=== PATIENT | male | born 1965 | race Caucasian/White ===

== ENCOUNTER 2019-06-30 14:25 | Outpatient (CLI) | payer OTHER, SELFPAY ==
[2019-06-30 15:28] LABS: Hematocrit 44.8 % (42.0-52.0); Hemoglobin 14.8 g/dL (14.0-18.0); Mean Corpuscular Hemoglobin 30.9 pg (26-34); Mean Corpuscular Volume 93.5 fl (80-100); Mean Platelet Volume 8.7 fl (7.4-10.4); Platelet Count Result 234 k/mm3 (150-375); Red Blood Count 4.79 M/mm3 (4.6-6.20); Red Cell Distribution Width 12.2 % (11.5-14.5); White Blood Count 6.4 K/mm3 (4.5-10.0)
[2019-06-30 15:40] LABS: Alanine Aminotransferase 21 U/L (4-50); Albumin Level 4.3 g/dL (3.5-5.1); Alkaline Phosphatase 58 U/L (38-126); Aspartate Amino Transferase 27 U/L (17-59); Bilirubin,Total 0.4 mg/dL (0.2-1.3); Blood Urea Nitrogen 20 mg/dL (9-20); Carbon Dioxide 30 mmol/L (22-30); Chloride 97 mmol/L (98-107); Estimated Glomerular Filt Rate 40; Glucose 77 mg/dL (75-110); Potassium 4.3 mmol/L (3.4-5.0); Sodium 140 mmol/L (137-145)
[2019-06-30 15:56] LABS: T4 Thyroxine 9.77 ug/dL (5.53-11.0)
[2019-06-30 16:09] LABS: Total Triiodothyronine (T3) 1.19 NG/ML (0.97-1.69)
[2019-06-30 16:10] LABS: Valproic Acid 46.5 ug/mL (50-120)
== END 2019-06-30 14:26 | disposition home or self-care (01) ==
PROVIDERS: PCP Internal Medicine
DX: Z79.899 Other long term (current) drug therapy (principal)
CPT/HCPCS: 36415; 80053; 80164; 84436; 84443; 84480; 85027

== ENCOUNTER 2019-07-28 08:56 | Outpatient (RCR) | payer OTHER, SELFPAY ==
--- NOTE | 2019-05-04 10:19 | PC.NURSE ---
PATIENT BROUGHT MEDICATION WITH HIM IN PHARMACY BOTTLE AND MARKED APPROPRIATELY.
== END 2019-07-29 23:59 | disposition home or self-care (01) ==
LOC: ANHLAB 08:56
PROVIDERS: PCP Internal Medicine
DX: F25.9 Schizoaffective disorder, unspecified (principal)
CPT/HCPCS: 96372

== ENCOUNTER 2019-10-13 12:56 | Outpatient (CLI) | payer OTHER, SELFPAY ==
[2019-10-13 13:43] LABS: Basophils Percent Auto 0.5 % (0.2-1.2); Eosinophils Absolute Auto 0.2 K/mm3 (0-0.3); Eosinophils Percent Auto 3.9 % (0-4.4); Hemoglobin 14.4 g/dL (14.0-18.0); Immature Granulocyte Absolute 0.03 K/mm3 (0.00-0.031); Immature Granulocyte Percent A 0.5 % (0-0.5); Lymphocytes Absolute Auto 1.83 K/mm3 (0.9-3.2); Lymphocytes Percent Auto 29.9 % (18.3-44.2); Mean Corpuscular HGB Conc 33.5 g/dl (32-36); Mean Corpuscular Volume 92.7 fl (80-100); Mean Platelet Volume 8.7 fl (7.4-10.4); Monocytes Absolute Auto 0.7 K/mm3 (0.1-0.6); Monocytes Percent Auto 10.8 % (2.6-8.5); Neutrophils Absolute Auto 3.3 K/mm3 (1.3-6.7); Neutrophils Percent Auto 54.4 % (45.5-73.1); Platelet Count Result 216 k/mm3 (150-375); Red Blood Count 4.64 M/mm3 (4.6-6.20); Red Cell Distribution Width 12.4 % (11.5-14.5); White Blood Count 6.1 K/mm3 (4.5-10.0)
[2019-10-13 13:44] LABS: Creatinine Urine 32.1 mg/dL; Total Protein Urine Random 12 mg/dL
[2019-10-13 13:47] LABS: Albumin Level 4.1 g/dL (3.5-5.1); Blood Urea Nitrogen 20 mg/dL (9-20); Calcium 9.6 mg/dL (8.4-10.2); Carbon Dioxide 31 mmol/L (22-30); Chloride 102 mmol/L (98-107); Estimated Glomerular Filt Rate 42; Glucose 84 mg/dL (75-110); Phosphorus 3.2 mg/dL (2.5-4.5); Potassium 4.7 mmol/L (3.4-5.0); Sodium 137 mmol/L (137-145)
[2019-10-13 13:53] LABS: Add Urine Microscopic? NO; Appearance Urine Clear (Clear); Bilirubin Urine Negative (Negative); Blood Urine Negative (Negative); Color Urine Straw (Yellow); Glucose Urine UA Negative (Negative); Ketones Urine Negative (Negative); Leukocyte Esterase Ur Negative LEU/UL (NEGATIVE); Nitrate Urine Negative (Negative); Protein Urine Negative (Negative); Specific Grav Ur 1.008 (1.001-1.035); Urobilinogen Urine Negative mg/dL (<2.0)
[2019-10-13 14:02] LABS: Parathyroid Intact 34.6 pg/mL (7.5-53.5)
== END 2019-10-13 12:57 | disposition home or self-care (01) ==
PROVIDERS: PCP Internal Medicine; Visit Provider Internal Medicine Nephrology
DX: N18.3 Chronic kidney disease, stage 3 (moderate) (principal)
CPT/HCPCS: 36415; 80069; 81003; 82570; 83970; 84156; 85025

== ENCOUNTER 2019-11-17 07:45 | Outpatient (RCR) | payer OTHER, SELFPAY | END 2019-11-23 23:59 | disposition home or self-care (01) | LOC: ANHLAB 07:45 | PROVIDERS: PCP Internal Medicine | DX: F25.9 Schizoaffective disorder, unspecified (principal) | CPT/HCPCS: 96372 ==

== ENCOUNTER 2020-02-15 12:13 | Outpatient (CLI) | payer OTHER, SELFPAY ==
[2020-02-15 13:54] LABS: Basophils Percent Auto 0.5 % (0.2-1.2); Eosinophils Absolute Auto 0.1 K/mm3 (0-0.3); Eosinophils Percent Auto 2.1 % (0-4.4); Hematocrit 44.6 % (42.0-52.0); Hemoglobin 15.1 g/dL (14.0-18.0); Immature Granulocyte Absolute 0.02 K/mm3 (0.00-0.031); Immature Granulocyte Percent A 0.3 % (0-0.5); Lymphocytes Absolute Auto 1.73 K/mm3 (0.9-3.2); Lymphocytes Percent Auto 26.5 % (18.3-44.2); Mean Corpuscular HGB Conc 33.9 g/dl (32-36); Mean Corpuscular Hemoglobin 30.6 pg (26-34); Mean Corpuscular Volume 90.5 fl (80-100); Mean Platelet Volume 8.6 fl (7.4-10.4); Monocytes Absolute Auto 0.7 K/mm3 (0.1-0.6); Monocytes Percent Auto 11.3 % (2.6-8.5); Neutrophils Absolute Auto 3.9 K/mm3 (1.3-6.7); Neutrophils Percent Auto 59.3 % (45.5-73.1); Platelet Count Result 209 k/mm3 (150-375); Red Blood Count 4.93 M/mm3 (4.6-6.20); Red Cell Distribution Width 12.3 % (11.5-14.5); White Blood Count 6.5 K/mm3 (4.5-10.0)
[2020-02-15 14:08] LABS: Alanine Aminotransferase 24 U/L (4-50); Albumin Level 4.3 g/dL (3.5-5.1); Alkaline Phosphatase 49 U/L (38-126); Anion Gap 8 mmol/L (8-16); Aspartate Amino Transferase 28 U/L (17-59); Bilirubin,Total 0.6 mg/dL (0.2-1.3); Blood Urea Nitrogen 17 mg/dL (9-20); Calcium 9.9 mg/dL (8.4-10.2); Carbon Dioxide 32 mmol/L (22-30); Chloride 101 mmol/L (98-107); Cholesterol 141 mg/dL (0-200); Estimated Glomerular Filt Rate 42; Glucose 83 mg/dL (75-110); HDL Direct 44 mg/dL; Potassium 4.7 mmol/L (3.4-5.0); Sodium 141 mmol/L (137-145); Triglycerides 113 mg/dL (<150)
[2020-02-15 14:19] LABS: LDL Cholesterol Direct 71 mg/dL
[2020-02-15 14:37] LABS: Prostate Specific Antigen 2.4 ng/mL (< OR = 4.0)
== END 2020-02-15 12:14 | disposition home or self-care (01) ==
LOC: ANHLAB 12:15
PROVIDERS: PCP Internal Medicine; Visit Provider Clinical Nurse Specialist
DX: Z13.228 Encounter for screening for other metabolic disorders (principal); Z13.220 Encounter for screening for lipoid disorders; Z12.5 Encounter for screening for malignant neoplasm of prostate; E03.9 Hypothyroidism, unspecified
CPT/HCPCS: 36415; 80053; 80061; 84153; 84443; 85025; G0103

== ENCOUNTER 2020-03-11 09:15 | Outpatient (RCR) | payer OTHER, SELFPAY | END 2020-03-14 23:59 | disposition home or self-care (01) | LOC: ANHLAB 09:15 | PROVIDERS: PCP Internal Medicine | DX: F25.9 Schizoaffective disorder, unspecified (principal) | CPT/HCPCS: 96372 ==

== ENCOUNTER 2020-04-11 11:26 | Outpatient (CLI) | payer OTHER, SELFPAY ==
[2020-04-11 12:15] LABS: Basophils Percent Auto 0.3 % (0.2-1.2); Eosinophils Absolute Auto 0.2 K/mm3 (0-0.3); Eosinophils Percent Auto 3.6 % (0-4.4); Hematocrit 42.1 % (42.0-52.0); Hemoglobin 14.4 g/dL (14.0-18.0); Immature Granulocyte Absolute 0.02 K/mm3 (0.00-0.031); Immature Granulocyte Percent A 0.3 % (0-0.5); Lymphocytes Absolute Auto 1.92 K/mm3 (0.9-3.2); Lymphocytes Percent Auto 29.2 % (18.3-44.2); Mean Corpuscular HGB Conc 34.2 g/dl (32-36); Mean Corpuscular Hemoglobin 31.4 pg (26-34); Mean Corpuscular Volume 91.7 fl (80-100); Mean Platelet Volume 8.5 fl (7.4-10.4); Monocytes Absolute Auto 0.7 K/mm3 (0.1-0.6); Monocytes Percent Auto 10.2 % (2.6-8.5); Neutrophils Absolute Auto 3.7 K/mm3 (1.3-6.7); Neutrophils Percent Auto 56.4 % (45.5-73.1); Platelet Count Result 209 k/mm3 (150-375); Red Blood Count 4.59 M/mm3 (4.6-6.20); Red Cell Distribution Width 12.4 % (11.5-14.5); White Blood Count 6.6 K/mm3 (4.5-10.0)
[2020-04-11 12:26] LABS: Anion Gap 5 mmol/L (8-16); Blood Urea Nitrogen 18 mg/dL (9-20); Calcium 9.4 mg/dL (8.4-10.2); Carbon Dioxide 34 mmol/L (22-30); Chloride 101 mmol/L (98-107); Estimated Glomerular Filt Rate 40; Glucose 89 mg/dL (75-110); Phosphorus 3.2 mg/dL (2.5-4.5); Potassium 5.2 mmol/L (3.4-5.0); Sodium 140 mmol/L (137-145)
[2020-04-11 12:35] LABS: Add Urine Microscopic? YES; Appearance Urine Clear (Clear); Bilirubin Urine Negative (Negative); Blood Urine Negative (Negative); Color Urine Yellow (Yellow); Glucose Urine UA Negative (Negative); Ketones Urine Negative (Negative); Leukocyte Esterase Ur Negative LEU/UL (NEGATIVE); Mucus Urine Rare /lpf; Nitrate Urine Negative (Negative); Protein Urine 1+ mg/dL (Negative); RBC Urine 0-2 /hpf (0-2); Specific Grav Ur 1.014 (1.001-1.035); Squamous Epithelial Cell Urine Rare /hpf (Few); Urobilinogen Urine Negative mg/dL (<2.0); WBC Urine 0-3 /hpf (0-3)
[2020-04-11 12:37] LABS: Parathyroid Intact 57.2 pg/mL (7.5-53.5)
[2020-04-11 12:58] LABS: Creatinine Urine 126.6 mg/dL
[2020-04-11 13:03] LABS: MALB Creatinine Ratio 14.2 mg/g (0-30)
== END 2020-04-11 11:27 | disposition home or self-care (01) ==
PROVIDERS: PCP Internal Medicine
DX: N18.30 Chronic kidney disease, stage 3 unspecified (principal)
CPT/HCPCS: 36415; 80069; 81001; 82043; 83970; 85025

== ENCOUNTER 2020-05-09 12:58 | Outpatient (CLI) | payer OTHER, SELFPAY ==
--- NOTE | 2020-05-13 11:47 | WPDHOLTEREM ---
Holter/Event Monitor Holter/Event Monitor Date of procedure: 05/09/20 Procedure Type: 48 hour holter monitor Indications: Palpitations Conclusion: 1. 48 hour holter monitor on 05/09/20. 2. Underlying rhythm is sinus rhythm. HR range 51-133 bpm; average HR 77 bpm. 3. There are 67 premature supraventricular complexes and 2 supraventricular couplets. No supraventricular tachycardia. 4. There is 1 premature ventricular complex. No ventricular tachycardia. 5. No sinoatrial or atrioventricular blocks. No significant pauses greater than 2 seconds. 6. No symptoms available for correlation.
== END 2020-05-09 12:59 | disposition home or self-care (01) ==
PROVIDERS: PCP Internal Medicine; Visit Provider Clinical Nurse Specialist
DX: R00.2 Palpitations (principal)
CPT/HCPCS: 93225; 93226; 96372

== ENCOUNTER 2020-08-01 08:25 | Outpatient (RCR) | payer OTHER, SELFPAY | END 2020-08-07 23:59 | disposition home or self-care (01) | LOC: ANHLAB 08:25 | PROVIDERS: PCP Internal Medicine | DX: F20.9 Schizophrenia, unspecified (principal) | CPT/HCPCS: 96372 ==

== ENCOUNTER 2020-08-25 14:01 | Outpatient (CLI) | payer OTHER, SELFPAY | END 2020-08-25 14:02 | disposition home or self-care (01) | LOC: ANHCOVIDVC 14:01 | PROVIDERS: PCP Internal Medicine | DX: Z23 Encounter for immunization (principal) | CPT/HCPCS: 0001A; 91300 ==

== ENCOUNTER 2020-09-15 13:58 | Outpatient (CLI) | payer OTHER, SELFPAY | END 2020-09-15 13:59 | disposition home or self-care (01) | LOC: ANHCOVIDVC 13:58 | PROVIDERS: PCP Internal Medicine | DX: Z23 Encounter for immunization (principal) | CPT/HCPCS: 0002A; 91300 ==

== ENCOUNTER 2020-10-11 08:51 | Outpatient (CLI) | payer OTHER, SELFPAY ==
[2020-10-11 09:11] LABS: Basophils Percent Auto 0.3 % (0.2-1.2); Eosinophils Absolute Auto 0.1 K/mm3 (0-0.3); Eosinophils Percent Auto 2.3 % (0-4.4); Hematocrit 42.6 % (42.0-52.0); Hemoglobin 14.2 g/dL (14.0-18.0); Immature Granulocyte Absolute 0.02 K/mm3 (0.00-0.031); Immature Granulocyte Percent A 0.3 % (0-0.5); Lymphocytes Absolute Auto 1.71 K/mm3 (0.9-3.2); Lymphocytes Percent Auto 28.3 % (18.3-44.2); Mean Corpuscular HGB Conc 33.3 g/dl (32-36); Mean Corpuscular Hemoglobin 31.3 pg (26-34); Mean Platelet Volume 8.3 fl (7.4-10.4); Monocytes Absolute Auto 0.9 K/mm3 (0.1-0.6); Monocytes Percent Auto 15.2 % (2.6-8.5); Neutrophils Absolute Auto 3.2 K/mm3 (1.3-6.7); Neutrophils Percent Auto 53.6 % (45.5-73.1); Platelet Count Result 187 k/mm3 (150-375); Red Blood Count 4.53 M/mm3 (4.6-6.20); Red Cell Distribution Width 12.5 % (11.5-14.5); White Blood Count 6.1 K/mm3 (4.5-10.0)
[2020-10-11 09:26] LABS: Albumin Level 4.1 g/dL (3.5-5.1); Anion Gap 7 mmol/L (8-16); Blood Urea Nitrogen 20 mg/dL (9-20); Calcium 9.5 mg/dL (8.4-10.2); Carbon Dioxide 29 mmol/L (22-30); Chloride 104 mmol/L (98-107); Estimated Glomerular Filt Rate 42; Glucose 87 mg/dL (75-110); Potassium 4.6 mmol/L (3.4-5.0); Sodium 140 mmol/L (137-145)
[2020-10-11 09:36] LABS: Parathyroid Intact 49.2 pg/mL (7.5-53.5)
== END 2020-10-11 08:52 | disposition home or self-care (01) ==
PROVIDERS: PCP Internal Medicine; Visit Provider Internal Medicine Nephrology
DX: N18.31 Chronic kidney disease, stage 3a (principal)
CPT/HCPCS: 36415; 80069; 83970; 85025

== ENCOUNTER 2020-10-19 07:04 | Outpatient (CLI) | payer OTHER, SELFPAY | END 2020-10-19 07:05 | disposition home or self-care (01) | PROVIDERS: PCP Internal Medicine; Visit Provider Internal Medicine | DX: I95.9 Hypotension, unspecified (principal) | CPT/HCPCS: 36415; 82533 ==

== ENCOUNTER 2020-11-10 12:05 | Outpatient (CLI) | payer OTHER, SELFPAY ==
[2020-11-10 12:40] LABS: Add Urine Microscopic? YES; Appearance Urine Clear (Clear); Bilirubin Urine Negative (Negative); Blood Urine Negative (Negative); Color Urine Straw (Yellow); Glucose Urine UA Negative (Negative); Ketones Urine Negative (Negative); Leukocyte Esterase Ur Trace LEU/UL (Negative); Nitrate Urine Negative (Negative); Protein Urine Negative (Negative); RBC Urine 0-2 /hpf (0-2); Specific Grav Ur 1.006 (1.001-1.035); Squamous Epithelial Cell Urine Rare /hpf (Few); Urobilinogen Urine Negative mg/dL (<2.0)
== END 2020-11-10 12:06 | disposition home or self-care (01) ==
LOC: ANHLAB 12:09
PROVIDERS: PCP Internal Medicine; Visit Provider Nurse Practitioner
DX: N39.0 Urinary tract infection, site not specified (principal)
CPT/HCPCS: 81001; 87086

== ENCOUNTER 2020-11-21 08:00 | Outpatient (RCR) | payer OTHER, SELFPAY | END 2020-11-27 23:59 | disposition home or self-care (01) | LOC: ANHLAB 08:00 | PROVIDERS: PCP Internal Medicine | DX: F25.9 Schizoaffective disorder, unspecified (principal) | CPT/HCPCS: 96372 ==

== ENCOUNTER 2021-01-01 12:24 | Outpatient (CLI) | payer OTHER, SELFPAY ==
--- NOTE | ~2021-01-01 | MR_ITS ---
EXAMINATION: MR brain/brain stem wo con DATE: 01/01/2021 13:47 INDICATION: Other amnesia. TECHNIQUE: Magnetic resonance imaging (MRI) of the brain and brainstem was performed without intraven ous contrast. Sequences included sagittal and axial T1-weighted FSE, axial diffusion-weighted FS EPI, axial T2*-weighted GRE, axial T2-weighted FLAIR Propeller, and axial T2-weighted Propeller. Apparent diffusion coefficient (ADC) maps were created. COMPARISON: Head CT 03/29/2014 FINDINGS: There is a small focus of chronic encephalomalacia with old blood products in the posterior right frontal lobe centrum semiovale. There are scattered areas of nonspecific increased T2-weighted signal intensity in the cerebral white matter, which is within normal limits for the patient's age. There is no acute ischemic infarct. The ventricles are normal in size. The orbits are normal. There i s mild mucosal thickening in the paranasal sinuses. The mastoid air cells are normal. IMPRESSION: 1. Small focus of chronic encephalomalacia with old blood products in the posterior right frontal lob e centrum semiovale. Reviewed, dictated and finalized at location A. IMPRESSION: 1. Small focus of chronic encephalomalacia with old blood products in the poste rior right frontal lobe centrum semiovale.
== END 2021-01-01 12:25 | disposition home or self-care (01) ==
PROVIDERS: PCP Internal Medicine; Visit Provider Clinical Nurse Specialist
DX: R41.3 Other amnesia (principal)
CPT/HCPCS: 70551

== ENCOUNTER 2021-01-15 18:01 | Emergency (ER) | payer OTHER, SELFPAY ==
[2021-01-15 18:04] VITALS: BP 147/96; PULSE 80; RESP 18; TEMP 36.9; O2SAT 99
--- NOTE | 2021-01-15 18:15 | PC.NURSE ---
tiffanie placed at pt bedside.
[2021-01-15 18:38] VITALS: BP 152/108; PULSE 88; RESP 16; O2SAT 100
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
[2021-01-15 18:57] LABS: Basophils Percent Auto 0.3 % (0.2-1.2); Eosinophils Absolute Auto 0.1 K/mm3 (0-0.3); Eosinophils Percent Auto 0.7 % (0-4.4); Hematocrit 46.4 % (42.0-52.0); Hemoglobin 15.5 g/dL (14.0-18.0); Immature Granulocyte Absolute 0.03 K/mm3 (0.00-0.031); Immature Granulocyte Percent A 0.3 % (0-0.5); Lymphocytes Absolute Auto 1.53 K/mm3 (0.9-3.2); Lymphocytes Percent Auto 15.5 % (18.3-44.2); Mean Corpuscular HGB Conc 33.4 g/dl (32-36); Mean Corpuscular Hemoglobin 31.7 pg (26-34); Mean Corpuscular Volume 94.9 fl (80-100); Mean Platelet Volume 8.3 fl (7.4-10.4); Monocytes Absolute Auto 0.9 K/mm3 (0.1-0.6); Monocytes Percent Auto 8.9 % (2.6-8.5); Neutrophils Absolute Auto 7.3 K/mm3 (1.3-6.7); Neutrophils Percent Auto 74.3 % (45.5-73.1); Platelet Count Result 232 k/mm3 (150-375); Red Blood Count 4.89 M/mm3 (4.6-6.20); Red Cell Distribution Width 12.3 % (11.5-14.5); White Blood Count 9.9 K/mm3 (4.5-10.0)
[2021-01-15 19:13] LABS: Alanine Aminotransferase 22 U/L (4-50); Albumin Level 4.6 g/dL (3.5-5.1); Alkaline Phosphatase 58 U/L (38-126); Anion Gap 11 mmol/L (8-16); Aspartate Amino Transferase 28 U/L (17-59); Bilirubin,Total 0.4 mg/dL (0.2-1.3); Blood Urea Nitrogen 26 mg/dL (9-20); Carbon Dioxide 28 mmol/L (22-30); Chloride 101 mmol/L (98-107); Estimated CRCL calculation 52 ml/min; Estimated Glomerular Filt Rate 40; Glucose 107 mg/dL (65-110); Potassium 4.5 mmol/L (3.4-5.0); Sodium 140 mmol/L (137-145)
[2021-01-15 19:21] LABS: Ethanol < 10 mg/dL (<10)
[2021-01-15 19:53] LABS: Add Urine Microscopic? YES; Appearance Urine Clear (Clear); Bacteria Urine Trace /hpf; Bilirubin Urine Negative (Negative); Blood Urine Negative (Negative); Color Urine Straw (Yellow); Glucose Urine UA Negative (Negative); Ketones Urine Negative (Negative); Leukocyte Esterase Ur Trace LEU/UL (Negative); Nitrate Urine Negative (Negative); Protein Urine Negative (Negative); RBC Urine 0-2 /hpf (0-2); Specific Grav Ur 1.006 (1.001-1.035); Urobilinogen Urine Negative mg/dL (<2.0); WBC Urine 0-3 /hpf
[2021-01-15 20:11] LABS: Amphetamine Screen Urine Negative (Negative); Barbiturate Screen Urine Negative (Negative); Benzodiazepines Screen Urine Negative (Negative); Cannabinoid Screen Urine Negative (Negative); Cocaine Screen Urine Negative (Negative); Methadone Screen Urine Negative (Negative); Opiate Screen Urine Negative (Negative); Phencyclidine Screen Urine Negative (Negative)
[2021-01-15 21:38] LABS: EDCOVIDSCREEN Negative (Negative)
--- NOTE | 2021-01-15 21:41 | PC.NURSE ---
crisis called @ 2099, crisis @ bedside @ 2129
[2021-01-15 22:58] VITALS: BP 133/87; PULSE 72; RESP 18; O2SAT 98
--- NOTE | 2021-01-16 03:08 | PC.NURSE ---
melly called ,pt is excepted for admitt via
[2021-01-16 03:20] VITALS: BP 126/92; PULSE 62; RESP 16; O2SAT 100
--- NOTE | 2021-01-16 05:10 | PC.NURSE ---
report to lawrence roman @ [facility]
--- NOTE | 2021-01-16 05:39 | PC.NURSE ---
Called [facility] to transport patient to [facility]. ETA [id number]
== END 2021-01-16 06:18 ==
PROVIDERS: Physician Assistant; Emergency Provider Emergency Medicine; PCP Internal Medicine
DX: F20.9 Schizophrenia, unspecified (principal); Z20.822 Contact with and (suspected) exposure to COVID-19; E03.9 Hypothyroidism, unspecified; K21.9 Gastro-esophageal reflux disease without esophagitis; N18.9 Chronic kidney disease, unspecified; K22.70 Barrett's esophagus without dysplasia; Z85.01 Personal history of malignant neoplasm of esophagus
CPT/HCPCS: 36415; 80053; 80307; 81001; 84443; 85025; 87426; 99285; C9803

== ENCOUNTER 2021-01-26 11:58 | Inpatient (IN) | payer OTHER, SELFPAY ==
--- NOTE | ~2021-01-26 | CT_ITS ---
EXAMINATION: CT brain wo con INDICATION: Weakness COMPARISON: 03/29/2014 TECHNIQUE: Standard unenhanced head CT. The dose-length product (DLP) was 681.00 mGy-cm. The mA was a djusted according to patient size. Iterative reconstruction technique was employed. FINDINGS: There is no intracranial hemorrhage, acute infarction, or abnormal mass lesion. The ventric les are normal. There is no abnormal mass effect or midline shift. The leija-white matter differentiat ion is normal. The basal cisterns are patent. The orbits are normal. There is mild mucosal thickening of the paranasal sinuses. IMPRESSION: 1. No acute intracranial abnormality. Reviewed, dictated and finalized at location A.
--- NOTE | ~2021-01-26 | XR_ITS ---
EXAMINATION: XR chest 1V portable DATE: 01/26/2021 12:26 INDICATION: Weakness TECHNIQUE: frontal view of the chest was obtained. COMPARISON: Chest radiograph dated 12/14/2016 FINDINGS: The lungs remain clear with no focal airspace opacities, pulmonary edema, pleural effusion or pneumot horax. The cardiomediastinal silhouette is normal. Visualized bones and soft tissues are unremarkable . IMPRESSION: 1. No acute cardiopulmonary disease. Reviewed, dictated and finalized at location A.
[2021-01-26 12:03] VITALS: BP 125/92; PULSE 105; RESP 20; TEMP 37.1; O2SAT 95
--- NOTE | 2021-01-26 12:16 | ECG_ITS ---
Measurements Intervals [place] Rate: 95 P: 87 NC: 149 QRS: 63 QRSD: 114 T: 41 QT: 351 QTc: 442 Interpretive Statements SINUS RHYTHM ST ELEVATION IN DIFFUSE LEADS- CONSIDER EARLY REPOLARIZATION ABNORMALITY OR PERICARDITIS BASELINE ARTIFACT- I, III, AVL, AVF, V2 ABNORMAL ECG Electronically Signed On 01-26-2021 13:46:43 CDT by Delio Persaud D.O.
[2021-01-26 13:10] LABS: Basophils Percent Auto 0.4 % (0.2-1.2); Eosinophils Absolute Auto 0.1 K/mm3 (0-0.3); Eosinophils Percent Auto 0.8 % (0-4.4); Hematocrit 47.2 % (42.0-52.0); Hemoglobin 15.5 g/dL (14.0-18.0); Immature Granulocyte Absolute 0.03 K/mm3 (0.00-0.031); Immature Granulocyte Percent A 0.4 % (0-0.5); Lymphocytes Absolute Auto 1.27 K/mm3 (0.9-3.2); Mean Corpuscular HGB Conc 32.8 g/dl (32-36); Mean Corpuscular Hemoglobin 32.2 pg (26-34); Mean Corpuscular Volume 97.9 fl (80-100); Mean Platelet Volume 8.6 fl (7.4-10.4); Monocytes Absolute Auto 0.8 K/mm3 (0.1-0.6); Monocytes Percent Auto 9.9 % (2.6-8.5); Neutrophils Absolute Auto 5.8 K/mm3 (1.3-6.7); Neutrophils Percent Auto 72.5 % (45.5-73.1); Platelet Count Result 231 k/mm3 (150-375); Red Blood Count 4.82 M/mm3 (4.6-6.20); Red Cell Distribution Width 12.3 % (11.5-14.5)
[2021-01-26] MEDS: SODIUM CHLORIDE 0.9% IV 1,000 ML 999 ML IV CONT ×2 (13:12→17:08)
[2021-01-26 13:16] LABS: Alanine Aminotransferase 19 U/L (4-50); Albumin Level 4.6 g/dL (3.5-5.1); Alkaline Phosphatase 55 U/L (38-126); Anion Gap 10 mmol/L (8-16); Aspartate Amino Transferase 23 U/L (17-59); Bilirubin,Total 0.9 mg/dL (0.2-1.3); Blood Urea Nitrogen 30 mg/dL (9-20); Calcium 10.3 mg/dL (8.4-10.2); Carbon Dioxide 26 mmol/L (22-30); Chloride 105 mmol/L (98-107); Creatine Kinase 168 U/L (55-170); Estimated CRCL calculation 38 ml/min; Estimated Glomerular Filt Rate 28; Glucose 112 mg/dL (65-110); Potassium 4.8 mmol/L (3.4-5.0); Sodium 141 mmol/L (137-145)
[2021-01-26 13:19] LABS: Acetaminophen < 10 ug/mL (10-30); Ethanol < 10 mg/dL (<10); Salicylate < 1.0 mg/dL (2-20)
--- NOTE | 2021-01-26 13:44 | ED.GENADULT ---
HPI - General Adult General Chief complaint: Weakness Stated complaint: WEAKNESS Source: patient and family Limitations: no limitations History of Present Illness HPI narrative: Patient presents with general weakness for unknown duration. Patient is telling me that he felt sometimes in the past and struck his head. Patient denies any fever, chills, nausea, vomiting, chest pain, shortness of breath, abdominal pain, headache. History of schizophrenia. Patient denies any pain at this time patient's mother at the bedside who does not know anything about the patient either. Related Data Home Medications Medication Instructions Recorded Confirmed clonazepam 01/26/21 divalproex PO 01/26/21 gabapentin 01/26/21 haloperidol decanoate mg IM 01/26/21 lamotrigine 01/26/21 levothyroxine 01/26/21 midodrine mg 01/26/21 omeprazole 01/26/21 trihexyphenidyl 01/26/21 Allergies Allergy/AdvReac Type Severity Reaction Status Date / Time No Known Allergies Allergy Verified 01/26/21 13:19 Review of Systems Review of Systems: CONSTITUTIONAL: Denies fever, chills, or sweats. EYES: Denies visual changes, redness, or discharge. ENT: Denies rhinorrhea, congestion, sore throat, or otalgia. CARDIOVASCULAR: Denies chest pain, palpitations, or edema. RESPIRATORY: Denies cough or dyspnea. GASTROINTESTINAL: Denies abdominal pain, nausea, vomiting, or diarrhea. GENITOURINARY: Denies dysuria or hematuria. SKIN: Denies rash or itching. MUSCULOSKELETAL: Denies back pain, joint pain, or myalgia. NEUROLOGIC: Denies headache, numbness, or weakness. PSYCHIATRIC: Denies anxiety or depression. [facility] Past Medical History Medical History Harris esophagus CKD (chronic kidney disease) Esophageal cancer GERD (gastroesophageal reflux disease) Hypothyroidism Occasional tremors Schizophrenia Surgical History Surgical History History of nephrectomy Family History Family History Mother Hypertension Father Family history of Alzheimer's disease Malignant neoplasm of prostate Social History Social History Smoking status: Never smoker Alcohol intake: never Substance use type: does not use Exam Narrative: General appearance: Well-developed, well-nourished Skin: Normal color Head: Normocephalic, nontraumatic Eyes: Clear conjunctiva ENT: Oropharynx normal, ears normal, nose normal Neck: Supple, nontender Chest and respiratory: Airway patent, no respiratory distress, no accessory muscle use Heart: Regular rate/rhythm Abdomen: Soft, nontender, no organomegaly, quiet bowel sounds Vascular: Normal peripheral pulses, normal capillary refill. Musculoskeletal: Normal range of motion, nontender back Neurologic: Alert and oriented ?3, [employer] is normal as tested, no gross motor deficit Course Vital Signs Vital signs: Vital Signs Temperature 37.1 C 01/26/21 12:03 Pulse Rate 105 H 01/26/21 12:03 Respiratory Rate 20 01/26/21 12:03 Blood Pressure 125/92 H 01/26/21 12:03 Pulse Oximetry 95 01/26/21 12:03 Temperature 37.1 C 01/26/21 12:03 Pulse Rate 89 01/26/21 15:28 Respiratory Rate 20 01/26/21 15:28 Blood Pressure 123/88 01/26/21 15:28 Pulse Oximetry 98 01/26/21 15:28 Medical Decision Making MDM Narrative Medical decision making narrative: Patient presents with weakness, poor historian, Differential diagnosis as below. Labs, chest x-ray, CT head, IV fluids, UA Differential Diagnosis Differential Diagnosis: Electr
[2021-01-26 14:26] LABS: Prothrombin Time 13.1 Seconds (11.1-14.7)
[2021-01-26 15:28] VITALS: BP 123/88; PULSE 89; RESP 20; O2SAT 98
[2021-01-26 15:38] LABS: Add Urine Microscopic? YES; Appearance Urine Clear (Clear); Bilirubin Urine Negative (Negative); Color Urine Yellow (Yellow); Glucose Urine UA Negative (Negative); Ketones Urine Negative (Negative); Leukocyte Esterase Ur 1+ LEU/UL (Negative); Nitrate Urine Negative (Negative); Protein Urine Negative (Negative); Specific Grav Ur 1.019 (1.001-1.035); WBC Urine 21-30 /hpf
[2021-01-26 15:40] LABS: Blood Urine Negative (Negative)
[2021-01-26 15:43] LABS: Amphetamine Screen Urine Negative (Negative); Barbiturate Screen Urine Negative (Negative); Benzodiazepines Screen Urine Negative (Negative); Cannabinoid Screen Urine Negative (Negative); Cocaine Screen Urine Negative (Negative); Methadone Screen Urine Negative (Negative); Opiate Screen Urine Negative (Negative); Phencyclidine Screen Urine Negative (Negative)
[2021-01-26 17:00] VITALS: BP 125/90; PULSE 80; RESP 20; O2SAT 100
[2021-01-26 20:13] VITALS: BP 142/94; PULSE 87; RESP 16; TEMP 37.2; O2SAT 99
[2021-01-26] MEDS: SODIUM CHLORIDE 0.9% IV 1,000 ML 200 ML IV CONT (21:12)
--- NOTE | 2021-01-26 21:16 | ADMGEN ---
This patient, Bebo Casey, was admitted to Medical Room 258-01. Patient/family oriented to hospital policies and general routines including ID bracelet, bed and alarms, visiting hours, pain management, procedures, bathroom and other care routines, personal items, smoking policy, room service/diet, and visiting hours. Information on how to activate the Rapid Response Team has been discussed. Patient/Family are encouraged to report perceived risks to care and to ask questions if they do not understand what they are told or what they should do.
[2021-01-26 21:18] VITALS: BP 131/85; PULSE 100; RESP 20; TEMP 36.9; O2SAT 98
--- NOTE | 2021-01-26 21:27 | PM.IMHP ---
H&P: HPI History of Present Illness Date/Time: 01/26/21 21:27 Chief Complaint: Weakness Narrative: This is a 55-year-old male with past medical history significant for GERD, Harris's esophagus, chronic kidney disease, sulfa year cancer, hypothyroidism, schizophrenia, occasional tremors. Patient presented today to the emergency room due to feeling very weak unable to get up from the sitting position and had an episode where he could not remember how to use his phone and was very scared about these he felt like he would be a stuck in his house he has had very poor appetite, but no nausea, no vomiting ,no diarrhea no abdominal pain, no fevers ,no rigors, no chills ,no shortness of breath, no cough, no sputum production, no syncope or near syncope no chest pain no PND no orthopnea no leg swelling. His mother came to check on him and called EMS. Preliminary workup was significant for chemistry panel with a creatinine of 2.4, urinalysis with numerous wbc's present, a chest x-ray was clear a CT of the head with no acute findings. Review of Systems Review of Systems: Patient had episode of confusion did not know how to dialed his phone and was very weak unable to get up on his own. Constitutional: Constitutional: Denies chills, Denies fatigue, Denies fever(s), Reports lethargy and Reports weakness Eyes: Eyes: Denies change in vision ENT: Denies dysphagia, Denies nasal congestion, Denies nasal discharge, Denies nasal obstruction and Denies odynophagia Cardiovascular: Cardiovascular: Denies chest pain at rest, Denies irregular heart rhythm, Denies claudication, Denies leg edema, Denies lightheadedness, Denies radiating jaw, neck or arm pain, Denies palpitations, Denies dyspnea, Denies dyspnea on exertion and Denies orthopnea Respiratory: Respiratory: Denies chest congestion, Denies cough, Denies excessive phlegm production, Denies dyspnea and Denies dyspnea on exertion Gastrointestinal: Gastrointestinal: Denies abdominal pain, Denies dyspepsia, Denies heartburn, Denies diarrhea, Denies nausea and Denies vomiting Genitourinary: Genitourinary: Denies urinary frequency, Denies urinary hesitancy, Denies urinary incontinence and Denies urinary urgency Musculoskeletal: Musculoskeletal: Reports muscle weakness Integumentary/Breasts: Skin/Breast: Reports system reviewed and no additional complaints, except as docu Neurologic: Reports system reviewed and no additional complaints, except as documented Psychiatric: Psychiatric: Reports no additional psychiatric complaints Endocrine: Endocrine: Reports no additional endocrine complaints Hematologic/Lymphatic: Hematologic/Lymphatic: Reports no additional hematologic/lymphatic complaints Allergic/Immunologic: Allergic/Immunologic: Reports no additional allergic/immunologic complaints PMFSH Past Medical History Medical History Harris esophagus CKD (chronic kidney disease) Esophageal cancer GERD (gastroesophageal reflux disease) Hypothyroidism Occasional tremors Schizophrenia Surgical History Surgical History History of nephrectomy Family History Family History Mother Hypertension Father Family history of Alzheimer's disease Malignant neoplasm of prostate Social History Social History Smoking status: Never smoker Alcohol intake: never Substance use: never Substance use type: does not use Spiritual care concerns: No Meds Home Medications and Allergies Home Medications Medication Instructions Recorded Confirmed Type clonazepam 0.5 mg PO BID 01/26/21 01/26/21 History divalproex 500 mg PO BID 01/26/21 01/26/21 History gabapentin 300 mg PO BID 01/26/21 01/26/21 History haloperidol decanoate 150 mg IM DIRECTED 01/26/21 01/26/21 History lamotrigine 100 mg PO DAILY
--- NOTE | 2021-01-26 22:00 | PC.NURSE ---
called [facility] on 01/26/21 at 2145 to verify pt medications.
[2021-01-26] MEDS: DIVALPROEX SODIUM DR 250 MG TABEC 500 MG PO (23:58)
[2021-01-26] MEDS: GABAPENTIN 300 MG CAPSULE PO (23:58)
[2021-01-27] VITALS (10 sets, daily range): BP systolic 123–145; BP diastolic 70–88; PULSE 70–98; RESP 16–20; TEMP 35.9–36.9; O2SAT 98–100
[2021-01-27] MEDS: SODIUM CHLORIDE 0.9% IV 1,000 ML 85 ML IV CONT ×2 (05:30→17:57)
[2021-01-27] MEDS: LEVOTHYROXINE SODIUM 100 MCG TABLET PO (05:31)
[2021-01-27 07:13] LABS: Anion Gap 8 mmol/L (8-16); Blood Urea Nitrogen 25 mg/dL (9-20); Calcium 9.2 mg/dL (8.4-10.2); Carbon Dioxide 24 mmol/L (22-30); Chloride 111 mmol/L (98-107); Estimated CRCL calculation 49 ml/min; Estimated Glomerular Filt Rate 40; Glucose 95 mg/dL (65-110); Potassium 4.5 mmol/L (3.4-5.0); Sodium 143 mmol/L (137-145)
[2021-01-27] MEDS: TRIHEXYPHENIDYL HCL 1 MG TABLET PO ×2 (08:52→16:35)
[2021-01-27] MEDS: lamoTRIgine 100 MG TABLET PO (08:53)
[2021-01-27] MEDS: MIDODRINE HCL 2.5 MG TABLET PO ×3 (08:53→15:57)
[2021-01-27] MEDS: GABAPENTIN 300 MG CAPSULE PO ×2 (08:53→20:33)
[2021-01-27] MEDS: DIVALPROEX SODIUM DR 250 MG TABEC 500 MG PO ×2 (08:53→16:36)
[2021-01-27] MEDS: PANTOPRAZOLE 40 MG TABLET PO ×2 (08:53→16:36)
[2021-01-27] MEDS: TRIHEXYPHENIDYL HCL 2 MG TABLET 4 MG PO ×2 (08:55→16:36)
[2021-01-27] MEDS: clonazePAM (*CRX) 0.5 MG TABLET PO ×2 (09:01→16:46)
--- NOTE | 2021-01-27 09:29 | PM.IMPN ---
Progress Note: A&P Assessment and Plan (1) Urinary tract infection: Qualifiers: Hematuria presence: without hematuria Urinary tract infection type: site unspecified Qualified Code(s): N39.0 - Urinary tract infection, site not specified Code(s): N39.0 - Urinary tract infection, site not specified Status: Acute Assessment and Plan: Slight confusion Rocephin started Urine culture pending Tailor antibiotics to culture (2) OBEY (acute kidney injury): Code(s): N17.9 - Acute kidney failure, unspecified Status: Acute Assessment and Plan: Creatinine today is 2.40 upon admission today 1.80 Baseline 1.7-1.9 Likely pre renal azotemia IV fluids 85 ml/hr (3) Weakness: Code(s): R53.1 - Weakness Status: Acute Assessment and Plan: PT OT Likely secondary to UTI Equal strength bilaterally (4) Arm and leg movements, uncontrollable: Code(s): R25.8 - Other abnormal involuntary movements Status: Acute Assessment and Plan: probably from home medications probably EPS Continue home meds Stable (5) GERD (gastroesophageal reflux disease): Code(s): K21.9 - Gastro-esophageal reflux disease without esophagitis Status: Acute Assessment and Plan: Continue PPI (6) Schizophrenia: Qualifiers: Schizophrenia type: unspecified Qualified Code(s): F20.9 - Schizophrenia, unspecified Code(s): F20.9 - Schizophrenia, unspecified Status: Acute Assessment and Plan: Continue home meds Trend symptoms Could be having some symptoms now with the interview Haldol is q4 weeks hold for now looks like last dose was 01/17/21 (7) Orthostatic hypotension: Code(s): I95.1 - Orthostatic hypotension Status: Acute Assessment and Plan: Reorder Receiving IV fluids Supportive care Time Spent With Patient Time with patient: 25 - 35 minutes Subjective Date/time seen: 01/27/21 07:50 Interval history: Patient is a 55 year old male that is here for weakness. Today patient stated that he is feeling fine, except he is unable to move his legs. He stated that this is the reason he was on the floor. He stated that he knew he should not of gotten up and kept telling himself not to get up, but they told him to do it anyway, which I think is voices in his head. He kept referring back to the same thing every time he would answer a question. He then went into a story about fruit flies and a wasp that he killed on the floor. He also brought up the time when his dad . He is alert and oriented x 3. He is disoriented to the situation as he kept telling me that he is here because he cannot move his legs. He denied chest pain, shortness of breath, nausea, vomiting, abdominal pain, fevers, sweats, or chills. He did admit to weakness and fatigue. If asked how long he was on the floor he tells me that it was all a blur. He did state that he would want PT/OT to come and evaluate him, and he would like to stand. Review of Systems Review of Systems: All systems reviewed & are unremarkable except as noted in HPI and below Exam Const: General: cooperative, comfortable, no acute distress, well developed, alert and awake Nutritional Appearance: average body habitus Orientation/consciousness: patient oriented x3 HENMT: Head: normal to inspection, normocephalic and atraumatic Ears: hearing grossly normal bilaterally General nose exam: Normal external nose present Face and sinus: normal facial exam Mouth: Yes Normal oral and palatal mucosa present Eyes: General: appearance normal, both eyes and all related structures Alignment and Position: alignment normal Sclera: sclerae normal Pupils: Equal, round and reactive pupils present EOM: EOMs intact bilaterally Neck: Neck: full ROM, no lymphadenopathy, supple and no JVD Thyroid: thyroid normal Lymphatic: no
[2021-01-27 09:55] LABS: Creatine Kinase 45 U/L (55-170)
[2021-01-28] MEDS: LEVOTHYROXINE SODIUM 100 MCG TABLET PO (05:36)
[2021-01-28] MEDS: SODIUM CHLORIDE 0.9% IV 1,000 ML 85 ML IV CONT ×2 (05:39→17:12)
[2021-01-28 05:49] VITALS: BP 128/86; PULSE 73; RESP 18; TEMP 36.6; O2SAT 99
[2021-01-28 06:17] LABS: Basophils Percent Auto 0.7 % (0.2-1.2); Eosinophils Absolute Auto 0.2 K/mm3 (0-0.3); Eosinophils Percent Auto 3.3 % (0-4.4); Hematocrit 41.7 % (42.0-52.0); Hemoglobin 13.6 g/dL (14.0-18.0); Immature Granulocyte Absolute 0.02 K/mm3 (0.00-0.031); Immature Granulocyte Percent A 0.3 % (0-0.5); Lymphocytes Absolute Auto 1.92 K/mm3 (0.9-3.2); Lymphocytes Percent Auto 31.4 % (18.3-44.2); Mean Corpuscular HGB Conc 32.6 g/dl (32-36); Mean Corpuscular Hemoglobin 31.9 pg (26-34); Mean Corpuscular Volume 97.9 fl (80-100); Mean Platelet Volume 8.7 fl (7.4-10.4); Monocytes Absolute Auto 0.7 K/mm3 (0.1-0.6); Monocytes Percent Auto 11.3 % (2.6-8.5); Neutrophils Absolute Auto 3.2 K/mm3 (1.3-6.7); Platelet Count Result 185 k/mm3 (150-375); Red Blood Count 4.26 M/mm3 (4.6-6.20); White Blood Count 6.1 K/mm3 (4.5-10.0)
[2021-01-28 06:30] LABS: Alanine Aminotransferase 17 U/L (4-50); Albumin Level 3.4 g/dL (3.5-5.1); Alkaline Phosphatase 45 U/L (38-126); Anion Gap 8 mmol/L (8-16); Aspartate Amino Transferase 21 U/L (17-59); Bilirubin,Total 0.5 mg/dL (0.2-1.3); Blood Urea Nitrogen 23 mg/dL (9-20); Calcium 8.8 mg/dL (8.4-10.2); Carbon Dioxide 26 mmol/L (22-30); Chloride 109 mmol/L (98-107); Estimated CRCL calculation 52 ml/min; Estimated Glomerular Filt Rate 42; Glucose 87 mg/dL (65-110); Magnesium 1.9 mg/dL (1.6-2.3); Potassium 5.1 mmol/L (3.4-5.0); Sodium 143 mmol/L (137-145)
[2021-01-28] MEDS: clonazePAM (*CRX) 0.5 MG TABLET PO ×2 (08:11→17:14)
[2021-01-28] MEDS: lamoTRIgine 100 MG TABLET PO (08:11)
[2021-01-28] MEDS: MIDODRINE HCL 2.5 MG TABLET PO ×3 (08:11→15:40)
[2021-01-28] MEDS: TRIHEXYPHENIDYL HCL 2 MG TABLET 4 MG PO ×2 (08:11→17:14)
[2021-01-28] MEDS: GABAPENTIN 300 MG CAPSULE PO ×2 (08:11→20:55)
[2021-01-28] MEDS: TRIHEXYPHENIDYL HCL 1 MG TABLET PO ×2 (08:11→17:14)
[2021-01-28] MEDS: DIVALPROEX SODIUM DR 250 MG TABEC 500 MG PO ×2 (08:11→17:15)
[2021-01-28] MEDS: PANTOPRAZOLE 40 MG TABLET PO ×2 (08:52→17:14)
[2021-01-28 14:15] VITALS: BP 136/84; PULSE 88; RESP 16; TEMP 36.3; O2SAT 100
--- NOTE | 2021-01-28 15:12 | PM.IMPN ---
Progress Note: A&P Assessment and Plan (1) Urinary tract infection: Qualifiers: Hematuria presence: without hematuria Urinary tract infection type: site unspecified Qualified Code(s): N39.0 - Urinary tract infection, site not specified Code(s): N39.0 - Urinary tract infection, site not specified Status: Acute Assessment and Plan: Slight confusion Rocephin started Urine culture pending Tailor antibiotics to culture (2) OBEY (acute kidney injury): Code(s): N17.9 - Acute kidney failure, unspecified Status: Acute Assessment and Plan: Creatinine today is 2.40 upon admission today 1.80 Baseline 1.7-1.9 Likely pre renal azotemia IV fluids 85 ml/hr (3) Weakness: Code(s): R53.1 - Weakness Status: Acute Assessment and Plan: PT OT Likely secondary to UTI Equal strength bilaterally (4) Arm and leg movements, uncontrollable: Code(s): R25.8 - Other abnormal involuntary movements Status: Acute Assessment and Plan: probably from home medications probably EPS Continue home meds Stable (5) GERD (gastroesophageal reflux disease): Code(s): K21.9 - Gastro-esophageal reflux disease without esophagitis Status: Acute Assessment and Plan: Continue PPI (6) Schizophrenia: Qualifiers: Schizophrenia type: unspecified Qualified Code(s): F20.9 - Schizophrenia, unspecified Code(s): F20.9 - Schizophrenia, unspecified Status: Acute Assessment and Plan: Continue home meds Trend symptoms Could be having some symptoms now with the interview Haldol is q4 weeks hold for now looks like last dose was 01/17/21 (7) Orthostatic hypotension: Code(s): I95.1 - Orthostatic hypotension Status: Acute Assessment and Plan: Reorder Receiving IV fluids Supportive care Subjective Date/time seen: 01/28/21 15:12 Interval history: Patient is a 55 year old male who is admitted for evaluation of weakness. He seem unable to move his legs. He would want PT/OT to come and evaluate him, and he would like to be able to stand. Review of Systems Review of Systems: All systems reviewed & are unremarkable except as noted in HPI and below Constitutional: Constitutional: Denies chills, Denies fatigue, Denies fever(s), Reports lethargy and Reports weakness Eyes: Eyes: Denies change in vision ENT: Denies dysphagia, Denies nasal congestion, Denies nasal discharge, Denies nasal obstruction and Denies odynophagia Cardiovascular: Cardiovascular: Denies chest pain at rest, Denies irregular heart rhythm, Denies claudication, Denies leg edema, Denies lightheadedness, Denies radiating jaw, neck or arm pain, Denies palpitations, Denies dyspnea, Denies dyspnea on exertion and Denies orthopnea Respiratory: Respiratory: Denies chest congestion, Denies cough, Denies excessive phlegm production, Denies dyspnea and Denies dyspnea on exertion Gastrointestinal: Gastrointestinal: Denies abdominal pain, Denies dysphagia, Denies dyspepsia, Denies heartburn, Denies diarrhea, Denies nausea, Denies odynophagia and Denies vomiting Genitourinary: Genitourinary: Denies urinary frequency, Denies urinary hesitancy, Denies urinary incontinence and Denies urinary urgency Musculoskeletal: Musculoskeletal: Reports muscle weakness Integumentary/Breasts: Skin/Breast: Reports system reviewed and no additional complaints, except as docu Neurologic: Reports system reviewed and no additional complaints, except as documented and Reports weakness Psychiatric: Psychiatric: Reports no additional psychiatric complaints Endocrine: Endocrine: Reports no additional endocrine complaints, Denies fatigue and Denies palpitations Hematologic/Lymphatic: Hematologic/Lymphatic: Reports no additional hematologic/lymphatic complaints Allergic/Immunologic: Allergic/Immunologic: Reports no
[2021-01-28 20:00] VITALS: O2SAT 100
[2021-01-28 22:03] VITALS: BP 166/62; PULSE 77; RESP 18; TEMP 36; O2SAT 100
[2021-01-29 05:59] VITALS: BP 119/58; PULSE 81; RESP 18; TEMP 36.4; O2SAT 99
[2021-01-29] MEDS: SODIUM CHLORIDE 0.9% IV 1,000 ML 85 ML IV CONT ×2 (06:03→17:12)
[2021-01-29] MEDS: LEVOTHYROXINE SODIUM 100 MCG TABLET PO (06:03)
[2021-01-29] MEDS: MIDODRINE HCL 2.5 MG TABLET PO ×3 (09:00→15:00)
[2021-01-29] MEDS: DIVALPROEX SODIUM DR 250 MG TABEC 500 MG PO ×2 (09:00→17:12)
[2021-01-29] MEDS: TRIHEXYPHENIDYL HCL 2 MG TABLET 4 MG PO ×2 (09:01→17:13)
[2021-01-29] MEDS: GABAPENTIN 300 MG CAPSULE PO ×2 (09:01→20:37)
[2021-01-29] MEDS: clonazePAM (*CRX) 0.5 MG TABLET PO ×2 (09:01→17:12)
[2021-01-29] MEDS: lamoTRIgine 100 MG TABLET PO (09:01)
[2021-01-29] MEDS: PANTOPRAZOLE 40 MG TABLET PO ×2 (09:01→17:13)
[2021-01-29] MEDS: TRIHEXYPHENIDYL HCL 1 MG TABLET PO ×2 (09:01→17:13)
--- NOTE | 2021-01-29 10:24 | PM.IMPN ---
Progress Note: A&P Assessment and Plan (1) Urinary tract infection: Qualifiers: Hematuria presence: without hematuria Urinary tract infection type: site unspecified Qualified Code(s): N39.0 - Urinary tract infection, site not specified Code(s): N39.0 - Urinary tract infection, site not specified Status: Acute Assessment and Plan: Slight confusion Rocephin started Urine culture negative. Continue rocephin to complete 5 days of antibiotics and discharge home. (2) OBEY (acute kidney injury): Code(s): N17.9 - Acute kidney failure, unspecified Status: Acute Assessment and Plan: Acute non oliguric kidney injury Creatinine today is 2.40 upon admission today 1.80 Baseline 1.7-1.9 Likely pre renal azotemia IV fluids 85 ml/hr (3) Weakness: Code(s): R53.1 - Weakness Status: Acute Assessment and Plan: PT OT Likely secondary to UTI Equal strength bilaterally no objective weakness on examination(psych to re-evaluate as an outpatient?) (4) Arm and leg movements, uncontrollable: Code(s): R25.8 - Other abnormal involuntary movements Status: Acute Assessment and Plan: probably from home medications probably EPS Continue home meds Stable (5) GERD (gastroesophageal reflux disease): Code(s): K21.9 - Gastro-esophageal reflux disease without esophagitis Status: Acute Assessment and Plan: Continue PPI (6) Schizophrenia: Qualifiers: Schizophrenia type: unspecified Qualified Code(s): F20.9 - Schizophrenia, unspecified Code(s): F20.9 - Schizophrenia, unspecified Status: Acute Assessment and Plan: Continue home meds Trend symptoms Could be having some symptoms now with the interview Haldol is q4 weeks hold for now looks like last dose was 01/17/21 (7) Orthostatic hypotension: Code(s): I95.1 - Orthostatic hypotension Status: Acute Assessment and Plan: Reorder Receiving IV fluids Supportive care Subjective Date/time seen: 01/29/21 10:24 Interval history: Patient is a 55 year old gentleman who is admitted for evaluation of weakness. He seems unable to move his legs, but on examination there is good muscle tone. His muscular strength is wnl by PT. Patient affirms he was unsteady on his feet. He is encouraged to continue working with PT in anticipation for discharge in AM. Review of Systems Review of Systems: All systems reviewed & are unremarkable except as noted in HPI and below Constitutional: Constitutional: Denies chills, Denies fatigue, Denies fever(s), Reports lethargy and Reports weakness Eyes: Eyes: Denies change in vision ENT: Denies dysphagia, Denies nasal congestion, Denies nasal discharge, Denies nasal obstruction and Denies odynophagia Cardiovascular: Cardiovascular: Denies chest pain at rest, Denies irregular heart rhythm, Denies claudication, Denies leg edema, Denies lightheadedness, Denies radiating jaw, neck or arm pain, Denies palpitations, Denies dyspnea, Denies dyspnea on exertion and Denies orthopnea Respiratory: Respiratory: Denies chest congestion, Denies cough, Denies excessive phlegm production, Denies dyspnea and Denies dyspnea on exertion Gastrointestinal: Gastrointestinal: Denies abdominal pain, Denies dysphagia, Denies dyspepsia, Denies heartburn, Denies diarrhea, Denies nausea, Denies odynophagia and Denies vomiting Genitourinary: Genitourinary: Denies urinary frequency, Denies urinary hesitancy, Denies urinary incontinence and Denies urinary urgency Musculoskeletal: Musculoskeletal: Reports muscle weakness Integumentary/Breasts: Skin/Breast: Reports system reviewed and no additional complaints, except as docu Neurologic: Reports system reviewed and no additional complaints, except as documented and Reports weakness Psychiatric: Psychiatric: Reports no additional ps
[2021-01-29 14:45] VITALS: BP 134/93; PULSE 78; RESP 18; TEMP 36.2; O2SAT 100
[2021-01-29 20:00] VITALS: PULSE 78; RESP 18; O2SAT 100
[2021-01-29 22:00] VITALS: BP 145/83; PULSE 77; RESP 18; TEMP 36.3; O2SAT 100
[2021-01-30] MEDS: SODIUM CHLORIDE 0.9% IV 1,000 ML 85 ML IV CONT ×2 (05:16→16:40)
[2021-01-30 06:00] VITALS: BP 139/83; PULSE 77; RESP 16; TEMP 36.3; O2SAT 100
[2021-01-30 06:02] LABS: Hematocrit 40.5 % (42.0-52.0); Hemoglobin 13.4 g/dL (14.0-18.0); Mean Corpuscular HGB Conc 33.1 g/dl (32-36); Mean Corpuscular Hemoglobin 31.4 pg (26-34); Mean Corpuscular Volume 94.8 fl (80-100); Mean Platelet Volume 8.7 fl (7.4-10.4); Platelet Count Result 190 k/mm3 (150-375); Red Blood Count 4.27 M/mm3 (4.6-6.20); Red Cell Distribution Width 11.9 % (11.5-14.5); White Blood Count 5.5 K/mm3 (4.5-10.0)
[2021-01-30 06:16] LABS: Anion Gap 5 mmol/L (8-16); Blood Urea Nitrogen 19 mg/dL (9-20); Carbon Dioxide 30 mmol/L (22-30); Chloride 107 mmol/L (98-107); Estimated CRCL calculation 59 ml/min; Estimated Glomerular Filt Rate 49; Glucose 89 mg/dL (65-110); Potassium 4.2 mmol/L (3.4-5.0); Sodium 142 mmol/L (137-145)
[2021-01-30] MEDS: LEVOTHYROXINE SODIUM 100 MCG TABLET PO (06:26)
[2021-01-30] MEDS: lamoTRIgine 100 MG TABLET PO (08:00)
[2021-01-30] MEDS: GABAPENTIN 300 MG CAPSULE PO ×2 (08:00→20:26)
[2021-01-30] MEDS: DIVALPROEX SODIUM DR 250 MG TABEC 500 MG PO ×2 (08:00→16:31)
[2021-01-30] MEDS: TRIHEXYPHENIDYL HCL 1 MG TABLET PO ×2 (08:01→16:32)
[2021-01-30] MEDS: MIDODRINE HCL 2.5 MG TABLET PO ×3 (08:01→16:00)
[2021-01-30] MEDS: PANTOPRAZOLE 40 MG TABLET PO ×2 (08:01→16:32)
[2021-01-30] MEDS: TRIHEXYPHENIDYL HCL 2 MG TABLET 4 MG PO ×2 (08:01→16:32)
[2021-01-30] MEDS: clonazePAM (*CRX) 0.5 MG TABLET PO ×2 (08:03→16:34)
[2021-01-30 14:43] VITALS: BP 122/75; PULSE 76; RESP 16; TEMP 36.5; O2SAT 100
--- NOTE | 2021-01-30 15:17 | P.PNIM_ITS ---
Progress Note: A&P Assessment and Plan (1) Urinary tract infection: Qualifiers: Hematuria presence: without hematuria Urinary tract infection type: site unspecified Qualified Code(s): N39.0 - Urinary tract infection, site not specified Code(s): N39.0 - Urinary tract infection, site not specified Status: Acute Assessment and Plan: * Patient is fully awake, alert and oriented. * Urine culture negative. Continue rocephin to complete 5 days of antibiotics and discharge home. (2) OBEY (acute kidney injury): Code(s): N17.9 - Acute kidney failure, unspecified Status: Acute Assessment and Plan: * Acute non oliguric kidney injury * Creatinine today is 2.40 upon admission; today it has improved to 1.5. * Baseline 1.7-1.9 * Likely pre renal azotemia * Continue IV fluids 85 ml/hr. Encourage oral fluid intake. (3) Weakness: Code(s): R53.1 - Weakness Status: Acute Assessment and Plan: * PT OT * Likely secondary to UTI * Equal strength bilaterally * no objective weakness on examination(psych to re-evaluate as an outpatient?) (4) Arm and leg movements, uncontrollable: Code(s): R25.8 - Other abnormal involuntary movements Status: Acute Assessment and Plan: * Resolved. * probably from home medications * probably EPS * Continue home meds * Stable (5) GERD (gastroesophageal reflux disease): Code(s): K21.9 - Gastro-esophageal reflux disease without esophagitis Status: Acute Assessment and Plan: * Continue PPI (6) Schizophrenia: Qualifiers: Schizophrenia type: unspecified Qualified Code(s): F20.9 - Schizophrenia, unspecified Code(s): F20.9 - Schizophrenia, unspecified Status: Acute Assessment and Plan: * Continue home meds * Trend symptoms * Affect is appropriate and mood is stable. * Haldol is q4 weeks hold for now looks like last dose was 01/17/21 (7) Orthostatic hypotension: Code(s): I95.1 - Orthostatic hypotension Status: Acute Assessment and Plan: * Encourage ambulation. * Receiving IV fluids * Supportive care Subjective Date/time seen: 01/30/21 15:17 Interval history: Patient is a 55 year old gentleman who is admitted for evaluation of weakness. He seems unable to move his legs, but on examination there is good muscle tone. His muscular strength is wnl by PT. Patient affirms he was unsteady on his feet. He is encouraged to continue working with PT in anticipation for discharge in AM. No complaints. Review of Systems Review of Systems: All systems reviewed & are unremarkable except as noted in HPI and below Constitutional: Constitutional: Denies chills, Denies fatigue, Denies fever (s), Reports lethargy and Reports weakness Eyes: Eyes: Denies change in vision ENT: Denies dysphagia, Denies nasal congestion, Denies nasal discharge, Denies nasal obstruction and Denies odynophagia Cardiovascular: Cardiovascular: Denies chest pain at rest, Denies irregular heart rhythm, Denies claudication, Denies leg edema, Denies lightheadedness, Denies radiating jaw, neck or arm pain, Denies palpitations, Denies dyspnea, Denies dyspnea on exertion and Denies orthopnea Respiratory: Respiratory: Denies chest congestion, Denies cough, Denies excessive phlegm production, Denies dyspnea and Denies dyspnea on exertion
--- NOTE | 2021-01-30 15:17 | PM.IMPN ---
Progress Note: A&P Assessment and Plan (1) Urinary tract infection: Qualifiers: Hematuria presence: without hematuria Urinary tract infection type: site unspecified Qualified Code(s): N39.0 - Urinary tract infection, site not specified Code(s): N39.0 - Urinary tract infection, site not specified Status: Acute Assessment and Plan: Patient is fully awake, alert and oriented. Urine culture negative. Continue rocephin to complete 5 days of antibiotics and discharge home. (2) OBEY (acute kidney injury): Code(s): N17.9 - Acute kidney failure, unspecified Status: Acute Assessment and Plan: Acute non oliguric kidney injury Creatinine today is 2.40 upon admission; today it has improved to 1.5. Baseline 1.7-1.9 Likely pre renal azotemia Continue IV fluids 85 ml/hr. Encourage oral fluid intake. (3) Weakness: Code(s): R53.1 - Weakness Status: Acute Assessment and Plan: PT OT Likely secondary to UTI Equal strength bilaterally no objective weakness on examination(psych to re-evaluate as an outpatient?) (4) Arm and leg movements, uncontrollable: Code(s): R25.8 - Other abnormal involuntary movements Status: Acute Assessment and Plan: Resolved. probably from home medications probably EPS Continue home meds Stable (5) GERD (gastroesophageal reflux disease): Code(s): K21.9 - Gastro-esophageal reflux disease without esophagitis Status: Acute Assessment and Plan: Continue PPI (6) Schizophrenia: Qualifiers: Schizophrenia type: unspecified Qualified Code(s): F20.9 - Schizophrenia, unspecified Code(s): F20.9 - Schizophrenia, unspecified Status: Acute Assessment and Plan: Continue home meds Trend symptoms Affect is appropriate and mood is stable. Haldol is q4 weeks hold for now looks like last dose was 01/17/21 (7) Orthostatic hypotension: Code(s): I95.1 - Orthostatic hypotension Status: Acute Assessment and Plan: Encourage ambulation. Receiving IV fluids Supportive care Subjective Date/time seen: 01/30/21 15:17 Interval history: Patient is a 55 year old gentleman who is admitted for evaluation of weakness. He seems unable to move his legs, but on examination there is good muscle tone. His muscular strength is wnl by PT. Patient affirms he was unsteady on his feet. He is encouraged to continue working with PT in anticipation for discharge in AM. No complaints. Review of Systems Review of Systems: All systems reviewed & are unremarkable except as noted in HPI and below Constitutional: Constitutional: Denies chills, Denies fatigue, Denies fever(s), Reports lethargy and Reports weakness Eyes: Eyes: Denies change in vision ENT: Denies dysphagia, Denies nasal congestion, Denies nasal discharge, Denies nasal obstruction and Denies odynophagia Cardiovascular: Cardiovascular: Denies chest pain at rest, Denies irregular heart rhythm, Denies claudication, Denies leg edema, Denies lightheadedness, Denies radiating jaw, neck or arm pain, Denies palpitations, Denies dyspnea, Denies dyspnea on exertion and Denies orthopnea Respiratory: Respiratory: Denies chest congestion, Denies cough, Denies excessive phlegm production, Denies dyspnea and Denies dyspnea on exertion Gastrointestinal: Gastrointestinal: Denies abdominal pain, Denies dysphagia, Denies dyspepsia, Denies heartburn, Denies diarrhea, Denies nausea, Denies odynophagia and Denies vomiting Genitourinary: Genitourinary: Denies urinary frequency, Denies urinary hesitancy, Denies urinary incontinence and Denies urinary urgency Musculoskeletal: Musculoskeletal: Reports muscle weakness Integumentary/Breasts: Skin/Breast: Reports system reviewed and no additional complaints, except as docu Neurologic: Reports system reviewed and no additional complaints,
[2021-01-30 20:00] VITALS: PULSE 76; RESP 16; O2SAT 100
[2021-01-30 21:53] VITALS: BP 136/78; PULSE 80; RESP 16; TEMP 36.2; O2SAT 100
[2021-01-31 05:14] VITALS: BP 130/82; PULSE 76; RESP 16; TEMP 36.1; O2SAT 100
[2021-01-31] MEDS: SODIUM CHLORIDE 0.9% IV 1,000 ML 85 ML IV CONT (05:30)
[2021-01-31] MEDS: LEVOTHYROXINE SODIUM 100 MCG TABLET PO (05:31)
[2021-01-31 05:44] LABS: Hematocrit 39.4 % (42.0-52.0); Hemoglobin 13.1 g/dL (14.0-18.0); Mean Corpuscular HGB Conc 33.2 g/dl (32-36); Mean Corpuscular Volume 96.3 fl (80-100); Mean Platelet Volume 8.8 fl (7.4-10.4); Platelet Count Result 168 k/mm3 (150-375); Red Blood Count 4.09 M/mm3 (4.6-6.20); Red Cell Distribution Width 11.9 % (11.5-14.5); White Blood Count 5.5 K/mm3 (4.5-10.0)
[2021-01-31 05:58] LABS: Anion Gap 5 mmol/L (8-16); Blood Urea Nitrogen 17 mg/dL (9-20); Calcium 8.9 mg/dL (8.4-10.2); Carbon Dioxide 30 mmol/L (22-30); Chloride 108 mmol/L (98-107); Estimated CRCL calculation 59 ml/min; Estimated Glomerular Filt Rate 49; Glucose 94 mg/dL (65-110); Potassium 4.2 mmol/L (3.4-5.0); Sodium 143 mmol/L (137-145)
[2021-01-31] MEDS: lamoTRIgine 100 MG TABLET PO (08:01)
[2021-01-31] MEDS: clonazePAM (*CRX) 0.5 MG TABLET PO ×2 (08:01→16:41)
[2021-01-31] MEDS: MIDODRINE HCL 2.5 MG TABLET PO ×3 (08:01→16:00)
[2021-01-31] MEDS: TRIHEXYPHENIDYL HCL 2 MG TABLET 4 MG PO ×2 (08:01→16:35)
[2021-01-31] MEDS: PANTOPRAZOLE 40 MG TABLET PO ×2 (08:01→16:36)
[2021-01-31] MEDS: DIVALPROEX SODIUM DR 250 MG TABEC 500 MG PO ×2 (08:01→16:36)
[2021-01-31] MEDS: GABAPENTIN 300 MG CAPSULE PO ×2 (08:01→21:15)
[2021-01-31] MEDS: TRIHEXYPHENIDYL HCL 1 MG TABLET PO ×2 (08:02→16:35)
[2021-01-31 13:56] VITALS: BP 106/72; PULSE 95; RESP 16; TEMP 36.5; O2SAT 99
--- NOTE | 2021-01-31 18:02 | P.PNIM_ITS ---
Progress Note: A&P Assessment and Plan (1) Urinary tract infection: Qualifiers: Hematuria presence: without hematuria Urinary tract infection type: site unspecified Qualified Code(s): N39.0 - Urinary tract infection, site not specified Code(s): N39.0 - Urinary tract infection, site not specified Status: Acute Assessment and Plan: * Patient is fully awake, alert and oriented. * Urine culture negative. Continue rocephin to complete 5 days of antibiotics and discharge home. (2) OBEY (acute kidney injury): Code(s): N17.9 - Acute kidney failure, unspecified Status: Acute Assessment and Plan: * Acute non oliguric kidney injury * Creatinine is 2.40 upon admission; today it has improved to 1.5 for 2 days in a row.. * Baseline 1.7-1.9 * Likely pre renal azotemia * Stop IV fluids. Encourage oral fluid intake. (3) Weakness: Code(s): R53.1 - Weakness Status: Acute Assessment and Plan: * PT OT * Likely secondary to UTI * Equal strength bilaterally * no objective weakness on examination(psych to re-evaluate as an outpatient?) (4) Arm and leg movements, uncontrollable: Code(s): R25.8 - Other abnormal involuntary movements Status: Acute Assessment and Plan: * Resolved. * probably from home medications * probably EPS * Continue home meds * Stable (5) GERD (gastroesophageal reflux disease): Code(s): K21.9 - Gastro-esophageal reflux disease without esophagitis Status: Acute Assessment and Plan: * Continue PPI (6) Schizophrenia: Qualifiers: Schizophrenia type: unspecified Qualified Code(s): F20.9 - Schizophrenia, unspecified Code(s): F20.9 - Schizophrenia, unspecified Status: Acute Assessment and Plan: * Continue home meds * Trend symptoms * Affect is appropriate and mood is stable. * Haldol is q4 weeks hold for now looks like last dose was 01/17/21 (7) Orthostatic hypotension: Code(s): I95.1 - Orthostatic hypotension Status: Acute Assessment and Plan: * Encourage ambulation. * NO longer requires IV fluids. * Supportive care Subjective Date/time seen: 01/31/21 18:02 Interval history: Patient is a 55 year old gentleman who is admitted for evaluation of weakness. Ambulation is improving with a walker. He is encouraged to continue working with PT in anticipation for discharge in AM. No complaints. Review of Systems Review of Systems: All systems reviewed & are unremarkable except as noted in HPI and below Constitutional: Constitutional: Denies chills, Denies fatigue, Denies fever(s), Reports lethargy and Reports weakness Eyes: Eyes: Denies change in vision ENT: Denies dysphagia, Denies nasal congestion, Denies nasal discharge, Denies nasal obstruction and Denies odynophagia Cardiovascular: Cardiovascular: Denies chest pain at rest, Denies irregular heart rhythm, Denies claudication, Denies leg edema, Denies lightheadedness, Denies radiating jaw, neck or arm pain, Denies palpitations, Denies dyspnea, Denies dyspnea on exertion and Denies orthopnea Respiratory: Respiratory: Denies chest congestion, Denies cough, Denies excessive phlegm production, Denies dyspnea and Denies dyspnea on exertion Gastrointestinal: Gastrointestinal: Denies abdominal pain, Denies dysphagia, Denies dyspepsia, Den
--- NOTE | 2021-01-31 18:02 | PM.IMPN ---
Progress Note: A&P Assessment and Plan (1) Urinary tract infection: Qualifiers: Hematuria presence: without hematuria Urinary tract infection type: site unspecified Qualified Code(s): N39.0 - Urinary tract infection, site not specified Code(s): N39.0 - Urinary tract infection, site not specified Status: Acute Assessment and Plan: Patient is fully awake, alert and oriented. Urine culture negative. Continue rocephin to complete 5 days of antibiotics and discharge home. (2) OBEY (acute kidney injury): Code(s): N17.9 - Acute kidney failure, unspecified Status: Acute Assessment and Plan: Acute non oliguric kidney injury Creatinine is 2.40 upon admission; today it has improved to 1.5 for 2 days in a row.. Baseline 1.7-1.9 Likely pre renal azotemia Stop IV fluids. Encourage oral fluid intake. (3) Weakness: Code(s): R53.1 - Weakness Status: Acute Assessment and Plan: PT OT Likely secondary to UTI Equal strength bilaterally no objective weakness on examination(psych to re-evaluate as an outpatient?) (4) Arm and leg movements, uncontrollable: Code(s): R25.8 - Other abnormal involuntary movements Status: Acute Assessment and Plan: Resolved. probably from home medications probably EPS Continue home meds Stable (5) GERD (gastroesophageal reflux disease): Code(s): K21.9 - Gastro-esophageal reflux disease without esophagitis Status: Acute Assessment and Plan: Continue PPI (6) Schizophrenia: Qualifiers: Schizophrenia type: unspecified Qualified Code(s): F20.9 - Schizophrenia, unspecified Code(s): F20.9 - Schizophrenia, unspecified Status: Acute Assessment and Plan: Continue home meds Trend symptoms Affect is appropriate and mood is stable. Haldol is q4 weeks hold for now looks like last dose was 01/17/21 (7) Orthostatic hypotension: Code(s): I95.1 - Orthostatic hypotension Status: Acute Assessment and Plan: Encourage ambulation. NO longer requires IV fluids. Supportive care Subjective Date/time seen: 01/31/21 18:02 Interval history: Patient is a 55 year old gentleman who is admitted for evaluation of weakness. Ambulation is improving with a walker. He is encouraged to continue working with PT in anticipation for discharge in AM. No complaints. Review of Systems Review of Systems: All systems reviewed & are unremarkable except as noted in HPI and below Constitutional: Constitutional: Denies chills, Denies fatigue, Denies fever(s), Reports lethargy and Reports weakness Eyes: Eyes: Denies change in vision ENT: Denies dysphagia, Denies nasal congestion, Denies nasal discharge, Denies nasal obstruction and Denies odynophagia Cardiovascular: Cardiovascular: Denies chest pain at rest, Denies irregular heart rhythm, Denies claudication, Denies leg edema, Denies lightheadedness, Denies radiating jaw, neck or arm pain, Denies palpitations, Denies dyspnea, Denies dyspnea on exertion and Denies orthopnea Respiratory: Respiratory: Denies chest congestion, Denies cough, Denies excessive phlegm production, Denies dyspnea and Denies dyspnea on exertion Gastrointestinal: Gastrointestinal: Denies abdominal pain, Denies dysphagia, Denies dyspepsia, Denies heartburn, Denies diarrhea, Denies nausea, Denies odynophagia and Denies vomiting Genitourinary: Genitourinary: Denies urinary frequency, Denies urinary hesitancy, Denies urinary incontinence and Denies urinary urgency Musculoskeletal: Musculoskeletal: Reports muscle weakness Integumentary/Breasts: Skin/Breast: Reports system reviewed and no additional complaints, except as docu Neurologic: Reports system reviewed and no additional complaints, except as documented and Reports weakness Psychiatric: Psychiatric: Reports no additional psychiatric compl
[2021-01-31 20:51] VITALS: BP 122/78; PULSE 74; RESP 20; TEMP 36.2; O2SAT 99
[2021-01-31 20:52] VITALS: BP 185/88; PULSE 82; RESP 18; TEMP 36.6; O2SAT 100
[2021-02-01 04:46] VITALS: BP 133/89; PULSE 75; RESP 20; TEMP 36; O2SAT 99
[2021-02-01 04:47] VITALS: BP 133/89; PULSE 75; RESP 20; TEMP 36; O2SAT 99
[2021-02-01 05:54] LABS: Hematocrit 39.8 % (42.0-52.0); Hemoglobin 13.4 g/dL (14.0-18.0); Mean Corpuscular HGB Conc 33.7 g/dl (32-36); Mean Corpuscular Hemoglobin 32.1 pg (26-34); Mean Corpuscular Volume 95.4 fl (80-100); Mean Platelet Volume 8.6 fl (7.4-10.4); Platelet Count Result 171 k/mm3 (150-375); Red Blood Count 4.17 M/mm3 (4.6-6.20); Red Cell Distribution Width 11.9 % (11.5-14.5); White Blood Count 5.9 K/mm3 (4.5-10.0)
[2021-02-01 06:11] LABS: Anion Gap 5 mmol/L (8-16); Blood Urea Nitrogen 19 mg/dL (9-20); Calcium 9.2 mg/dL (8.4-10.2); Carbon Dioxide 30 mmol/L (22-30); Chloride 106 mmol/L (98-107); Estimated CRCL calculation 59 ml/min; Estimated Glomerular Filt Rate 49; Glucose 95 mg/dL (65-110); Potassium 4.3 mmol/L (3.4-5.0); Sodium 141 mmol/L (137-145)
[2021-02-01] MEDS: LEVOTHYROXINE SODIUM 100 MCG TABLET PO (06:21)
[2021-02-01] MEDS: GABAPENTIN 300 MG CAPSULE PO ×2 (08:13→20:59)
[2021-02-01] MEDS: MIDODRINE HCL 2.5 MG TABLET PO ×2 (08:13→12:10)
[2021-02-01] MEDS: PANTOPRAZOLE 40 MG TABLET PO ×2 (08:13→17:20)
[2021-02-01] MEDS: lamoTRIgine 100 MG TABLET PO (08:13)
[2021-02-01] MEDS: clonazePAM (*CRX) 0.5 MG TABLET PO ×2 (08:14→17:20)
[2021-02-01] MEDS: TRIHEXYPHENIDYL HCL 1 MG TABLET PO ×2 (08:14→17:20)
[2021-02-01] MEDS: DIVALPROEX SODIUM DR 250 MG TABEC 500 MG PO ×2 (08:14→17:20)
[2021-02-01] MEDS: TRIHEXYPHENIDYL HCL 2 MG TABLET 4 MG PO ×2 (08:14→17:19)
[2021-02-01 14:00] VITALS: BP 128/72; PULSE 80; RESP 20; TEMP 36.7; O2SAT 98
--- NOTE | 2021-02-01 17:19 | P.PNIM_ITS ---
Progress Note: A&P Assessment and Plan (1) Urinary tract infection: Qualifiers: Hematuria presence: without hematuria Urinary tract infection type: site unspecified Qualified Code(s): N39.0 - Urinary tract infection, site not specified Code(s): N39.0 - Urinary tract infection, site not specified Status: Acute Assessment and Plan: * Patient is fully awake, alert and oriented. * hematuria has resolved. * Urine culture negative. Continue rocephin to complete 5 days of antibiotics. Stop rocephin and discharge home. (2) OBEY (acute kidney injury): Code(s): N17.9 - Acute kidney failure, unspecified Status: Acute Assessment and Plan: * Acute non oliguric kidney injury * Creatinine is 2.40 upon admission; today it has improved to 1.5 which likely represents his baseline. * Baseline 1.7-1.9 * Likely pre renal azotemia * Stop IV fluids. Encourage oral fluid intake. (3) Weakness: Code(s): R53.1 - Weakness Status: Acute Assessment and Plan: * PT OT * Likely secondary to deconditioning * Patient encouraged to work with PT and exercise daily once he is discharged home. * Equal strength bilaterally * no objective weakness on examination(psych to re-evaluate as an outpatient?) (4) Arm and leg movements, uncontrollable: Code(s): R25.8 - Other abnormal involuntary movements Status: Acute Assessment and Plan: * Resolved. * probably from home medications * probably EPS * Continue home meds * Stable (5) GERD (gastroesophageal reflux disease): Code(s): K21.9 - Gastro-esophageal reflux disease without esophagitis Status: Acute Assessment and Plan: * Continue PPI (6) Schizophrenia: Qualifiers: Schizophrenia type: unspecified Qualified Code(s): F20.9 - Schizophrenia, unspecified Code(s): F20.9 - Schizophrenia, unspecified Status: Acute Assessment and Plan: * Continue home meds * Trend symptoms * Affect is appropriate and mood is stable. * Haldol is q4 weeks hold for now looks like last dose was 01/17/21 (7) Orthostatic hypotension: Code(s): I95.1 - Orthostatic hypotension Status: Acute Assessment and Plan: * Encourage ambulation. * No longer requires IV fluids. * Supportive care Subjective Date/time seen: 02/01/21 17:19 Interval history: Patient is a 55 year old gentleman who is admitted for evaluation of weakness. Ambulation is improving with a walker. He is encouraged to continue working with PT in anticipation for discharge. No active complaints. Review of Systems Review of Systems: All systems reviewed & are unremarkable except as noted in HPI and below Constitutional: Constitutional: Denies chills, Denies fatigue, Denies fever(s), Reports lethargy and Reports weakness Eyes: Eyes: Denies change in vision ENT: Denies dysphagia, Denies nasal congestion, Denies nasal discharge, Denies nasal obstruction and Denies odynophagia Cardiovascular: Cardiovascular: Denies chest pain at rest, Denies irregular heart rhythm, Denies claudication, Denies leg edema, Denies lightheadedness, Denies radiating jaw, neck or arm pain, Denies palpitations, Denies dyspnea, Denies dyspnea on exertion and Denies orthopnea Respiratory: Respiratory: Denies chest congestion, Denies cough, Denies excessive phlegm product
--- NOTE | 2021-02-01 17:19 | PM.IMPN ---
Progress Note: A&P Assessment and Plan (1) Urinary tract infection: Qualifiers: Hematuria presence: without hematuria Urinary tract infection type: site unspecified Qualified Code(s): N39.0 - Urinary tract infection, site not specified Code(s): N39.0 - Urinary tract infection, site not specified Status: Acute Assessment and Plan: Patient is fully awake, alert and oriented. hematuria has resolved. Urine culture negative. Continue rocephin to complete 5 days of antibiotics. Stop rocephin and discharge home. (2) OBEY (acute kidney injury): Code(s): N17.9 - Acute kidney failure, unspecified Status: Acute Assessment and Plan: Acute non oliguric kidney injury Creatinine is 2.40 upon admission; today it has improved to 1.5 which likely represents his baseline. Baseline 1.7-1.9 Likely pre renal azotemia Stop IV fluids. Encourage oral fluid intake. (3) Weakness: Code(s): R53.1 - Weakness Status: Acute Assessment and Plan: PT OT Likely secondary to deconditioning Patient encouraged to work with PT and exercise daily once he is discharged home. Equal strength bilaterally no objective weakness on examination(psych to re-evaluate as an outpatient?) (4) Arm and leg movements, uncontrollable: Code(s): R25.8 - Other abnormal involuntary movements Status: Acute Assessment and Plan: Resolved. probably from home medications probably EPS Continue home meds Stable (5) GERD (gastroesophageal reflux disease): Code(s): K21.9 - Gastro-esophageal reflux disease without esophagitis Status: Acute Assessment and Plan: Continue PPI (6) Schizophrenia: Qualifiers: Schizophrenia type: unspecified Qualified Code(s): F20.9 - Schizophrenia, unspecified Code(s): F20.9 - Schizophrenia, unspecified Status: Acute Assessment and Plan: Continue home meds Trend symptoms Affect is appropriate and mood is stable. Haldol is q4 weeks hold for now looks like last dose was 01/17/21 (7) Orthostatic hypotension: Code(s): I95.1 - Orthostatic hypotension Status: Acute Assessment and Plan: Encourage ambulation. No longer requires IV fluids. Supportive care Subjective Date/time seen: 02/01/21 17:19 Interval history: Patient is a 55 year old gentleman who is admitted for evaluation of weakness. Ambulation is improving with a walker. He is encouraged to continue working with PT in anticipation for discharge. No active complaints. Review of Systems Review of Systems: All systems reviewed & are unremarkable except as noted in HPI and below Constitutional: Constitutional: Denies chills, Denies fatigue, Denies fever(s), Reports lethargy and Reports weakness Eyes: Eyes: Denies change in vision ENT: Denies dysphagia, Denies nasal congestion, Denies nasal discharge, Denies nasal obstruction and Denies odynophagia Cardiovascular: Cardiovascular: Denies chest pain at rest, Denies irregular heart rhythm, Denies claudication, Denies leg edema, Denies lightheadedness, Denies radiating jaw, neck or arm pain, Denies palpitations, Denies dyspnea, Denies dyspnea on exertion and Denies orthopnea Respiratory: Respiratory: Denies chest congestion, Denies cough, Denies excessive phlegm production, Denies dyspnea and Denies dyspnea on exertion Gastrointestinal: Gastrointestinal: Denies abdominal pain, Denies dysphagia, Denies dyspepsia, Denies heartburn, Denies diarrhea, Denies nausea, Denies odynophagia and Denies vomiting Genitourinary: Genitourinary: Denies urinary frequency, Denies urinary hesitancy, Denies urinary incontinence and Denies urinary urgency Musculoskeletal: Musculoskeletal: Reports muscle weakness Integumentary/Breasts: Skin/Breast: Reports system reviewed and no additional complaints, except as docu Neurologic: Reports syst
[2021-02-01 20:00] VITALS: PULSE 72; RESP 17; O2SAT 100
[2021-02-01 22:00] VITALS: BP 123/75; PULSE 72; RESP 17; TEMP 36.4; O2SAT 100
[2021-02-02 03:44] VITALS: BP 112/77; PULSE 74; RESP 17; TEMP 36.6; O2SAT 97
[2021-02-02 05:56] LABS: Hematocrit 39.3 % (42.0-52.0); Hemoglobin 13.3 g/dL (14.0-18.0); Mean Corpuscular HGB Conc 33.8 g/dl (32-36); Mean Corpuscular Hemoglobin 32.1 pg (26-34); Mean Corpuscular Volume 94.9 fl (80-100); Platelet Count Result 197 k/mm3 (150-375); Red Blood Count 4.14 M/mm3 (4.6-6.20); Red Cell Distribution Width 11.9 % (11.5-14.5); White Blood Count 6.2 K/mm3 (4.5-10.0)
[2021-02-02] MEDS: LEVOTHYROXINE SODIUM 100 MCG TABLET PO (06:04)
[2021-02-02 06:10] LABS: Anion Gap 4 mmol/L (8-16); Blood Urea Nitrogen 23 mg/dL (9-20); Calcium 9.2 mg/dL (8.4-10.2); Carbon Dioxide 30 mmol/L (22-30); Chloride 105 mmol/L (98-107); Estimated CRCL calculation 55 ml/min; Estimated Glomerular Filt Rate 45; Glucose 91 mg/dL (65-110); Potassium 4.2 mmol/L (3.4-5.0); Sodium 139 mmol/L (137-145)
[2021-02-02] MEDS: DIVALPROEX SODIUM DR 250 MG TABEC 500 MG PO ×2 (09:14→16:55)
[2021-02-02] MEDS: PANTOPRAZOLE 40 MG TABLET PO ×2 (09:15→16:55)
[2021-02-02] MEDS: GABAPENTIN 300 MG CAPSULE PO (09:15)
[2021-02-02] MEDS: lamoTRIgine 100 MG TABLET PO (09:15)
[2021-02-02] MEDS: MIDODRINE HCL 2.5 MG TABLET PO ×3 (09:15→16:55)
[2021-02-02] MEDS: clonazePAM (*CRX) 0.5 MG TABLET PO ×2 (09:15→16:55)
[2021-02-02] MEDS: TRIHEXYPHENIDYL HCL 2 MG TABLET 4 MG PO ×2 (09:16→16:55)
[2021-02-02] MEDS: TRIHEXYPHENIDYL HCL 1 MG TABLET PO ×2 (09:39→16:57)
[2021-02-02 14:00] VITALS: BP 117/69; PULSE 100; RESP 18; TEMP 36.5; O2SAT 100
--- NOTE | 2021-02-02 17:53 | P.DS_ITS ---
DS: Admitting Diagnosis Discharge Date 02/02/21 Admitting Diagnosis Generalized weakness and deconditioning OBEY UTI DS: Discharge Diagnosis Discharge Diagnosis (1) Weakness: Code(s): R53.1 - Weakness Status: Acute Assessment and Plan: * PT OT * Likely secondary to deconditioning * Patient encouraged to work with PT and exercise daily once he is discharged home. * Equal strength bilaterally * no objective weakness on examination(psych to re-evaluate as an outpatient?) (2) Arm and leg movements, uncontrollable: Code(s): R25.8 - Other abnormal involuntary movements Status: Acute Assessment and Plan: * Resolved. * probably from home medications * probably EPS * Continue home meds * Stable (3) Numbness and tingling of both legs: Code(s): R20.0 - Anesthesia of skin; R20.2 - Paresthesia of skin Status: Acute (4) GERD (gastroesophageal reflux disease): Code(s): K21.9 - Gastro-esophageal reflux disease without esophagitis Status: Acute Assessment and Plan: * Continue PPI (5) Schizophrenia: Qualifiers: Schizophrenia type: unspecified Qualified Code(s): F20.9 - Schizophrenia, unspecified Code(s): F20.9 - Schizophrenia, unspecified Status: Acute Assessment and Plan: * Continue home meds * Trend symptoms * Affect is appropriate and mood is stable. * Haldol is q4 weeks hold for now looks like last dose was 01/17/21 (6) CKD (chronic kidney disease): Qualifiers: Chronic kidney disease stage: stage 3 (moderate) Chronic kidney disease stage 3 subtype: stage 3b (GFR 30-44) Qualified Code(s): N18.32 - Chronic kidney disease, stage 3b Code(s): N18.9 - Chronic kidney disease, unspecified Status: Acute (7) Facial numbness: Code(s): R20.0 - Anesthesia of skin Status: Acute (8) Urinary tract infection: Qualifiers: Hematuria presence: without hematuria Urinary tract infection type: site unspecified Qualified Code(s): N39.0 - Urinary tract infection, site not specified Code(s): N39.0 - Urinary tract infection, site not specified Status: Acute Assessment and Plan: * Patient is fully awake, alert and oriented. * hematuria has resolved. * Urine culture negative. Continue rocephin to complete 5 days of antibiotics. Stop rocephin and discharge home. (9) OBEY (acute kidney injury): Code(s): N17.9 - Acute kidney failure, unspecified Status: Acute Assessment and Plan: * Acute non oliguric kidney injury * Creatinine is 2.40 upon admission; today it has improved to 1.5 which likely represents his baseline. * Baseline 1.7-1.9 * Likely pre renal azotemia * Stop IV fluids. Encourage oral fluid intake. (10) Orthostatic hypotension: Code(s): I95.1 - Orthostatic hypotension Status: Acute Assessment and Plan: * Encourage ambulation. * No longer requires IV fluids. * Supportive care DS: Summary Hospital Course Reason for hospitalization: Weakness and forgetfulness. Hospital Course: This is a 55-year-old gentleman with a past medical history including but not limited to GERD, Harris's esophagus, s/p nephrectomy, hypothyroidism, schizophrenia, occasional tremors. Patient presented to the emergency room on 01/26/2021 with complaints of weakness, as he was unable to get up f
--- NOTE | 2021-02-02 17:53 | PM.DS ---
DS: Admitting Diagnosis Discharge Date 02/02/21 Admitting Diagnosis Generalized weakness and deconditioning OBEY UTI DS: Discharge Diagnosis Discharge Diagnosis (1) Weakness: Code(s): R53.1 - Weakness Status: Acute Assessment and Plan: PT OT Likely secondary to deconditioning Patient encouraged to work with PT and exercise daily once he is discharged home. Equal strength bilaterally no objective weakness on examination(psych to re-evaluate as an outpatient?) (2) Arm and leg movements, uncontrollable: Code(s): R25.8 - Other abnormal involuntary movements Status: Acute Assessment and Plan: Resolved. probably from home medications probably EPS Continue home meds Stable (3) Numbness and tingling of both legs: Code(s): R20.0 - Anesthesia of skin; R20.2 - Paresthesia of skin Status: Acute (4) GERD (gastroesophageal reflux disease): Code(s): K21.9 - Gastro-esophageal reflux disease without esophagitis Status: Acute Assessment and Plan: Continue PPI (5) Schizophrenia: Qualifiers: Schizophrenia type: unspecified Qualified Code(s): F20.9 - Schizophrenia, unspecified Code(s): F20.9 - Schizophrenia, unspecified Status: Acute Assessment and Plan: Continue home meds Trend symptoms Affect is appropriate and mood is stable. Haldol is q4 weeks hold for now looks like last dose was 01/17/21 (6) CKD (chronic kidney disease): Qualifiers: Chronic kidney disease stage: stage 3 (moderate) Chronic kidney disease stage 3 subtype: stage 3b (GFR 30-44) Qualified Code(s): N18.32 - Chronic kidney disease, stage 3b Code(s): N18.9 - Chronic kidney disease, unspecified Status: Acute (7) Facial numbness: Code(s): R20.0 - Anesthesia of skin Status: Acute (8) Urinary tract infection: Qualifiers: Hematuria presence: without hematuria Urinary tract infection type: site unspecified Qualified Code(s): N39.0 - Urinary tract infection, site not specified Code(s): N39.0 - Urinary tract infection, site not specified Status: Acute Assessment and Plan: Patient is fully awake, alert and oriented. hematuria has resolved. Urine culture negative. Continue rocephin to complete 5 days of antibiotics. Stop rocephin and discharge home. (9) OBEY (acute kidney injury): Code(s): N17.9 - Acute kidney failure, unspecified Status: Acute Assessment and Plan: Acute non oliguric kidney injury Creatinine is 2.40 upon admission; today it has improved to 1.5 which likely represents his baseline. Baseline 1.7-1.9 Likely pre renal azotemia Stop IV fluids. Encourage oral fluid intake. (10) Orthostatic hypotension: Code(s): I95.1 - Orthostatic hypotension Status: Acute Assessment and Plan: Encourage ambulation. No longer requires IV fluids. Supportive care DS: Summary Hospital Course Reason for hospitalization: Weakness and forgetfulness. Hospital Course: This is a 55-year-old gentleman with a past medical history including but not limited to GERD, Harris's esophagus, s/p nephrectomy, hypothyroidism, schizophrenia, occasional tremors. Patient presented to the emergency room on 01/26/2021 with complaints of weakness, as he was unable to get up from the sitting position and had an episode where he could not remember how to use his phone and was very scared about these he felt like he would be a stuck in his house . He has had very poor appetite, but no nausea, no vomiting ,no diarrhea no abdominal pain, no fevers ,no rigors, no chills ,no shortness of breath, no cough, no sputum production, no syncope or near syncope no chest pain no PND no orthopnea no leg swelling. His mother came to check on him and called EMS. Preliminary workup was significant for chemistry panel with a creatinine o
== END 2021-02-02 17:15 | disposition home health service (06) | DRG 463 ==
LOC: ANHED 12:21 → ANH2MED 20:10
PROVIDERS: Nurse Practitioner; Admitting Provider Internal Medicine; Emergency Provider Emergency Medicine; PCP Internal Medicine; Visit Provider Internal Medicine
DX: N39.0 Urinary tract infection, site not specified (principal); R31.9 Hematuria, unspecified; N17.9 Acute kidney failure, unspecified; N18.32 Chronic kidney disease, stage 3b; I95.1 Orthostatic hypotension; F20.9 Schizophrenia, unspecified; R53.1 Weakness; R25.8 Other abnormal involuntary movements; K21.9 Gastro-esophageal reflux disease without esophagitis; K22.70 Barrett's esophagus without dysplasia; R20.0 Anesthesia of skin; R20.2 Paresthesia of skin; R25.1 Tremor, unspecified; E03.9 Hypothyroidism, unspecified; Z79.899 Other long term (current) drug therapy; Z90.5 Acquired absence of kidney; Z85.01 Personal history of malignant neoplasm of esophagus
CPT/HCPCS: 36415; 51701; 70450; 71045; 80048; 80053; 80307; 81001; 82550; 83735; 84443; 85025; 85027; 85610; 85730; 87086; 93005; 96360; 96361; 96365; 97110; 97116; 97162; 97165; 97530; 97535; 99285; A9270; G0378; G0379; J0696; J7030

== ENCOUNTER 2021-03-13 10:53 | Outpatient (RCR) | payer OTHER, SELFPAY ==
--- NOTE | 2021-02-14 13:48 | PC.NURSE ---
AMBULATORY TO OUTPATIENT DRAW STATION FOR MONTHLY HALDOL INJECTION. HAS BEEN HOSPITALIZED AND HAS MISSED DOSE FOR . PATIENT BROUGHT TODAY'S MEDICATION WITH HIM HE ALWAYS DOES. DOSE IS 100 MG[address] MR. CAZARES IS UNAWARE THAT DOSE HAS BEEN IN CREASED TO 150 MG MONTHLY. DOSE OF 100 MG GIVEN TODAY THIS HAS BEEN BROUGHT IN BY PATIENT PER PREVIOUS ORDER. PATIENT INSTRUCTED TO CALL HIS PHARMACY OR PHYSICIAN REGARDING INCREASED DOSE BEFORE NEXT APPOINTMENT IN 1 MONTH. VOICES UNDERSTANDING.
== END 2021-03-19 23:59 | disposition home or self-care (01) ==
LOC: ANHVASCINF 10:53
PROVIDERS: PCP Internal Medicine
DX: F25.9 Schizoaffective disorder, unspecified (principal)
CPT/HCPCS: 96372

== ENCOUNTER 2021-04-13 08:47 | Outpatient (CLI) | payer OTHER, SELFPAY ==
[2021-04-13 09:19] LABS: Basophils Percent Auto 0.4 % (0.2-1.2); Eosinophils Absolute Auto 0.2 K/mm3 (0-0.3); Eosinophils Percent Auto 2.6 % (0-4.4); Hematocrit 43.5 % (42.0-52.0); Hemoglobin 14.8 g/dL (14.0-18.0); Immature Granulocyte Absolute 0.03 K/mm3 (0.00-0.031); Immature Granulocyte Percent A 0.4 % (0-0.5); Lymphocytes Absolute Auto 2.17 K/mm3 (0.9-3.2); Lymphocytes Percent Auto 26.7 % (18.3-44.2); Mean Corpuscular Hemoglobin 32.3 pg (26-34); Mean Platelet Volume 8.4 fl (7.4-10.4); Monocytes Percent Auto 12.2 % (2.6-8.5); Neutrophils Absolute Auto 4.7 K/mm3 (1.3-6.7); Neutrophils Percent Auto 57.7 % (45.5-73.1); Platelet Count Result 199 k/mm3 (150-375); Red Blood Count 4.58 M/mm3 (4.6-6.20); Red Cell Distribution Width 12.4 % (11.5-14.5); White Blood Count 8.1 K/mm3 (4.5-10.0)
[2021-04-13 09:30] LABS: Albumin Level 4.4 g/dL (3.5-5.1); Anion Gap 11 mmol/L (8-16); Blood Urea Nitrogen 24 mg/dL (9-20); Calcium 9.9 mg/dL (8.4-10.2); Carbon Dioxide 28 mmol/L (22-30); Chloride 102 mmol/L (98-107); Estimated Glomerular Filt Rate 37; Glucose 85 mg/dL (65-110); Phosphorus 2.4 mg/dL (2.5-4.5); Potassium 4.2 mmol/L (3.4-5.0); Sodium 141 mmol/L (137-145); Uric Acid 6.7 mg/dL (3.5-8.5)
[2021-04-13 09:32] LABS: Creatinine Urine 142.8 mg/dL; Total Protein Urine Random 15 mg/dL; Ur Ttl Prot Creatinine Ratio 0.11 mg/mg (0-0.20)
[2021-04-13 09:38] LABS: Add Urine Microscopic? YES; Appearance Urine Clear (Clear); Bilirubin Urine Negative (Negative); Blood Urine 1+ (Negative); Color Urine Yellow (Yellow); Glucose Urine UA Negative (Negative); Ketones Urine Negative (Negative); Leukocyte Esterase Ur Negative LEU/UL (NEGATIVE); Mucus Urine Rare /lpf; Nitrate Urine Negative (Negative); Protein Urine Negative (Negative); RBC Urine 0-2 /hpf (0-2); Specific Grav Ur 1.011 (1.001-1.035); Squamous Epithelial Cell Urine Rare /hpf (Few); Urobilinogen Urine Negative mg/dL (<2.0); WBC Urine 0-3 /hpf (0-3)
[2021-04-13 09:42] LABS: Parathyroid Intact 34.5 pg/mL (7.5-53.5)
== END 2021-04-13 08:48 | disposition home or self-care (01) ==
LOC: ANHLAB 08:49
PROVIDERS: PCP Internal Medicine; Visit Provider Internal Medicine Nephrology
DX: N18.30 Chronic kidney disease, stage 3 unspecified (principal)
CPT/HCPCS: 36415; 80069; 81001; 82570; 83970; 84156; 84550; 85025

== ENCOUNTER 2021-05-16 09:08 | Outpatient (CLI) | payer OTHER, SELFPAY ==
[2021-05-16 11:31] LABS: Add Urine Microscopic? NO; Appearance Urine Clear (Clear); Bilirubin Urine Negative (Negative); Blood Urine Negative (Negative); Color Urine Straw (Yellow); Glucose Urine UA Negative (Negative); Ketones Urine Negative (Negative); Leukocyte Esterase Ur Negative LEU/UL (NEGATIVE); Nitrate Urine Negative (Negative); Protein Urine Negative (Negative); Specific Grav Ur 1.009 (1.001-1.035); Urobilinogen Urine Negative mg/dL (<2.0)
== END 2021-05-16 09:09 | disposition home or self-care (01) ==
PROVIDERS: PCP Internal Medicine; Visit Provider Internal Medicine Nephrology
DX: R31.9 Hematuria, unspecified (principal)
CPT/HCPCS: 81003

== ENCOUNTER 2021-06-07 14:00 | Outpatient (CLI) | payer OTHER, SELFPAY ==
--- NOTE | ~2021-06-07 | XR_ITS ---
XR foot RT standing 2V DATE: 06/07/2021 14:28 INDICATION: Pain in the right toes following injury months ago TECHNIQUE: AP and lateral weightbearing views of right foot COMPARISON: June 25, 2018 right foot FINDINGS: No fracture or dislocation, periosteal reaction or bone destruction. IMPRESSION: No significant abnormality Reviewed, dictated and finalized at location A. [facility] PL[facility]NER IMPRESSION: No significant abnormality
== END 2021-06-07 14:01 | disposition home or self-care (01) ==
LOC: ANHIMG 14:06
PROVIDERS: PCP Internal Medicine; Visit Provider Nurse Practitioner
DX: M79.674 Pain in right toe(s) (principal)
CPT/HCPCS: 73620

== ENCOUNTER 2021-07-05 08:36 | Outpatient (RCR) | payer OTHER, SELFPAY ==
--- NOTE | 2021-04-11 12:30 | PC.NURSE ---
PATIENT CALLED THE OFFICE EARLIER THIS MORNING. HE MISSED HIS APPOINTMENT YESTERDAY DUE TO ABDOMINAL PAIN AND DIARRHEA AND HAS BEEN UNABLE TO SLEEP. CALLED THIS OFFICE AFTER HOURS LAST EVENING TO SAY THAT HE STILL HAD NOT SLEPT AND PLEASE DO NOT CALL IN THE MORNING. HE STATES HE HAS TO KEEP TELLING HIMSELF TO BREATHE. HE THEN CALLED APPROXIMATELY [id number] THIS MORNING TO SAY THAT HE HAD SLEPT APPROXIMATELY 9 HOURS after 32 HOURS WITHOUT SLEEP AND FELT ABLE TO COME FOR INJECTION THIS MORNING. REITERATED THAT HE HAS TO STAY AWAKE TO KEEP TELLING HIMSELF TO BREATHE. SITTING WITH HEAD DOWN AND THEN WALKED WITH DETERMINED, FORCEFUL STEPS TO THE ROOM FOR INJECTION. TALKING LOUDLY. UPSET THAT NO ONE KNOWS THEIR JOB HERE . STATES HAD TO WAIT TO BE REGISTERED AND THE REGISTRAR DIDN'T KNOW WHAT SHE WAS DOING. STATED I'M NOT GOING TO GET MY SHOT. I'M JUST GOING TO LEAVE . ENCOURAGED TO STAY FOR INJECTION TO WHICH HE REPLIED JUST GIVE IT TO ME THROUGH MY PANTS. I'M NOT GOING TO TAKE MY PANTS DOWN. JUST GIVE IT TO ME THROUGH MY PANTS. I TOLD HIM I HAD NEVER SEEN HIM LIKE THIS IN THE MANY YEARS I HAVE GIVEN HIM HIS MONTHLY INJECTIONS AND THAT I AM CONCERNED. HE REPLIED, WHY ARE YOU CONCERNED? I'M NOT GOING TO KILL MYSELF OR WRECK THE CAR. I ENCOURAGED HIM TO CALL DR. MULLINS'S OFFICE TO TALK TO JOSE MARIA REGARDING INABILITY TO SLEEP HE HAS TO TELL HIMSELF TO BREATHE AND CHANGE IN HIS USUAL STATE OF MIND. HE THEN LET ME GIVE HIM HIS INJECTION. HE NORMALLY IS VERY CONSERVATIVE WHEN PREPARING FOR INJECTION IN THAT HE ONLY DISCLOSES PORTION OF GLUTEAL NECESSARY FOR INJECTION. TODAY HE LET HIS JEANS AND BRIEFS COMPLETELY FALL TO THE FLOOR, HARD ENOUGH FOR BELT BUCKLE TO HIT THE FLOOR WITH CONSIDERABLE FORCE. AFTER FURTHER CONVERSATION HE AGREED TO CALL THE OFFICE TO TALK TO [facility]. AFTER I WISHED HIM PABLO BULLOCK HE WISHED ME A VERY MERRY, PABLO BULLOCK IN RETURN. HE STEPS WERE SLOWER AND LESS FORCEFUL HE WAS LEAVING. THE PATIENT BROUGHT HIS OWN MEDICATION WHICH WAS 2 VIALS OF HALDOL D WITH 100 MG EACH PER ML. 1.5 ML OR 150 MG WAS ADMINISTERED.
--- NOTE | 2021-06-06 10:36 | PC.NURSE ---
Medication brought in with patient in pharmacy bottle and marked appropriately. 2 100 mg vials. Given 150 mg or 1.5 cc IM as documented. To return in 4 weeks. Has business card with return date and phone number.
--- NOTE | 2021-07-05 13:11 | PC.NURSE ---
Given Haldol D 150 mg as ordered. Medication brought in by patient in pharmacy bottle marked appropriately with 2 vials of Haldol D 100 mg each. Given 1.5 cc or 150 mg as ordered. Discharged ambulatory with steady gait. To return in 4 weeks. Given appointment card with date and phone number to call for next month. Voices understanding.
== END 2021-07-10 23:59 | disposition home or self-care (01) ==
LOC: ANHLAB 08:36
PROVIDERS: PCP Internal Medicine
DX: F25.9 Schizoaffective disorder, unspecified (principal)
CPT/HCPCS: 96372

== ENCOUNTER 2021-08-07 08:26 | Outpatient (CLI) | payer OTHER, SELFPAY ==
--- NOTE | ~2021-08-07 | US_ITS ---
EXAMINATION: US renal BI EXAM DATE: 08/07/2021 09:23 INDICATION: Multiple renal cysts., Abnormal prior ultrasound. TECHNIQUE: Multiple grayscale and Doppler images of the kidneys were obtained (by a technologist who performed the scan) and subsequently reviewed. Comparison is made to prior examination from 11/10/2013. FINDINGS: Right kidney: Has been surgically resected correlating with prior CT scan. The right renal fossa is u nremarkable. Left kidney: There is normal contour and echogenicity. It measures 9.3 x 5.1 x 5.3 centimeters. The re are no focal renal lesions identified. There is no hydronephrosis. Bladder unremarkable. IMPRESSION: 1. Unremarkable left kidney. Reviewed, dictated and finalized at location B.
== END 2021-08-07 08:27 | disposition home or self-care (01) ==
PROVIDERS: PCP Internal Medicine; Visit Provider Internal Medicine Nephrology
DX: N28.1 Cyst of kidney, acquired (principal)
CPT/HCPCS: 76775

== ENCOUNTER 2021-08-15 08:21 | Outpatient (CLI) | payer OTHER, SELFPAY ==
[2021-08-15 08:52] LABS: Basophils Percent Auto 0.5 % (0.2-1.2); Eosinophils Absolute Auto 0.3 K/mm3 (0-0.3); Eosinophils Percent Auto 3.3 % (0-4.4); Hematocrit 42.3 % (42.0-52.0); Hemoglobin 14.1 g/dL (14.0-18.0); Immature Granulocyte Absolute 0.05 K/mm3 (0.00-0.031); Immature Granulocyte Percent A 0.7 % (0-0.5); Lymphocytes Absolute Auto 2.61 K/mm3 (0.9-3.2); Lymphocytes Percent Auto 34.6 % (18.3-44.2); Mean Corpuscular HGB Conc 33.3 g/dl (32-36); Mean Corpuscular Hemoglobin 31.8 pg (26-34); Mean Corpuscular Volume 95.3 fl (80-100); Mean Platelet Volume 8.1 fl (7.4-10.4); Monocytes Percent Auto 13.8 % (2.6-8.5); Neutrophils Absolute Auto 3.6 K/mm3 (1.3-6.7); Neutrophils Percent Auto 47.1 % (45.5-73.1); Platelet Count Result 205 k/mm3 (150-375); Red Blood Count 4.44 M/mm3 (4.6-6.20); Red Cell Distribution Width 12.6 % (11.5-14.5); White Blood Count 7.6 K/mm3 (4.5-10.0)
[2021-08-15 08:55] LABS: Add Urine Microscopic? NO; Appearance Urine Clear (Clear); Bilirubin Urine Negative (Negative); Blood Urine Negative (Negative); Color Urine Yellow (Yellow); Glucose Urine UA Negative (Negative); Ketones Urine Negative (Negative); Leukocyte Esterase Ur Negative LEU/UL (NEGATIVE); Nitrate Urine Negative (Negative); Protein Urine Negative (Negative); Specific Grav Ur 1.014 (1.001-1.035); Urobilinogen Urine Negative mg/dL (<2.0)
[2021-08-15 09:03] LABS: Albumin Level 4.1 g/dL (3.5-5.1); Anion Gap 7 mmol/L (8-16); Blood Urea Nitrogen 26 mg/dL (9-20); Calcium 9.3 mg/dL (8.4-10.2); Carbon Dioxide 29 mmol/L (22-30); Chloride 105 mmol/L (98-107); Estimated Glomerular Filt Rate 39; Glucose 87 mg/dL (65-110); Phosphorus 3.1 mg/dL (2.5-4.5); Potassium 4.2 mmol/L (3.4-5.0); Sodium 141 mmol/L (137-145)
[2021-08-15 09:42] LABS: Parathyroid Intact 35.4 pg/mL (7.5-53.5)
[2021-08-15 10:24] LABS: Creatinine Urine 131.6 mg/dL
[2021-08-15 10:28] LABS: MALB Creatinine Ratio 19.5 mg/g (0-30); Microalbumin Urine Random 25.6 mg/L (0-16.7)
== END 2021-08-15 08:22 | disposition home or self-care (01) ==
LOC: ANHLAB 08:24
PROVIDERS: PCP Internal Medicine
DX: N18.32 Chronic kidney disease, stage 3b (principal)
CPT/HCPCS: 36415; 80069; 81003; 82043; 83970; 85025

== ENCOUNTER 2021-10-23 07:35 | Outpatient (RCR) | payer OTHER, SELFPAY ==
--- NOTE | 2021-07-31 12:13 | PC.NURSE ---
Ambulatory to lab draw room with steady gait for outpatient injection. Given Haloperidol Decanoate 150 mg or 1.5cc from 2 vials. Medication bottle marked appropriately brought in by patient. Appointment made for next injection 4 weeks from today. Voices understanding. Has business card with date and phone number to call for concerns. Discharged ambulatory with steady gait.
--- NOTE | 2021-08-28 08:46 | PC.NURSE ---
Given Haldol D 150 mg IM as ordered. Given 1.5 cc. Medication brought in with patient. Given business card with appointment for September 25, 2021. Voices understanding.
--- NOTE | 2021-10-23 13:34 | PC.NURSE ---
MEDICATION BROUGHT IN BY PATIENT IN APPROPRIATELY MARKED BOTTLE. GIVEN HALDOL D 150 MG (1.5 CC) ORDERED.
== END 2021-10-29 23:59 | disposition home or self-care (01) ==
LOC: ANHLAB 07:35
PROVIDERS: PCP Internal Medicine
DX: F25.9 Schizoaffective disorder, unspecified (principal)
CPT/HCPCS: 96372

== ENCOUNTER 2022-02-13 08:31 | Outpatient (CLI) | payer OTHER, SELFPAY ==
[2022-02-13 09:04] LABS: Basophils Percent Auto 0.5 % (0.2-1.2); Eosinophils Absolute Auto 0.2 K/mm3 (0-0.3); Eosinophils Percent Auto 2.3 % (0-4.4); Hematocrit 43.1 % (42.0-52.0); Hemoglobin 14.5 g/dL (14.0-18.0); Immature Granulocyte Absolute 0.04 K/mm3 (0.00-0.031); Immature Granulocyte Percent A 0.5 % (0-0.5); Lymphocytes Absolute Auto 2.33 K/mm3 (0.9-3.2); Lymphocytes Percent Auto 31.1 % (18.3-44.2); Mean Corpuscular HGB Conc 33.6 g/dl (32-36); Mean Corpuscular Hemoglobin 33.3 pg (26-34); Mean Corpuscular Volume 99.1 fl (80-100); Mean Platelet Volume 8.6 fl (7.4-10.4); Monocytes Percent Auto 12.8 % (2.6-8.5); Neutrophils Percent Auto 52.8 % (45.5-73.1); Platelet Count Result 208 k/mm3 (150-375); Red Blood Count 4.35 M/mm3 (4.6-6.20); Red Cell Distribution Width 13.1 % (11.5-14.5); White Blood Count 7.5 K/mm3 (4.5-10.0)
[2022-02-13 09:23] LABS: Albumin Level 4.1 g/dL (3.5-5.1); Anion Gap 12 mmol/L (8-16); Blood Urea Nitrogen 16 mg/dL (9-20); Calcium 9.2 mg/dL (8.4-10.2); Carbon Dioxide 27 mmol/L (22-30); Chloride 103 mmol/L (98-107); Estimated Glomerular Filt Rate 39; Glucose 102 mg/dL (65-110); Phosphorus 2.8 mg/dL (2.5-4.5); Potassium 4.4 mmol/L (3.4-5.0); Sodium 142 mmol/L (137-145)
[2022-02-13 09:27] LABS: Parathyroid Intact 56.6 pg/mL (7.5-53.5)
== END 2022-02-13 08:32 | disposition home or self-care (01) ==
LOC: ANHLAB 08:33
PROVIDERS: PCP Internal Medicine; Visit Provider Internal Medicine Nephrology
DX: N18.32 Chronic kidney disease, stage 3b (principal)
CPT/HCPCS: 36415; 80069; 83970; 85025

== ENCOUNTER 2022-02-14 09:25 | Outpatient (RCR) | payer OTHER, SELFPAY ==
--- NOTE | 2021-11-20 13:29 | PC.NURSE ---
MEDICATION BROUGHT IN BY PATIENT IN APPROPRIATELY MARKED BOTTLE. GIVEN HALOPERIDOL DECANOATE 150 MG OR 1.5 CC OF 2 ML (100 MG / ML) BROUGHT IN WITH PATIENT. DISCHARGED AMBULATORY WITH STEADY GAIT. HAS APPOINTMENT CARD WITH RETURN DATE AND CONTACT INFORMATION.
--- NOTE | 2022-01-16 12:27 | PC.NURSE ---
AMBULATORY TO DRAW STATION FOR OUTPATIENT HALDOL D INJECTION. MEDICATION BROUGHT WITH PATIENT TO VISIT IN PHARMACY BOTTLE MARKED WITH HIS NAME AND MEDICATION. GIVEN HALDOL D 150 MG. GIVEN 1.5 CC. EACH OF 2 VIALS 100 MG / ML.
--- NOTE | 2022-02-14 10:28 | PC.NURSE ---
Medication brought in by patient in pharmacy bottle with his information on bottle. Given Haloperidol Decanoate 150 mg (1.5cc) as directed. Given 1 cc of Lot # [id number] and 0.5 cc of Lot # [id number]. Discharged ambulatory with steady gait. To return 4 weeks from today. He has appointment card with phone number to call for next appointment.
== END 2022-02-18 23:59 | disposition home or self-care (01) ==
LOC: ANHLAB 09:25
PROVIDERS: PCP Internal Medicine
DX: F25.9 Schizoaffective disorder, unspecified (principal)
CPT/HCPCS: 96372

== ENCOUNTER 2022-02-19 11:19 | Emergency (ER) | payer OTHER, SELFPAY ==
[2022-02-19] VITALS (17 sets, daily range): BP systolic 123–152; BP diastolic 76–99; PULSE 67–110; RESP 10–26; TEMP 36.5; O2SAT 96–100
--- NOTE | 2022-02-19 12:02 | ED.GENADULT ---
HPI - General Adult General Chief complaint: Urogenital-Male Stated complaint: SPLINTER OF WOOD IN HIS PENIS Time Seen by Provider: 02/19/22 12:01 History of Present Illness HPI narrative: Patient is a 56-year-old male with a history of schizophrenia, hypothyroidism, CKD presenting with a splinter in his penis. Patient states that he was masturbating when he placed a narrow piece of wood into his urethra. He states this was done as an aphrodisiac . States that several years ago he inserted a male onto his penis and required a Zarate catheter for several weeks. Patient states that today after inserting the wood, he had an episode of forceful urination and believes that the splinter dislodged after this. States that he then had another episode of urination but was not as forceful. He states that he no longer feels as if there is a foreign object in his urethra. He denies any pain at this time. He denies any bleeding from his penis. Denies further complaints or concerns. Related Data Home Medications Medication Instructions Recorded Confirmed clonazepam 0.5 mg tablet 0.5 mg PO BID 01/26/21 01/05/22 divalproex 500 mg tablet,delayed 500 mg PO BID 01/26/21 01/05/22 release haloperidol decanoate 100 mg/mL 150 mg IM DIRECTED 01/26/21 01/05/22 intramuscular solution lamotrigine 100 mg tablet 100 mg PO DAILY 01/26/21 01/05/22 trihexyphenidyl 5 mg tablet 5 mg PO BID 01/26/21 01/05/22 pantoprazole 20 mg tablet,delayed 20 mg PO QAM 09/28/21 01/05/22 release Allergies Allergy/AdvReac Type Severity Reaction Status Date / Time milk Allergy Nausea Verified 02/19/22 12:12 soy AdvReac unknown Verified 02/19/22 12:12 eggs AdvReac Scarring Uncoded 01/05/22 08:21 of throat seafood AdvReac unknown Uncoded 01/05/22 08:21 Review of Systems Review of Systems: All systems reviewed & are unremarkable except as noted in HPI and below PMFSH Past Medical History Medical History Harris esophagus CKD (chronic kidney disease) Esophageal cancer GERD (gastroesophageal reflux disease) Hypothyroidism Occasional tremors Occasional tremors Other specified types of schizophrenia, unspecified condition Prostate cancer screening encounter, options and risks discussed Schizophrenia Swelling of right foot Surgical History Surgical History History of nephrectomy Family History Family History Mother Hypertension Father Family history of Alzheimer's disease Malignant neoplasm of prostate Sibling No problems noted. Social History Social History Smoking status: Never smoker Alcohol intake: never Substance use: never Substance use type: does not use Spiritual care concerns: No Exam Narrative: GENERAL: Well-appearing, well-nourished, and in no acute distress. HEAD: Normocephalic, atraumatic. EYES: PERRLA and EOMI. ENT: Nares clear, no rhinorrhea or epistaxis. Mucous membranes moist. NECK: Supple. CHEST: Clear to auscultation. No respiratory distress. HEART: Regular rate and rhythm. No murmur heard. Normal peripheral pulses. ABDOMEN: Soft, nontender, nondistended, normal active bowel sounds. : penis without evidence of trauma, no foreign objects at urethral opening, no bleeding or discharge noted; testicles without abnormalities EXTREMITIES: Normal range of motion. No edema. SKIN: Warm, dry, no rash. NEURO: No focal deficits. Alert and oriented x3. PSYCH: Normal mood and affect. Course Course Emergency Course: Patient is a 56-year-old male with history as above presenting with possible foreign object in his urethra. Patient is mildly tachycardic, otherwise vitals are within normal limits. Exam is unremarkable. There is no evidence of external penile trauma. There were no
[2022-02-19 14:17] LABS: Add Urine Microscopic? NO; Appearance Urine Clear (Clear); Bilirubin Urine Negative (Negative); Blood Urine Negative (Negative); Color Urine Yellow (Yellow); Glucose Urine UA Negative (Negative); Ketones Urine Negative (Negative); Leukocyte Esterase Ur Negative LEU/UL (Negative); Nitrate Urine Negative (Negative); Protein Urine Negative (Negative); Specific Grav Ur 1.012 (1.001-1.035); Urobilinogen Urine Negative mg/dL (<2.0)
== END 2022-02-19 14:47 | disposition home or self-care (01) ==
PROVIDERS: Emergency Provider Emergency Medicine; PCP Internal Medicine
DX: N48.89 Other specified disorders of penis (principal); K22.70 Barrett's esophagus without dysplasia; N18.9 Chronic kidney disease, unspecified; Z85.01 Personal history of malignant neoplasm of esophagus; K21.9 Gastro-esophageal reflux disease without esophagitis; E03.9 Hypothyroidism, unspecified; F20.9 Schizophrenia, unspecified
CPT/HCPCS: 81003; 99283

== ENCOUNTER 2022-02-28 14:22 | Outpatient (CLI) | payer OTHER, SELFPAY ==
[2022-02-28 16:28] LABS: Cholesterol 167 mg/dL (0-200); HDL Direct 51 mg/dL; Triglycerides 100 mg/dL (<150)
[2022-02-28 16:50] LABS: LDL Cholesterol Direct 81 mg/dL
[2022-02-28 17:07] LABS: Prostate Specific Antigen 4.1 ng/mL (< OR = 4.0)
== END 2022-02-28 14:23 | disposition home or self-care (01) ==
LOC: ANHLAB 14:26
PROVIDERS: PCP Internal Medicine; Visit Provider Nurse Practitioner
DX: E03.9 Hypothyroidism, unspecified (principal); Z12.5 Encounter for screening for malignant neoplasm of prostate
CPT/HCPCS: 36415; 80061; 84153; 84443; G0103

== ENCOUNTER 2022-03-26 16:55 | Outpatient (CLI) | payer OTHER, SELFPAY ==
[2022-03-26 17:17] LABS: Basophils Percent Auto 0.4 % (0.2-1.2); Eosinophils Absolute Auto 0.1 K/mm3 (0-0.3); Eosinophils Percent Auto 1.3 % (0-4.4); Hematocrit 40.6 % (42.0-52.0); Hemoglobin 13.9 g/dL (14.0-18.0); Immature Granulocyte Absolute 0.06 K/mm3 (0.00-0.031); Immature Granulocyte Percent A 0.6 % (0-0.5); Lymphocytes Absolute Auto 3.25 K/mm3 (0.9-3.2); Lymphocytes Percent Auto 31.2 % (18.3-44.2); Mean Corpuscular HGB Conc 34.2 g/dl (32-36); Mean Corpuscular Hemoglobin 32.9 pg (26-34); Mean Corpuscular Volume 96.2 fl (80-100); Mean Platelet Volume 8.1 fl (7.4-10.4); Monocytes Absolute Auto 1.2 K/mm3 (0.1-0.6); Monocytes Percent Auto 11.3 % (2.6-8.5); Neutrophils Absolute Auto 5.7 K/mm3 (1.3-6.7); Neutrophils Percent Auto 55.2 % (45.5-73.1); Platelet Count Result 230 k/mm3 (150-375); Red Blood Count 4.22 M/mm3 (4.6-6.20); Red Cell Distribution Width 12.3 % (11.5-14.5); White Blood Count 10.4 K/mm3 (4.5-10.0)
[2022-03-26 17:30] LABS: Alanine Aminotransferase 19 U/L (6-50); Albumin Level 4.4 g/dL (3.5-5.1); Alkaline Phosphatase 58 U/L (38-126); Anion Gap 10 mmol/L (8-16); Aspartate Amino Transferase 22 U/L (17-59); Bilirubin,Total 0.4 mg/dL (0.2-1.3); Blood Urea Nitrogen 23 mg/dL (9-20); Calcium 9.2 mg/dL (8.4-10.2); Carbon Dioxide 29 mmol/L (22-30); Chloride 101 mmol/L (98-107); Estimated Glomerular Filt Rate 39; Glucose 95 mg/dL (65-110); Potassium 4.5 mmol/L (3.4-5.0); Sodium 140 mmol/L (137-145)
[2022-03-26 17:59] LABS: Prostate Specific Antigen 3.7 ng/mL (< OR = 4.0)
== END 2022-03-26 16:56 | disposition home or self-care (01) ==
LOC: ANHLAB 16:56
PROVIDERS: PCP Internal Medicine; Visit Provider Internal Medicine
DX: R97.20 Elevated prostate specific antigen [PSA] (principal); N18.32 Chronic kidney disease, stage 3b; T39.1X1A Poisoning by 4-Aminophenol derivatives, accidental (unintentional), initial encounter
CPT/HCPCS: 36415; 80053; 84153; 85025

== ENCOUNTER 2022-04-20 06:34 | Outpatient (CLI) | payer OTHER, SELFPAY ==
--- NOTE | ~2022-04-20 | MR_ITS ---
EXAMINATION: MR brain/brain stem wo/w con DATE: 04/20/2022 08:09 INDICATION: Uncontrollable arm and leg movements. TECHNIQUE: Magnetic resonance imaging (MRI) of the brain and brainstem was performed without and with 19 mL MultiHance intravenous contrast. COMPARISON: Brain MRI 01/01/2021, head CT 01/26/2021, 03/29/14 FINDINGS: There is a small area of chronic encephalomalacia with old blood products in posterior righ t frontal lobe centrum semiovale. There are scattered areas of nonspecific increased T2-weighted sign al intensity in the cerebral white matter, which is within normal limits for the patient's age. There is no acute ischemic infarct. The ventricles are normal in size. There is mild mucosal thickening in the paranasal sinuses. The orbits are normal. The mastoid air cells are normal. IMPRESSION: 1. Small area of chronic encephalomalacia with old blood products in posterior right frontal lobe fly trum semiovale, stable from 01/01/21. Reviewed, dictated and finalized at location E. 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 Small area of chronic encephalomalacia with old blood products in posterior right frontal lobe centrum semiovale, stable from 01/01/21.
== END 2022-04-20 06:35 | disposition home or self-care (01) ==
PROVIDERS: PCP Internal Medicine; Visit Provider Clinical Nurse Specialist
DX: R25.8 Other abnormal involuntary movements (principal); R25.1 Tremor, unspecified
CPT/HCPCS: 70553; A9577

== ENCOUNTER 2022-05-27 11:18 | Emergency (ER) | payer OTHER, SELFPAY ==
--- NOTE | ~2022-05-27 | XR_ITS ---
XR chest 1V portable DATE: 05/27/2022 12:11 INDICATION: Shortness of breath, dyspnea for 2 days TECHNIQUE: Portable upright AP chest on 05/27/2022 and 1208 hours COMPARISON: 01/26/2021 portable AP chest FINDINGS: Normal heart size. No hilar or mediastinal enlargement. No pulmonary infiltrate or consolid ation, pleural effusion or pulmonary vascular congestion or pneumothorax is detected. IMPRESSION: No active cardiopulmonary disease Reviewed, dictated and finalized at location A. NETWORK IN[employer]
[2022-05-27 11:21] VITALS: BP 133/106; PULSE 88; RESP 20; O2SAT 100
--- NOTE | 2022-05-27 11:50 | ECG_ITS ---
Measurements Intervals [place] Rate: 84 P: 72 HI: 147 QRS: 58 QRSD: 111 T: 36 QT: 358 QTc: 426 Interpretive Statements SINUS RHYTHM INTRAVENTRICULAR CONDUCTION DELAY BASELINE ARTIFACT- AVF, V6 BORDERLINE ECG COMPARED TO ECG 01/26/2021 13:36:37 NO SIGNIFICANT CHANGES Electronically Signed On 05-27-2022 14:01:15 [employer]OP [employer]ER by Delio Persaud D.O.
[2022-05-27 12:01] LABS: Basophils Percent Auto 0.3 % (0.2-1.2); Eosinophils Absolute Auto 0.1 K/mm3 (0-0.3); Eosinophils Percent Auto 1.5 % (0-4.4); Hematocrit 48.1 % (42.0-52.0); Hemoglobin 15.9 g/dL (14.0-18.0); Immature Granulocyte Absolute 0.03 K/mm3 (0.00-0.031); Immature Granulocyte Percent A 0.3 % (0-0.5); Lymphocytes Absolute Auto 2.48 K/mm3 (0.9-3.2); Lymphocytes Percent Auto 28.2 % (18.3-44.2); Mean Corpuscular HGB Conc 33.1 g/dl (32-36); Mean Corpuscular Hemoglobin 31.9 pg (26-34); Mean Corpuscular Volume 96.6 fl (80-100); Mean Platelet Volume 8.3 fl (7.4-10.4); Monocytes Percent Auto 11.7 % (2.6-8.5); Neutrophils Absolute Auto 5.1 K/mm3 (1.3-6.7); Platelet Count Result 241 k/mm3 (150-375); Red Blood Count 4.98 M/mm3 (4.6-6.20); Red Cell Distribution Width 12.2 % (11.5-14.5); White Blood Count 8.8 K/mm3 (4.5-10.0)
[2022-05-27 12:11] LABS: Alanine Aminotransferase 20 U/L (6-50); Albumin Level 4.7 g/dL (3.5-5.1); Alkaline Phosphatase 59 U/L (38-126); Anion Gap 7 mmol/L (8-16); Aspartate Amino Transferase 25 U/L (17-59); Bilirubin,Total 0.7 mg/dL (0.2-1.3); Blood Urea Nitrogen 19 mg/dL (9-20); Calcium 9.8 mg/dL (8.4-10.2); Carbon Dioxide 29 mmol/L (22-30); Chloride 102 mmol/L (98-107); Estimated Glomerular Filt Rate 35; Glucose 91 mg/dL (65-110); Potassium 4.6 mmol/L (3.4-5.0); Sodium 138 mmol/L (137-145)
[2022-05-27 12:12] LABS: Prothrombin Time 12.9 Seconds (11.1-14.7)
--- NOTE | 2022-05-27 12:42 | ED.SOB ---
HPI - SOB/Dyspnea General Chief Complaint: Shortness of Breath/Dyspnea Stated Complaint: diff breathing Time Seen by Provider: 05/27/22 12:04 Source: patient, RN notes reviewed and old records reviewed Mode of arrival: ambulatory Limitations: no limitations History of Present Illness HPI Narrative: This is a 57 year old male with history of schizophrenia, tremors, chronic kidney disease who presents for evaluation of shortness of breath. He states that for the past 2 days he has episodes in which he is breathing shallow. He also states that he forgets to breath and he has to tell himself to breath. He states this does not happen all the time. He states that he is able to catch is breath but he was evaluated at an urgent care for shortness of breath today. He was also seen by his PCP on Saturday for same symptoms. He denies cough, chest pain, fever, nausea, vomiting or diarrhea. He denies leg swelling as well. He denies history of lung issues or PE. Related Data Home Medications Medication Instructions Recorded Confirmed clonazepam 0.5 mg tablet 0.5 mg PO BID 01/26/21 05/25/22 divalproex 500 mg tablet,delayed 500 mg PO BID 01/26/21 05/25/22 release haloperidol decanoate 100 mg/mL 150 mg IM DIRECTED 01/26/21 05/25/22 intramuscular solution lamotrigine 100 mg tablet 100 mg PO DAILY 01/26/21 05/25/22 trihexyphenidyl 5 mg tablet 5 mg PO BID 01/26/21 05/25/22 pantoprazole 20 mg tablet,delayed 20 mg PO QAM 09/28/21 05/25/22 release Allergies Allergy/AdvReac Type Severity Reaction Status Date / Time milk Allergy Nausea Verified 05/25/22 10:45 soy AdvReac unknown Verified 05/25/22 10:45 eggs AdvReac Scarring Uncoded 05/25/22 10:45 of throat seafood AdvReac unknown Uncoded 05/25/22 10:45 Review of Systems Constitutional: Constitutional: Denies weakness Cardiovascular: Cardiovascular: Denies syncope, Denies rapid heart rate, Denies irregular heart rhythm, Denies leg edema and Reports dyspnea Respiratory: Respiratory: Denies chest congestion, Denies hemoptysis, Denies excessive phlegm production and Denies dyspnea Gastrointestinal: Gastrointestinal: Denies abdominal pain, Denies hematochezia, Denies diarrhea and Denies vomiting Genitourinary: Genitourinary: Denies hematuria, Denies dysuria, Denies penile discharge and Denies testicular pain Musculoskeletal: Musculoskeletal: Denies joint swelling, Denies loss of height and Denies muscle weakness Neurologic: Denies syncope, Denies focal weakness and Denies weakness PMFSH Past Medical History Medical History OBEY (acute kidney injury) Arm and leg movements, uncontrollable Harris esophagus Burn Cerumen impaction CKD (chronic kidney disease) Dizziness Dysuria Elevated PSA Esophageal cancer Facial numbness GERD (gastroesophageal reflux disease) Hospital discharge follow-up Hypothyroidism Lower urinary tract symptoms (LUTS) Occasional tremors Occasional tremors Other specified types of schizophrenia, unspecified condition Otitis media Palpitations Prostate cancer screening encounter, options and risks discussed Schizophrenia Screening for lipid disorders Screening for prostate cancer Swelling of right foot Toe pain, right Tylenol overdose Weakness Wound of left leg Surgical History Surgical History History of nephrectomy Family History Family History Mother Hypertension Father Family history of Alzheimer's disease Malignant neoplasm of prostate Sibling No problems noted. Social History Social History Smoking status: Never smoker Alcohol intake: never Substance use: never Substance use type: does not use Lack of Food: Never True Current Housing: I Have Housing Concerned About Future Housing: No
[2022-05-27 13:18] LABS: NT Pro B Type Natriuretic Pept 109 pg/mL (19.9-100); Troponin I < 0.012 ng/mL (0.000-0.034)
[2022-05-27 13:20] LABS: Partial Thromboplastin Time 31.3 SECONDS (22.3-36.8)
[2022-05-27 13:26] LABS: D Dimer 0.34 ug/mL (<0.48)
[2022-05-27 13:38] LABS: SARS-CoV-2 RNA PCR Negative
--- NOTE | 2022-05-27 14:14 | PC.NURSE ---
performed walking pulse oximetry saturation at this time. Patient was on room air and walked around the nurses station approx 150 ft accompanied by this nurse. Patient's oxygen saturation stayed above 94% for the duration of test. Dr Gibbons notified at this time
== END 2022-05-27 14:56 | disposition home or self-care (01) ==
PROVIDERS: Emergency Medicine; Emergency Provider General Practice; PCP Internal Medicine
DX: R06.00 Dyspnea, unspecified (principal); Z20.822 Contact with and (suspected) exposure to COVID-19; N18.9 Chronic kidney disease, unspecified; K21.9 Gastro-esophageal reflux disease without esophagitis; E03.9 Hypothyroidism, unspecified; F20.9 Schizophrenia, unspecified; Z85.01 Personal history of malignant neoplasm of esophagus; Z90.5 Acquired absence of kidney
CPT/HCPCS: 36415; 71045; 80053; 83880; 84484; 85025; 85380; 85610; 85730; 93005; 99284; U0003; U0005

== ENCOUNTER 2022-06-07 07:33 | Outpatient (RCR) | payer OTHER, SELFPAY ==
--- NOTE | 2022-03-14 09:32 | PC.NURSE ---
AMBULATORY WITH STEADY GAIT. 2 VIALS OF HALDOL D IN PHARMACY BOTTLE MARKED APPROPRIATELY. GIVEN HALDOL D 150 MG ORDERED - 1.5 CC. HAS APPOINTMENT CARD FOR NEXT APPOINTMENT IN 4 WEEKS - APRIL 11, 2022 WITH NUMBER TO CALL FOR QUESTIONS OR CONCERNS.
--- NOTE | 2022-04-13 12:11 | PC.NURSE ---
Medication brought in by patient in pharmacy container appropriately marked. 2 vials of 100 mg each Haldol D. Given 1.5 cc or 150 mg
--- NOTE | 2022-05-10 08:58 | PC.NURSE ---
AMBULATORY TO LAB DRAW STATION FOR MONTHLY INJECTION. SEEMS DROWSY TODAY. INSISTS HE IS ABLE TO DRIVE. MEDICATION BROUGHT IN WITH PATIENT IN PHARMACY BOTTLES MARKED APPROPRIATELY. MEDICATION IN 2 1 CC VIALS WITH 100 MG EACH. GIVEN 1.5 CC DIRECTED. DISCHARGED AMBULATORY WITH STEADY GAIT. TO RETURN IN 4 WEEKS.
--- NOTE | 2022-06-07 11:21 | PC.NURSE ---
SLEEPY APPEARANCE. GAIT STEADY. NOTES TREMORS OF HANDS WHILE SITTING IN CHAIR WITH EYES CLOSED. STATES I WANT TO HAVE CHILDREN. I AM OF LEGAL AGE TO HAVE CHILDREN. WHEN ASKED IF HE REALIZED HE IS OVER 50 YEARS OLD HE STATED, NO I'M NOT. I'M OF LEGAL AGE. I'M OVER 18..... I WANT TO HAVE CHILDREN. FLAT AFFECT. MEDICATION BROUGHT IN BY PATIENT IN PHARMACY BOTTLE MARKED WITH HIS NAME AND MEDICATION. GIVEN 150 MG HALDOL DECANOATE FROM 2 SEPARATE BOTTLES. GIVEN 1.5 CC FOR TOTAL OF 150 MG.
== END 2022-06-12 23:59 | disposition home or self-care (01) ==
LOC: ANHLAB 07:33
PROVIDERS: PCP Internal Medicine
DX: F25.9 Schizoaffective disorder, unspecified (principal)
CPT/HCPCS: 96372

== ENCOUNTER 2022-06-15 12:49 | Outpatient (CLI) | payer OTHER, SELFPAY ==
[2022-06-15 13:58] LABS: Hematocrit 44.3 % (42.0-52.0); Hemoglobin 14.7 g/dL (14.0-18.0); Mean Corpuscular HGB Conc 33.2 g/dl (32-36); Mean Corpuscular Hemoglobin 31.5 pg (26-34); Mean Corpuscular Volume 95.1 fl (80-100); Mean Platelet Volume 8.3 fl (7.4-10.4); Platelet Count Result 219 k/mm3 (150-375); Red Blood Count 4.66 M/mm3 (4.6-6.20)
[2022-06-15 14:14] LABS: Albumin Level 4.4 g/dL (3.5-5.1); Anion Gap 4 mmol/L (8-16); Blood Urea Nitrogen 18 mg/dL (9-20); Calcium 9.7 mg/dL (8.4-10.2); Carbon Dioxide 33 mmol/L (22-30); Chloride 98 mmol/L (98-107); Estimated Glomerular Filt Rate 33; Glucose 95 mg/dL (65-110); Phosphorus 3.6 mg/dL (2.5-4.5); Potassium 5.2 mmol/L (3.4-5.0); Sodium 135 mmol/L (137-145); Uric Acid 7.2 mg/dL (3.5-8.5)
[2022-06-15 14:16] LABS: Total Protein Urine Random 8 mg/dL; Ur Ttl Prot Creatinine Ratio 0.07 mg/mg (0-0.20)
[2022-06-15 14:27] LABS: Parathyroid Intact 29.2 pg/mL (7.5-53.5)
[2022-06-15 14:31] LABS: Appearance Urine Clear (Clear); Bilirubin Urine Negative (Negative); Blood Urine Negative (Negative); Color Urine Yellow (Yellow); Glucose Urine UA Negative (Negative); Ketones Urine Negative (Negative); Leukocyte Esterase Ur Negative LEU/UL (NEGATIVE); Nitrate Urine Negative (Negative); Protein Urine Negative (Negative); Specific Grav Ur 1.015 (1.001-1.035); Urobilinogen Urine 0.2 mg/dL (<2.0)
[2022-06-15 14:32] LABS: Add Urine Microscopic? NO
== END 2022-06-15 12:50 | disposition home or self-care (01) ==
PROVIDERS: PCP Internal Medicine
DX: N18.32 Chronic kidney disease, stage 3b (principal)
CPT/HCPCS: 36415; 80069; 81003; 82570; 83970; 84156; 84550; 85027

== ENCOUNTER 2022-09-25 10:55 | Outpatient (RCR) | payer OTHER, SELFPAY ==
--- NOTE | 2022-07-05 10:26 | PC.NURSE ---
Medication brought in with patient from pharmacy bottle and marked appropriately. 2 vials of Haloperidol Decanoate 100 mg each vial. Given 1.5 cc or 150 mg Haloperidol IM.
--- NOTE | 2022-07-31 10:12 | PC.NURSE ---
MEDICATION BROUGHT IN WITH PATIENT IN PHARMACY BOTTLE APPROPRIATELY MARKED. GIVEN 1.5CC OR 150 MG (100 MG/ML).
--- NOTE | 2022-08-28 14:21 | PC.NURSE ---
MEDICATION BROUGHT IN BY PATIENT IN PHARMACY BOTTLES MARKED APPROPRIATELY. PATIENT BROUGHT IN 2 PHARMACY BOTTLES WITH 1 VIAL OF HALDOL D 100 MG IN EACH BOTTLE BY 2 DIFFERENT MANUFACTURERS. GIVEN TOTAL OF 150 MG OR 1.5 CC. PATIENT REQUESTED VIALS AND BOTTLES BE GIVEN BACK DUE TO DIFFERENCE IN REFILLS AVAILABLE ON THE BOTTLES.
--- NOTE | 2022-09-25 11:07 | PC.NURSE ---
AMBULATORY TO LAB DRAW STATION WITH STEADY GAIT FOR OUTPATIENT HALDOL D INJECTION. MEDICATION BROUGHT IN BY PATIENT. HALDOL D 100 MG EACH IN 2 VIALS. GIVEN 150 MG / 1.5 CC. GIVEN APPOINTMENT CARD FOR 4 WEEKS FROM TODAY WITH PHONE NUMBER TO CALL FOR TIME.
== END 2022-10-03 23:59 | disposition home or self-care (01) ==
LOC: ANHLAB 10:55
PROVIDERS: PCP Internal Medicine
DX: F25.9 Schizoaffective disorder, unspecified (principal)
CPT/HCPCS: 96372

== ENCOUNTER 2022-09-27 09:20 | Outpatient (CLI) | payer OTHER, SELFPAY ==
--- NOTE | 2022-09-27 11:00 | NEURO_ITS ---
Impression: # Complains of pain in bilateral upper extremities. # Normal nerve conduction study. # Needle/EMG exam not requested. # Clinical correlation recommended. Nerve Conduction Studies Anti Sensory Summary Table Stim Site NR Peak (ms) P-T Amp (?V) Site1 Site2 Delta-P (ms) Dist (cm) Deon (m/s) Left Median Anti Sensory (2-3nd Digit) Wrist 3.8 53.9 Wrist 2-3nd Digit 3.8 14.0 37 Wrist 3.8 34.6 Wrist 2-3nd Digit 3.8 14.0 37 Right Median Anti Sensory (2-3nd Digit) Wrist 3.6 42.4 Wrist 2-3nd Digit 3.6 14.0 39 Wrist 3.5 35.1 Wrist 2-3nd Digit 3.6 14.0 39 Left Radial Anti Sensory (Base 1st Digit) Wrist 2.8 17.0 Wrist Base 1st Digit 2.8 0.0 Right Radial Anti Sensory (Base 1st Digit) Wrist 2.9 14.1 Wrist Base 1st Digit 2.9 0.0 Left Ulnar Anti Sensory (5th Digit) Wrist 3.9 9.3 Wrist 5th Digit 3.9 14.0 36 Right Ulnar Anti Sensory (5th Digit) Wrist 3.4 47.7 Wrist 5th Digit 3.4 14.0 41 Motor Summary Table Stim Site NR Onset (ms) O-P Amp (mV) Site1 Site2 Delta-0 (ms) Dist (cm) Deon (m/s) Left Median Motor (Abd Poll Brev) Wrist 3.9 6.3 Elbow Wrist 7.5 35.0 47 Elbow 11.4 5.3 Right Median Motor (Abd Poll Brev) Wrist 3.3 5.8 Elbow Wrist 7.4 35.0 47 Elbow 10.7 6.8 Left Ulnar Motor (Abd Dig Minimi) Wrist 3.7 7.3 A Elbow Wrist 7.8 35.0 45 A Elbow 11.5 6.5 Right Ulnar Motor (Abd Dig Minimi) Wrist 3.1 8.6 A Elbow Wrist 7.7 35.0 45 A Elbow 10.8 6.8 B Elbow Wrist 5.9 27.0 46 B Elbow 9.0 7.4 F Wave Studies NR F-Lat (ms) L-R F-Lat (ms) Left Median (Mrkrs) (Abd Poll Brev) 34.91 0.99 Right Median (Mrkrs) (Abd Poll Brev) 35.91 0.99 Left Ulnar (Mrkrs) (Abd Dig Min) 35.73 0.41 Right Ulnar (Mrkrs) (Abd Dig Min) 35.32 0.41 MTDD
== END 2022-09-27 09:21 | disposition home or self-care (01) ==
LOC: ANHNEURO 09:20
PROVIDERS: PCP Internal Medicine; Visit Provider Plastic Surgery
DX: R20.2 Paresthesia of skin (principal)
CPT/HCPCS: 95911

== ENCOUNTER 2022-10-01 22:41 | Emergency (ER) | payer OTHER, SELFPAY ==
[2022-10-01 22:46] VITALS: BP 144/99; PULSE 88; RESP 18; TEMP 36.3; O2SAT 99
--- NOTE | 2022-10-02 00:20 | PC.NURSE ---
Called x1 with no answer
--- NOTE | 2022-10-02 00:35 | PC.NURSE ---
pt. called twice, no answer
== END 2022-10-02 00:20 | disposition left against medical advice (07) ==
PROVIDERS: PCP Internal Medicine
DX: R25.1 Tremor, unspecified (principal)
CPT/HCPCS: 99199

== ENCOUNTER 2022-10-02 18:43 | Emergency (ER) | payer OTHER, SELFPAY ==
--- NOTE | 2022-10-02 19:12 | ED.PSYCH ---
HPI - Psych General Chief Complaint: Psychiatric Symptoms Stated Complaint: SI Time Seen by Provider: 10/02/22 19:07 Source: patient Mode of arrival: EMS Limitations: no limitations History of Present Illness HPI Narrative: Patient is a 57-year-old male with a history of schizophrenia, hypothyroidism,CKD, presenting to the emergency department for evaluation of tremors. Patient reports longstanding history of bilateral upper and lower extremity tremors that he is unable to control at times. Patient was seen by his primary care provider yesterday however, had reassuring visit. Does have a referral into [facility] neurology, has not been contacted for follow-up yet. Patient denies any focal weakness or numbness. No headache, vision changes nausea or vomiting. Patient reportedly transported via EMS, was denying any homicidal or suicidal ideation, but then reported to triage nurse that he would plan to overdose on medication, when questioned for me, has no specific plan. Has no plan to overdose. Has no plan for suicide. He denies any headache, chest pain, abdominal pain. No nausea or vomiting Related Data Home Medications Medication Instructions Recorded Confirmed clonazepam 0.5 mg tablet 0.5 mg PO BID 01/26/21 10/01/22 divalproex 500 mg tablet,delayed 500 mg PO BID 01/26/21 10/01/22 release haloperidol decanoate 100 mg/mL 150 mg IM DIRECTED 01/26/21 10/01/22 intramuscular solution lamotrigine 100 mg tablet 100 mg PO DAILY 01/26/21 10/01/22 trihexyphenidyl 5 mg tablet 5 mg PO BID 01/26/21 10/01/22 pantoprazole 20 mg tablet,delayed 20 mg PO QAM 09/28/21 10/01/22 release trihexyphenidyl 2 mg tablet 1 mg PO BID 09/13/22 10/01/22 Allergies Allergy/AdvReac Type Severity Reaction Status Date / Time milk Allergy Nausea Verified 10/01/22 10:38 soy AdvReac unknown Verified 10/01/22 10:38 eggs AdvReac Scarring Uncoded 10/01/22 10:38 of throat seafood AdvReac unknown Uncoded 10/01/22 10:38 Review of Systems Review of Systems: CONSTITUTIONAL: Denies fever, chills, or sweats. EYES: Denies visual changes, redness, or discharge. ENT: Denies rhinorrhea, congestion, sore throat, or otalgia. CARDIOVASCULAR: Denies chest pain, palpitations, or edema. RESPIRATORY: Denies cough or dyspnea. GASTROINTESTINAL: Denies abdominal pain, nausea, vomiting, or diarrhea. GENITOURINARY: Denies dysuria or hematuria. SKIN: Denies rash or itching. MUSCULOSKELETAL: Denies back pain, joint pain, or myalgia. NEUROLOGIC: Denies headache, numbness, or weakness. Reports tremors to upper and lower extremities PSYCHIATRIC: Reports mild anxiety PMFSH Past Medical History Medical History OBEY (acute kidney injury) Arm and leg movements, uncontrollable Harris esophagus Burn Cerumen impaction CKD (chronic kidney disease) Dizziness Dysuria Elevated PSA Esophageal cancer Facial numbness GERD (gastroesophageal reflux disease) Hospital discharge follow-up Hypothyroidism Lower urinary tract symptoms (LUTS) Occasional tremors Occasional tremors Other specified types of schizophrenia, unspecified condition Otitis media Palpitations Prostate cancer screening encounter, options and risks discussed Schizophrenia Screening for lipid disorders Screening for prostate cancer Swelling of right foot Toe pain, right Tylenol overdose Weakness Wound of left leg Surgical History Surgical History History of nephrectomy Family History Family History Mother Hypertension Father Family history of Alzheimer's disease Malignant neoplasm of prostate Sibling No problems noted. Social History Social History Smoking status: Never smoker Alcohol intake: never Substance use: never Substance use type: does not
--- NOTE | 2022-10-02 19:14 | PC.NURSE ---
Pt was brought in by EMS but there has been no triage note entered by RN who received report from EMS.
[2022-10-02 19:15] VITALS: BP 145/99; PULSE 95; RESP 18; TEMP 36.4; O2SAT 96
[2022-10-02 19:19] LABS: Appearance Urine Clear (Clear); Bilirubin Urine Negative (Negative); Blood Urine Negative (Negative); Color Urine Yellow (Yellow); Glucose Urine UA Negative (Negative); Ketones Urine Negative (Negative); Leukocyte Esterase Ur Negative LEU/UL (Negative); Nitrate Urine Negative (Negative); Protein Urine Negative (Negative); Specific Grav Ur 1.007 (1.001-1.035); Urobilinogen Urine 0.2 mg/dL (<2.0)
[2022-10-02 19:21] LABS: Basophils Absolute Auto 0.1 K/mm3 (0.0-0.1); Basophils Percent Auto 0.6 % (0.2-1.2); Eosinophils Absolute Auto 0.2 K/mm3 (0-0.3); Eosinophils Percent Auto 2.4 % (0-4.4); Hematocrit 43.5 % (42.0-52.0); Hemoglobin 15.1 g/dL (14.0-18.0); Immature Granulocyte Absolute 0.04 K/mm3 (0.00-0.031); Immature Granulocyte Percent A 0.4 % (0-0.5); Immature Platelet Fraction Pct 1.2 % (0.9-11.2); Lymphocytes Absolute Auto 2.97 K/mm3 (0.9-3.2); Lymphocytes Percent Auto 33.1 % (18.3-44.2); Mean Corpuscular HGB Conc 34.7 g/dl (32-36); Mean Corpuscular Volume 92.2 fl (80-100); Mean Platelet Volume 8.4 fl (7.4-10.4); Monocytes Absolute Auto 0.9 K/mm3 (0.1-0.6); Monocytes Percent Auto 10.1 % (2.6-8.5); Neutrophils Absolute Auto 4.8 K/mm3 (1.3-6.7); Neutrophils Percent Auto 53.4 % (45.5-73.1); Platelet Count Result 281 k/mm3 (150-375); Red Blood Count 4.72 M/mm3 (4.6-6.20); Red Cell Distribution Width 12.4 % (11.5-14.5)
--- NOTE | 2022-10-02 19:21 | PC.NURSE ---
This RN did not receive EMS reports and it is unclear who checked pt into the ER. Pt denies current SI. When asked if he has had any suicidal thoughts in the past month pt states Yes, but it's not to threaten my mother. I just have outbursts. I don't want to . When asked pt if he had any intention of acting on these thoughts pt states I call [phone]. It's not really serious . Pt is calm and cooperative at this time. Pt's only complaint at this time is tremors caused by haldol injections. Pt states he has been taking Artane which was prescribed to help control the shaking but it hasn't helped. Pt denies HI.
[2022-10-02 19:33] LABS: Ethanol < 10 mg/dL (<10)
[2022-10-02 19:41] LABS: Add Urine Microscopic? NO
[2022-10-02 19:42] LABS: Amphetamine Screen Urine Negative (Negative); Barbiturate Screen Urine Negative (Negative); Benzodiazepines Screen Urine Negative (Negative); Cannabinoid Screen Urine Negative (Negative); Cocaine Screen Urine Negative (Negative); Methadone Screen Urine Negative (Negative); Opiate Screen Urine Negative (Negative); Phencyclidine Screen Urine Negative (Negative)
[2022-10-02 20:04] LABS: SARS-CoV-2 RNA PCR Negative (Negative)
[2022-10-02 20:14] LABS: Salicylate < 1.0 mg/dL (2-20)
[2022-10-02 20:16] LABS: Acetaminophen < 10 ug/mL (10-30)
--- NOTE | 2022-10-02 20:50 | PC.NURSE ---
crisis called to evaluate patient
[2022-10-02 20:57] LABS: Alanine Aminotransferase 16 U/L (6-50); Albumin Level 4.6 g/dL (3.5-5.1); Alkaline Phosphatase 57 U/L (38-126); Anion Gap 8 mmol/L (8-16); Aspartate Amino Transferase 22 U/L (17-59); Bilirubin,Total 0.5 mg/dL (0.2-1.3); Blood Urea Nitrogen 22 mg/dL (9-20); Calcium 9.9 mg/dL (8.4-10.2); Carbon Dioxide 32 mmol/L (22-30); Chloride 99 mmol/L (98-107); Estimated CRCL calculation 47 ml/min; Estimated Glomerular Filt Rate 37; Glucose 95 mg/dL (65-110); Sodium 139 mmol/L (137-145)
--- NOTE | 2022-10-02 22:15 | PC.NURSE ---
Patton at bedside
[2022-10-02 23:01] VITALS: BP 130/80; PULSE 77; RESP 18; O2SAT 99
--- NOTE | 2022-10-02 23:02 | PC.NURSE ---
Pt does not have a ride home since he came by EMS. Pt states his mother can't drive after dark. Called his brother Chip to see if he can picking supervisor pt. Left voicemail for brother to call back.
[2022-10-07 16:31] LABS: Lamotrigine Lamictal 7.7 mcg/mL (2.5-15.0)
== END 2022-10-02 23:21 | disposition home or self-care (01) ==
PROVIDERS: Emergency Medicine; Emergency Provider Emergency Medicine; PCP Internal Medicine
DX: R25.1 Tremor, unspecified (principal); F32.A Depression, unspecified; Z20.822 Contact with and (suspected) exposure to COVID-19; N18.9 Chronic kidney disease, unspecified; E03.9 Hypothyroidism, unspecified; K22.70 Barrett's esophagus without dysplasia; K21.9 Gastro-esophageal reflux disease without esophagitis; F20.9 Schizophrenia, unspecified; Z85.01 Personal history of malignant neoplasm of esophagus; Z90.5 Acquired absence of kidney
CPT/HCPCS: 36415; 80053; 80175; 80307; 81003; 84443; 85025; 85055; 87635; 99284; U0005

== ENCOUNTER 2022-11-30 11:15 | Outpatient (RCR) | payer OTHER, SELFPAY ==
--- NOTE | 2022-10-30 10:20 | OTOPEVAL1 ---
Assessment and note entered by Foster Johnson, CARMINE/Alfonzo, CHT Evaluation Information Assessment Status Evaluation Diagnosis Pain in right hand Subjective Information Patient reports no pain at rest. Reports burning pain on the palmar surface of the index finger with certain motions and certain ways he grabs objects. Points to the thenar eminence/CMC area of the thumb. He reports this has been going on for about 6 months. Reports no particular injury to the hand. EMG (-) for carpal tunnel syndrome. He has not had x-rays of the hand. He is right hand dominant. Reported Pain Level Pain Score 0: Self Report Additional Pain Score Comments No pain at rest. Patient reports 8/10 pain when using his right hand on the steering wheel. Assessment OT Clinical Summary Patient referred to outpatient hand therapy with right hand pain. Unable to recreate the burning symptoms in the right index finger, but he did report mild irritation with CMC grind test as well as CMC mobilizations while moving the wrist wrist RD/UD. We do not have x-rays to confirm this. Will trial 4 weeks of immobilization and continued therapy for pain relief. Plan to utilize a thumb spica orthotic for day time use and a compression glove for night time. Will utilize thermal modalities, manual therapy, therapeutic exercise, and HEP education in the clinic with the goal of reducing right hand pain and returning to normal functioning. Plan of Care Interventions Therapeutic Exercise,Manual Therapy,Therapeutic Activities,Hot Pack/Cold Pack,Check Out for Orthotic/Pr,Ultrasound,Visual/Perceptual Retrain OT Services Indicated Yes Treatment Frequency and 1x/week for 4 weeks Duration These treatments will address the objective and functional deficits as defined above. The patient will be advanced safely and appropriately in order for the patient to progress towards his/her prior level of function. Additional exercises will be introduced and as well as a comprehensive home exercise program upon discharge, if needed, ?to ensure carryover of functional gains achieved in the clinic. This treatment plan has been reviewed and agreement upon by the patient.
--- NOTE | 2022-10-30 10:20 | OPREHPOC ---
Outpatient Therapy Plan of Care This is a Multidisciplinary Plan of Care that may contain components documented by all disciplines (PT, OT, and ST.) OT Problem 1 OT Problem #1 Knowledge Deficit OT Goal 1 Goal 1. Patient to be independent with all materials. OT Goal 2 Goal 2. Patient to be compliant with immobilizing schedule. OT Problem 2 OT Problem #2 Pain OT Goal 1 Goal 1. Patient to report reduced right hand pain to 5/ 10 or less at worst . OT Problem 3 OT Problem #3 Impaired Strength OT Goal 1 Goal 1. 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
--- NOTE | 2022-11-30 11:46 | OTOPDC ---
Assessment and note entered by Foster Johnson, CARMINE/Alfonzo, CHT Evaluation Information Assessment Status Discharge Diagnosis Pain in right hand Subjective Information Patient reports he's made good progress with therapy and is no longer having pain. No longer experiencing burning pain on the palmar surface of the index finger. He has been wearing a compression glove and a thumb immobilizer x4 weeks. ROM and functional office services specialist/pinch strengths are WNL. Reported Pain Level Pain Score 0: Self Report Additional Pain Score Comments Reporting no instances of pain in the last week. Assessment OT Clinical Summary Patient referred to outpatient hand therapy with right hand pain. It was decided to have the patient wear a compression glove as well as a thumb spica orthotic x4 weeks. He presents today reporting that he no longer has pain with any ADLs that used to aggravate his hand. He is very pleased with his progress and reports being ready for discharge. Recommended that he continue to splint x2 weeks then provided written instructions on weaning out of the splint. No further skilled OT indicated at this time. Plan of Care OT Services Indicated No
== END 2022-12-03 09:33 | disposition home or self-care (01) ==
LOC: ANHOT 11:15
PROVIDERS: PCP Internal Medicine; Visit Provider Plastic Surgery
DX: M79.641 Pain in right hand (principal)
CPT/HCPCS: 97018; 97110; 97140; 97166

== ENCOUNTER 2023-01-17 08:10 | Outpatient (RCR) | payer OTHER, SELFPAY ==
--- NOTE | 2022-10-23 08:38 | PC.NURSE ---
MEDICATION BROUGHT IN BY PATIENT IN PHARMACY BOTTLE MARKED APPROPRIATELY. BOTTLE CONTAINED 2 1CC VIALS WITH 100 MG HALOPERIDOL EACH VIAL. GIVEN 150 MG OR 1.5 CC IM ORDERED. DISCHARGED AMBULATORY WITH STEADY GAIT. HAS APPOINTMENT CARD FOR NEXT APPOINTMENT IN 4 WEEKS WITH NUMBER TO CALL FOR QUESTIONS OR CONCERNS.
--- NOTE | 2022-11-22 13:17 | PC.NURSE ---
AMBULATORY TO LAB DRAW STATION FOR OUTPATIENT MONTHLY INJECTION. PATIENT BROUGHT MEDICATION WITH HIM IN PHARMACY PACKAGING APPROPRIATELY LABELED. PATIENT BROUGHT 2 VIALS - 1CC OR 100 MG EACH VIAL GIVEN 1.5 CC OR 150 MG OF HALDOL D IM ORDERED.
--- NOTE | 2022-12-20 09:07 | PC.NURSE ---
AMBULATORY TO DRAW STATION FOR OUTPATIENT HALDOL D INJECTION. NO COMPLAINTS VOICED. MEDICATION BROUGHT IN BY PATIENT IN PHARMACY BOTTLE MARKED APPROPRIATELY. THERE ARE 2 VIALS OF THE SAME LOT NUMBER AND EXPIRATION DATE. EACH WITH 100 MG IN 1 CC. GIVEN 1.5 CC OR 150 MG HALDOL D ORDERED. DISCHARGED AMBULATORY WITH STEADY GAIT TO RETURN IN 4 WEEKS. HAS APPOINTMENT CARD WITH DATE TO CALL FOR TIME.
--- NOTE | 2023-01-17 08:33 | PC.NURSE ---
AMBULATORY TO OUTPATIENT DRAW STATION FOR HALDOL D INJECTION. MEDICATION BROUGHT IN WITH PATIENT IN PHARMACY BOTTLES MARKED APPROPRIATELY. BOTH VIALS HAVE SAME LOT NUMBER AND EXPIRATION. EACH VIAL CONTAINING 100 MG. GIVEN 1.5 CC OR 150 MG HALDOL D ORDERED.
== END 2023-01-21 23:59 | disposition home or self-care (01) ==
LOC: ANHLAB 08:10
PROVIDERS: PCP Internal Medicine
DX: F25.9 Schizoaffective disorder, unspecified (principal)
CPT/HCPCS: 96372

== ENCOUNTER 2023-01-22 11:00 | Outpatient (RCR) | payer OTHER, SELFPAY ==
--- NOTE | 2023-01-08 13:14 | PTOPEVAL1 ---
Assessment and note entered by Tamara Santos, PT, DPT Evaluation Information Assessment Status Evaluation Diagnosis neck pain Subjective Information Pt states he has really rounded shoulder with some intermittent neck pain and would like to address this. He decides headaches and low back pain. He reports nothing makes his pain better, and sitting stooped over makes his pain worse. Pt does not work. Reported Pain Level Pain Score 0: Self Report Assessment PT Clinical Summary Bebo presents to therapy today for his initial evaluation with a diagnosis of neck and back pain. He demonstrates decreased cervical ROM in all directions that is limited by soft tissue length. He demonstrates significant rounded posture with a severe forward head. Skilled therapy services are indicated to improve ROM, improve postural strength and awareness, to limit functional deficts. Plan of Care Interventions Electrical Stimulation,Hot Pack/Cold Pack,Manual Therapy,Neuro Re-education,Therapeutic Exercise PT Services Indicated Yes Treatment Frequency and 1x/wk for 4 visits Duration These treatments will address the objective and functional deficits as defined above. The patient will be advanced safely and appropriately in order for the patient to progress towards his/her prior level of function. Additional exercises will be introduced and as well as a comprehensive home exercise program upon discharge, if needed, ?to ensure carryover of functional gains achieved in the clinic. This treatment plan has been reviewed and agreement upon by the patient.
--- NOTE | 2023-01-08 13:16 | OPREHPOC ---
Outpatient Therapy Plan of Care This is a Multidisciplinary Plan of Care that may contain components documented by all disciplines (PT, OT, and ST.) PT Problem 1 PT Problem #1 Knowledge Deficit PT Goal 1 Goal Pt to be IND with issued HEP Target Visit 4 PT Problem 2 PT Problem #2 Pain PT Goal 1 Goal Pt to report 50% improvement in overall symptoms Target Visit 4 PT Goal 2 Goal Pt to report being able to sit for 30 mins without an increase in pain Target Visit 4 PT Problem 3 PT Problem #3 Impaired Range of Motion PT Goal 1 Goal Pt to improve александр cervical rot ROM to 60 deg Target Visit 4 PT Goal 2 Goal Pt to improve cervical flexion and extension to 50 deg each Target Visit 8
--- NOTE | 2023-01-23 09:08 | PTOPDC ---
Assessment and note entered by Tamara Santos, PT, DPT Evaluation Information Assessment Status Discharge - Pt Not Present Diagnosis neck pain Subjective Information Pt called and cancelled all of his remaining appointments. He states he will be unexpectedly going to [place] for 3 months. Reported Pain Level Pain Score 0: Self Report Assessment PT Clinical Summary Bebo completed 3 visits of skilled therapy from 01/08/23 to 01/22/23. He will be discharged at this time.
== END 2023-01-23 10:59 | disposition home or self-care (01) ==
LOC: ANHGOSHPT 11:00
PROVIDERS: PCP Internal Medicine; Visit Provider Nurse Practitioner
DX: M54.2 Cervicalgia (principal); M54.9 Dorsalgia, unspecified
CPT/HCPCS: 97110; 97140; 97161; 97530

== ENCOUNTER 2023-03-14 11:15 | Outpatient (RCR) | payer OTHER, SELFPAY ==
--- NOTE | 2023-02-15 08:47 | PC.NURSE ---
02/14/2023 @1430: DUE TO INCOMPLETE REGISTRATION UNABLE TO DOCUMENT ACTUAL TIME OF 1430. AMBULATORY TO LAB DRAW STATION FOR OUTPATIENT HALDOL D INJECTION. MEDICATION BROUGHT IN BY PATIENT IN PHARMACY BOTTLE MARKED APPROPRIATELY WITH 2 VIALS OF HALDOL D, 100 MG EACH VIAL. GIVEN 1.5 CC OR 150 MG HALDOL D.
--- NOTE | 2023-03-14 12:16 | PC.NURSE ---
MEDICATION BROUGHT IN BY PATIENT IN APPROPRIATELY MARKED PHARMACY BOTTLES - 2 VIALS IN BOTTLE. EACH VIAL CONTAINS 100 MG / 1 CC. GIVEN 1.5 CC FOR 150 MG OF HALDOL D. DISCHARGED AMBULATORY WITH STEADY GAIT. TO RETURN IN 4 WEEKS. HAS BUSINESS CARD WITH RETURN DATE AND PHONE INFORMATION. VOICES UNDERSTANDING.
== END 2023-05-15 23:59 | disposition home or self-care (01) ==
LOC: ANHLAB 11:15
PROVIDERS: PCP Internal Medicine
DX: F20.9 Schizophrenia, unspecified (principal)
CPT/HCPCS: 96372

== ENCOUNTER 2023-03-27 13:50 | Outpatient (CLI) | payer OTHER, SELFPAY ==
[2023-03-27 15:09] LABS: Anion Gap 13 mmol/L (8-16); Blood Urea Nitrogen 20 mg/dL (9-20); Carbon Dioxide 27 mmol/L (22-30); Chloride 100 mmol/L (98-107); Estimated Glomerular Filt Rate 37; Glucose 91 mg/dL (65-110); Potassium 4.4 mmol/L (3.4-5.0); Sodium 140 mmol/L (137-145)
== END 2023-03-27 13:51 | disposition home or self-care (01) ==
LOC: ANHLAB 13:51
PROVIDERS: PCP Internal Medicine; Visit Provider Clinical Nurse Specialist
DX: N18.32 Chronic kidney disease, stage 3b (principal); Z12.5 Encounter for screening for malignant neoplasm of prostate; Z80.42 Family history of malignant neoplasm of prostate
CPT/HCPCS: 36415; 80048; 84153; G0103

== ENCOUNTER 2023-04-07 16:48 | Emergency (ER) | payer OTHER, SELFPAY ==
[2023-04-07 16:47] VITALS: BP 166/106; PULSE 99; RESP 18; O2SAT 98
--- NOTE | 2023-04-07 16:53 | ED.PSYCH ---
HPI - Psych General Chief Complaint: Psychiatric Symptoms <Terra Rubalcava MD - Last Filed: 04/08/23 22:45> Stated Complaint: psych <Terra Rubalcava MD - Last Filed: 04/08/23 22:45> Time Seen by Provider: 04/07/23 16:52 <Terra Rubalcava MD - Last Filed: 04/08/23 22:45> History of Present Illness HPI Narrative: Patient is a 58-year-old male with history of schizophrenia here with multiple complaints including hallucinations, suicide attempt, being overweight. He states that he has been having worsening auditory hallucinations for several weeks, notes that he hears tingles and songs as well as people talking to him. He did see his psychiatrist a couple of weeks ago and no medication changes were made at that time given these are chronic hallucinations. He notes that he has had occasional thoughts of driving his truck into a wall. He has not attempted this however approximately 4-5 days ago he took somewhere between 30 and 45 tablets of ?sleep 3 ? which is melatonin in attempt to kill himself. He denies currently being suicidal. No thoughts of harming others. He notes he is compliant with his medications. <Terra Rubalcava MD - Last Filed: 04/08/23 22:45> Related Data Home Medications: Home Medications Medication Instructions Recorded Confirmed clonazepam 0.5 mg tablet 0.5 mg PO BID 01/26/21 12/27/22 divalproex 500 mg tablet,delayed 500 mg PO BID 01/26/21 12/27/22 release haloperidol decanoate 100 mg/mL 150 mg IM DIRECTED 01/26/21 12/27/22 intramuscular solution lamotrigine 100 mg tablet 100 mg PO DAILY 01/26/21 12/27/22 trihexyphenidyl 2 mg tablet 2 mg PO BID 10/16/22 12/27/22 <Terra Rubalcava MD - Last Filed: 04/08/23 22:45> Allergies/Adverse Reactions: Allergies Allergy/AdvReac Type Severity Reaction Status Date / Time milk Allergy Nausea Verified 12/27/22 13:25 soy AdvReac unknown Verified 12/27/22 13:25 eggs AdvReac Scarring Uncoded 12/27/22 13:25 of throat seafood AdvReac unknown Uncoded 12/27/22 13:25 <Terra Rubalcava MD - Last Filed: 04/08/23 22:45> Review of Systems Review of Systems: All systems reviewed & are unremarkable except as noted in HPI and below <Terra Rubalcava MD - Last Filed: 04/08/23 22:45> PMFSH Past Medical History Medical History: Medical History (Updated 04/07/23 @ 23:01 by Terra Rubalcava MD) OBEY (acute kidney injury) Arm and leg movements, uncontrollable Harris esophagus Burn Cerumen impaction CKD (chronic kidney disease) Dizziness Dysuria Elevated PSA Facial numbness GERD (gastroesophageal reflux disease) Hospital discharge follow-up Hypothyroidism Lower urinary tract symptoms (LUTS) Occasional tremors Occasional tremors Other specified types of schizophrenia, unspecified condition Otitis media Palpitations Prostate cancer screening encounter, options and risks discussed Schizophrenia Screening for lipid disorders Screening for prostate cancer Swelling of right foot Toe pain, right Tylenol overdose Weakness Wound of left leg <Terra Rubalcava MD - Last Filed: 04/08/23 22:45> Surgical History Surgical History: Surgical History History of nephrectomy <Terra Rubalcava MD - Last Filed: 04/08/23 22:45> Family History Family History: Family History Mother Hypertension Father Family history of Alzheimer's disease Malignant neoplasm of prostate Sibling No problems noted. <Terra Rubalcava MD - Last Filed: 04/08/23 22:45> Social History Social History: Social History Smoking status: Never smoker Alcohol intake: never Substance use: never Substance use type: does not use Spiritual care concerns: No <Terra Rubalcava MD - Last Filed: 04/08/23 22:45> Exam Narrative: GENERAL: Well-appearing, well-nourished, and in no acute distress. HEAD: Normoc
[2023-04-07 17:08] LABS: Basophils Percent Auto 0.3 % (0.2-1.2); Eosinophils Absolute Auto 0.2 K/mm3 (0-0.3); Eosinophils Percent Auto 2.3 % (0-4.4); Hematocrit 40.6 % (42.0-52.0); Hemoglobin 13.9 g/dL (14.0-18.0); Immature Granulocyte Absolute 0.05 K/mm3 (0.00-0.031); Immature Granulocyte Percent A 0.5 % (0-0.5); Lymphocytes Absolute Auto 2.58 K/mm3 (0.9-3.2); Mean Corpuscular HGB Conc 34.2 g/dl (32-36); Mean Corpuscular Hemoglobin 32.1 pg (26-34); Mean Corpuscular Volume 93.8 fl (80-100); Mean Platelet Volume 8.3 fl (7.4-10.4); Monocytes Percent Auto 10.7 % (2.6-8.5); Neutrophils Absolute Auto 5.4 K/mm3 (1.3-6.7); Neutrophils Percent Auto 58.2 % (45.5-73.1); Platelet Count Result 212 k/mm3 (150-375); Red Blood Count 4.33 M/mm3 (4.6-6.20); White Blood Count 9.2 K/mm3 (4.5-10.0)
[2023-04-07 17:20] LABS: Ethanol < 10 mg/dL (<10)
[2023-04-07 17:30] LABS: Alanine Aminotransferase 15 U/L (6-50); Albumin Level 4.5 g/dL (3.5-5.1); Alkaline Phosphatase 54 U/L (38-126); Anion Gap 12 mmol/L (8-16); Aspartate Amino Transferase 22 U/L (17-59); Bilirubin,Total 0.5 mg/dL (0.2-1.3); Blood Urea Nitrogen 17 mg/dL (9-20); Carbon Dioxide 28 mmol/L (22-30); Chloride 92 mmol/L (98-107); Estimated CRCL calculation 52 ml/min; Estimated Glomerular Filt Rate 42; Glucose 107 mg/dL (65-110); Sodium 132 mmol/L (137-145)
[2023-04-07 18:10] LABS: Amphetamine Screen Urine Negative (Negative); Barbiturate Screen Urine Negative (Negative); Benzodiazepines Screen Urine Negative (Negative); Cannabinoid Screen Urine Negative (Negative); Cocaine Screen Urine Negative (Negative); Methadone Screen Urine Negative (Negative); Opiate Screen Urine Negative (Negative); Phencyclidine Screen Urine Negative (Negative)
[2023-04-07 18:12] LABS: Appearance Urine Clear (Clear); Bilirubin Urine Negative (Negative); Blood Urine Negative (Negative); Color Urine Yellow (Yellow); Glucose Urine UA Negative (Negative); Ketones Urine Negative (Negative); Leukocyte Esterase Ur Negative LEU/UL (Negative); Nitrate Urine Negative (Negative); Protein Urine Negative (Negative); Specific Grav Ur 1.005 (1.001-1.035); Urobilinogen Urine 0.2 mg/dL (<2.0); pH Urine 7.5 (5.0-9.0)
[2023-04-07 18:17] LABS: Add Urine Microscopic? NO
--- NOTE | 2023-04-07 18:35 | PC.NURSE ---
Kika from lab states they are re-running the COVID/flu swab
[2023-04-07 19:04] LABS: Influenza A QL RT-PCR Negative (Negative); Influenza B QL RT-PCR Negative (Negative); RSV RNA, RT-PCR Negative (Negative); SARS-CoV-2 RNA PCR Negative (Negative)
--- NOTE | 2023-04-07 19:22 | PC.NURSE ---
Report received from ASTISH Juan. Assumed care of patient at this time. Sitter remains at bedside.
--- NOTE | 2023-04-07 22:52 | PC.NURSE ---
Patient becoming agitated in room, speaking and interacting with his auditory hallucinations and getting verbally aggressive with sitter and staff. ERP notified.
--- NOTE | 2023-04-07 23:16 | PC.NURSE ---
[facility] does not have bed capacity for tonight. Will re-evaluate tomorrow after d/c.
[2023-04-07] MEDS: diphenhydrAMINE HCl INJ 50 MG/ML VIAL IM (23:20)
[2023-04-07] MEDS: HALOPERIDOL LACTATE 5 MG/ML VIAL IM (23:20)
[2023-04-07] MEDS: MIDAZOLAM HCL (*CRX) 2 MG/2 ML VIAL 5 MG IM (23:20)
--- NOTE | 2023-04-07 23:57 | PC.NURSE ---
Only 2 mg of versed was given. The other 4mg (2vials) were returned with a witness to the pyxis.
--- NOTE | 2023-04-08 00:40 | PC.NURSE ---
Patient uncooperative with repeat VS. Patient did ambulate to the bathroom with steady gait. Sitter remains at bedside.
--- NOTE | 2023-04-08 03:02 | PC.NURSE ---
amadou clark 2mg versed
[2023-04-08] MEDS: ACETAMINOPHEN 500 MG TABLET 1000 MG PO (03:20)
--- NOTE | 2023-04-08 03:30 | PC.NURSE ---
Patient uncooperative with repeat VS.
--- NOTE | 2023-04-08 03:42 | PC.NURSE ---
0039 Debby with [facility] intake calls to see if patient is still needing placement. This RN informed Debby that the patient is still awaiting placement at this time. Debby states she will work him up to see if we can take him.
--- NOTE | 2023-04-08 05:24 | PC.NURSE ---
Debby from [facility] calls to inform that the patient has been accepted by for Psychosis. Debby states the patient is accepted for admission but a bed will not be available until afternoon. Debby states they will call back with a bed number and phone number when one is available. ERP and Charge aware.
[2023-04-08 07:20] VITALS: BP 132/93; PULSE 92; RESP 16; O2SAT 98
[2023-04-08 09:37] VITALS: BP 155/105; PULSE 90; RESP 16; TEMP 36.8; O2SAT 96
== END 2023-04-08 10:10 ==
PROVIDERS: Emergency Provider Student in an Organized Health Care Education/Training Program; PCP Internal Medicine
DX: F20.9 Schizophrenia, unspecified (principal); R45.851 Suicidal ideations; Z11.52 Encounter for screening for COVID-19; N18.9 Chronic kidney disease, unspecified; E03.9 Hypothyroidism, unspecified; K22.70 Barrett's esophagus without dysplasia; K21.9 Gastro-esophageal reflux disease without esophagitis
CPT/HCPCS: 36415; 80053; 80307; 81003; 84443; 85025; 87637; 96372; 99285; A9270; J1200; J1630; J2250

== ENCOUNTER 2023-04-19 03:06 | Emergency (ER) | payer OTHER, SELFPAY ==
[2023-04-19 03:04] VITALS: BP 143/102; PULSE 98; RESP 18; TEMP 36.8; O2SAT 97
[2023-04-19 03:18] VITALS: BP 143/102; PULSE 97; RESP 17; TEMP 36.8; O2SAT 97
--- NOTE | 2023-04-19 03:28 | ECG_ITS ---
Measurements Intervals [place] Rate: 108 P: 46 [place]: 120 QRS: 13 QRSD: 119 T: 21 QT: 348 QTc: 467 Interpretive Statements SINUS TACHYCARDIA RV CONDUCTION ABNORMALITY BORDERLINE ECG COMPARED TO ECG 05/27/2022 11:23:50 NO SIGNIFICANT DIFFERENCE Electronically Signed On 04-19-2023 7:31:45 PHOTOGEOLOGIST by Minh Pack M.D.
[2023-04-19] MEDS: SODIUM CHLORIDE 0.9% IV 1,000 ML 999 ML IV CONT (03:50)
[2023-04-19 04:14] LABS: Basophils Percent Auto 0.3 % (0.2-1.2); Eosinophils Absolute Auto 0.2 K/mm3 (0-0.3); Eosinophils Percent Auto 1.7 % (0-4.4); Hematocrit 39.4 % (42.0-52.0); Hemoglobin 13.5 g/dL (14.0-18.0); Immature Granulocyte Absolute 0.08 K/mm3 (0.00-0.031); Immature Granulocyte Percent A 0.7 % (0-0.5); Lymphocytes Absolute Auto 2.93 K/mm3 (0.9-3.2); Lymphocytes Percent Auto 26.8 % (18.3-44.2); Mean Corpuscular HGB Conc 34.3 g/dl (32-36); Mean Corpuscular Hemoglobin 32.1 pg (26-34); Mean Corpuscular Volume 93.6 fl (80-100); Mean Platelet Volume 8.4 fl (7.4-10.4); Monocytes Absolute Auto 1.3 K/mm3 (0.1-0.6); Monocytes Percent Auto 11.7 % (2.6-8.5); Neutrophils Absolute Auto 6.4 K/mm3 (1.3-6.7); Neutrophils Percent Auto 58.8 % (45.5-73.1); Platelet Count Result 256 k/mm3 (150-375); Red Blood Count 4.21 M/mm3 (4.6-6.20); Red Cell Distribution Width 11.9 % (11.5-14.5)
--- NOTE | 2023-04-19 04:28 | ED.GENADULT ---
HPI - General Adult General Chief complaint: Anxiety Stated complaint: INSOMNIA, ANXIETY Time Seen by Provider: 04/19/23 03:18 History of Present Illness HPI narrative: Patient is a 58-year-old male who presents ER for further evaluation in regards to his mental health and recent medication changes. He was hospitalized due to schizophrenia and anxiousness recently. He had his Depakote level increased. He reports he occasionally feels like he is having trouble with his speech since this happened. Per EMS patient is speaking at his normal baseline. Patient also reports that he has had intermittent tremors over last year. Has no suicidal ideation or homicidal ideation. He denies any drug use. His no other complaints at this time. patient reports a has a chronic stutter does occasionally worsen due to the medication change. Related Data Home Medications Medication Instructions Recorded Confirmed clonazepam 0.5 mg tablet 0.5 mg PO BID 01/26/21 12/27/22 divalproex 500 mg tablet,delayed 500 mg PO BID 01/26/21 12/27/22 release haloperidol decanoate 100 mg/mL 150 mg IM DIRECTED 01/26/21 12/27/22 intramuscular solution lamotrigine 100 mg tablet 100 mg PO DAILY 01/26/21 12/27/22 trihexyphenidyl 2 mg tablet 2 mg PO BID 10/16/22 12/27/22 Allergies Allergy/AdvReac Type Severity Reaction Status Date / Time milk Allergy Nausea Verified 12/27/22 13:25 soy AdvReac unknown Verified 12/27/22 13:25 eggs AdvReac Scarring Uncoded 12/27/22 13:25 of throat seafood AdvReac unknown Uncoded 12/27/22 13:25 Review of Systems Review of Systems: All systems reviewed & are unremarkable except as noted in HPI and below Constitutional: Constitutional: Denies chills, Denies fatigue and Denies fever(s) Cardiovascular: Cardiovascular: Denies chest pain, Denies rapid heart rate and Denies radiating jaw, neck or arm pain Respiratory: Respiratory: Denies cough, Denies dyspnea and Denies wheezing Gastrointestinal: Gastrointestinal: Denies abdominal pain, Denies diarrhea, Denies nausea and Denies vomiting Neurologic: Denies focal weakness and Denies numbness Comments: slurring of speech and tremor PMFSH Past Medical History Medical History (Updated 04/19/23 @ 06:39 by Axel Barrett MD) OBEY (acute kidney injury) Arm and leg movements, uncontrollable Harris esophagus Burn Cerumen impaction CKD (chronic kidney disease) Dizziness Dysuria Elevated PSA Facial numbness GERD (gastroesophageal reflux disease) Hospital discharge follow-up Hypothyroidism Lower urinary tract symptoms (LUTS) Occasional tremors Occasional tremors Other specified types of schizophrenia, unspecified condition Otitis media Palpitations Prostate cancer screening encounter, options and risks discussed Schizophrenia Screening for lipid disorders Screening for prostate cancer Swelling of right foot Toe pain, right Tylenol overdose Weakness Wound of left leg Surgical History Surgical History History of nephrectomy Family History Family History Mother Hypertension Father Family history of Alzheimer's disease Malignant neoplasm of prostate Sibling No problems noted. Social History Social History Smoking status: Never smoker Alcohol intake: never Substance use: never Substance use type: does not use Spiritual care concerns: No Exam Narrative: GENERAL: Well-appearing, well-nourished, and in no acute distress. HEAD: Normocephalic, atraumatic. EYES: PERRL and EOMI. ENT: Mucous membranes moist. CHEST: Clear to auscultation. No respiratory distress. HEART: Regular rate and rhythm. Normal peripheral pulses. ABDOMEN: Soft, nontender, nondistended. EXTREMITIES: Normal range of motion. No edema. SKIN: Warm, dry, no rash. NEURO: Alert and oriented x3
[2023-04-19 04:35] LABS: Acetaminophen < 10 ug/mL (10-30); Alanine Aminotransferase 16 U/L (6-50); Albumin Level 4.3 g/dL (3.5-5.1); Alkaline Phosphatase 59 U/L (38-126); Anion Gap 9 mmol/L (8-16); Aspartate Amino Transferase 25 U/L (17-59); Bilirubin,Total 0.6 mg/dL (0.2-1.3); Blood Urea Nitrogen 18 mg/dL (9-20); Calcium 10.1 mg/dL (8.4-10.2); Carbon Dioxide 27 mmol/L (22-30); Chloride 97 mmol/L (98-107); Estimated CRCL calculation 49 ml/min; Estimated Glomerular Filt Rate 39; Ethanol < 10 mg/dL (<10); Glucose 124 mg/dL (65-110); Potassium 4.2 mmol/L (3.4-5.0); Sodium 133 mmol/L (137-145)
[2023-04-19 05:35] LABS: Appearance Urine Clear (Clear); Bacteria Urine None Seen /hpf; Bilirubin Urine Negative (Negative); Blood Urine Trace (Negative); Color Urine Yellow (Yellow); Glucose Urine UA Negative (Negative); Ketones Urine Negative (Negative); Leukocyte Esterase Ur Negative LEU/UL (Negative); Nitrate Urine Negative (Negative); Non Pathogenic Casts 0-2; Protein Urine Negative (Negative); RBC Urine 0-2 /hpf (0-2); Specific Grav Ur 1.005 (1.001-1.035); Squamous Epithelial Cell Urine None seen /hpf (Few); Urobilinogen Urine 0.2 mg/dL (<2.0); WBC Urine 0-5 /hpf; pH Urine 7.5 (5.0-9.0)
[2023-04-19 05:44] LABS: Add Urine Microscopic? YES
[2023-04-19 06:12] LABS: Amphetamine Screen Urine Negative (Negative); Barbiturate Screen Urine Negative (Negative); Benzodiazepines Screen Urine Negative (Negative); Cannabinoid Screen Urine Negative (Negative); Cocaine Screen Urine Negative (Negative); Methadone Screen Urine Negative (Negative); Opiate Screen Urine Negative (Negative); Phencyclidine Screen Urine Negative (Negative)
[2023-04-19 06:45] VITALS: BP 155/98
== END 2023-04-19 06:50 | disposition home or self-care (01) ==
PROVIDERS: Emergency Provider Emergency Medicine; PCP Internal Medicine
DX: R25.1 Tremor, unspecified (principal); F41.9 Anxiety disorder, unspecified; N18.9 Chronic kidney disease, unspecified; E03.9 Hypothyroidism, unspecified; K22.70 Barrett's esophagus without dysplasia; K21.9 Gastro-esophageal reflux disease without esophagitis; F20.9 Schizophrenia, unspecified; Z90.5 Acquired absence of kidney; R00.0 Tachycardia, unspecified; R94.31 Abnormal electrocardiogram [ECG] [EKG]
CPT/HCPCS: 36415; 80053; 80164; 80307; 81001; 84443; 85025; 93005; 96360; 99283; J7030

== ENCOUNTER 2023-05-02 22:20 | Emergency (ER) | payer OTHER, SELFPAY ==
[2023-05-02 22:28] VITALS: BP 149/105; PULSE 93; RESP 16; TEMP 36.1; O2SAT 96
== END 2023-05-02 23:42 | disposition left against medical advice (07) ==
LOC: ANHED 22:54
PROVIDERS: PCP Internal Medicine
DX: R05.9 Cough, unspecified (principal)
CPT/HCPCS: 99199

== ENCOUNTER 2023-05-03 02:09 | Emergency (ER) | payer OTHER, SELFPAY ==
[2023-05-03] VITALS (8 sets, daily range): BP systolic 130–149; BP diastolic 79–115; PULSE 86–97; RESP 22–28; TEMP 36.1–36.8; O2SAT 95–99
--- NOTE | ~2023-05-03 | XR_ITS ---
Portable chest x-ray Comparison: 05/27/2022 Clinical History: Cough Findings: Lungs are clear, without focal consolidation or pleural effusion. Cardiomediastinal silho uette is stable. Bones and soft tissues are unremarkable. Impression: Clear lungs. Reviewed, dictated and finalized at location . IC[employer] TRIALS ASSISTANT Impression: Clear lungs.
--- NOTE | 2023-05-03 02:25 | ED.ANXIETY ---
HPI - Anxiety General Chief Complaint: Anxiety Stated Complaint: panic attack Time Seen by Provider: 05/03/23 02:17 History of Present Illness HPI narrative: 58-year-old male with history of schizophrenia presented to the emergency department for evaluation for increased anxiety and cough. Patient states he has had increased anxiety over the last 2 days. Related Data Home Medications Medication Instructions Recorded Confirmed clonazepam 0.5 mg tablet 0.5 mg PO BID 01/26/21 12/27/22 divalproex 500 mg tablet,delayed 500 mg PO BID 01/26/21 12/27/22 release haloperidol decanoate 100 mg/mL 150 mg IM DIRECTED 01/26/21 12/27/22 intramuscular solution lamotrigine 100 mg tablet 100 mg PO DAILY 01/26/21 12/27/22 trihexyphenidyl 2 mg tablet 2 mg PO BID 10/16/22 12/27/22 Allergies Allergy/AdvReac Type Severity Reaction Status Date / Time milk Allergy Nausea Verified 12/27/22 13:25 soy AdvReac unknown Verified 12/27/22 13:25 eggs AdvReac Scarring Uncoded 12/27/22 13:25 of throat seafood AdvReac unknown Uncoded 12/27/22 13:25 Review of Systems Review of Systems: All systems reviewed & are unremarkable except as noted in HPI and below PMFSH Past Medical History Medical History (Updated 05/03/23 @ 04:04 by Rodolfo Barr MD) OBEY (acute kidney injury) Arm and leg movements, uncontrollable Harris esophagus Burn Cerumen impaction CKD (chronic kidney disease) Dizziness Dysuria Elevated PSA Facial numbness GERD (gastroesophageal reflux disease) Hospital discharge follow-up Hypothyroidism Lower urinary tract symptoms (LUTS) Occasional tremors Occasional tremors Other specified types of schizophrenia, unspecified condition Otitis media Palpitations Prostate cancer screening encounter, options and risks discussed Schizophrenia Screening for lipid disorders Screening for prostate cancer Swelling of right foot Toe pain, right Tylenol overdose Weakness Wound of left leg Surgical History Surgical History History of nephrectomy Family History Family History Mother Hypertension Father Family history of Alzheimer's disease Malignant neoplasm of prostate Sibling No problems noted. Social History Social History (Reviewed 12/27/22 @ 13:26 by [facility]quez [facility] Smoking status: Never smoker Alcohol intake: never Substance use: never Substance use type: does not use Spiritual care concerns: No Exam Narrative: APPEARANCE: Well appearing, no pain, no distress, well-nourished. HEAD: normocephalic, atraumatic. EYES: PERRLA/EOMI, conjunctivae clear. NOSE: Normal no drainage EARS:TMS clear with good light reflex. THROAT: Pharynx clear, no exudate. NECK: Supple. No adenopathy, no masses. RESPIRATORY: cough with clear lung sounds CARDIOVASCULAR: Regular rate and rhythm without murmurs rubs or gallops. ABDOMINAL: Soft, nontender, nondistended, normal bowel sounds MUSCULOSKELETAL: Moves all extremities. Strength/ROM intact, No edema, No calf tenderness. NEURO: Alert. Cranial nerves II through XII intact. grossly intact SKIN: Warm, dry. Normal Color PSYCHIATRIC: anxiety Course Course Emergency Course: 58-year-old male presenting to the ED for evaluation for anxiety and cough. Chest x-ray showed no acute cardiopulmonary abnormality. Patient's cough was improved with his. Patient felt improved and states he no longer has any anxiety. Patient was encouraged close follow-up with his psychiatrist and his primary care physician. All questions concerns were addressed patient was well-appearing at time of discharge. Vital Signs Vital signs: Vital Signs Temperature 98.2 F 05/03/23 02:14 Pulse Rate 86 05/03/23 02:14 Respiratory Rate 22 H 05/03/23 02:14 Blood Pressure 141/92 H 05/03/23 02:14 Pulse Oximetry 98 05/03/23 02:14 Oxygen Delivery Room Air 1
[2023-05-03] MEDS: LORazepam (*CRX) 1 MG TABLET PO (02:28)
[2023-05-03] MEDS: ALBUTEROL SULFATE NEB 2.5 MG/3 ML INH INHALATION (02:49)
--- NOTE | 2023-05-03 02:58 | PC.NURSE ---
Patient states that the Ativan and Albuterol did not help his symptoms.
[2023-05-03] MEDS: diphenhydrAMINE HCl INJ 50 MG/ML VIAL IV PUSH (03:16)
[2023-05-03] MEDS: LORazepam INJ (*CRX) 2 MG/ML VIAL 1 MG IV PUSH (03:23)
[2023-05-03] MEDS: METOCLOPRAMIDE HCL INJ 10 MG/2 ML VIAL IV PUSH (04:04)
== END 2023-05-03 04:19 | disposition home or self-care (01) ==
PROVIDERS: Emergency Provider Emergency Medicine; PCP Internal Medicine
DX: R05.9 Cough, unspecified (principal); F41.9 Anxiety disorder, unspecified; F20.9 Schizophrenia, unspecified; K22.70 Barrett's esophagus without dysplasia; N18.9 Chronic kidney disease, unspecified; K21.9 Gastro-esophageal reflux disease without esophagitis; E03.9 Hypothyroidism, unspecified; Z90.5 Acquired absence of kidney
CPT/HCPCS: 71045; 94640; 96374; 96375; 99284; A9270; J1200; J2060; J2765

== ENCOUNTER 2023-05-09 00:25 | Emergency (ER) | payer OTHER, SELFPAY ==
[2023-05-09 01:02] VITALS: BP 131/48; PULSE 74; RESP 16; TEMP 36.4; O2SAT 95
--- NOTE | 2023-05-09 04:22 | ED.GENADULT ---
HPI - General Adult General Chief complaint: Anxiety Stated complaint: ?SOB Time Seen by Provider: 05/09/23 03:55 History of Present Illness HPI narrative: patient 58-year-old gentleman who presents emerged from with chief complaint of panic attack. Patient has history of schizophrenia and also history of anxiety and comes emergency department after he reports he has had a panic attack ongoing for the last 5 hours the patient states that today he is not suicidal or homicidal the patient reports that the symptoms are usually improved with Ativan. Related Data Home Medications Medication Instructions Recorded Confirmed clonazepam 0.5 mg tablet 0.5 mg PO BID 01/26/21 12/27/22 divalproex 500 mg tablet,delayed 500 mg PO BID 01/26/21 12/27/22 release haloperidol decanoate 100 mg/mL 150 mg IM DIRECTED 01/26/21 12/27/22 intramuscular solution lamotrigine 100 mg tablet 100 mg PO DAILY 01/26/21 12/27/22 trihexyphenidyl 2 mg tablet 2 mg PO BID 10/16/22 12/27/22 Allergies Allergy/AdvReac Type Severity Reaction Status Date / Time milk Allergy Nausea Verified 12/27/22 13:25 soy AdvReac unknown Verified 12/27/22 13:25 eggs AdvReac Scarring Uncoded 12/27/22 13:25 of throat seafood AdvReac unknown Uncoded 12/27/22 13:25 Review of Systems Review of Systems: A 10 system review of systems was completed on the patient and is negative except for what is stated in the HPI. Nursing and ancillary documentation was reviewed. COUNTS INCLUDE 234 BEDS AT THE [facility] Past Medical History Medical History OBEY (acute kidney injury) Arm and leg movements, uncontrollable Harris esophagus Burn Cerumen impaction CKD (chronic kidney disease) Dizziness Dysuria Elevated PSA Facial numbness GERD (gastroesophageal reflux disease) Hospital discharge follow-up Hypothyroidism Lower urinary tract symptoms (LUTS) Occasional tremors Occasional tremors Other specified types of schizophrenia, unspecified condition Otitis media Palpitations Prostate cancer screening encounter, options and risks discussed Schizophrenia Screening for lipid disorders Screening for prostate cancer Swelling of right foot Toe pain, right Tylenol overdose Weakness Wound of left leg Surgical History Surgical History History of nephrectomy Family History Family History Mother Hypertension Father Family history of Alzheimer's disease Malignant neoplasm of prostate Sibling No problems noted. Social History Social History Smoking status: Never smoker Alcohol intake: never Substance use: never Substance use type: does not use Spiritual care concerns: No Exam Narrative: GENERAL: Well-appearing, well-nourished, and in no acute distress. HEAD: Normocephalic, atraumatic. EYES: PERRLA and EOMI. ENT: Nares clear, no rhinorrhea or epistaxis. Mucous membranes moist. NECK: Supple. CHEST: Clear to auscultation. No respiratory distress. HEART: Regular rate and rhythm. No murmur heard. Normal peripheral pulses. ABDOMEN: Soft, nontender, nondistended, normal active bowel sounds. EXTREMITIES: Normal range of motion. No edema. SKIN: Warm, dry, no rash. NEURO: No focal deficits. Alert and oriented x3. PSYCH: Normal mood and affect. Course Vital Signs Vital signs: Vital Signs Temperature 36.4 C L 05/09/23 01:02 Pulse Rate 74 05/09/23 01:02 Respiratory Rate 16 05/09/23 01:02 Blood Pressure 131/48 L 05/09/23 01:02 Pulse Oximetry 95 05/09/23 01:02 Oxygen Delivery Room Air 05/09/23 01:02 Temperature 36.4 C L 05/09/23 01:02 Pulse Rate 99 05/09/23 04:57 Respiratory Rate 16 05/09/23 04:57 Blood Pressure 126/109 H 05/09/23 04:57 Pulse Oximetry 97 05/09/23 04:57 Oxygen Delive
[2023-05-09] MEDS: LORazepam INJ (*CRX) 2 MG/ML VIAL 1 MG IV PUSH (04:48)
[2023-05-09] MEDS: diphenhydrAMINE HCl INJ 50 MG/ML VIAL 25 MG IV PUSH (04:49)
[2023-05-09 04:57] VITALS: BP 126/109; PULSE 99; RESP 16; O2SAT 97
== END 2023-05-09 05:25 | disposition home or self-care (01) ==
PROVIDERS: Emergency Provider Emergency Medicine; PCP Internal Medicine
DX: F41.0 Panic disorder [episodic paroxysmal anxiety] (principal); F20.9 Schizophrenia, unspecified; E03.9 Hypothyroidism, unspecified; N18.9 Chronic kidney disease, unspecified; K21.9 Gastro-esophageal reflux disease without esophagitis; Z90.5 Acquired absence of kidney
CPT/HCPCS: 96374; 96375; 99284; J1200; J2060

== ENCOUNTER 2023-06-16 09:42 | Emergency (ER) | payer OTHER, SELFPAY ==
[2023-06-16 09:56] VITALS: BP 145/112; PULSE 93; RESP 20; TEMP 36.4; O2SAT 96
--- NOTE | 2023-06-16 09:56 | ED.GENADULT ---
HPI - General Adult General Chief complaint: Unspecified <Kishore Knott APRN - Last Filed: 06/16/23 14:16> Stated complaint: tremors <Kishore Knott APRN - Last Filed: 06/16/23 14:16> Time Seen by Provider: 06/16/23 09:49 <Kishore Knott APRN - Last Filed: 06/16/23 14:16> Source: patient <Kishore Knott APRN - Last Filed: 06/16/23 14:16> Mode of arrival: ambulatory <Kishore Knott APRN - Last Filed: 06/16/23 14:16> Limitations: no limitations <Kishore Knott APRN - Last Filed: 06/16/23 14:16> History of Present Illness HPI narrative: Bebo is a 58-year-old male patient presenting to the ER today with complaints of tremors. He reports that if he concentrates he can control the tremors. He is having tremors to the upper body. He is reporting discomfort to the biceps and forearms due to these tremors. States that they been constantly going on for the past 3 days and is not normal for him to have constant tremors. He denies alcohol abuse- history of schizophrenia. <Kishore Knott APRN - Last Filed: 06/16/23 14:16> Related Data Home medications: Home Medications Medication Instructions Recorded Confirmed divalproex 500 mg tablet,delayed 500 mg PO BID 01/26/21 05/22/23 release haloperidol decanoate 100 mg/mL 150 mg IM DIRECTED 01/26/21 05/22/23 intramuscular solution buspirone 5 mg tablet 5 mg PO BID 05/22/23 05/22/23 sertraline 25 mg tablet (Zoloft) 25 mg PO DAILY 05/22/23 05/22/23 <Kishore Knott APRN - Last Filed: 06/16/23 14:16> Allergies/adverse reactions: Allergies Allergy/AdvReac Type Severity Reaction Status Date / Time No Known Allergies Allergy Verified 06/16/23 10:00 <Kishore Knott APRN - Last Filed: 06/16/23 14:16> Review of Systems Review of Systems: Pertinent positives per HPI. Patient denies any fever, chills, rash, headache, visual changes, dizziness, cough, runny nose, sore throat, shortness of breath, chest pain, palpitations, nausea, vomiting, diarrhea, constipation, abdominal pain, or any urinary issues. <Kishore Knott APRN - Last Filed: 06/16/23 14:16> [facility] Past Medical History Medical History: Medical History OBEY (acute kidney injury) Arm and leg movements, uncontrollable Harris esophagus Burn Cerumen impaction CKD (chronic kidney disease) Dizziness Dysuria Elevated PSA Facial numbness GERD (gastroesophageal reflux disease) Hospital discharge follow-up Hypothyroidism Lower urinary tract symptoms (LUTS) Occasional tremors Occasional tremors Other specified types of schizophrenia, unspecified condition Otitis media Palpitations Prostate cancer screening encounter, options and risks discussed Schizophrenia Screening for lipid disorders Screening for prostate cancer Swelling of right foot Toe pain, right Tylenol overdose Weakness Wound of left leg <Kishore Knott APRN - Last Filed: 06/16/23 14:16> Surgical History Surgical History: Surgical History History of nephrectomy <Kishore Knott APRN - Last Filed: 06/16/23 14:16> Family History Family History: Family History Mother Hypertension Father Family history of Alzheimer's disease Malignant neoplasm of prostate Sibling No problems noted. <Kishore Knott APRN - Last Filed: 06/16/23 14:16> Social History Social History: Social History Smoking status: Never smoker Alcohol intake: never Substance use: never Substance use type: does not use Spiritual care concerns: No <Kishore Knott APRN - Last Filed: 06/16/23 14:16> Comments At the time of my signature, I reviewed and agree with the nursing past medical, surgica
[2023-06-16 10:12] VITALS: PULSE 81
[2023-06-16] MEDS: LORazepam INJ (*CRX) 2 MG/ML VIAL 0.5 MG IV PUSH (10:18)
--- NOTE | 2023-06-16 10:20 | PC.NURSE ---
pt aware of need for ua specimen
[2023-06-16 10:22] LABS: Basophils Percent Auto 0.4 % (0.2-1.2); Eosinophils Absolute Auto 0.5 K/mm3 (0-0.3); Eosinophils Percent Auto 5.3 % (0-4.4); Hematocrit 43.3 % (42.0-52.0); Hemoglobin 14.5 g/dL (14.0-18.0); Immature Granulocyte Absolute 0.06 K/mm3 (0.00-0.031); Immature Granulocyte Percent A 0.6 % (0-0.5); Immature Platelet Fraction Pct 1.8 % (0.9-11.2); Lymphocytes Absolute Auto 2.97 K/mm3 (0.9-3.2); Lymphocytes Percent Auto 29.2 % (18.3-44.2); Mean Corpuscular HGB Conc 33.5 g/dl (32-36); Mean Corpuscular Hemoglobin 32.2 pg (26-34); Mean Corpuscular Volume 96.2 fl (80-100); Mean Platelet Volume 9.6 fl (7.4-10.4); Monocytes Absolute Auto 1.1 K/mm3 (0.1-0.6); Monocytes Percent Auto 10.4 % (2.6-8.5); Neutrophils Absolute Auto 5.5 K/mm3 (1.3-6.7); Neutrophils Percent Auto 54.1 % (45.5-73.1); Platelet Count Result 222 k/mm3 (150-375); Red Cell Distribution Width 12.7 % (11.5-14.5); White Blood Count 10.2 K/mm3 (4.5-10.0)
[2023-06-16 10:36] LABS: Alanine Aminotransferase 18 U/L (6-50); Albumin Level 4.3 g/dL (3.5-5.1); Alkaline Phosphatase 60 U/L (38-126); Anion Gap 9 mmol/L (8-16); Aspartate Amino Transferase 28 U/L (17-59); Bilirubin,Total 0.6 mg/dL (0.2-1.3); Blood Urea Nitrogen 24 mg/dL (9-20); Calcium 9.7 mg/dL (8.4-10.2); Carbon Dioxide 25 mmol/L (22-30); Chloride 104 mmol/L (98-107); Estimated CRCL calculation 67 ml/min; Estimated Glomerular Filt Rate 57; Glucose 103 mg/dL (65-110); Magnesium 1.8 mg/dL (1.6-2.3); Potassium 4.9 mmol/L (3.4-5.0); Sodium 138 mmol/L (137-145)
[2023-06-16 11:00] VITALS: BP 118/92; PULSE 89; RESP 14; O2SAT 97
[2023-06-16 11:10] LABS: Add Urine Microscopic? YES; Appearance Urine Cloudy (Clear); Bacteria Urine None Seen /hpf; Bilirubin Urine Negative (Negative); Blood Urine Negative (Negative); Color Urine Yellow (Yellow); Glucose Urine UA Negative (Negative); Ketones Urine Negative (Negative); Leukocyte Esterase Ur Negative LEU/UL (Negative); Nitrate Urine Negative (Negative); Non Pathogenic Casts 0-2; Protein Urine Negative (Negative); RBC Urine 0-2 /hpf (0-2); Specific Grav Ur 1.018 (1.001-1.035); Squamous Epithelial Cell Urine None seen /hpf (Few); Urobilinogen Urine 0.2 mg/dL (<2.0); WBC Urine 0-5 /hpf
[2023-06-16 11:10] LABS: Creatine Kinase 39 U/L (55-170)
[2023-06-16 11:23] LABS: Amphetamine Screen Urine Negative (Negative); Barbiturate Screen Urine Negative (Negative); Benzodiazepines Screen Urine Negative (Negative); Cannabinoid Screen Urine Negative (Negative); Cocaine Screen Urine Negative (Negative); Methadone Screen Urine Negative (Negative); Opiate Screen Urine Negative (Negative); Phencyclidine Screen Urine Negative (Negative)
[2023-06-16 12:22] VITALS: BP 122/76; PULSE 79; RESP 16; O2SAT 98
== END 2023-06-16 12:22 | disposition home or self-care (01) ==
PROVIDERS: Emergency Provider Nurse Practitioner Family; PCP Internal Medicine
DX: R25.1 Tremor, unspecified (principal); F41.9 Anxiety disorder, unspecified; N18.9 Chronic kidney disease, unspecified; K22.70 Barrett's esophagus without dysplasia; K21.9 Gastro-esophageal reflux disease without esophagitis; E03.9 Hypothyroidism, unspecified; F20.9 Schizophrenia, unspecified; Z90.5 Acquired absence of kidney
CPT/HCPCS: 36415; 80053; 80307; 81001; 82550; 83735; 85025; 85055; 96372; 96374; 99283; 99284; J2060

== ENCOUNTER 2023-06-16 19:58 | Emergency (ER) | payer OTHER, SELFPAY ==
[2023-06-16 19:59] VITALS: BP 155/88; PULSE 106; RESP 20; TEMP 36.4; O2SAT 98
--- NOTE | 2023-06-16 21:58 | ED.GENADULT ---
HPI - General Adult General Chief complaint: Unspecified Stated complaint: shakiness Time Seen by Provider: 06/16/23 22:02 History of Present Illness HPI narrative: Patient is a 58-year-old gentleman who presents emergency department with chief complaint of shakiness. Patient reports that he has had history of tremor reports he takes Ativan was seen in the emergency department earlier today had a metabolic workup and evaluation at that time given an additional dose of Ativan and reports that this evening he started getting shaky again the patient denies suicidal or homicidal ideation denies seizure-like activity patient reports that he plans on following up with his doctors in the next 24-48 hours Related Data Home Medications Medication Instructions Recorded Confirmed divalproex 500 mg tablet,delayed 500 mg PO BID 01/26/21 05/22/23 release haloperidol decanoate 100 mg/mL 150 mg IM DIRECTED 01/26/21 05/22/23 intramuscular solution buspirone 5 mg tablet 5 mg PO BID 05/22/23 05/22/23 sertraline 25 mg tablet (Zoloft) 25 mg PO DAILY 05/22/23 05/22/23 Allergies Allergy/AdvReac Type Severity Reaction Status Date / Time No Known Allergies Allergy Verified 06/16/23 10:00 Review of Systems Review of Systems: A 10 system review of systems was completed on the patient and is negative except for what is stated in the HPI. Nursing and ancillary documentation was reviewed. [facility] Past Medical History Medical History OBEY (acute kidney injury) Arm and leg movements, uncontrollable Harris esophagus Burn Cerumen impaction CKD (chronic kidney disease) Dizziness Dysuria Elevated PSA Facial numbness GERD (gastroesophageal reflux disease) Hospital discharge follow-up Hypothyroidism Lower urinary tract symptoms (LUTS) Occasional tremors Occasional tremors Other specified types of schizophrenia, unspecified condition Otitis media Palpitations Prostate cancer screening encounter, options and risks discussed Schizophrenia Screening for lipid disorders Screening for prostate cancer Swelling of right foot Toe pain, right Tylenol overdose Weakness Wound of left leg Surgical History Surgical History History of nephrectomy Family History Family History Mother Hypertension Father Family history of Alzheimer's disease Malignant neoplasm of prostate Sibling No problems noted. Social History Social History Smoking status: Never smoker Alcohol intake: never Substance use: never Substance use type: does not use Spiritual care concerns: No Exam Narrative: GENERAL: Well-appearing, well-nourished, and in no acute distress. HEAD: Normocephalic, atraumatic. EYES: PERRLA and EOMI. ENT: Nares clear, no rhinorrhea or epistaxis. Mucous membranes moist. NECK: Supple. CHEST: Clear to auscultation. No respiratory distress. HEART: Regular rate and rhythm. No murmur heard. Normal peripheral pulses. ABDOMEN: Soft, nontender, nondistended, normal active bowel sounds. EXTREMITIES: Normal range of motion. No edema. SKIN: Warm, dry, no rash. NEURO: No focal deficits. Alert and oriented x3. Patient has a resting tremor PSYCH: Normal mood and affect. Course Vital Signs Vital signs: Vital Signs Temperature 36.4 C 06/16/23 19:59 Pulse Rate 106 H 06/16/23 19:59 Respiratory Rate 20 06/16/23 19:59 Blood Pressure 155/88 H 06/16/23 19:59 Pulse Oximetry 98 06/16/23 19:59 Oxygen Delivery Room Air 06/16/23 19:59 Temperature 36.4 C 06/16/23 19:59 Pulse Rate 106 H 06/16/23 19:59 Respiratory Rate 20 06/16/23 19:59 Blood Pressure 155/88 H 06/16/23 19:59 Pulse Oximetry 98 06/16/23 19:59 Oxygen Delivery Room Air 06/16/23
[2023-06-16] MEDS: LORazepam INJ (*CRX) 2 MG/ML VIAL 1 MG IM (22:24)
[2023-06-16 22:48] VITALS: BP 120/72; PULSE 78; RESP 15; TEMP 36.7; O2SAT 100
== END 2023-06-16 22:49 | disposition home or self-care (01) ==
PROVIDERS: Emergency Provider Emergency Medicine; PCP Internal Medicine
DX: G25.2 Other specified forms of tremor (principal); F41.9 Anxiety disorder, unspecified; K22.70 Barrett's esophagus without dysplasia; N18.9 Chronic kidney disease, unspecified; K21.9 Gastro-esophageal reflux disease without esophagitis; E03.9 Hypothyroidism, unspecified; F20.9 Schizophrenia, unspecified; Z90.5 Acquired absence of kidney
CPT/HCPCS: 96372; 99283; J2060

== ENCOUNTER 2023-06-19 02:29 | Emergency (ER) | payer OTHER, SELFPAY ==
[2023-06-19 02:31] VITALS: BP 152/102; PULSE 72; RESP 19; TEMP 37.1; O2SAT 97
[2023-06-19 03:58] VITALS: BP 147/97; PULSE 77; RESP 19; O2SAT 97
[2023-06-19 06:30] VITALS: BP 156/91; PULSE 93; RESP 18; O2SAT 99
--- NOTE | 2023-06-19 06:31 | ED.GENADULT ---
HPI - General Adult General Chief complaint: Unspecified Stated complaint: shaking Time Seen by Provider: 06/19/23 06:18 History of Present Illness HPI narrative: Patient 58-year-old gentleman who presents emergency department with chief complaint of shakiness. Patient reports he has history of anxiety related tremors which he takes Ativan for. Patient has had previous workups denies suicidal homicidal ideation reports he is to see his psychiatrist in the next 24 hours Related Data Home Medications Medication Instructions Recorded Confirmed divalproex 500 mg tablet,delayed 500 mg PO BID 01/26/21 05/22/23 release haloperidol decanoate 100 mg/mL 150 mg IM DIRECTED 01/26/21 05/22/23 intramuscular solution buspirone 5 mg tablet 5 mg PO BID 05/22/23 05/22/23 sertraline 25 mg tablet (Zoloft) 25 mg PO DAILY 05/22/23 05/22/23 Allergies Allergy/AdvReac Type Severity Reaction Status Date / Time No Known Allergies Allergy Verified 06/16/23 10:00 Review of Systems Review of Systems: A 10 system review of systems was completed on the patient and is negative except for what is stated in the HPI. Nursing and ancillary documentation was reviewed. [facility] Past Medical History Medical History OBEY (acute kidney injury) Arm and leg movements, uncontrollable Harris esophagus Burn Cerumen impaction CKD (chronic kidney disease) Dizziness Dysuria Elevated PSA Facial numbness GERD (gastroesophageal reflux disease) Hospital discharge follow-up Hypothyroidism Lower urinary tract symptoms (LUTS) Occasional tremors Occasional tremors Other specified types of schizophrenia, unspecified condition Otitis media Palpitations Prostate cancer screening encounter, options and risks discussed Schizophrenia Screening for lipid disorders Screening for prostate cancer Swelling of right foot Toe pain, right Tylenol overdose Weakness Wound of left leg Surgical History Surgical History History of nephrectomy Family History Family History Mother Hypertension Father Family history of Alzheimer's disease Malignant neoplasm of prostate Sibling No problems noted. Social History Social History Smoking status: Never smoker Alcohol intake: never Substance use: never Substance use type: does not use Spiritual care concerns: No Exam Narrative: GENERAL: Well-appearing, well-nourished, and in no acute distress. HEAD: Normocephalic, atraumatic. EYES: PERRLA and EOMI. ENT: Nares clear, no rhinorrhea or epistaxis. Mucous membranes moist. NECK: Supple. CHEST: Clear to auscultation. No respiratory distress. HEART: Regular rate and rhythm. No murmur heard. Normal peripheral pulses. ABDOMEN: Soft, nontender, nondistended, normal active bowel sounds. EXTREMITIES: Normal range of motion. No edema. SKIN: Warm, dry, no rash. NEURO: No focal deficits. Alert and oriented x3. resting tremor present PSYCH: Normal mood and affect. Course Vital Signs Vital signs: Vital Signs Temperature 37.1 C 06/19/23 02:31 Pulse Rate 72 06/19/23 02:31 Respiratory Rate 19 06/19/23 02:31 Blood Pressure 152/102 H 06/19/23 02:31 Pulse Oximetry 97 06/19/23 02:31 Oxygen Delivery Room Air 06/19/23 02:31 Temperature 37.1 C 06/19/23 02:31 Pulse Rate 93 06/19/23 06:30 Respiratory Rate 18 06/19/23 06:30 Blood Pressure 156/91 H 06/19/23 06:30 Pulse Oximetry 99 06/19/23 06:30 Oxygen Delivery Room Air 06/19/23 03:58 Medical Decision Making [facility] Narrative Medical decision making narrative: differential diagnosis includes anxiety, tremor, essential tremor, patient is not suicidal or homicidal patient was given a dose of IM Ativ
[2023-06-19] MEDS: LORazepam INJ (*CRX) 2 MG/ML VIAL 1 MG IM (06:39)
== END 2023-06-19 06:43 | disposition home or self-care (01) ==
PROVIDERS: Emergency Provider Emergency Medicine; PCP Internal Medicine
DX: F41.9 Anxiety disorder, unspecified (principal); G25.2 Other specified forms of tremor; N18.9 Chronic kidney disease, unspecified; E03.9 Hypothyroidism, unspecified; Z79.899 Other long term (current) drug therapy
CPT/HCPCS: 96372; 99283; J2060

== ENCOUNTER 2023-07-11 15:00 | Outpatient (CLI) | payer OTHER, SELFPAY ==
[2023-07-11 16:06] LABS: Anion Gap 4 mmol/L (8-16); Blood Urea Nitrogen 24 mg/dL (9-20); Calcium 9.6 mg/dL (8.4-10.2); Carbon Dioxide 30 mmol/L (22-30); Chloride 104 mmol/L (98-107); Estimated Glomerular Filt Rate 39; Glucose 86 mg/dL (65-110); Magnesium 1.9 mg/dL (1.6-2.3); Potassium 4.5 mmol/L (3.4-5.0); Sodium 138 mmol/L (137-145)
== END 2023-07-11 15:01 | disposition home or self-care (01) ==
LOC: ANHGOSHLAB 15:02
PROVIDERS: PCP Internal Medicine; Visit Provider Clinical Nurse Specialist
DX: R25.2 Cramp and spasm (principal)
CPT/HCPCS: 36415; 80048; 82728; 83735

== ENCOUNTER 2023-08-07 13:15 | Outpatient (RCR) | payer OTHER, SELFPAY ==
--- NOTE | 2023-07-17 15:18 | OPREHPOC ---
Outpatient Therapy Plan of Care This is a Multidisciplinary Plan of Care that may contain components documented by all disciplines (PT, OT, and ST.) PT Problem 1 PT Problem #1 Knowledge Deficit PT Goal 1 Goal Pt to be IND with issued HEP Target Visit 6 PT Problem 2 PT Problem #2 Pain PT Goal 1 Goal Pt to report hip/thigh pain no greater than 3/10 in the last week. Target Visit 6 PT Goal 2 Goal Pt to report no pain while walking Target Visit 6 PT Problem 3 PT Problem #3 Impaired Range of Motion PT Goal 1 Goal Pt to improve prone knee flexion ROM to 120 deg александр Target Visit 6 PT Problem 4 PT Problem #4 Impaired Strength PT Goal 1 Goal Pt to improve R LE strength equal to LLE strength. Target Visit 6
--- NOTE | 2023-07-17 15:18 | PTOPEVAL1 ---
Assessment and note entered by Tamara Santos, PT, DPT Evaluation Information Assessment Status Evaluation Diagnosis R inner thigh pain Onset over 3 years Subjective Information Pt states he things he has a pulled muscle on the inside of his thigh, he states it has been going on for greater than 3 years. He states if he makes a sudden stop when he is walking he will feel a pain, he states moving from sit to stand and when walking it hurts about half the time. He declines any pain at rest. Reported Pain Level Pain Score 0: Self Report Assessment PT Clinical Summary Bebo presents to therapy today for his initial evaluation with a diagnosis of R thigh/leg pain. Today he demonstrates generalized weakness throughout his RLE when compared to his LLE. He demonstrates александр hip flexor tightness R>L. He ambulates with slight trunk flexion d/t hip extension tightness. Skilled therapy services are indicated to address the deficits noted above, to improve flexibility and strength, and to return to PLOF. Plan of Care Interventions Electrical Stimulation,Gait Training,Hot Pack/Cold Pack,Manual Therapy,Neuro Re-education,Patient/ Caregiver Educati,Therapeutic Activities, Therapeutic Exercise PT Services Indicated Yes Treatment Frequency and 1x/wk for 6 visits Duration These treatments will address the objective and functional deficits as defined above. The patient will be advanced safely and appropriately in order for the patient to progress towards his/her prior level of function. Additional exercises will be introduced and as well as a comprehensive home exercise program upon discharge, if needed, ?to ensure carryover of functional gains achieved in the clinic. This treatment plan has been reviewed and agreement upon by the patient.
--- NOTE | 2023-07-24 14:14 | PCPTNOTE ---
Patient no show for today's appointment.
--- NOTE | 2023-08-22 14:25 | PTOPDC ---
Assessment and note entered by Tamara Santos, PT, DPT Evaluation Information Assessment Status Discharge - Pt Not Present Diagnosis R inner thigh pain Onset over 3 years Subjective Information Pt called and cancelled his last appointment this date. He states he is not getting any better with therapy and does not wish to return. Assessment PT Clinical Summary Bebo completed 3 visits of skilled therapy and will be discharged at this time per his request.
== END 2023-08-22 14:59 | disposition home or self-care (01) ==
LOC: ANHGOSHPT 13:15
PROVIDERS: PCP Internal Medicine; Visit Provider Nurse Practitioner
DX: M79.651 Pain in right thigh (principal)
CPT/HCPCS: 97110; 97161; 97530; 99199

== ENCOUNTER 2023-08-22 08:24 | Outpatient (RCR) | payer OTHER, SELFPAY ==
--- NOTE | 2023-05-24 15:00 | PC.NURSE ---
AMBULATORY WITH STEADY GAIT TO DRAW STATION FOR OUTPATIENT HALDOL D INJECTION. SPEECH IS SLURRED IN COMPARISON TO PREVIOUS VISITS. NOTED WEAK COUGHING. STATES HAS BEEN IN THE HOSPITAL DUE TO PANIC ATTACKS. STATES HE WAS HOSPITALIZED FOR THIS HE WAS HAVING PANIC ATTACKS THAT LASTED MORE THAN 24 HOURS. STATES HE HAS BEEN STARTED ON NEW MEDICATION FOR THIS. TREMORS ARE WORSE THAN PREVIOUS 6-10 WEEKS. MEDICATION BROUGHT IN WITH PATIENT IN PHARMACY BOTTLE WITH HIS NAME CONTAINING 2 VIALS OF HALOPERIDOL DEC WITH 100 MG EACH VIAL. GIVEN 1.5 CC OR 150 MG HALDOL D ORDERED. DISCHARGED AMBULATORY WITH STEADY GAIT. TO RETURN IN 4 WEEKS.
--- NOTE | 2023-08-22 11:42 | PC.NURSE ---
AMBULATORY TO DRAW STATION FOR OUTPATIENT HALDOL D INJECTION HAVING CONFIRMED ORDER WITH THE OFFICE ON 08/21/2023. ORIENTED TO TIME AND PLACE. NOT ALERT. SLEEPY/GROGGY. SHORT ANSWERS TO ANY QUESTIONS. EYES CLOSED WHILE SITTING IN CHAIR. SPEECH QUIET AND MUMBLING AT TIMES WHEN ANSWERING QUESTIONS. DID NOT INITIATE ANY CONVERSATION. GIVEN HALDOL D BROUGHT IN WITH PATIENT IN 2 VIALS OF 100 MG EACH. GIVEN 150 MG DIRECTED - 1.5 CC. DISCHARGED WITH STEADY GAIT. LEFT AHEAD OF THIS NURSE - USUALLY WAITS TO BE ESCORTED OUT OF DEPARTMENT. NO TREMORS WERE NOTED AT ANY TIME. GIVEN BUSINESS CARD WITH DATE TO RETURN IN 4 WEEKS.
== END 2023-08-22 23:59 | disposition home or self-care (01) ==
LOC: ANHLAB 08:24
PROVIDERS: PCP Internal Medicine
DX: F25.9 Schizoaffective disorder, unspecified (principal)
CPT/HCPCS: 96372

== ENCOUNTER 2023-09-19 17:27 | Emergency (ER) | payer OTHER, SELFPAY ==
[2023-09-19 17:25] VITALS: BP 131/114; PULSE 121; RESP 20; TEMP 36.7; O2SAT 98
[2023-09-19 17:31] VITALS: O2SAT 98
--- NOTE | 2023-09-19 17:32 | ECG_ITS ---
SEE SCANNED COPY FOR CONFIRMED REPORT MTDD
[2023-09-19] MEDS: SODIUM CHLORIDE 0.9% IV 1,000 ML 999 ML IV CONT (19:27)
--- NOTE | 2023-09-19 19:39 | ECG_ITS ---
SEE SCANNED COPY FOR CONFIRMED REPORT MTDD
[2023-09-19 19:50] LABS: Basophils Percent Auto 0.4 % (0.2-1.2); Eosinophils Absolute Auto 0.3 K/mm3 (0-0.3); Hemoglobin 13.6 g/dL (14.0-18.0); Immature Granulocyte Absolute 0.05 K/mm3 (0.00-0.031); Immature Granulocyte Percent A 0.5 % (0-0.5); Lymphocytes Absolute Auto 3.27 K/mm3 (0.9-3.2); Lymphocytes Percent Auto 35.2 % (18.3-44.2); Mean Corpuscular Hemoglobin 32.3 pg (26-34); Mean Platelet Volume 8.2 fl (7.4-10.4); Monocytes Percent Auto 10.5 % (2.6-8.5); Neutrophils Absolute Auto 4.7 K/mm3 (1.3-6.7); Neutrophils Percent Auto 50.4 % (45.5-73.1); Platelet Count Result 197 k/mm3 (150-375); Red Blood Count 4.21 M/mm3 (4.6-6.20); Red Cell Distribution Width 12.2 % (11.5-14.5); White Blood Count 9.3 K/mm3 (4.5-10.0)
[2023-09-19 19:59] LABS: Alanine Aminotransferase 11 U/L (6-50); Albumin Level 4.3 g/dL (3.5-5.1); Alkaline Phosphatase 53 U/L (38-126); Anion Gap 6 mmol/L (4-12); Aspartate Amino Transferase 20 U/L (17-59); Bilirubin,Total 0.6 mg/dL (0.2-1.3); Blood Urea Nitrogen 28 mg/dL (9-20); Calcium 9.9 mg/dL (8.4-10.2); Carbon Dioxide 28 mmol/L (22-30); Chloride 104 mmol/L (98-107); Estimated CRCL calculation 39 ml/min; Estimated Glomerular Filt Rate 29; Glucose 95 mg/dL (65-110); Potassium 4.6 mmol/L (3.4-5.0); Sodium 138 mmol/L (137-145)
[2023-09-19 20:10] LABS: Troponin I < 0.012 ng/mL (0.000-0.034)
--- NOTE | 2023-09-19 20:10 | ED.ARRPALP ---
HPI - Arrhythmia/Palpitations General Chief Complaint: Arrhythmia/Palpitations Stated Complaint: ORTHOSTATIC TACYCARDIA Time Seen by Provider: 09/19/23 18:59 History of Present Illness HPI narrative: Pt presents with feeling of heart palpitations and feeling weak in legs like he might pass out. Pt denies actually losing consciousness or having CP or SOB with this. EMS states the patient HR increased when he sat up and decreased when he was supine. Related Data Home Medications Medication Instructions Recorded Confirmed divalproex 500 mg tablet,delayed 500 mg PO BID 01/26/21 09/10/23 release buspirone 5 mg tablet 5 mg PO TID 07/08/23 09/10/23 Allergies Allergy/AdvReac Type Severity Reaction Status Date / Time No Known Allergies Allergy Verified 09/10/23 14:19 Review of Systems Review of Systems: All systems reviewed & are unremarkable except as noted in HPI and below PMFSH Past Medical History Medical History OBEY (acute kidney injury) Arm and leg movements, uncontrollable Harris esophagus Burn Cerumen impaction CKD (chronic kidney disease) Dizziness Dysuria Elevated PSA Facial numbness GERD (gastroesophageal reflux disease) Hospital discharge follow-up Hypothyroidism Lower urinary tract symptoms (LUTS) Occasional tremors Occasional tremors Other specified types of schizophrenia, unspecified condition Otitis media Palpitations Prostate cancer screening encounter, options and risks discussed Schizophrenia Screening for lipid disorders Screening for prostate cancer Swelling of right foot Toe pain, right Tylenol overdose Weakness Wound of left leg Surgical History Surgical History History of nephrectomy Family History Family History Mother Hypertension Father Family history of Alzheimer's disease Malignant neoplasm of prostate Sibling No problems noted. Social History Social History Smoking status: Never smoker Alcohol intake: never Substance use: never Substance use type: does not use Spiritual care concerns: No Exam Const: General: healthy appearing Nutritional Appearance: well nourished Orientation/consciousness: patient oriented x3 Limitations: no limitations HENMT: Head: normal to inspection Mouth: Yes Normal oral and palatal mucosa present Chest: Chest palpation & inspection: normal inspection of the chest Resp: Effort & Inspection: normal respiratory effort Auscultation: clear to auscultation bilaterally Cardio: Rate: regular rate Rhythm: regular rhythm GI: GI Palp: Yes Soft to palpation and No Tenderness to palpation present (GI) Auscultation: normal bowel sounds Skin: General skin exam: normal color Rashes: no rashes Wounds: no wounds Neuro: General: patient oriented x3, moves all extremities and no focal motor deficits Speech: normal speech Extrem: General: normal to inspection and no clubbing, cyanosis or edema Psych: Mental Status: mental status grossly normal Affect: normal affect Attitude: cooperative Course Vital Signs Vital signs: Vital Signs Temperature 98.0 F 09/19/23 17:25 Pulse Rate 121 H 09/19/23 17:25 Respiratory Rate 20 09/19/23 17:25 Blood Pressure 131/114 H 09/19/23 17:25 Pulse Oximetry 98 09/19/23 17:25 Oxygen Delivery Room Air 09/19/23 17:25 Temperature 98.0 F 09/19/23 17:25 Pulse Rate 87 09/19/23 21:53 Respiratory Rate 20 09/19/23 21:53 Blood Pressure 131/80 09/19/23 21:53 Pulse Oximetry 98 09/19/23 21:53 Oxygen Delivery Room Air 09/19/23 17:31 MDM - Arrhythmia/Palpitations MDM Narrative Medical decision making narrative: Pt has numerous complaints with weakness in legs and feeling lightheaded and having near syncopal spells. EKG and labs unr
[2023-09-19 20:42] VITALS: BP 137/97; PULSE 85
[2023-09-19 20:43] VITALS: BP 139/105; PULSE 87
[2023-09-19 20:44] VITALS: BP 134/95; PULSE 105
[2023-09-19 21:53] VITALS: BP 131/80; PULSE 87; RESP 20; O2SAT 98
== END 2023-09-19 21:54 | disposition home or self-care (01) ==
PROVIDERS: Emergency Provider Emergency Medicine; PCP Internal Medicine
DX: R55 Syncope and collapse (principal); K22.70 Barrett's esophagus without dysplasia; N18.9 Chronic kidney disease, unspecified; E03.9 Hypothyroidism, unspecified; K21.9 Gastro-esophageal reflux disease without esophagitis; Z90.5 Acquired absence of kidney; F20.89 Other schizophrenia
CPT/HCPCS: 36415; 80053; 84484; 85025; 93005; 96360; 99284; J7030

== ENCOUNTER 2023-10-28 20:00 | Emergency (ER) | payer OTHER, SELFPAY ==
--- NOTE | ~2023-10-28 | XR_ITS ---
EXAMINATION: XR chest 2V Exam Date/Time: 10/28/2023 20:20 CDT HISTORY: weakness, sob Comparison: 05/03/2023. RESULT: Lines, tubes, and devices: None. Lungs and pleura: Clear. Cardiomediastinal silhouette: Stable. Other: No acute osseous or upper abdominal finding. IMPRESSION: No acute cardiopulmonary process. Reviewed, dictated and finalized at location K.
[2023-10-28 20:02] VITALS: BP 120/100; PULSE 121; RESP 16; TEMP 36.1; O2SAT 99
--- NOTE | 2023-10-28 20:06 | ECG_ITS ---
Test Date: 2023-10-28 20:10:08 Measurements Intervals [place] Rate: 109 P: 40 ID: 116 QRS: 35 QRSD: 108 T: -1 QT: 348 QTc: 470 Interpretive Statements SINUS TACHYCARDIA WITH SHORT ID INTERVAL No previous ECG available for comparison Electronically Signed On 10-29-2023 12:04:48 CDT by Donald Hopson M.D.
[2023-10-28 20:21] LABS: Basophils Percent Auto 0.4 % (0.2-1.2); Eosinophils Absolute Auto 0.4 K/mm3 (0-0.3); Eosinophils Percent Auto 3.6 % (0-4.4); Hemoglobin 14.4 g/dL (14.0-18.0); Immature Granulocyte Absolute 0.06 K/mm3 (0.00-0.031); Immature Granulocyte Percent A 0.6 % (0-0.5); Lymphocytes Absolute Auto 3.97 K/mm3 (0.9-3.2); Lymphocytes Percent Auto 36.8 % (18.3-44.2); Mean Corpuscular HGB Conc 35.1 g/dl (32-36); Mean Corpuscular Hemoglobin 32.1 pg (26-34); Mean Corpuscular Volume 91.5 fl (80-100); Mean Platelet Volume 8.2 fl (7.4-10.4); Monocytes Absolute Auto 1.1 K/mm3 (0.1-0.6); Monocytes Percent Auto 10.2 % (2.6-8.5); Neutrophils Absolute Auto 5.2 K/mm3 (1.3-6.7); Neutrophils Percent Auto 48.4 % (45.5-73.1); Platelet Count Result 205 k/mm3 (150-375); Red Blood Count 4.48 M/mm3 (4.6-6.20); Red Cell Distribution Width 12.5 % (11.5-14.5); White Blood Count 10.8 K/mm3 (4.5-10.0)
[2023-10-28 20:40] LABS: Alanine Aminotransferase 11 U/L (6-50); Albumin Level 4.6 g/dL (3.5-5.1); Alkaline Phosphatase 65 U/L (38-126); Anion Gap 10 mmol/L (4-12); Aspartate Amino Transferase 20 U/L (17-59); Bilirubin,Total 0.6 mg/dL (0.2-1.3); Blood Urea Nitrogen 27 mg/dL (9-20); Calcium 9.9 mg/dL (8.4-10.2); Carbon Dioxide 24 mmol/L (22-30); Chloride 106 mmol/L (98-107); Estimated CRCL calculation 40 ml/min; Estimated Glomerular Filt Rate 31; Glucose 101 mg/dL (65-110); Potassium 4.5 mmol/L (3.4-5.0); Sodium 140 mmol/L (137-145)
[2023-10-28 20:58] LABS: Add Urine Microscopic? NO; Appearance Urine Clear (Clear); Bilirubin Urine Negative (Negative); Blood Urine Negative (Negative); Color Urine Yellow (Yellow); Glucose Urine UA Negative (Negative); Ketones Urine Negative (Negative); Leukocyte Esterase Ur Negative LEU/UL (Negative); Nitrate Urine Negative (Negative); Protein Urine Negative (Negative); Specific Grav Ur 1.006 (1.001-1.035); Urobilinogen Urine 0.2 mg/dL (<2.0); pH Urine 6.5 (5.0-9.0)
[2023-10-28 21:02] VITALS: PULSE 86; O2SAT 97
[2023-10-28 21:04] VITALS: BP 137/97; PULSE 89; RESP 20; O2SAT 97
[2023-10-28 22:18] VITALS: BP 148/99; PULSE 92; RESP 19; O2SAT 96
[2023-10-28] MEDS: SODIUM CHLORIDE 0.9% IV 1,000 ML 999 ML IV CONT (23:03)
[2023-10-28 23:21] LABS: D Dimer 0.39 ug/mL (<0.48)
[2023-10-28 23:22] LABS: NT Pro B Type Natriuretic Pept 81 pg/mL (19.9-100); Troponin I < 0.012 ng/mL (0.000-0.034)
--- NOTE | 2023-10-28 23:38 | ED.WEAKNESS ---
HPI - Weakness General Chief complaint: Weakness Stated complaint: weakness Time Seen by Provider: 10/28/23 21:38 Source: patient Mode of arrival: ambulatory Limitations: no limitations History of Present Illness HPI Narrative: This is a 58 year old male that presents to the ER for symptoms ongoing over the last couple of days. Reports he has felt lightheaded and short of breath with exertion. Report long standing history of problems with this, but worsening over the last couple of days. Denies fever, cough, chest pain, or lower extremity edema. Related Data Home Medications Medication Instructions Recorded Confirmed divalproex 500 mg tablet,delayed 500 mg PO BID 01/26/21 09/10/23 release buspirone 5 mg tablet 5 mg PO TID 07/08/23 09/10/23 Allergies Allergy/AdvReac Type Severity Reaction Status Date / Time No Known Allergies Allergy Verified 10/28/23 20:01 Review of Systems Review of Systems: CONSTITUTIONAL: Denies fever CARDIOVASCULAR: Reports palpitations. Denies chest pain, or edema. RESPIRATORY: Reports dyspnea. Denies cough All systems reviewed & are unremarkable except as noted in HPI and below PMFSH Past Medical History Medical History OBEY (acute kidney injury) Arm and leg movements, uncontrollable Harris esophagus Burn Cerumen impaction CKD (chronic kidney disease) Dizziness Dysuria Elevated PSA Facial numbness GERD (gastroesophageal reflux disease) Hospital discharge follow-up Hypothyroidism Lower urinary tract symptoms (LUTS) Occasional tremors Occasional tremors Other specified types of schizophrenia, unspecified condition Otitis media Palpitations Prostate cancer screening encounter, options and risks discussed Schizophrenia Screening for lipid disorders Screening for prostate cancer Swelling of right foot Toe pain, right Tylenol overdose Weakness Wound of left leg Surgical History Surgical History History of nephrectomy Family History Family History Mother Hypertension Father Family history of Alzheimer's disease Malignant neoplasm of prostate Sibling No problems noted. Social History Social History Smoking status: Never smoker Alcohol intake: never Substance use: never Substance use type: does not use Spiritual care concerns: No Exam Narrative: GENERAL: Well-appearing, well-nourished, and in no acute distress. HEAD: Normocephalic, atraumatic. EYES: EOMI. ENT: Nares clear, no rhinorrhea or epistaxis. Mucous membranes moist. NECK: Supple. No adenopathy or masses. No JVD CHEST: Clear to auscultation. No respiratory distress. No wheezes rales or rhonchi HEART: Regular rate and rhythm. No murmur heard. Normal peripheral pulses. EXTREMITIES: Normal range of motion. No edema. SKIN: Warm, dry, no rash. NEURO: No focal deficits. Alert and oriented x3. PSYCH: Normal mood and affect Course Course Emergency Course: Patient updated on his workup and agrees with plan of care Vital Signs Vital signs: Vital Signs Temperature 97 F L 10/28/23 20:02 Pulse Rate 121 H 10/28/23 20:02 Respiratory Rate 16 10/28/23 20:02 Blood Pressure 120/100 H 10/28/23 20:02 Pulse Oximetry 99 10/28/23 20:02 Oxygen Delivery Room Air 10/28/23 20:02 Temperature 97 F L 10/28/23 20:02 Pulse Rate 89 10/29/23 00:47 Respiratory Rate 16 10/29/23 00:47 Blood Pressure 124/98 H 10/29/23 00:47 Pulse Oximetry 97 10/29/23 00:47 Oxygen Delivery Room Air 10/28/23 21:02 MDM - Weakness MDM Narrative Medical decision making narrative: Patient presents to the emergency department for lightheadedness and shortness of breath. Tachycardic upon arrival, this normalized with IV fluids. CBC with mild leukocytosis to 10.8. Hem
[2023-10-29 00:47] VITALS: BP 124/98; PULSE 89; RESP 16; O2SAT 97
== END 2023-10-29 01:45 | disposition home or self-care (01) ==
PROVIDERS: Emergency Medicine; Emergency Provider Physician Assistant; PCP Internal Medicine
DX: R42 Dizziness and giddiness (principal); N18.9 Chronic kidney disease, unspecified; K21.9 Gastro-esophageal reflux disease without esophagitis; E03.9 Hypothyroidism, unspecified
CPT/HCPCS: 36415; 71046; 80053; 81003; 83880; 84484; 85025; 85380; 93005; 96360; 99284; J7030

== ENCOUNTER 2023-11-08 11:41 | Outpatient (CLI) | payer OTHER, SELFPAY ==
[2023-11-08 12:27] LABS: Hematocrit 42.2 % (42.0-52.0); Hemoglobin 14.2 g/dL (14.0-18.0); Mean Corpuscular HGB Conc 33.6 g/dl (32-36); Mean Corpuscular Hemoglobin 31.5 pg (26-34); Mean Corpuscular Volume 93.6 fl (80-100); Mean Platelet Volume 8.5 fl (7.4-10.4); Platelet Count Result 186 k/mm3 (150-375); Red Blood Count 4.51 M/mm3 (4.6-6.20); Red Cell Distribution Width 12.8 % (11.5-14.5); White Blood Count 9.7 K/mm3 (4.5-10.0)
[2023-11-08 12:38] LABS: Albumin Level 4.6 g/dL (3.5-5.1); Anion Gap 10 mmol/L (4-12); Blood Urea Nitrogen 31 mg/dL (9-20); Calcium 9.8 mg/dL (8.4-10.2); Carbon Dioxide 26 mmol/L (22-30); Chloride 105 mmol/L (98-107); Estimated Glomerular Filt Rate 26; Glucose 100 mg/dL (65-110); Phosphorus 2.6 mg/dL (2.5-4.5); Potassium 4.4 mmol/L (3.4-5.0); Sodium 141 mmol/L (137-145)
[2023-11-08 12:49] LABS: Parathyroid Intact 24.4 pg/mL (7.5-53.5)
== END 2023-11-08 11:42 | disposition home or self-care (01) ==
LOC: ANHLAB 11:43
PROVIDERS: PCP Internal Medicine; Visit Provider Internal Medicine Nephrology
DX: N18.32 Chronic kidney disease, stage 3b (principal)
CPT/HCPCS: 36415; 80069; 83970; 85027

== ENCOUNTER 2023-11-08 12:07 | Emergency (ER) | payer OTHER, SELFPAY ==
[2023-11-08] VITALS (14 sets, daily range): BP systolic 86–135; BP diastolic 68–98; PULSE 90–115; RESP 16–24; O2SAT 91–99
--- NOTE | ~2023-11-08 | XR_ITS ---
EXAMINATION: XR chest 2V DATE: 11/08/2023 12:37 INDICATION: Shortness of breath. Dizziness. Syncope. TECHNIQUE: Frontal and lateral views of the chest were obtained. COMPARISON: Chest 2 views 10/28/2023 FINDINGS: There is no pneumonia, pleural effusion, or pneumothorax. The heart size is normal. There i s mild chronic anterior wedging of multiple vertebral bodies. IMPRESSION: 1. No acute cardiopulmonary disease. Reviewed, dictated and finalized at location A.
--- NOTE | 2023-11-08 12:15 | ECG_ITS ---
Test Date: 2023-11-08 12:28:07 Measurements Intervals [facility] Rate: 115 P: 64 MA: 137 QRS: 57 QRSD: 95 T: -2 QT: 316 QTc: 438 Interpretive Statements SINUS TACHYCARDIA ABNORMAL RHYTHM ECG Compared to ECG 10/28/2023 20:10:08 NO DIFFERENCE Electronically Signed On 11-08-2023 15:51:31 CDT by Minh Pack M.D.
[2023-11-08 12:41] LABS: Basophils Percent Auto 0.4 % (0.2-1.2); Eosinophils Absolute Auto 0.3 K/mm3 (0-0.3); Eosinophils Percent Auto 3.2 % (0-4.4); Hematocrit 42.2 % (42.0-52.0); Hemoglobin 14.4 g/dL (14.0-18.0); Lymphocytes Absolute Auto 2.67 K/mm3 (0.9-3.2); Lymphocytes Percent Auto 25.9 % (18.3-44.2); Mean Corpuscular HGB Conc 34.1 g/dl (32-36); Mean Corpuscular Hemoglobin 31.5 pg (26-34); Mean Corpuscular Volume 92.3 fl (80-100); Mean Platelet Volume 8.5 fl (7.4-10.4); Monocytes Absolute Auto 1.3 K/mm3 (0.1-0.6); Monocytes Percent Auto 12.9 % (2.6-8.5); Neutrophils Absolute Auto 5.9 K/mm3 (1.3-6.7); Neutrophils Percent Auto 56.6 % (45.5-73.1); Platelet Count Result 197 k/mm3 (150-375); Red Blood Count 4.57 M/mm3 (4.6-6.20); Red Cell Distribution Width 12.8 % (11.5-14.5); White Blood Count 10.3 K/mm3 (4.5-10.0)
[2023-11-08 12:56] LABS: Alanine Aminotransferase 12 U/L (6-50); Albumin Level 4.6 g/dL (3.5-5.1); Alkaline Phosphatase 56 U/L (38-126); Anion Gap 11 mmol/L (4-12); Aspartate Amino Transferase 22 U/L (17-59); Bilirubin,Total 0.6 mg/dL (0.2-1.3); Blood Urea Nitrogen 31 mg/dL (9-20); Calcium 9.9 mg/dL (8.4-10.2); Carbon Dioxide 22 mmol/L (22-30); Chloride 107 mmol/L (98-107); Estimated CRCL calculation 34 ml/min; Estimated Glomerular Filt Rate 26; Glucose 95 mg/dL (65-110); Potassium 4.7 mmol/L (3.4-5.0); Sodium 140 mmol/L (137-145)
[2023-11-08] MEDS: SODIUM CHLORIDE 0.9% IV 1,000 ML 999 ML IV CONT (13:31)
[2023-11-08 14:27] LABS: Magnesium 1.9 mg/dL (1.6-2.3)
[2023-11-08 14:39] LABS: Troponin I < 0.012 ng/mL (0.000-0.034)
--- NOTE | 2023-11-08 14:46 | ED.GENADULT ---
HPI - General Adult General Chief complaint: Shortness of Breath/Dyspnea Stated complaint: shortness of breath, weak, lightheaded Time Seen by Provider: 11/08/23 13:24 History of Present Illness HPI narrative: Patient is a 58-year-old male who presents to the emergency department this evening complaining of lightheadedness. Patient is also complaining of shortness of breath and generalized weakness. Patient states that he has been here several times for these complaints but was always told nothing is wrong with him. He has not followed up with his primary care physician's in its his last ER visit the. Patient is concerned that he has a heart attack although he did not have any chest pain upon our triage assessment. While evaluating the patient, he did complain of some chest tightness. He admits to history of anxiety and some panic attacks and describes and sense of uneasiness in his chest. Patient admits that he has been having these lightheadedness episodes for a while now and was supposed to follow-up with the cut off operator scorer, Dr. block for a Holter monitor but he chickened out. Related Data Home Medications Medication Instructions Recorded Confirmed divalproex 500 mg tablet,delayed 500 mg PO BID 01/26/21 09/10/23 release buspirone 5 mg tablet 5 mg PO TID 07/08/23 09/10/23 Allergies Allergy/AdvReac Type Severity Reaction Status Date / Time No Known Allergies Allergy Verified 11/08/23 12:14 Review of Systems Review of Systems: All systems are reviewed and are negative unless stated otherwise in the HPI. FORMERLY [facility], [facility] Past Medical History Medical History OBEY (acute kidney injury) Arm and leg movements, uncontrollable Harris esophagus Burn Cerumen impaction CKD (chronic kidney disease) Dizziness Dysuria Elevated PSA Facial numbness GERD (gastroesophageal reflux disease) Hospital discharge follow-up Hypothyroidism Lower urinary tract symptoms (LUTS) Occasional tremors Occasional tremors Other specified types of schizophrenia, unspecified condition Otitis media Palpitations Prostate cancer screening encounter, options and risks discussed Schizophrenia Screening for lipid disorders Screening for prostate cancer Swelling of right foot Toe pain, right Tylenol overdose Weakness Wound of left leg Surgical History Surgical History History of nephrectomy Family History Family History Mother Hypertension Father Family history of Alzheimer's disease Malignant neoplasm of prostate Sibling No problems noted. Social History Social History Smoking status: Never smoker Alcohol intake: never Substance use: never Substance use type: does not use Spiritual care concerns: No Exam Narrative: General: Alert, awake, afebrile, in no acute distress. HEENT: PERRL, no rhinorrhea, no post nasal drip, oropharynx clear. Cardiovascular: Regular rate and rhythm, no murmurs, rubs or gallops, no peripheral edema. Respiratory: Clear to auscultation bilaterally, no tachypnea, no wheezing, no rhonchi, no rubs, no respiratory distress. Abdomen: Soft, nontender, nondistended, no rebound, no guarding, no peritoneal signs. Musculoskeletal: No joint swelling or deformity, normal muscle tone. Skin: No rashes or petechia, no signs of infection. Psychiatric: Alert and oriented, normal behavior and judgment for situation. Neurological: Alert and oriented to person, place, and time. Follows all commands. No focal deficits, speech is clear and fluent. Course Vital Signs Vital signs: Vital Signs Pulse Rate 115 H 11/08/23 12:22 Respiratory Rate 20 11/08/23 12:22 Pulse Oximetry 97 11/08/23 12:22 Pulse Rate 102 H 11/08/23 14:01 Respiratory Rate 23 H 11/08/23 14:01 Blood Pre
== END 2023-11-08 15:05 | disposition home or self-care (01) ==
PROVIDERS: Emergency Medicine; Emergency Provider Emergency Medicine; PCP Internal Medicine
DX: R42 Dizziness and giddiness (principal); E86.0 Dehydration; N18.9 Chronic kidney disease, unspecified; E03.9 Hypothyroidism, unspecified
CPT/HCPCS: 36415; 71046; 80053; 80069; 83735; 83970; 84484; 85025; 85027; 93005; 96360; 99284; J7030

== ENCOUNTER 2023-11-25 15:36 | Emergency (ER) | payer OTHER, SELFPAY ==
--- NOTE | ~2023-11-25 | XR_ITS ---
XR chest 2V Ordering provider: Leigha Matthews PA-C History: 58 years Male with . SOB . Comparison: November 08, 2023 FINDINGS: MEDIASTINUM: The cardiac silhouette is not enlarged. LUNGS: No infiltrates, effusions or pneumothorax. OTHER: No free air under the diaphragm. Degenerative spine. IMPRESSION: No acute cardiopulmonary pathology. Reviewed, dictated and finalized at location A.
--- NOTE | 2023-11-25 15:58 | ECG_ITS ---
Test Date: 2023-11-25 16:50:30 Measurements Intervals [place] Rate: 99 P: 59 AL: 141 QRS: 45 QRSD: 106 T: 11 QT: 350 QTc: 450 Interpretive Statements SINUS RHYTHM BASELINE ARTIFACT- I, II, III, AVR, AVL NORMAL ECG Compared to ECG 11/08/2023 12:28:07 HEART RATE HAS DECREASED Electronically Signed On 11-25-2023 17:54:36 CDT by Delio Persaud D.O.
[2023-11-25 15:59] VITALS: BP 103/83; PULSE 103; RESP 22; TEMP 36.5; O2SAT 96
--- NOTE | 2023-11-25 15:59 | ED.SOB ---
HPI - SOB/Dyspnea General Chief Complaint: Shortness of Breath/Dyspnea <Leigha Matthews PA-C - Last Filed: 11/26/23 10:15> Stated Complaint: multiple complaints <Leigha Matthews PA-C - Last Filed: 11/26/23 10:15> Time Seen by Provider: 11/25/23 15:59 <Leigha Matthews PA-C - Last Filed: 11/26/23 10:15> Focused HPI: This is a 58 year old male that presents to the ER for shortness of breath. Ongoing over the last several hours. Reports associated chest heaviness. Reports lightheadedness. Reports this has been an ongoing issue for him and no one can seem to figure out what is going on. GENERAL: Well-appearing, well-nourished, and in no acute distress. HEAD: Normocephalic, atraumatic. CHEST: Clear to auscultation. ?No respiratory distress. HEART: Regular rate and rhythm.? NEURO: ?Alert and oriented x3. Patient screened in triage and initial orders placed.? ?Additional care and disposition to be based upon?diagnostic testing and treatment. <Leigha Matthews PA-C - Last Filed: 11/26/23 10:15> History of Present Illness HPI Narrative: Patient is a 58-year-old male with history of acid reflux here with chest pain and shortness of breath. He states that he has been struggling with similar symptoms almost daily for several years. He states that today he was up walking around the house and began experiencing some chest heaviness. He notes that throughout his entire chest, did not believe that it worsened with exertion, eating, deep breath. He states that it seems to get worse when he lays down instead of standing up. He notes that he has been referred to Cardiology by his primary care doctor, they have tried to do a Holter monitor, they mailed to him and he said that it was too confusing so he did not go through with doing his Holter monitor. He also states the director of first impressions wanted him to do a stress test however he got paperwork from his insurance thing that he should ?get a shirring machine operator because this is not covered by your insurance ?. This made him stop seeing his director of first impressions for further workup. He notes a chronic cough which is worse in the morning and clears throughout the day. He does have a history of acid reflux, states that the chest pain seemed to be worse in the mornings after he has tomato soup at night for dinner. He is on omeprazole which is not been working. <Terra Rubalcava MD - Last Filed: 11/25/23 20:57> Related Data Home Medications: Home Medications Medication Instructions Recorded Confirmed divalproex 500 mg tablet,delayed 500 mg PO BID 01/26/21 11/11/23 release buspirone 5 mg tablet 5 mg PO TID 07/08/23 11/11/23 <Leigha Matthews PA-C - Last Filed: 11/26/23 10:15> Allergies/Adverse Reactions: Allergies Allergy/AdvReac Type Severity Reaction Status Date / Time No Known Allergies Allergy Verified 11/25/23 15:58 <Leigha Matthews PA-C - Last Filed: 11/26/23 10:15> Review of Systems Review of Systems: All systems reviewed & are unremarkable except as noted in HPI and below <Terra Rubalcava MD - Last Filed: 11/25/23 20:57> [facility] Past Medical History Medical History: Medical History (Updated 11/26/23 @ 00:00 by Background Daemon) OBEY (acute kidney injury) Arm and leg movements, uncontrollable Harris esophagus Burn Cerumen impaction Chest pressure CKD (chronic kidney disease) Dizziness Dysuria Elevated PSA Facial numbness GERD (gastroesophageal reflux disease) Hospital discharge follow-up Hypothyroidism Lower urinary tract symptoms (LUTS) Occasional tremors Occasional tremors Other specified types of schizophrenia, unspecified condition Otitis media Palpitations Prostate cancer screening encounter, options and risks discussed Schizophrenia Screening for lipid disorders Screening for prostate cancer Swelling of right foot Toe pain, right Tylenol overdose Weakness Wound of left leg <Leigha Matthews PA-C - Last Filed: 11/26/23 10:15> Surgical History S
[2023-11-25 16:53] LABS: Basophils Absolute Auto 0.1 K/mm3 (0.0-0.1); Basophils Percent Auto 0.5 % (0.2-1.2); Eosinophils Absolute Auto 0.3 K/mm3 (0-0.3); Eosinophils Percent Auto 2.5 % (0-4.4); Hematocrit 41.6 % (42.0-52.0); Hemoglobin 14.4 g/dL (14.0-18.0); Immature Granulocyte Absolute 0.12 K/mm3 (0.00-0.031); Lymphocytes Absolute Auto 3.64 K/mm3 (0.9-3.2); Lymphocytes Percent Auto 30.9 % (18.3-44.2); Mean Corpuscular HGB Conc 34.6 g/dl (32-36); Mean Corpuscular Hemoglobin 31.9 pg (26-34); Mean Corpuscular Volume 92.2 fl (80-100); Mean Platelet Volume 8.5 fl (7.4-10.4); Monocytes Absolute Auto 1.4 K/mm3 (0.1-0.6); Monocytes Percent Auto 11.9 % (2.6-8.5); Neutrophils Absolute Auto 6.3 K/mm3 (1.3-6.7); Neutrophils Percent Auto 53.2 % (45.5-73.1); Platelet Count Result 182 k/mm3 (150-375); Red Blood Count 4.51 M/mm3 (4.6-6.20); Red Cell Distribution Width 12.9 % (11.5-14.5); White Blood Count 11.8 K/mm3 (4.5-10.0)
[2023-11-25 17:04] LABS: Partial Thromboplastin Time 29.2 Seconds (22.3-36.8); Prothrombin Time 13.7 Seconds (11.1-14.7)
[2023-11-25 17:05] LABS: Alanine Aminotransferase 14 U/L (6-50); Albumin Level 4.4 g/dL (3.5-5.1); Alkaline Phosphatase 55 U/L (38-126); Anion Gap 11 mmol/L (4-12); Aspartate Amino Transferase 24 U/L (17-59); Bilirubin,Total 0.8 mg/dL (0.2-1.3); Blood Urea Nitrogen 25 mg/dL (9-20); Calcium 9.7 mg/dL (8.4-10.2); Carbon Dioxide 25 mmol/L (22-30); Chloride 103 mmol/L (98-107); Estimated CRCL calculation 40 ml/min; Estimated Glomerular Filt Rate 31; Glucose 100 mg/dL (65-110); Potassium 4.7 mmol/L (3.4-5.0); Sodium 139 mmol/L (137-145)
[2023-11-25 17:16] VITALS: BP 123/96; PULSE 86; RESP 18; TEMP 36.9; O2SAT 97
[2023-11-25 17:17] LABS: Troponin I < 0.012 ng/mL (0.000-0.034)
[2023-11-25] MEDS: BELLADONNA ALK/PHENOB ELIX 10 ML, MAG HYDROX/ALUMINUM HYD/SIMETH 30 ML, LIDOCAINE HCL 2... PO (18:39)
[2023-11-25 19:49] LABS: Influenza A QL RT-PCR Negative (Negative); Influenza B QL RT-PCR Negative (Negative); RSV RNA, RT-PCR Negative (Negative); SARS-CoV-2 RNA PCR Negative (Negative)
--- NOTE | 2023-11-25 19:49 | ECG_ITS ---
Test Date: 2023-11-25 19:54:04 Measurements Intervals [place] Rate: 82 P: 51 MI: 143 QRS: -5 QRSD: 104 T: -7 QT: 374 QTc: 438 Interpretive Statements SINUS RHYTHM MINIMAL Q WAVES- HIGH LATERAL LEADS BORDERLINE ST-T WAVE ABNORMALITY- INFERIOR LEADS BORDERLINE ECG Compared to ECG 11/25/2023 16:50:30 No significant changes Electronically Signed On 11-26-2023 06:31:25 CDT by Delio Persaud D.O.
[2023-11-25 20:20] VITALS: BP 119/89; PULSE 73; RESP 14; TEMP 36.7; O2SAT 98
[2023-11-25 20:50] LABS: Troponin I < 0.012 ng/mL (0.000-0.034)
[2023-11-25 21:05] VITALS: BP 142/101; PULSE 79; RESP 18; TEMP 36.8; O2SAT 99
== END 2023-11-25 21:06 | disposition home or self-care (01) ==
PROVIDERS: Physician Assistant; Emergency Provider Student in an Organized Health Care Education/Training Program; PCP Internal Medicine
DX: R07.89 Other chest pain (principal); Z20.822 Contact with and (suspected) exposure to COVID-19; K22.70 Barrett's esophagus without dysplasia; N18.9 Chronic kidney disease, unspecified; E03.9 Hypothyroidism, unspecified; K21.9 Gastro-esophageal reflux disease without esophagitis; F20.9 Schizophrenia, unspecified; Z90.5 Acquired absence of kidney
CPT/HCPCS: 36415; 71046; 80053; 84484; 85025; 85610; 85730; 87637; 93005; 99284; A9270

== ENCOUNTER 2023-12-16 08:17 | Outpatient (RCR) | payer OTHER, SELFPAY ==
--- NOTE | 2023-09-23 12:39 | PC.NURSE ---
AMBULATORY TO LAB DRAW STATION WITH SLOW STEADY GAIT, HEAD DOWN. GIVEN INJECTION. DOCUMENTED. BROUGHT MEDICATION WITH HIM - 2 VIALS, EACH CONTAINING 1 CC / 100 MG. GIVEN 1.5CC OR 150 MG ORDERED. DOES NOT SEEM DROWSY LAST VISIT. ANSWERS QUESTIONS WITH SHORT, DIRECT ANSWERS ONLY - NO ADDITIONAL COMMENTS. SPEECH DIFFICULT TO UNDERSTAND AT TIMES. HAS APPOINTMENT FOR NEXT INJECTION ON BUSINESS CARD WITH PHONE NUMBER TO CALL. VOICES UNDERSTANDING. DISCHARGED AMBULATORY WITH STEADY GAIT.
--- NOTE | 2023-10-21 11:30 | PC.NURSE ---
AMBULATORY TO LAB DRAW STATION FOR OUTPATIENT INJECTION. GAIT STEADY. NO TREMORS NOTED. HALDOL D BROUGHT IN BY PATIENT IN PHARMACY BOTTLE MARKED APPROPRIATELY. 2 BOTTLES WITH 100 MG / 1 CC. GIVEN 1.5 CC OR 150 MG ORDERED. DISCHARGED AMBULATORY WITH STEADY GAIT. GIVEN APPOINTMENT DAY FOR 1 MONTH FROM TODAY. VOICES UNDERSTANDING.
--- NOTE | 2023-11-18 12:45 | PC.NURSE ---
AMBULATORY TO DRAW STATION FOR HALDOL D INJECTION SCHEDULED. QUIET SPOKEN. AFTER INJECTION WAS QUESTIONING THE PURPOSE / MEANING OF HIS LIFE. ATTEMPTED TO ENCOURAGE HIM BY TALKING ABOUT HIS . HE BECAME VERY ANGRY ABOUT HER AND SAID HE COULD NEVER HAVE CHILDREN NOW. LEFT ANGRY. LEFT HIS PRESCRIPTION BOTTLE IN THE ROOM. LEFT HIM A MESSAGE ABOUT HIS PRESCRIPTION BOTTLE. RETURNED MY CALL. DID NOT SOUND ANGRY. SAYS HE HAS HIS RECEIPT FOR THE MEDICATION AND THIS HAS THE NUMBER ON IT. ADVISED I WILL KEEP THE BOTTLE UNTIL HIS NEXT APPOINTMENT JUST IN CASE. THANKED ME FOR CALLING. HAS APPOINTMENT CARD FOR 4 WEEKS FROM TODAY.
--- NOTE | 2023-11-18 12:52 | PC.NURSE ---
GIVEN HALDOL D 150 MG DIRECTED. BROUGHT 2 VIALS OF HALDOL D - EACH CONTAINING 100 MG. BROUGTH MEDICATION IN A PHARMACY BOTTLE MARKED APPROPRIATELY. GIVEN 150 MG OR 1.5 CC DIRECTED.
--- NOTE | 2023-12-16 10:15 | PC.NURSE ---
AMBULATORY TO LAB DRAW STATION WITH STEADY GAIT. MEDICATION BROUGHT IN BY PATIENT IN PHARMACY BOTTLES MARKED APPROPRIATELY. 2 VIALS WITH 100 MG/1 ML HALDOL D IN EACH VIAL. GIVEN 1.5 CC OR 150 MG HALDOL D DIRECTED. DISCHARGED AMBULATORY WITH STEADY GAIT.
== END 2023-12-22 23:59 | disposition home or self-care (01) ==
LOC: ANHLAB 08:17
PROVIDERS: PCP Internal Medicine
DX: F25.9 Schizoaffective disorder, unspecified (principal)
CPT/HCPCS: 96372

== ENCOUNTER 2024-01-08 10:19 | Outpatient (CLI) | payer OTHER, SELFPAY ==
[2024-01-08 10:38] LABS: Hematocrit 40.4 % (42.0-52.0); Hemoglobin 13.9 g/dL (14.0-18.0); Mean Corpuscular HGB Conc 34.4 g/dl (32-36); Mean Corpuscular Hemoglobin 32.1 pg (26-34); Mean Corpuscular Volume 93.3 fl (80-100); Mean Platelet Volume 8.2 fl (7.4-10.4); Platelet Count Result 207 k/mm3 (150-375); Red Blood Count 4.33 M/mm3 (4.6-6.20); Red Cell Distribution Width 12.6 % (11.5-14.5); White Blood Count 11.7 K/mm3 (4.5-10.0)
[2024-01-08 10:51] LABS: Alanine Aminotransferase 13 U/L (6-50); Albumin Level 4.4 g/dL (3.5-5.1); Alkaline Phosphatase 58 U/L (38-126); Anion Gap 13 mmol/L (4-12); Aspartate Amino Transferase 23 U/L (17-59); Bilirubin,Total 0.5 mg/dL (0.2-1.3); Blood Urea Nitrogen 26 mg/dL (9-20); Calcium 9.4 mg/dL (8.4-10.2); Carbon Dioxide 23 mmol/L (22-30); Chloride 101 mmol/L (98-107); Estimated Glomerular Filt Rate 27; Glucose 114 mg/dL (65-110); Potassium 4.4 mmol/L (3.4-5.0); Sodium 137 mmol/L (137-145)
[2024-01-08 11:02] LABS: Valproic Acid < 10.0 ug/mL (50-120)
== END 2024-01-08 10:20 | disposition home or self-care (01) ==
PROVIDERS: PCP Internal Medicine
DX: Z51.81 Encounter for therapeutic drug level monitoring (principal); Z79.899 Other long term (current) drug therapy; Z01.89 Encounter for other specified special examinations
CPT/HCPCS: 36415; 80053; 80164; 85027

== ENCOUNTER 2024-01-16 16:10 | Outpatient (CLI) | payer OTHER, SELFPAY ==
[2024-01-16 16:30] LABS: Add Urine Microscopic? YES; Appearance Urine Clear (Clear); Bacteria Urine None Seen /hpf; Bilirubin Urine Negative (Negative); Blood Urine Negative (Negative); Color Urine Yellow (Yellow); Glucose Urine UA Negative (Negative); Ketones Urine Negative (Negative); Leukocyte Esterase Ur Negative LEU/UL (Negative); Nitrate Urine Negative (Negative); Protein Urine Trace mg/dL (Negative); RBC Urine 0-2 /hpf (0-2); Specific Grav Ur 1.012 (1.001-1.035); Squamous Epithelial Cell Urine None Seen /hpf (Few); Urobilinogen Urine 0.2 mg/dL (<2.0); WBC Urine 0-5 /hpf (0-3); pH Urine 7.5 (5.0-9.0)
[2024-01-16 18:15] LABS: Microalbumin Urine Random 82.3 mg/L (0-16.7)
[2024-01-16 18:24] LABS: Creatinine Urine 115.3 mg/dL; MALB Creatinine Ratio 71.4 mg/g (0-30)
== END 2024-01-16 16:11 | disposition home or self-care (01) ==
PROVIDERS: PCP Internal Medicine; Visit Provider Internal Medicine Nephrology
DX: N18.31 Chronic kidney disease, stage 3a (principal); N17.9 Acute kidney failure, unspecified
CPT/HCPCS: 81001; 82043

== ENCOUNTER 2024-03-21 09:46 | Outpatient (CLI) | payer OTHER, SELFPAY ==
[2024-03-21 10:25] LABS: Add Urine Microscopic? NO; Appearance Urine Clear (Clear); Bilirubin Urine Negative (Negative); Blood Urine Negative (Negative); Color Urine Yellow (Yellow); Glucose Urine UA Negative (Negative); Ketones Urine Negative (Negative); Leukocyte Esterase Ur Negative LEU/UL (Negative); Nitrate Urine Negative (Negative); Protein Urine Negative (Negative); Specific Grav Ur 1.007 (1.001-1.035); Urobilinogen Urine 0.2 mg/dL (<2.0); pH Urine 7.5 (5.0-9.0)
[2024-03-21 10:33] LABS: Albumin Level 4.4 g/dL (3.5-5.1); Anion Gap 7 mmol/L (4-12); Blood Urea Nitrogen 23 mg/dL (9-20); Calcium 9.6 mg/dL (8.4-10.2); Carbon Dioxide 28 mmol/L (22-30); Chloride 98 mmol/L (98-107); Estimated Glomerular Filt Rate 31; Glucose 95 mg/dL (65-110); Phosphorus 3.1 mg/dL (2.5-4.5); Potassium 4.6 mmol/L (3.4-5.0); Sodium 133 mmol/L (137-145)
[2024-03-21 11:10] LABS: Creatinine Urine 68.2 mg/dL
[2024-03-21 11:19] LABS: MALB Creatinine Ratio < 8.8 mg/g (0-30); Microalbumin Urine Random < 6.0 mg/L (0-16.7)
== END 2024-03-21 09:47 | disposition home or self-care (01) ==
LOC: ANHLAB 09:47
PROVIDERS: PCP Internal Medicine; Visit Provider Internal Medicine Nephrology
DX: N17.9 Acute kidney failure, unspecified (principal)
CPT/HCPCS: 36415; 80069; 81003; 82043

== ENCOUNTER 2024-04-07 11:32 | Outpatient (RCR) | payer OTHER, SELFPAY ==
--- NOTE | 2024-01-14 14:59 | PC.NURSE ---
AMBULATORY TO LAB DRAW STATION FOR OUTPATIENT INJECTION. GAIT STEADY. VOICE IS CLEARER AND LOUDER AND TALKING EASIER TODAY THAT THE PAST COUPLE OF VISITS. MEDICATION BROUGHT IN BY PATIENT IN PHARMACY BOTTLES MARKED APPROPRIATELY. 2 VIALS OF HALDOL D WITH 100 MG PER VIAL. ADMINISTERED 150 MG OR 1.5 CC DIRECTED. DISCHARGED AMBULATORY WITH STEADY GAIT. \ HAS APPOINTMENT CARD FOR FEBRUARY 11, 2024 WITH NUMBER TO CALL TO SCHEDULE.
--- NOTE | 2024-02-11 10:29 | PC.NURSE ---
AMBULATORY TO LAB DRAW STATION FOR OUTPATIENT HALDOL D INJECTION. MEDICATION BROUGHT IN BY PATIENT IN PHARMACY BOTTLES MARKED APPROPRIATELY. 2 VIALS OF HALDOLD D, EACH WITH 100 MG / CC. GIVEN 150 MG OR 1.5 CC OF HALDOL D
--- NOTE | 2024-03-09 13:07 | PC.NURSE ---
AMBULATORY TO LAB DRAW STATION FOR OUTPATIENT HALDOL INJECTION WITH STEADY GAIT. FLAT AFFECT TODAY. MEDICATION BROUGHT IN BY PATIENT IN PHARMACY BOTTLE MARKED APPROPRIATELY. BOTTLE CONTAINS 2 VIALS HALDOL DECANOATE 100 MG EACH VIAL. ADMINISTERED 1.5 CC OR 150 MG HALDOL D INSTRUCTED. HAS APPOINTMENT FOR 4 WEEKS FROM TODAY WRITTEN ON CARD WITH PHONE NUMBER TO CALL FOR TIME - VOICES UNDERSTANDING. DISCHARGED AMBULATORY WITH STEADY GAIT.
--- NOTE | 2024-04-07 13:11 | PC.NURSE ---
AMBULATORY TO DRAW STATION FOR OUTPATIENT MONTHLY INJECTION HALOPERIDOL DECANOATE. FACIAL EXPRESSIONS SOMEWHAT FLAT TODAY. PATIENT BROUGHT 2 VIALS OF HALOPERIDOL, 100 MG / 1 CC EACH VIAL IN PHARMACY BOTTLE MARKED APPROPRIATELY. GIVEN 150 MG ORDERED OR 1.5 CC. SCHEDULED APPOINTMENT FOR 05/04/2024 FOR NEXT INJECTION - VOICES UNDERSTANDING. DISCHARGED AMBULATORY WITH STEADY GAIT.
== END 2024-04-13 23:59 | disposition home or self-care (01) ==
LOC: ANHLAB 11:32
PROVIDERS: PCP Internal Medicine
DX: F25.9 Schizoaffective disorder, unspecified (principal)
CPT/HCPCS: 96372

== ENCOUNTER 2024-07-23 08:55 | Outpatient (CLI) | payer OTHER, SELFPAY ==
[2024-07-23 09:31] LABS: Hematocrit 40.7 % (42.0-52.0); Hemoglobin 13.8 g/dL (14.0-18.0); Mean Corpuscular HGB Conc 33.9 g/dl (32-36); Mean Corpuscular Hemoglobin 31.9 pg (26-34); Mean Platelet Volume 8.3 fl (7.4-10.4); Platelet Count Result 201 k/mm3 (150-375); Red Blood Count 4.33 M/mm3 (4.6-6.20); Red Cell Distribution Width 12.9 % (11.5-14.5); White Blood Count 9.8 K/mm3 (4.5-10.0)
--- OUTSIDE RECORDS SUMMARY | 2024-07-23 09:47 | XMS_ITS | Clinical Summary ---
Author Organization [facility] 2 Address [address] [facility] [place] [address] Care Team Providers Care Medical Massage Therapist Name Role Phone Chip Lizarraga DO Primary Care Provider [phone] Allergies Active Allergy Reactions Criticality Noted Date Comments Egg White Rash Medium 04/08/2023 Milk Containing Products (Dairy) Rash Medium Shellfish Containing Products Rash Medium 2022 Soy Rash Medium 04/08/[address] (DEPAKOTE) 500 mg EC tablet Take by mouth 6 Active haloperidol decanoate (HALDOL DECANOATE) 100 mg/mL injection Inject into the muscle as instructed 6 Active levothyroxine (SYNTHROID) 100 mcg tablet TK 1 T PO QD 6 Active gabapentin (NEURONTIN) 300 mg capsule Take 1 capsule (300 mg total) by mouth 2 (two) times a day 6 Active PreviDent 5000 Enamel Protect 1.1-5 % paste 2 Active busPIRone (BUSPAR) 10 mg tablet Take 1 tablet (10 mg total) by mouth 3 (three) times a day Will eventually be taking 15mg TID 4 Active QUEtiapine (SEROquel) 100 mg tablet Take 1 tablet (100 mg total) by mouth nightly at bedtime. 4 Active sildenafiL (VIAGRA) 50 mg tablet Take 1 tablet (50 mg total) by mouth as needed for erectile dysfunction [address] (PROTONIX) 40 mg EC tabletIndicatio ns:Eosinophilic esophagitis,Bar rett's esophagus with high grade dysplasia Take 1 tablet (40 mg total) by mouth 2 (two) times a day 180 tablet 3 4 08/19/19 25 Active midodrine (PROAMATINE) 2.5 mg tablet TAKE 1 TABLET BY MOUTH THREE TIMES DAILY. DO NOT GIVE LAST DOSE AFTER 4 PM 4 Active benztropine (COGENTIN) 1 mg tablet Take 1 tablet (1 mg total) by mouth 2 (two) times a day 4 Active famotidine (PEPCID) 20 mg tablet TAKE 1 TABLET BY MOUTH EVERY 6 HOURS FOR 5 DAYS 4 Active busPIRone (BUSPAR) 15 mg tablet Take 1 tablet (15 mg total) by mouth 3 (three) times a day 4 Active QUEtiapine (SEROquel) 200 mg tablet Take 1 tablet (200 mg total) by mouth nightly at bedtime. 4 Active tamsulosin (FLOMAX) 0.4 mg extended release capsuleIndicati ons:Lower urinary tract symptoms (LUTS),Dysuria TAKE 1 CAPSULE BY MOUTH DAILY 90 capsule 3 5 Active Active Problems Problem Noted Date Diagnosed Date Gastroesophageal reflux disease with esophagitis 08/20/2023 Eosinophilic esophagitis 12/14/2021 Malignant neoplasm of right kidney 12/20/2020 Lower urinary tract symptoms (LUTS) 12/20/2020 Hypotension 10/12/2020 History of Harris's esophagus 07/14/2020 Overview (07/14/2020): Added automatically from request for surgery [id number] Harris's esophagus with high grade dysplasia Resolved Problems Problem Noted Date Diagnosed Date Resolved Date Esophagitis 10/20/2020 12/14/2021 Overview (10/20/2020): Added automatically from request for surgery [id number] Harris's esophagus with dysplasia 04/13/2020 12/14/2021 Overview (04/13/2020): Added automatically from request for surgery [id number] Encounters Date Type Department Care Team Description 06/26/2024 Telephone [facility] Gastroenterology [facility] Medical Office Building [address], [address] [place] [phone] Yolande Norwood LPN Follow-up 06/08/2024 Orders Only [facility] Surgery [address] [place] [address] Saji Riley NP 05/22/2024 Telephone [facility] Gastroenterology [address] [place] [address] [place] [address] [place] [phone] Yolande Norwood LPN Test Results 05/19/2024 10:07 AM PAYROLL BOOKKEEPER Anesthesia Event [facility]oscopy [address] [address] Ross Larkin MD 05/19/2024 9:51 AM PAYROLL BOOKKEEPER - 05/19/2024 10:21 AM PAYROLL BOOKKEEPER Surgery [facility] [address] [place] [address] Rhett Beltran MD ESOPHAGOGASTRODUODENOSCOPY BIOPSY 05/19/2024 9:25 AM PAYROLL BOOKKEEPER - 05/19/2024 3:30 PM PAYROLL BOOKKEEPER Hospital Encounter [facility] [address] [address] Rhett Beltran MD Harris's esophagus with high grade dysplasia; Eosinophilic esophagitis Discharge Disposition: Discharge to home or self care 04/30/2024 Telephone [facility] Gastroenterology [address] [place] [address] [place] [address] [place] [phone] Yolande Norwood LPN Follow-up 04/27/2024 Telephone [facility] Gastroenterology [address] [place] [address] [place] [address] [place] [phone] Yolande Norwood LPN Follow-up; GI-procedure scheduling from Last 3 Months Surgical History Surgery Date Site/Laterality Comments NEPHRECTOMY 05/13/2013 - 05/12/2014 Right cancer RADIOFREQUENCY ABLATION esophagus ESOPHAGUS SURGERY EMR Medical History Medical History Date Comments GERD (gastroesophageal reflux disease) Harris's esophagus with high grade dysplasia Schizoaffective disorder (HCC) Asthma Anxiety and depression Hypothyroidism Neuropathy feet Syncope Arthritis Anemia Heart palpitations Cancer of kidney (HCC) 2013 PONV (postoperative nausea and vomiting) Family History Medical History Relation Name Comments No Known Problems Brother 1 No Known Problems Brother 2 No Known Problems Brother 3 Alzheimer's disease Father Prostate cancer Father COPD Mother Hypertension Mother Esophageal cancer Paternal Grandmother Celiac disease Neg Hx Colon cancer Neg Hx Stomach cancer Neg Hx Relation Name Status Comments Brother 1 Alive Brother 2 Alive Brother 3 Alive Father Mother Alive Paternal Grandmother Social History Tobacco Use Types Packs/Day Years Used Date Smoking Tobacco: Never Smokeless Tobacco: Never Tobacco Cessation:Counseling Given: Not Answered Alcohol Use Standard Drinks/Week Comments Never 0 (1 standard drink = 0.6 oz pur e alcohol) AUDIT-C Answer Date Recorded Q1: How often do you have a drink containing alcohol? Never 05/19/2024 Q2: How many drinks containi ng alcohol do you have on a typical day when you are drinking? Patient does not drink Frequency of Binge Drinking Not on file 11/2024 Personal Safety Answer Date Recorded Have you ever been in or are you currently in a harmful physical or emotional relationship or is someone making you feel afraid or unsafe? Denies 05/19/2024 Sex and Gender Information Value Date Recorded Sex Assigned at Not on file Legal Sex Male 9:55 AM PAYROLL BOOKKEEPER Gender Identity Not on file Sexual Orientation Straight 03/24/2021 11 :04 AM PAYROLL BOOKKEEPER Obstetrics History Last Filed Vital Signs Vital Sign Reading Time Taken Comments Blood Pressure 127/95 05/19/2024 10:50 AM PAYROLL BOOKKEEPER Pulse 92 05/19/2024 10:55 AM PAYROLL BOOKKEEPER Temperature 36.2 C (97.2 F) 05/19/2024 10:22 AM PAYROLL BOOKKEEPER Respiratory Rate 22 05/19/2024 10:55 AM PAYROLL BOOKKEEPER Oxygen Saturation 97% 05/19/2024 10:55 AM PAYROLL BOOKKEEPER Inhaled Oxygen Concentration - - Weight 106.6 kg (235 lb) 05/19/2024 9:30 AM PAYROLL BOOKKEEPER Height 190.5 cm (6' 3 ) 05/19/2024 9:30 AM PAYROLL BOOKKEEPER Body Mass Index 29.37 05/19/2024 9:30 AM PAYROLL BOOKKEEPER Plan of Treatment Health Maintenance Due Date Last Done Comments Colon Cancer Screening-Colonoscopy 1965 Depression Screening 1965 Hepatitis C Screening 1965 DTaP/Tdap/Td Vaccine (1 - Tdap) 1977 Hepatitis B Screening 02/22/1984 Regular Well Visit/Exam 18-64 02/22/1984 Zoster Vaccine (1 of 2) 02/22/2016 Influenza Vaccine (#1) 2024 9, 01/21/2018, 02/25/2017, Additional history exists Prostate Cancer Screening-PSA 08/13/2025 08/14/2023 Pneumococcal vaccine <65 Aged Out No longer eligible based on patient's age to complete this topic Procedures Procedure Name Priority Date/Time Associated Diagnosis Comments SURGICAL PATHOLOGY Routine 05/19/2024 10:16 AM PAYROLL BOOKKEEPER Harris's esophagus with high grade dysplasia Eosinophilic esophagitis EGD 05/19/2024 10:11 AM PAYROLL BOOKKEEPER ESOPHAGOGASTRODUODENOSCOPY BIOPSY 05/19/2024 10:06 AM PAYROLL BOOKKEEPER Harris's esophagus with high grade dysplasia Eosinophilic esophagitis PSA SCREEN Routine 08/14/2023 2:44 PM CDT Lower urinary tract symptoms (LUTS) from Last 3 Months or Most Recently Relevant to Health Maintenance Results * Surgical pathology (05/19/2024 10:16 AM PAYROLL BOOKKEEPER) Tissue (Esophageal biopsy) 05/19/2024 10:16 AM PAYROLL BOOKKEEPER Narrative PATHOLOGY [facility] - 05/20/2024 11:40 AM PAYROLL BOOKKEEPER EPIC results best viewed via link to PDF [facility] Surgical [facility]ology [facility] [place] [address] Note to Patients: This report may contain a detailed description of human tissue sent by a health care provider to the laboratory for pathologic evaluation. The content of this report is essential for diagnosis and may provide important critical findings. This information may be unfamiliar to patients to review without a medical professional present. It is advised that the patient review this report in the presence of a health care provider who can answer questions and explain the details. SURGICAL PATHOLOGY REPORT FINAL Patient Name: ELLI CASEY Gender: Abhinav : 1965 (Age: 59) Address: [address] [place], [place] [address] Hospital #: [id number] Taken:05/19/2024 Received:05/19/2024 Reported: 05/20/2024 Patient Type: [facility] EP SAME Client [facility] Service: Gastro Location: Physician(s): Jason Dawkins DO Diagnosis: Esophagus, distal, biopsy - Esophageal squamous mucosa with marked esophageal eosinophilia (up to 75 eosinophils per HPF) with spongiosis and basal cell hyperplasia - No soft tissue available for evaluation - No acute inflammation - No viral cytopathic changes or infectious microorganisms identified (H&E) sjb/05/20/2024 11:40 By this signature, I attest that the above diagnosis is based upon my personal examination of the slides(and/or other material indicated in the diagnosis). Missael Strong M.D. Report Electronically Reviewed and Signed Out By Missael Strong M.D. 05/20/2024 11:40:48 Diagnosis Comment These histologic findings are compatible with eosinophilic esophagitis in the appropriate clinical and endoscopic context. History: The patient is a 59-year-old man with Harris's esophagus with high-grade dysplasia and eosinophilic esophagitis. Operative procedure: EGD. Specimen(s) Received: A: Distal Esophagus biopsy Gross Description: Received in formalin, labeled with the patient s identifiers and distal esophagus biopsy are multiple irregular tissue fragment(s) (measuring 1.2 x 0.3 x 0.1 cm in aggregate. Stained with eosin). Labeled A1. Jar 0. cnewho/05/19/2024 11:48 PA(s): GERALDO Morfin By this signature, I attest that the above diagnosis is based upon my personal examination of the slides(and/or other material). Addenda/Procedures Microscopic slide review and interpretation for this case was performed at [facility], Department of Surgical Pathology, [address] [facility] [place] [id number], [place] [address] [facility] # [id number] The performance characteristics of some immunohistochemical stains, fluorescence in-situ hybridization tests and immunophenotyping by flow cytometry cited in this report (if any) were determined by the Surgical Pathology and Flow Cytometry Departments at [facility] as part of an ongoing quality assurance supervisor final program and in compliance with federally mandated regulations drawn from the Clinical Laboratory Improvement Act of 1988 (CLIA '88). Some of these tests rely on the use of analyte specific reagents and are subject to specific labeling requirements by the US Food and Drug Administration. Such diagnostic tests may only be performed in a facility that is certified by the Department of Health and Human Services as a high complexity laboratory under CLIA '88. The FDA has determined that such clearance or approval is not necessary. This test is used for clinical purposes. It should not be regarded as investigational or for research. Nevertheless, federal rules concerning the medical use of analyte specific reagents require that the following disclaimer be attached to the report: This test was developed and its performance characteristics determined by the Surgical Pathology and Flow Cytometry Departments of [facility]. It has not been cleared or approved by the U. S. Food and Drug Administration. IMAGES AND SCANNED DOCUMENTS, IF INCLUDED, ONLY VIEWABLE IN PDF VERSION OF REPORT Rhett Beltran MD LAB PATHOLOGY ORDERABLES Final Result PATHOLOGY [facility] [phone] * EGD (05/19/2024 10:11 AM PAYROLL BOOKKEEPER) Anatomical Region Laterality Modality Other Narrative Procedure Note Rhett Beltran MD - 05/19/2024 10:11 AM CST ENDOSCOPY LAB Patient Name: Elli Casey Procedure Date: 05/19/2024 10:11 AM Date of : 1965 Admit Type: Outpatient Age: 59 Gender: Male Attending MD: Rhett Beltran M.D. Room: [facility] ENDOSCOPY ROOM 01 Note Status: Finalized Procedure: Upper GI endoscopy Indications: Follow-up of Harris's esophagus, Follow-up of eosinophilic esophagitis, Unexplained chest pain Providers: Rhett Beltran M.D. Referring MD: Chip Lizarraga D.O. Medicines: Monitored Anesthesia Care Complications: No immediate complications. Estimated Blood Loss: Estimated blood loss was minimal. Procedure: Pre-Anesthesia Assessment: - Prior to the procedure, a History and Physicalwas performed, and patient medications, allergies and sensitivities were reviewed. The patient'stolerance of previous anesthesia was reviewed. - Immediately prior to administration ofmedications, the patient was re-assessed for adequacy to receive sedatives. After obtaining informed consent, the endoscope was passed under direct vision. Throughout theprocedure, the patient's blood pressure, pulse, and oxygen saturations were monitored continuously. The [id number] was introduced through the mouth, and advanced to the second part of duodenum. Theupper GI endoscopy was accomplished without difficulty. Findings: Mucosal changes were found in the entire esophagus. Esophagealfindings were graded using the Eosinophilic Esophagitis Endoscopic Reference Score (EoE-EREFS) as: Edema Grade 0 Normal (distinct vascularmarkings), Rings Grade 2 Moderate (distinct rings that do not occlude passage of diagnostic 8-10 mm endoscope), Exudates Grade 0 None (no whitelesions seen), Furrows Grade 0 None (no vertical lines seen) and Stricturenone (no stricture found). The distal esophagus was normal. Biopsies were taken with a coldforceps for histology. The entire examined stomach was normal. The examined duodenum was normal. Impression: - Esophageal mucosal changes secondary toeosinophilic esophagitis. - Normal distal esophagus. Biopsied. - Normal stomach. - Normal examined duodenum. Recommendation: - Await pathology results. - - Electronically signed by Rhett Beltran MD Rhett Beltran M.D. 05/19/2024 10:20:45 AM Number of Addenda: 0 Note Initiated On: 05/19/2024 10:11 AM Rhett Beltran MD ENDOSCOPY PROCEDURES Final Resu lt * PSA screen (08/14/2023 2:44 PM CDT) PSA 2.96 < OR = 4.00 ng/mL [facility] georgeexa Comment: The total PSA value from this assay system is standardized against the WHO standard. The test result will be approximately 20% lower when compared to the equimolar-standardized total PSA (George Kourtney). Comparison of serial PSA results should be interpreted with this fact in mind. This test was performed using the Siemens chemiluminescent method. Values obtained from different assay methods cannot be used interchangeably. PSA levels, regardless of value, should not be interpreted as absolute evidence of the presence or absence of disease. Blood 08/14/2023 2:44 PM CDT 08/14/2023 2:44 PM CDT Narrative [facility] - 08/15/2023 6:18 AM CDT FASTING:NO FASTING: NO Saji Riley NP LAB BLOOD ORDERABLES F inal Result [facility] [id number] [place] [phone] from Last 3 Months or Most Recently Relevant to Health Maintenance Insurance Advance Directives For more information, please contact: [phone] * Full Code (Latest Code Status on File) Date Activated Date Inactivated Comments 05/19/2024 9:34 AM 05/19/2024 7:30 PM * Full Code Date Activated Date Inactivated Comments 09/03/2023 10:58 AM 09/03/2023 7:12 PM * Full Code Date Activated Date Inactivated Comments 03/13/2022 9:56 AM 03/13/2022 4:18 PM * Full Code Date Activated Date Inactivated Comments 08/10/2021 11:30 AM 08/10/2021 5:29 PM * Full Code Date Activated Date Inactivated Comments 11/29/2020 9:22 AM 11/29/2020 3:47 PM Care Teams Medical Massage Therapist Relationship Specialty Start Date End Date Chip Lizarraga DO PCP - General Internal Medicine 06/22/19
--- OUTSIDE RECORDS SUMMARY | 2024-07-23 09:47 | XMS_ITS | Clinical Summary ---
Author Organization [facility] Address [address] [place] [address] Phone Care Team Providers Care Engine Installer Name Role Phone Provider, None Primary Care Provider Unavailabl e Allergies No known active allergies Medications levothyroxine (SYNTHROID) 100 MCG Tablet Take 100 mcg by mouth daily. Active pantoprazole (Protonix) 40 MG Tablet Delayed Response Take 40 mg by mouth 2 times daily. Active midodrine (PROAMATINE) 2.5 MG Tablet Take 2.5 mg by mouth 3 times daily. Active tamsulosin (FLOMAX) 0.4 MG Capsule Take 0.4 mg by mouth daily. Active divalproex (DEPAKOTE) 500 MG Tablet Delayed Response Take 500 mg by mouth 2 times daily. Active clonazePAM (KlonoPIN) 0.5 MG Tablet TK 1 T PO BID 01/24/2016 Active divalproex (DEPAKOTE ER) 500 MG TABLET SR 24 HR Take 1,000 mg by mouth. 04/15/2023 Active divalproex (DEPAKOTE ER) 500 MG TABLET SR 24 HR Take 500 mg by mouth. 04/16/2023 Active gabapentin (NEURONTIN) 300 MG Capsule 04/17/2023 Active pantoprazole (PROTONIX) 20 MG Tablet Delayed Response Take 20 mg by mouth every morning. 01/11/2023 Active Ingrezza 40 MG Capsule Take 1 Capsule by mouth daily. 03/27/2023 Active midodrine (PROAMATINE) 10 MG Tablet Take 2.5 mg by mouth. Active Social History Tobacco Use Types Packs/Day Years Used Date Smoking Tobacco: Never Smokeless Tobacco: Never Tobacco Cessation:Counseling Given: Not Answered Alcohol Use Standard Drinks/Week Comments Not Currently 0 (1 standard drink = 0.6 oz pur e alcohol) Sex and Gender Information Value Date Recorded Sex Assigned at Not on file Legal Sex Male 10:[address] Gender Identity Not on file Sexual Orientation Not on file Last Filed Vital Signs Vital Sign Reading Time Taken Comments Blood Pressure 133/78 04/20/2023 12:[address]PAIRER Pulse 84 04/20/2023 12:[address]PA[address]ER Temperature 36.4 C (97.6 F) 04/20/2023 8:[address]PA[address] Respiratory Rate 18 04/20/2023 12:[address]PAIRER Oxygen Saturation 99% 04/20/2023 12:[address]PA[address]ER Inhaled Oxygen Concentration - - Weight 105.7 kg (233 lb) 04/19/2023 7:[address]PAIR[address] Height 190.5 cm (6' 3 ) 04/19/2023 7:[address]PAIRER Body Mass Index 29.12 04/19/2023 7:[address]PA[address]ER Plan of Treatment Not on file Insurance MEDICAID [employer] Care Teams Engine Installer Relationship Specialty Start Date End Date Provider, None [place] PCP - General 04/19/23
--- OUTSIDE RECORDS SUMMARY | 2024-07-23 09:47 | XMS_ITS ---
Author Organization [facility] Address [address] [place] [address] Care Team Providers Care Sporting Goods Sales Manager Name Role Phone Jamaica Rosas Primary Care Provider REASON FOR VISIT lab reminders Encounters Encounter Location Date Provider Diagnosis [facility] [address] [place] [address] 04/15/2023 Jamaica Rosas Plan Of Treatment No Information Progress Notes * Bebo CASEYDOB: 6 (58 yo M)Acc No.[id number]:04/15/2023 Patient: Leonid Bebo SALMERON :1965 A ge:58 Y S ex:Male Address:[address] [place] [address] * true * Date: Generated for Printi ng/Faxing/eTransmitting on: 0 07/23/2024 09:47 AM CDT
--- OUTSIDE RECORDS SUMMARY | 2024-07-23 09:47 | XMS_ITS | Referral Summary ---
Author Organization [facility] Address [address] [facility] [place]YN Hernandez [address] Care Team Providers Care Reed Worker Name Role Phone Chip Lizarraga DO Primary Care Provider [phone] Encounters Date Type Department Care Team Description 06/26/2024 Telephone [facility] Gastroenterology [facility] Medical Office Building 4, [address] [place] [id number] Yolande Norwood LPN Follow-up 06/08/2024 Orders Only [facility] Surgery [address] [place] [address] Saji Riley NP 05/22/2024 Telephone [facility] Gastroenterology [address] [facility] Advanced Medicine 12th [place] [address] [place] [phone] Yolande Norwood LPN Test Results 05/19/2024 10:07 AM ANALYTICS ARCHITECT Anesthesia Event [facility] Endoscopy [address] CAROLYN Tinajero [address] Ross Larkin MD 05/19/2024 9:51 AM ANALYTICS ARCHITECT - 05/19/2024 10:21 AM ANALYTICS ARCHITECT Surgery [facility] Endoscopy [address] [place] Tinajero [address] Rhett Beltran MD ESOPHAGOGASTRODUODENOSCOPY BIOPSY 05/19/2024 9:25 AM ANALYTICS ARCHITECT - 05/19/2024 3:30 PM ANALYTICS ARCHITECT Hospital Encounter [facility] Endoscopy [address] CAR[place]YN Tinajero [address] Rhett Beltran MD Harris's esophagus with high grade dysplasia; Eosinophilic esophagitis Discharge Disposition: Discharge to home or self care 04/30/2024 Telephone [facility] Gastroenterology [address] [facility] 12th [place] [address] [place] [address] Yolande Norwood LPN Follow-up 04/27/2024 Telephone [facility] Gastroenterology [address] [facility] 12th [place] [address] [place] [address] Yolande Norwood LPN Follow-up; GI-procedure scheduling from Last 3 Months Allergies Active Allergy Reactions Criticality Noted Date [...] (07/14/2020): Added automatically from request for surgery [id number] Harris's esophagus with high grade dysplasia Resolved Problems Problem Noted Date Diagnosed Date Resolved Date Esophagitis 10/20/2020 12/14/2021 Overview (10/20/2020): Added automatically from request for surgery [id number] Harris's esophagus with dysplasia 04/13/2020 12/14/2021 Overview (04/13/2020): Added automatically from request for surgery [id number] Social History Tobacco Use Types Packs/Day Years [...] on file Legal Sex Male 9:55 AM ANALYTICS ARCHITECT Gender Identity Not on file Sexual Orientation Straight 03/24/2021 11 :04 AM ANALYTICS ARCHITECT Last Filed Vital Signs Vital Sign Reading Time Taken Comments Blood Pressure 127/95 05/19/2024 10:50 AM ANALYTICS ARCHITECT Pulse 92 05/19/2024 10:55 AM ANALYTICS ARCHITECT Temperature 36.2 C (97.2 F) 05/19/2024 10:22 AM ANALYTICS ARCHITECT Respiratory Rate 22 05/19/2024 10:55 AM ANALYTICS ARCHITECT Oxygen Saturation 97% 05/19/2024 10:55 AM ANALYTICS ARCHITECT Inhaled Oxygen Concentration - - Weight 106.6 kg (235 lb) 05/19/2024 9:30 AM ANALYTICS ARCHITECT Height 190.5 cm (6' 3 ) 05/19/2024 9:30 AM ANALYTICS ARCHITECT Body Mass Index 29.37 05/19/2024 9:30 AM ANALYTICS ARCHITECT Plan of Treatment Not on file Procedures Procedure Name Priority Date/Time Associated Diagnosis Comments SURGICAL PATHOLOGY Routine 05/19/2024 10:16 AM ANALYTICS ARCHITECT Harris's esophagus with high grade dysplasia Eosinophilic esophagitis EGD 05/19/2024 10:11 AM ANALYTICS ARCHITECT ESOPHAGOGASTRODUODENOSCOPY BIOPSY 05/19/2024 10:06 AM ANALYTICS ARCHITECT Harris's esophagus with high grade dysplasia Eosinophilic esophagitis PSA SCREEN Routine 08/14/2023 2:44 PM CDT Lower urinary tract symptoms (LUTS) from Last 3 Months or Most Recently Relevant to Health Maintenance Results * Surgical pathology (05/19/2024 10:16 AM ANALYTICS ARCHITECT) Tissue (Esophageal biopsy) 05/19/2024 10:16 AM ANALYTICS ARCHITECT Narrative PATHOLOGY [facility] - 05/20/2024 11:40 AM ANALYTICS ARCHITECT EPIC results best viewed via link to PDF [facility] [place] [address] Note to Patients: This report may contain [...] Abhinav : 1965 (Age: 59) Address: [address] [place], [place] [address] Hospital #: [id number] Taken:05/19/2024 Received:05/19/2024 Reported: 05/20/2024 Patient Type: [facility] EP [facility] Location: Physician(s): Jason Dawkins DO Diagnosis: Esophagus, distal, biopsy - Esophageal squamous mucosa with marked esophageal eosinophilia (up to 75 eosinophils per HPF) with spongiosis and basal cell hyperplasia - No soft tissue available for evaluation - No acute inflammation - No viral cytopathic changes or infectious microorganisms identified (H&E) [facility]/05/20/2024 11:40 By this signature, I attest that [...] interpretation for this case was performed at [facility], Department of Surgical Pathology, [address] [facility] [place], [place] [id number], [place] [address] CLIA # [id number] The performance characteristics of some immunohistochemical stains, fluorescence in-situ hybridization tests and immunophenotyping by flow cytometry cited in this report (if any) were determined by the Surgical Pathology and Flow Cytometry Departments at [facility] as part of an ongoing quality analyst program and in compliance with federally mandated [...] Surgical Pathology and Flow Cytometry Departments of [facility]. It has not been cleared or approved by the U. S. Food and Drug Administration. IMAGES AND SCANNED DOCUMENTS, IF INCLUDED, ONLY VIEWABLE IN PDF VERSION OF REPORT us Rhett Beltran MD LAB PATHOLOGY ORDERABLES Final Result PATHOLOGY [facility] [phone] * EGD (05/19/2024 10:11 AM ANALYTICS ARCHITECT) Anatomical Region Laterality Modality Other Narrative Procedure Note Rhett Beltran MD - 05/19/2024 10:11 AM CST ENDOSCOPY LAB Patient Name: Elli Casey Procedure Date: 05/19/2024 10:11 AM Date of : 1965 Admit Type: Outpatient Age: 59 Gender: Male Attending MD: Rhett Beltran M.D. Room: [facility] ENDOSCOPY ROOM 01 Note Status: Finalized Procedure: [...] and oxygen saturations were monitored continuously. The [id number] was introduced through the mouth, and advanced [...] PSA 2.96 < OR = 4.00 ng/mL [facility] Comment: The total PSA value from this assay system is standardized against the WHO standard. The test result will be approximately 20% lower when compared to the equimolar-standardized total PSA (George [place]). Comparison of serial PSA results should be [...] AM CDT FASTING:NO FASTING: NO Saji Riley SECURITY RISK ANALYST LAB BLOOD ORDERABLES F inal Result [facility] [address] [place] [address] from Last 3 Months or Most Recently Relevant to Health Maintenance Insurance [facility] [id number] [facility] Advance Directives For more information, please contact: [phone] * Full Code (Latest Code Status on [...] 9:22 AM 11/29/2020 3:47 PM Care Teams Reed Worker Relationship Specialty Start Date End Date Chip Lizarraga DO PCP - General Internal Medicine 06/22/19
--- OUTSIDE RECORDS SUMMARY | 2024-07-23 09:47 | XMS_ITS | Clinical Summary ---
Author Organization [facility] Address [address] [place] [address] Phone Care Team Providers Care Ssn/Ssbn Weapons Equipment Operator Name Role Phone Chip Lizarraga DO Primary Care Provider [phone] Allergies No known active allergies Medications Medication Sig Dispensed Refills Start Date End Date Status lamoTRIgine (LAMICTAL) 100 MG tablet 1 PO at bedtime 0 01/24/2016 Active Multiple Vitamin (MULTIVITAMIN) capsule 1 PO daily 0 01/24/2016 Ac tive levothyroxine (SYNTHROID, LEVOTHROID) 100 MCG tablet 1 PO at bedtime 0 01/24/2016 Active divalproex (DEPAKOTE) 500 MG EC tablet 1 in am 1 at bedtime 0 01/24/2016 Active haloperidol decanoate (HALDOL DECANOATE) 100 MG/ML injection 1monthly 0 01/24/2016 Active midodrine (PROAMATINE) 10 MG tablet Take 2.5 mg by mouth 3 (three) times a day Active PANTOPRAZOLE SODIUM PO Take by mouth Active Active Problems Problem Noted Date Diagnosed Date Acute nontraumatic kidney injury 03/23/2024 Orthostatic hypotension 10/12/2020 History of nephrectomy 03/13/2018 Glomerulosclerosis 03/13/2018 Stage 3b chronic kidney disease 01/24/2016 Resolved Problems Problem Noted Date Diagnosed Date Resolved Date Multiple renal cysts 05/24/2021 022 Hematuria 05/24/2021 03/29/2022 Abnormal weight loss 03/13/2018 019 Immunizations Name Administration Dates Next Due Influenza TIV (IM) 02/16/2016 Family History Medical History Relation Comments Cancer Father Malignant neoplastic disease Father Asthma Mother Kidney disease Neg Hx Relation Status Comments Father Mother Social History Tobacco Use Types Packs/Day Years Used Date Smoking Tobacco: Never Smokeless Tobacco: Never Tobacco Cessation:Counseling Given: Not Answered Alcohol Use Standard Drinks/Week Comments No 0 (1 standard drink = 0.6 oz pur e alcohol) AUDIT-C Answer Date Recorded Frequency of Alcohol Consumption Never 09/17/2018 Average Number of Drinks Not on file 019 Frequency of Binge Drinking Not on file 12/2018 Sex and Gender Information Value Date Recorded Sex Assigned at Not on file Gender Identity Not on file Sexual Orientation Not on file Last Filed Vital Signs Vital Sign Reading Time Taken Comments Blood Pressure 123/100 03/24/2024 1:03 PM MANUFACTURING APPLICATIONS ENGINEER Pulse 107 03/24/2024 1:03 PM MANUFACTURING APPLICATIONS ENGINEER Temperature 36.6 C (97.9 F) 04/25/2021 11:28 AM MANUFACTURING APPLICATIONS ENGINEER Respiratory Rate - - Oxygen Saturation - - Inhaled Oxygen Concentration - - Weight 106 kg (233 lb) 03/24/2024 1:03 PM MANUFACTURING APPLICATIONS ENGINEER Height 190.5 cm (6' 3 ) 03/24/2024 1:03 PM MANUFACTURING APPLICATIONS ENGINEER Body Mass Index 29.12 03/24/2024 1:03 PM MANUFACTURING APPLICATIONS ENGINEER Plan of Treatment Upcoming Encounters Date Type Department Care Team (Late st Contact Info) Description 09/22/2024 12:20 PM CDT Office Visit [facility] [address] [facility], [address] [place] [address] Rell Duenas MD [address] [address] Health Maintenance Due Date Last Done Comments Pneumococcal PPSV23 Highest Risk Adult (1 of 3 - PCV13) 1985 Influenza Vaccine (#1) 2024 02/16/2016 Care Teams Ssn/Ssbn Weapons Equipment Operator Relationship Specialty Start Date End Date Chip Lizarraga DO [address] [place] [address] [facility] - General 09/23/18
--- OUTSIDE RECORDS SUMMARY | 2024-07-23 09:47 | XMS_ITS ---
Author Organization [facility] Address [address] [place] [address] Care Team Providers Care Historical Manuscripts Curator Name Role Phone Jamaica Rosas Primary Care Provider REASON FOR VISIT Request to speak to Dr. White. Encounters Encounter Location Date Provider Diagnosis [facility] [address] [address] 11/11/2023 Jamaica Rosas Plan Of Treatment No Information Progress Notes * Bebo CASEYDOB: 6 (58 yo M)Acc No.[id number]:11/11/2023 Patient: Leonid KARBebo RAHMAN :1965 A ge:58 Y S ex:Male Address:[address] [place] [address] [place] [address] * true * Date: Generated for Printi ng/Faxing/eTransmitting on: 0 07/23/2024 09:46 AM CDT
--- OUTSIDE RECORDS SUMMARY | 2024-07-23 09:47 | XMS_ITS | Clinical Summary ---
Author Organization [facility] Address [facility] [place] [address] Care Team Providers Care Fern Cutter Name Role Phone FredisChip catherine DO Primary Care Provider [phone] Allergies No known active allergies Medications divalproex ER 500 MG 24 hr tablet Take 500 mg by mouth 2 (two) times daily. 2 09/05/2018 Active trihexyphenidyl 5 MG Tab tablet Take 5 mg by mouth 2 (two) times daily. 1 09/07/2018 Active lamotrigine 100 MG tablet Take 100 mg by mouth every morning. 2 09/15/2018 Active gabapentin 300 MG capsule Take 300 mg by mouth 2 (two) times daily. 2 09/30/2018 Active clonazePAM 0.5 MG tablet Take 0.5 mg by mouth 2 (two) times daily. 2 09/18/2018 Active levothyroxine 100 MCG tablet Take 100 mcg by mouth daily. 0 09/15/2018 Active loratadine 10 MG tablet TK 1 T PO Q DAY 0 07/01/2018 Active Active Problems No known active problems Social History Tobacco Use Types Packs/Day Years Used Date Smoking Tobacco: Never Smokeless Tobacco: Never Alcohol Use Standard Drinks/Week Comments No 0 (1 standard drink = 0.6 oz pur e alcohol) AUDIT-C Answer Date Recorded Frequency of Alcohol Consumption Never 10/09/2018 Average Number of Drinks Not on file 019 Frequency of Binge Drinking Not on file 09/12 Sex and Gender Information Value Date Recorded Sex Assigned at Not on file Legal Sex Male 7:53 PM CDT Gender Identity Not on file Sexual Orientation Not on file Last Filed Vital Signs Vital Sign Reading Time Taken Comments Blood Pressure 133/93 10/15/2018 11:53 AM CDT Pulse 68 10/15/2018 11:53 AM CDT Temperature 36.1 C (97 F) 10/15/2018 11:44 AM CDT Respiratory Rate 23 10/15/2018 11:53 AM CDT Oxygen Saturation 94% 10/15/2018 11:53 AM CDT Inhaled Oxygen Concentration - - Weight 97.5 kg (215 lb) 10/09/2018 2:16 PM CDT Height 190.5 cm (6' 3 ) 10/09/2018 2:16 PM CDT Body Mass Index 26.87 10/09/2018 2:16 PM CDT Plan of Treatment Health Maintenance Due Date Last Done Comments Colorectal Cancer Screening Colonoscopy (10 Years) 1965 Annual Physical 1969 Hepatitis C 02/22/1984 DTaP, Tdap and Td Vaccines ( 1 - Tdap) 1985 Hepatitis B Vaccines (1 of 3 - 19+ 3-dose series) 1985 Zoster Vaccines (1 of 2) 02/22/2016 COVID-19 Vaccine (1 - 2023-2 5 season) 2024 Influenza Adult (#1) 2024 02/16/2016 EGD-Harris's Surveillance Discontinued 10/15/2018 Meningococcal B Vaccine Aged Out No l onger eligible based on patient's age to complete this topic Meningococcal Vaccine Aged Out No irma mahogany eligible based on patient's age to complete this topic Pneumococcal Vaccine: Pediat rics (0 to 5 Years) and At-Risk Patients (6 to 64 Years) Aged Out No longer eligi ble based on patient's age to complete this topic RSV Immunizations Under 20 Months Aged Out No longer eligible based on patient's age to complete this topic Procedures Procedure Name Priority Date/Time Associated Diagnosis Comments EGD Routine 10/15/2018 8:50 AM CDT from Last 3 Months or Most Recently Relevant to Health Maintenance Insurance [address] [address] Care Teams Fern Cutter Relationship Specialty Start Date End Date Chip Lizarraga DO [address] [facility] [address] [place] [address] PCP - General INTERNAL MEDICINE 10/14/18
--- OUTSIDE RECORDS SUMMARY | 2024-07-23 09:47 | XMS_ITS | Patient Health Record ---
Author Organization [facility] Address [address] [place] [address] Care Team Providers Care Timber Repairer Name Role Phone Jamaica Rosas Primary Care Provider [phone] Allergies Allergen (clinical drug ingredient) Drug/Non Drug Allergy documented on EMR Reaction Allergy Type Onset Date Status lactose Lactose (Intolerance) Unknown Drug Allergy Active Reason For Referral No Information Medications Medication SIG (Take, Route, Frequency, Duration) Notes Start Date End Date Status Trihexyphenidyl HCl 2 MG 1 tablet Orally Twice a day Active lamoTRIgine 150 MG 1 tablet Orally Once a day for 30 days 02/13/2023 Active LaMICtal 100 MG 1 tablet Orally Once a day Active Depakote 500 MG 1 tablet Orally twic e a day Active Ingrezza 40 MG 1 capsule Orally Onc e a day Active KlonoPIN 0.5 MG 0.5 tablet Orally tw ice a day PRN Active Haldol Decanoate 100 MG/ML 1 mL Intramus cular Monthly Active Social History Tobacco Use: Social History Observation Description Date Details (start date - stop date) Never Smoker NA - NA Dont use, Tobacco Use/Smoking Question Answer Notes Are you a nonsmoker Problems Problem Type SNOMED Code ICD Code Onset Dates Problem Status W/U Status Risk Notes Problem Schizoaffective disorder, bipolar type (79926524) Schizoaffective disorder, bipolar type (F25.0) 02/14/20 Active confirmed Problem Tardive dyskinesia (393953600) Tardive dyskinesia (G24.01) 02/14/20 Active confirmed Encounters Encounter Location Date Provider Diagnosis [facility] [address] [place] [address] 11/11/2023 Jamaica Rosas Plan Of Treatment No Information Insurance Providers Payer Name Payer Address Payer Phone Subscriber Number Group Number Insured Name Patient Relationship to Insured Coverage Start Date Coverage End Date [facility] Attn Claims Department [address] [place] [address] [id number] Bebo Casey Self - patient is the insured 3 Medical (General) History Surgical History Surgery Date(Month/Year) Rt kidney removed-cancer 2013 Hospitalization History Reason Date(Month/Year) Dehydration Psychiatric inpatient stay 1988 Psychiatric inpatient stay 2009 Psychiatric inpatient stay 2021
--- OUTSIDE RECORDS SUMMARY | 2024-07-23 09:47 | XMS_ITS | Encounter Summary ---
Author Organization [facility] Address [facility] [place] [address] Care Team Providers Care Ribbon Cutter Name Role Phone Chip Lizarraga DO Primary Care Provider [phone] Encounter Details Date Type Department Care Team (Late st Contact Info) Description 07/27/2017 Abstract [facility] CONVERSION [address] [place] [address] , Generic Conversion, Social History Tobacco Use Types Packs/Day Years Used Date Smoking Tobacco: Never Assessed Sex and Gender Information Value Date Recorded Sex Assigned at Not on file Legal Sex Male 7:53 PM CDT Gender Identity Not on file Sexual Orientation Not on file documented as of this encounter Plan of Treatment Not on file documented as of this encounter Visit Diagnoses Not on filedocumented in this encounter Care Teams Ribbon Cutter Relationship Specialty Start Date End Date Chip Lizarraga DO [address] [place] [address] PCP - General INTERNAL MEDICINE 10/14/18 documented as of this encounter
[2024-07-23 09:48] LABS: Alanine Aminotransferase 13 U/L (6-50); Albumin Level 4.5 g/dL (3.5-5.1); Alkaline Phosphatase 70 U/L (38-126); Anion Gap 11 mmol/L (4-12); Aspartate Amino Transferase 20 U/L (17-59); Bilirubin,Total 0.6 mg/dL (0.2-1.3); Blood Urea Nitrogen 27 mg/dL (9-20); Calcium 9.7 mg/dL (8.4-10.2); Carbon Dioxide 26 mmol/L (22-30); Chloride 101 mmol/L (98-107); Estimated Glomerular Filt Rate 33; Glucose 98 mg/dL (65-110); Potassium 4.6 mmol/L (3.4-5.0); Sodium 138 mmol/L (137-145)
--- OUTSIDE RECORDS SUMMARY | 2024-07-23 09:48 | XMS_ITS | Clinical Summary ---
Author Organization [facility] [employer] Address [address] [place] [address] Care Team Providers Care Grey Goods Marker Name Role Phone RosemiryamChip catherine DO Primary Care Provider Source Comments [facility] Aff[facility]ates and Associated Physician Practices is amultiple site organization consisting of ambulatory clinics and hospital sitesin [place], [place], [place] and [place]. This disclosure is being madepursuant to the Care Everywhere program and may not contain all information available regarding this patient. Last updated 18.[facility] [employer] Allergies Active Allergy Reactions Criticality Noted Date Comments Albumin Rash Medium 04/08/2023 Milk-Related Compounds Rash Medium 04/08/2023 Shellfish Allergy Rash Medium 04/08/2023 Soy Allergy Rash Medium 04/08/2023 Medications * Be aware that medications may not be up to date on this document. Alwaysverify current medications with the patient. Medication Sig Dispensed Refills Start Date End Date Status multivitamins (ONE A DAY) capsuleIndications:N utritional Support 01/24/2016 Active gabapentin (NEURONTIN) 300 MG capsuleIndications:G eneralized Anxiety Disorder Take 1 (one) capsule by mouth 2 times daily 01/24/2016 Active clonazePAM (KLONOPIN) 0.5 MG tabletIndications:An xiety TK 1 T PO BID 2 12/15/2018 Active levothyroxine (SYNTHROID) 100 MCG tabletIndications:Hy pothyroidism TK 1 T PO QD 1 12/14/2018 Active trihexyphenidyl (ARTANE) 5 MG tabletIndications:Dr ug-Induced Extrapyramidal Reaction Take 1 (one) tablet by mouth 2 times daily after meals 01/24/2016 Active omeprazole (PRILOSEC) 40 MG capsuleIndications:G astroesophageal Reflux Disease Take 1 capsule by mouth 2 times daily,before breakfast and supper 60 capsule 3 07/17/2019 Active divalproex ER 24hr (Depakote ER) 500 MG tabletIndications:Mi xed Bipolar Affective Disorder,Mood Stabilzation Take 2 (two) tablets by mouth at bedtime Reasons: MIXED BIPOLAR AFFECTIVE DISORDER, Mood Stabilzation 60 tablet 1 04/15/2023 Active divalproex ER 24hr (Depakote ER) 500 MG tabletIndications:Mo od Stabilization Take 1 (one) tablet by mouth once daily Reasons: Mood Stabilization 30 tablet 1 04/16/2023 Active haloperidol decanoate (Haldol Decanoate) 100 MG/ML injectionIndications :Schizophrenia Inject 1 mL into muscle every 28 days DO NOT administer intravenously; Should be administered by deep IM injection using a 21 gauge needle; MAX volume per injection site should not exceed 3 mL His last Haldol Decanoate 100 mg IM injection was given on 04/10/2023. 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 04/09/2023 Dysuria 06/21/2014 Personal history of other malignant neoplasm of kidney 06/21/2014 Harris's esophageal ulceration Resolved Problems Problem Noted Date Diagnosed Date Resolved Date Psychosis, unspecified psychosis type 04/08/2023 04/09/2023 Schizophrenia 04/08/2023 04/09/2023 Depressive disorder 04/08/2023 04/09/20 23 Social History Tobacco Use Types Packs/Day Years Used Date Smoking Tobacco: Never Smokeless Tobacco: Never Alcohol Use Standard Drinks/Week Comments No 0 (1 standard drink = 0.6 oz pur e alcohol) AUDIT-C Answer Date Recorded Q1: How often do you have a drink containing alc ohol? Patient declined 04/08/2023 Q2: How many drinks containi ng alcohol do you have on a typical day when you are drinking? Patient declined 04/08/2023 Q3: How often do you have si x or more drinks on one occasion? Patient declined 04/08/2023 Overall Financial Resource Strain (CARDIA) Answe r Date Recorded How hard is it for you to pa y for the very basics like food, housing, medical care, and heating? Patient declined 04/08/2023 [facility] - Occupational Stress Questionnaire Answer Date Recorded Do you feel stress - tense, restless, nervous, or anxious, or unable to sleep at night because your mind is troubled all the time - these days? Patient declined 04/08/2023 Hunger Vital Sign Answer Date Recorded Within the past 12 months, y ou worried that your food would run out before you got the money to buy more. Patient declined Within the past 12 months, t he food you bought just didn't last and you didn't have money to get more. Patient declined PRAPARE - Transportation Answer Date Re corded In the past 12 months, has l ack of transportation kept you from medical appointments or from getting medications? Patient declined 04/08/2023 In the past 12 months, has l ack of transportation kept you from meetings, work, or from getting things needed for daily living? Patient declined 04/08/2023 Housing Stability Vital Sign Answer Candido e Recorded In the last 12 months, was t here a time when you were not able to pay the mortgage or rent on time? Patient refused 04/08/20 23 In the last 12 months, how many places have you lived? 0 04/08/2023 In the last 12 months, was t here a time when you did not have a steady place to sleep or slept in a fpc (including now)? Patient refused 04/08/2023 Sex and Gender Information Value Date Recorded Sex Assigned at Not on file Gender Identity Not on file Sexual Orientation Not on file Last Filed Vital Signs Vital Sign Reading Time Taken Comments Blood Pressure 113/77 04/15/2023 7:09 AM NUT SORTER OPERATOR Pulse 82 04/15/2023 7:09 AM NUT SORTER OPERATOR Temperature 36.6 C (97.8 F) 04/15/2023 7:09 AM NUT SORTER OPERATOR Respiratory Rate 16 04/15/2023 7:09 AM NUT SORTER OPERATOR Oxygen Saturation 97% 04/15/2023 7:09 AM NUT SORTER OPERATOR Inhaled Oxygen Concentration - - Weight 102 kg (224 lb 13.9 oz) 04/08/2023 11:53 AM NUT SORTER OPERATOR Height 190.5 cm (6' 3 ) 04/08/2023 11:53 AM NUT SORTER OPERATOR Body Mass Index 28.11 04/08/2023 11:53 AM NUT SORTER OPERATOR Plan of Treatment Health Maintenance Due Date Last Done Comments COLOGUARD (AGES 45-75) - COL ON CA SCREENING 1966 COLON MONITORING 1966 COLONOSCOPY - COLON CA SCREENING 1966 CT COLONOGRAPHY - COLON CA SCREENING 1966 Colorectal Cancer Screening 1966 FIT - COLON CA SCREENING 1966 FLEX SIG - COLON CA SCREENING 1966 HIV SCREENING 1981 HEPATITIS C SCREENING 02/17/1984 DTAP/TDAP/TD VACCINES (1 - Tdap) 1985 HEPATITIS B VACCINE (1 of 3 - 19+ 3-dose series) 1985 PNEUMOCOCCAL VACCINE 50+ (1 of 1 - PCV) 02/22/2016 ZOSTER VACCINE (1 of 2) 02/22/2016 COVID-19 VACCINE ( - 2023-2 5 season) 2024 INFLUENZA VACCINE (#1) 2024 02/16/2016 SCREENING FOR DIABETES 04/13/2026 , 04/09/2023, 04/09/2023 LIPID TESTING 04/09/2028 04/09/2023 HIB VACCINE Aged Out No longer eligi ble based on patient's age to complete this topic HPV VACCINE Aged Out No longer eligi ble based on patient's age to complete this topic MENINGOCOCCAL (Group B) VACCINE SHARED DECISION-MAKING Aged Out No longer eligible based on patient's age to complete this topic MENINGOCOCCAL GROUPS A/C/Y/W VACCINE Aged Out No longer eligible b ased on patient's age to complete this topic PNEUMOCOCCAL VACCINE Aged Out No long er eligible based on patient's age to complete this topic Procedures Procedure Name Priority Date/Time Associated Diagnosis Comments BASIC METABOLIC PANEL (CALCIUM TOTAL) AM Draw 04/13/2023 6:23 AM NUT SORTER OPERATOR LIPID PROFILE Routine 04/09/2023 6:12 AM NUT SORTER OPERATOR from Last 3 Months or Most Recently Relevant to Health Maintenance Results * (ABNORMAL) BASIC METABOLIC PANEL (CALCIUM TOTAL) (04/13/2023 6:23 AM NUT SORTER OPERATOR) [facility] Glucose 91 70 - 125 mg/dL 04/13/2023 7:[address] [facility] Sodium 142 136 - 145 mmol/L 04/13/2023 7:[address] [facility] Potassium 5.0 3.4 - 5.1 mmol/L 04/13/2023 7:[address] [facility] Chloride 108(H) 98 - 107 mmol/L 04/13/2023 7:[address] [facility] CO2 26 22 - 29 mmol/L 04/13/2023 7:[address] [facility] Calcium 9.17 8.4 - 10.2 mg/dL 04/13/2023 7:[address] [facility] Anion Gap 13 6 - 16 mmol/L 04/13/2023 7:[address] [facility] BUN 33.8(H) 8.4 - 25.7 mg/dL 04/13/2023 7:[address] [facility] Creatinine 2.21(H) 0.72 - 1.25 mg/dL 04/13/2023 7:[address] [facility] eGFR 34(L) >90 mL/min/1.7 3m2 04/13/2023 7:[address] [facility] Comment:The GFR result was c alculated using the updated CKD-EPI Creatinine Equation (2020). Blood BLOOD SPECIMEN / Unknown Lab Venipuncture / Unknown 04/13/2023 6:23 AM NUT SORTER OPERATOR 04/13/2023 6:55 AM [facility] Ge L Renick ACID CONDITIONER-AUTOMOBILE MECHANIC HELPER LAB - CHEMISTRY ORDERABLES Performing Organization Address City/State/[facility] Co de Phone Number [facility] [address] * LIPID PROFILE (04/09/2023 6:12 AM [facility]) Cholesterol 137 <200 mg/dL 04/09/2023 6:[address] [facility] Triglycerides 104 <150 mg/dL 04/09/2023 6:[address] [facility] HDL Cholesterol 43 >40 mg/dL 3 6:[address] [facility] Chol HDL Ratio 3.2 1.0 - 6.0 04/09/2023 6:[address] [facility] LDL Calculated 73 65 - 130 mg/dL 04/09/2023 6:[address] [facility] VLDL Calculated 21 <=30 mg/dL 3 6:[address] [facility] Blood BLOOD SPECIMEN / Unknown Lab Venipuncture / Unknown 04/09/2023 6:12 AM NUT SORTER OPERATOR 04/09/2023 6:22 AM [facility] Narrative [facility] - 04/09/2023 6:42 AM [facility] Lipid Profile Comment: CHOLESTEROL LEVEL..................CLINICAL INTERPRETATION LESS THAN 200 MG/DL..............................DESIRABLE 200-239 MG/DL..............................BORDERLINE HIGH GREATER THAN 240 MG/DL................................HIGH LDL-CHOLESTEROL LEVEL..............CLINICAL INTERPRETATION LESS THAN 100 MG/DL................................OPTIMAL 100-129 MG/DL.................................NEAR OPTIMAL GREATER THAN 160 MG/DL...........................HIGH RISK HDL RISK LEVEL GREATER THEN 60 MG/DL............................DECREASED 40-60 MG/DL........................................AVERAGE LESS THAN 40 MG/DL...............................INCREASED TRIGLYCERIDE LEVEL..................CLINICAL INTERPRETATION LESS THAN 150 MG/DL...............................DESIRABLE 150-199 MG/DL...............................BORDERLINE HIGH 200-499 MG/DL..........................................HIGH GREATER THAN 500..................................VERY HIGH THE NATIONAL CHOLESTEROL EDUCATION PROGRAM HAS SET THE ABOVE GUIDELINES (REFERANCE VALUES) FOR CHOLESTEROL AND HDL. RISK ASSOCIATED WITH CHOLESTEROL/HDL RATIOS RISK....................MALE RATIO.............FEMALE RATIO 1/2 AVERAGE.................<3.4.......................<3.3 LOW RISK.................... 4.0 ...................... 3.8 AVERAGE..................... 5.0 ...................... 4.5 2X AVERAGE.................. 9.5 ...................... 7.0 3X AVERAGE...................>23........................>11 Dolores Mandujano ACID CONDITIONER-AUTOMOBILE MECHANIC HELPER LAB - CHEMISTRY ORDERABLES [facility] [address] [place] [address], [facility] from Last 3 Months or Most Recently Relevant to Health Maintenance Advance Directives * Full Code (Latest Code Status on File) Date Activated Date Inactivated Comments 04/08/2023 12:25 PM 04/15/2023 12:48 PM Care Teams Grey Goods Marker Relationship Specialty Start Date End Date Chip Lizarraga DO PCP - General Internal Medicine 01/16/19
--- OUTSIDE RECORDS SUMMARY | 2024-07-23 09:48 | XMS_ITS | Referral Summary ---
Author Organization [facility] [employer] Address [address] [place] [address] Care Team Providers Care Rn Renal Name Role Phone RosemiryamChip catherine Tray DO Primary Care Provider Source Comments [facility],non-[facility] Affiliates and Associated Physician Practices is amultiple site organization consisting of ambulatory clinics and hospital sitesin [place], [place], [place] and [place]. This disclosure is being madepursuant to the Care Everywhere program and may not contain all information available regarding this patient. Last updated 18.[facility] [employer] Allergies Active Allergy Reactions Criticality Noted Date [...] (04/09/2023): Added automatically from request for surgery [id number] Harris's esophagus with high grade dysplasia 04/09/2023 [...] medical care, and heating? Patient declined 04/08/2023 [facility] Health - Occupational Stress [...] place to sleep or slept in a prison (including now)? Patient refused 04/08/2023 Sex and Gender Information Value Date Recorded Sex Assigned at Not on file Gender Identity Not on file Sexual Orientation Not on file Last Filed Vital Signs Vital Sign Reading Time Taken Comments Blood Pressure 113/77 04/15/2023 7:09 AM LAUNDRY MACHINE MECHANIC Pulse 82 04/15/2023 7:09 AM LAUNDRY MACHINE MECHANIC Temperature 36.6 C (97.8 F) 04/15/2023 7:09 AM LAUNDRY MACHINE MECHANIC Respiratory Rate 16 04/15/2023 7:09 AM LAUNDRY MACHINE MECHANIC Oxygen Saturation 97% 04/15/2023 7:09 AM LAUNDRY MACHINE MECHANIC Inhaled Oxygen Concentration - - Weight 102 kg (224 lb 13.9 oz) 04/08/2023 11:53 AM LAUNDRY MACHINE MECHANIC Height 190.5 cm (6' 3 ) 04/08/2023 11:53 AM LAUNDRY MACHINE MECHANIC Body Mass Index 28.11 04/08/2023 11:53 AM LAUNDRY MACHINE MECHANIC Functional Status Functional Status Response Date of Assess ment Is person deaf or have serious hearing difficult y? No 04/08/2023 Is person blind or have serious difficulty seein g? No 04/08/2023 Does person have serious dif ficulty walking/climbing stairs? No 04/08/2023 Does person have difficulty dressing/bathing? No 04/08/2023 Does person have difficulty doing errands alone? Yes 04/08/2023 Cognitive Status Response Date of Assessm ent Does person have difficulty concentrating/remembering/making decisions? Yes 04/08/2023 Plan of Treatment Not on file Procedures Procedure Name Priority Date/Time Associated Diagnosis Comments BASIC METABOLIC PANEL (CALCIUM TOTAL) AM Draw 04/13/2023 6:23 AM LAUNDRY MACHINE MECHANIC LIPID PROFILE Routine 04/09/2023 6:12 AM LAUNDRY MACHINE MECHANIC from Last 3 Months or Most Recently Relevant to Health Maintenance Results * (ABNORMAL) BASIC METABOLIC PANEL (CALCIUM TOTAL) (04/13/2023 6:23 AM LAUNDRY MACHINE MECHANIC) [facility] Glucose 91 70 - 125 mg/dL 04/13/2023 7:15 AM [facility] Sodium 142 136 - 145 mmol/L 04/13/2023 7:15 AM [facility] Potassium 5.0 3.4 - 5.1 mmol/L 04/13/2023 7:15 AM [facility] Chloride 108(H) 98 - 107 mmol/L 04/13/2023 7:15 AM [facility] CO2 26 22 - 29 mmol/L 04/13/2023 7:15 AM [facility] Calcium 9.17 8.4 - 10.2 mg/dL 04/13/2023 7:15 AM [facility] Anion Gap 13 6 - 16 mmol/L 04/13/2023 7:15 AM [facility] BUN 33.8(H) 8.4 - 25.7 mg/dL 04/13/2023 7:15 AM [facility] Creatinine 2.21(H) 0.72 - 1.25 mg/dL 04/13/2023 7:15 AM [facility] eGFR 34(L) >90 mL/min/1.7 3m2 04/13/2023 7:15 AM [facility] Comment:The GFR result was c alculated using the updated CKD-EPI Creatinine Equation (2020). Blood BLOOD SPECIMEN / Unknown Lab Venipuncture / Unknown 04/13/2023 6:23 AM LAUNDRY MACHINE MECHANIC 04/13/2023 6:55 AM [facility] Ge Summers TUNE UP MECHANIC-WIRE ROPE SALES REPRESENTATIVE LAB - CHEMISTRY ORDERABLES Performing Organization Address City/State/[facility] Co de Phone Number [facility] [address] * LIPID PROFILE (04/09/2023 6:12 AM [facility]) Cholesterol 137 <200 mg/dL 04/09/2023 6:42 AM [facility] Triglycerides 104 <150 mg/dL 04/09/2023 6:42 AM [facility] HDL Cholesterol 43 >40 mg/dL 3 6:42 AM [facility] Chol HDL Ratio 3.2 1.0 - 6.0 04/09/2023 6:42 AM [facility] LDL Calculated 73 65 - 130 mg/dL 04/09/2023 6:42 AM [facility] VLDL Calculated 21 <=30 mg/dL 3 6:42 AM [facility] Blood BLOOD SPECIMEN / Unknown Lab Venipuncture / Unknown 04/09/2023 6:12 AM LAUNDRY MACHINE MECHANIC 04/09/2023 6:22 AM LAUNDRY MACHINE MECHANIC Narrative [facility] - 04/09/2023 6:42 AM [facility] Lipid Profile Comment: CHOLESTEROL LEVEL..................CLINICAL INTERPRETATION [...] 9.5 ...................... 7.0 3X AVERAGE...................>23........................>11 Dolores Mandujano TUNE UP MECHANIC-WIRE ROPE SALES REPRESENTATIVE LAB - CHEMISTRY ORDERABLES [facility] [address] [place] [address], [facility] from Last 3 Months or Most Recently Relevant to Health Maintenance Advance Directives * Full Code (Latest Code Status on File) Date Activated Date Inactivated Comments 04/08/2023 12:25 PM 04/15/2023 12:48 PM Care Teams Rn Renal Relationship Specialty Start Date End Date Chip Lizarraga DO PCP - General Internal Medicine 01/16/19
--- OUTSIDE RECORDS SUMMARY | 2024-07-23 09:48 | XMS_ITS ---
Author Organization [facility] Address [address] [place] [address] Care Team Providers Care Director [facility] Name Role Phone Jamaica Rosas Primary Care Provider Allergies Allergen (clinical drug ingredient) Drug/Non Drug Allergy documented on EMR Reaction Allergy Type Onset Date Status lactose Lactose (Intolerance) Unknown Drug Allergy Active Reason For Referral Reason Group therapy Diagnosis 1 Schizoaffective diso rder, bipolar type (F25.0) Referral Organization [facility] Referring Provider First Name Jamaica Referring Provider Last Name Alison Referring Provider Speciality Psychiatry Referred Provider Specialty Behavioral [facility] General Notes Melody Zapien 02/25/2023 10:12:05 AM > unable to reach consumer, called and left voicemailRupali Katelyn B 03/05/2023 01:02:11 PM > unable to reach consumer, called and left voicemailRupali Katelyn B 03/07/2023 09:54:58 AM > reached consumer, they said they are not interested in working with [facility] anymore. He said he wants to discontinue services here and go back to [facility]. Referral Priority Routine REASON FOR VISIT NEW EVAL-phone Medications Medication SIG (Take, Route, Frequency, Duration) Notes Start Date End Date Status Trihexyphenidyl HCl 2 MG 1 tablet Orally Twice a day Active LaMICtal 100 MG 1 tablet Orally Once a day Active Depakote 500 MG 1 tablet Orally twic e a day Active KlonoPIN 0.5 MG 0.5 tablet Orally tw ice a day PRN Active Haldol Decanoate 100 MG/ML 1 mL Intramus cular Monthly Active lamoTRIgine 150 MG 1 tablet Orally Once a day for 30 days 02/13/2023 Active Ingrezza 40 MG 1 capsule Orally Onc e a day Active Social History Tobacco Use: Social History Observation Description Date Details (start date - stop date) Never Smoker NA - NA Dont use, Tobacco Use/Smoking Question Answer Notes Are you a nonsmoker Problems Problem Type SNOMED Code ICD Code Onset Dates Problem Status W/U Status Risk Notes Problem Schizoaffective disorder, bipolar type (82483004) Schizoaffective disorder, bipolar type (F25.0) 02/14/20 Active confirmed Problem Tardive dyskinesia (065442440) Tardive dyskinesia (G24.01) 02/14/20 Active confirmed Encounters Encounter Location Date Provider Diagnosis [address], [place] [address] 02/13/2023 Jamaica Richmondanan Schizoaffective disorder, bipolar type F25.0 and Tardive dyskinesia G24.01 Assessments Encounter Date Diagnosis (ICD Code) Assessment Notes Treatment Notes Treatment Clinical Notes Section Notes 02/13/2023 Schizoaffective disorder, bipolar type (ICD-10 - F25.0) 02/13/2023 Tardive dyskinesia (ICD-10 - G24.01) 02/13/2023 Other Patient today reports hx bipolar disorder with clear manic episodes since 1988. Reports paranoia hx as well, to include some delusional thinking when he was started on Haldol Decanoate in 1988. He reports this past year he was diagnosed with Tardive Dyskinesia and started on Ingrezza with so far not much improvement (hand writhing with pain in one hand, difficulty completing tasks, tested negative for parkinsons). He does not want to come off the Haldol D but would benefit from additional education on this topic and possible encouragement to switch to an SGA. He reports currently on Depakote and Lamictal for mood stabilization, and Klonopin for panic attacks. He is currently having increased suicidal thoughts with a plan but no intent, he has a hx of SA by OD last year. He's talkative during converstaion but redirectable. He would benefit from being on the crisis team, referral sent for daily check ins and patient is aware. Discussed increasing Lamictal to 150 mg to help combat depressive sx and he is agreeable. It is unclear if patient has any kidney disease based on his reported history, when attempting to confirm he said he does not but follows a black top paver operator yearly. Will order labs for [place] location. Patient states he is unwilling to drive to the [facility] but that he is willing to drive to [place] for his CHAVIS and lab draws. Last Decanoate injection 01/17/23 - has an appt coming up at [facility] for next injection. He would also benefit from an in person appointment so an AIMS could be conducted for his reported TD and medication management. Further, referring him to group therapy appts as he reports he had benefit on his emotional well being having more social interactions.He may benefit from being transferred to a [place] provider to limit barriers to his care. Denies needing refills on any other medications at this time. May self-administer medications or be administered own oral medications per [facility] protocols. Provided informed consent with understanding of side effects, adverse effects, risks and benefits as well as alternative treatments as previously discussed and with the above recommended medications & other aspects of the treatment program. Agrees to return sooner if symptoms worsen or suicidal or homicidal ideations occur. Plan Of Treatment Medication Medication Name Sig Start Date Stop Date Notes lamoTRIgine 150 MG 1 tablet Orally Once a day for 30 days 02/13/2023 Treatment Notes Assessment Notes Other Patient today reports hx bipolar disorder with clear manic episodes since 1988. Reports paranoia hx as well, to include some delusional thinking when he was started on Haldol Decanoate in 1988. He reports this past year he was diagnosed with Tardive Dyskinesia and started on Ingrezza with so far not much improvement (hand writhing with pain in one hand, difficulty completing tasks, tested negative for parkinsons). He does not want to come off the Haldol D but would benefit from additional education on this topic and possible encouragement to switch to an SGA. He reports currently on Depakote and Lamictal for mood stabilization, and Klonopin for panic attacks. He is currently having increased suicidal thoughts with a plan but no intent, he has a hx of SA by OD last year. He's talkative during converstaion but redirectable. He would benefit from being on the crisis team, referral sent for daily check ins and patient is aware. Discussed increasing Lamictal to 150 mg to help combat depressive sx and he is agreeable. It is unclear if patient has any kidney disease based on his reported history, when attempting to confirm he said he does not but follows a black top paver operator yearly. Will order labs for [place] location. Patient states he is unwilling to drive to the [facility] but that he is willing to drive to [place] for his CHAVIS and lab draws. Last Decanoate injection 01/17/23 - has an appt coming up at [facility] for next injection. He would also benefit from an in person appointment so an AIMS could be conducted for his reported TD and medication management. Further, referring him to group therapy appts as he reports he had benefit on his emotional well being having more social interactions.He may benefit from being transferred to a [place] provider to limit barriers to his care. Denies needing refills on any other medications at this time. May self-administer medications or be administered own oral medications per [facility] protocols. Provided informed consent with understanding of side effects, adverse effects, risks and benefits as well as alternative treatments as previously discussed and with the above recommended medications & other aspects of the treatment program. Agrees to return sooner if symptoms worsen or suicidal or homicidal ideations occur. Referrals Referral Date Details 02/13/2023 02/13/2023, Group th erapy Next Appt Details Follow Up: 10 days, Reason: Medication f/u - [place] location Progress Notes * Bebo CASEYDOB: 6 (57 yo M)Acc No.[id number]:02/13/2023 Patient: Leonid sorenBebo Provider: MARIAM Quiroz :1965 A ge:57 Y S ex:Male Date:02/13/2023 Address:[address] [place] [address] [id number] Subjective: * Chief Complaints: * N EW EVAL-phone * HPI: N ew Psych Assessment, DIRECTOR HEDIS: Symptoms present: P atient reports, I'm calling for the evaluation, that depression has been a major thing. I can't get away from it. Suicide is constantly on my mind Reports one prior SA, but it was over something else Call [phone] over past month. States he helpful to talk him down. States I shake, I take Ingrezza , went to the hospital October of 2022 but was not admitted. Medical conditions worsened. Hx of overdosing of Tylenol a nd drinking 6 pack of beer. Since October making statements of suicide, admitting that I wanted to do it , states one of his plans, I have kidney disease due to lithium back in the 80s . States he is at risk for kidney failure and dialysis, my plan would be to get on the interstate and drive until I , by drinking no water until I of kidney failure . S tates he doesn't have support otherwise. States he doesn't have Parkinsons disease, with psychiatrist and primary decided it was tardive dyskinesia. Will shake whenever he's trying to complete activities around the house. Right hand will shake violently and then goes away every couple days, and we don't know what causes it. Right FA will hurt d/t shaking. States he's currenlty on an CHAVIS of haloperidol, hx of paranoia. States on Ingrezza for 40 mg, States he doesn't want to be with his current psychiatrist. Is currently taking Haldol Decanoate - doesn't want to come off of this medication. 100 mg. Date of last shot was Jan, Will see nurse at [facility] this month. Has been taking since 1988. States he has a long history of paranoia and it helps to take it away, denies hx of AVH. History of psychiatric inpatient stays, three times hospitalized. Last time, Jan of last year, because I drove through front of mother's house . States he had a urinary tranct infection that made him go into a trance I would never do this intentionally . Was put in Prison for this, mother never pressed charges. 2nd inpatient stay was [facility] 2010 was admitted for giving a threat to a brother before my father saying I was going to kill my father . Depression symptoms started I had delusion of my next door neighbor, I thought she loved me as much as I loved her. I may have got depressed then for the first time , this is when I was diagnosed bipolar, I was getting depressed and manic - started in 1988. States the depression slaps me in the gut once every week . Last time feeling manic was, my mother claimed the past week . Says the only person who sees him often is his mother, she can observe indirectly . States his mother is also bipolar, states he doesn't know what medication she takes. Mental illness on both sides of family.? . Sleep: E stimates 6-16 hours. 16 hours on a rare occassion. When manic disrupted sleep. Appetite pretty good trying to lose weight last month, gained a lot of weight . Doesn't have a good diet, chicken/amrita, ravioloi and cereal. Joints hurt, don't know how to get out of it. Anger/Irritability rating (10 = worst) . Risk-taking behaviors: A dmits risk-taking behaviors (specify): making threats, driving into mom's home. Grandiosity: D enkylee. Activity level: I ncreased. Talkativeness: H ypertalkative. Impulsivity: H istory of. Suicidal ideation: D enies hx of self harm, states once or twice in front of mother hit self in the head. Hallucinations: D enies hallucinations or hx of. Paranoia: H x of paranoid thoughts, denies currently. Delusions: D enies. Primary Care Provider: Iveth ni. Medical Concerns: K idney disease, chronic pain. History of head injury/LOC?: A dmits prior head injury or loss of consciousness.. Therapist?: W as in therapy and sees counselor on a regular basis. P ast Psychiatric History: Past medications (efficacy, adherence, and side effects): H aldol decanoate since 1988 I ngrezza 40 mg - for past 3 weeks or month D epakote DR 500 mg - BID. y ears to decades L amictal - 100 mg 1x a day K lonopin 0.25 QAM and QHS A rtane 2 mg BID . Abuse/Trauma history?: D enies. P ast Social History: Current home: [place] self, 5 minutes from mom. Occupation: U nemployed. Hobbies/Interests: N o pets or animals. Spiritual affiliation: R elidavid, doesn't go to caodaism haven't gone in months . hx D enies. Not currently in a relationship, doesn't have a friend. Last g/f was in 2011. States he's been in bipolar groups before, was in connections. Wants to DBSA but it broke up W hat makes him stay on earth: afraid of , I don't want to hurt my family by dying . D epression Screening: PHQ-9 L ittle interest or pleasure in doing things?Nearly every day F eeling down, depressed, or hopeless N early every day T rouble falling or staying asleep, or sleeping too much S everal days F eeling tired or having little energy N early every day P oor appetite or overeating S everal days F eeling bad about yourself or that you are a failure, or have let yourself or your family down N early every day T rouble concentrating on things, such as reading the newspaper or watching television N early every day M oving or speaking so slowly that other people could have noticed; or the opposite, being so fidgety or restless that you have been moving around a lot more than usual M ore than half the days T houghts that you would be better off or of hurting yourself in some way N early every day (Consider Suicide Assessment Risk) T otal Score 2 2 I nterpretation S evere Depression Intervention D epression Screening Findings P ositive . F ollow-Up for Depression R eferred to Behavioral Health, Prescribed psychotropic medications . S uicide Risk Assessment Performed 1 . A dditional Evaluation for Depression I nitial psychiatric evaluation, undefined . S creening: [place] Suicide Severity Rating Scale (LF) D o you want to initiate with S creener form 6 . Suicide Behaviour: Have you ever done anything,started to do anything, or prepared to end your life? Y es W ere any of these in the past 3 months? Y es 2 . Suicidal Thoughts: Have you actually had any thoughts of killing yourself? Y es 5 . Suicide Intent with Specific Plan: Have you started to work out or worked out the details of how to kill yourself? Do you intend to carry out this plan? Y es has worked out details but does not intend to carry it out 4 . Suicidal Intent (without Specific Plan): Have you had these thoughts and had some intention of acting on them? Y es 3 . Suicidal Thoughts with Method (without Specific Plan or Intent to Act): Have you been thinking about how you might do this? Y es 1 . Wish to be : Have you wished you were or wished you could go to sleep and not wake up? Y es G AD-7 Screenin. Feeling nervous, anxious, or on edge : , Nearly every day-3. 2. Not being able to stop or control worrying : , Nearly every day-3. 3. Worrying too much about different things : , Nearly every day-3. 4. Trouble sleeping/relaxing : , More than half the days-2. 5. Being so restless that it is hard to sit still : , More than half the days-2. 6. Becoming easily annoyed or irritable : , Nearly every day-3. 7. Feeling afraid, as if something awful might happen : , Nearly every day-3. VENTURA-7 Score T otal score 1 9 : M ood Disorder Questionnaire 11-01-21: Please answer each question to the best of your ability. Questions P lease answer each question to the best of your ability. H as there ever been a time period when you were not your usual self and... Y ou felt so good or hyper that other people thought you were not your normal self or you were so hyper that you got into trouble? Y es . Y ou were so irritable that you shouted at people or started fights or arguments? Y es . Y ou got much less sleep than usual and found that you didn't really miss it? N o . Y ou felt much more self-confident than usual??No . Y ou were more talkative or spoke much faster than usual? N o . T houghts raced through your head or you couldn't slow your mind down? N o . Y ou were so easily distracted by things around you that you had trouble concentrating or staying on track? N o . Y ou had more energy than usual? N o . Y ou were more active or did many more things than usual? N o . Y ou were more social or outgoing than usual, for example, you telephoned friends in the middle of the night? N o . Y ou were more interested in sex than usual??Yes . Y ou did things that were usual for you or that other people might have thought were excessive, foolish, or risky? Y es . S pending money got you or your family in trouble? N o . I f you checked YES to more than one of the above, have several of these ever happened during the same period of time? Y es . H ow much of a problem did any of these cause you - like being unable to work; having family, money or legal troubles; getting into arguments or fights? M oderate problem . C SSRS Interpretation and Follow Up Plan: CSSRS Interpretation and Follow Up Plan. CSSRS Interpretation and Follow Up Plan M oderate or High risk requires selection of a follow up plan C SSRS No/Low: intervention not needed at this time * ROS: P sych ROS: Constitutional A ll systems negative unless indicated otherwise. E yes D enies. E ars/Nose/Mouth/Throat D enies. R espiratory D enies problems, Denies asthma or COPD. A llergic/Immunologic D enies. C ardiovascular D enies problems, Denies blood relative experiencing sudden at young age. G I D enies problems, Denies liver problems. G U R eports kidney complications, missing kidney d/t cancer. M usculoskeletal S haking d/t possible tardive dyskinesia. N eurological D enies history of seizures, Denies concern. I ntegumentary D enies rashes or pruritis. E ndocrine D enies concern, Denies DM or thyroid dysfunction. H ematological/Lymphatic D enies bleeding or bruising, Denies problems. * Medical History: * Surgical History: R t kidney removed-cancer 2013 * Hospitalization/Major Diagno stic Procedure: P sychiatric inpatient stay sychiatric inpatient stay 2010Psychiatric inpatient stay 1988Dehydration * Family History: F ather: . M other: alive, diagnosed with Bipolar disorder, unspecified. 3 brother(s) - healthy. . father had Alzheimer's mom has BPD, COPD, high blood pressure. * Social History: P rimary Social History: L iving Arrangement L iving Arrangement: I ndependent Living I s this a supportive environment? Y es Alcohol Use A lcohol Use Frequency: N ever Illicit Substance Usage I llicit Substance Usage: N o Employment Status E mployment Status: U nemployed T obacco Use: T obacco Use/Smoking A re you a n onsmoker * Medications: T akingIngrezza 40 MG Capsule 1 capsule Orally Once a dayKlonoPIN 0.5 MG Tablet 0.5 tablet Orally twice a day PRNHaldol Decanoate 100 MG/ML Solution 1 mL Intramuscular MonthlyTrihexyphenidyl HCl 2 MG Tablet 1 tablet Orally Twice a dayLaMICtal 100 MG Tablet 1 tablet Orally Once a dayDepakote 500 MG Tablet Delayed Release 1 tablet Orally twice a dayMedication List reviewed and reconciled with the patientTaking Ingrezza 40 MG Capsule 1 capsule Orally Once a dayTaking KlonoPIN 0.5 MG Tablet 0.5 tablet Orally twice a day PRNTaking Haldol Decanoate 100 MG/ML Solution 1 mL Intramuscular MonthlyTaking Trihexyphenidyl HCl 2 MG Tablet 1 tablet Orally Twice a dayTaking LaMICtal 100 MG Tablet 1 tablet Orally Once a dayTaking Depakote 500 MG Tablet Delayed Release 1 tablet Orally twice a dayMedication List reviewed and reconciled with the patient * Allergies: L actose (Intolerance)no[Allergies Verified] Objective: * Vitals: I nitials: ks, Pain scale:0. * Examination: M ental Status Exam: SENSORIUM AND COGNITION A lert, A&OX4. ATTENTION AND CONCENTRATION I mpaired attention/concentration. APPEARANCE P yessy interview - unable to determine appearance.. ATTITUDE AND BEHAVIOR C ooperative, Negative. MEMORY A dequate. EYE CONTACT P yessy interview - KAYLIE. AFFECT P yessy interview - KAYLIE. MOOD D ysthymic, irritable. SPEECH QUANTITY , Verbose. SPEECH QUALITY S pontaneous , Appropriate volume. THOUGHT PROCESS C oherent and goal directed. THOUGHT CONTENT A ppropriate - WNL , No evidence of delusional content , No reports of paranoia. LANGUAGE A ppropriate - WDL. MOTOR ACTIVITY P yessy interview, KAYLIE. SUICIDAL IDEATION R eports suicidal ideations with plan, but no intent. HOMICIDAL IDEATION D enies homicidal ideation or thoughts of aggression. HALLUCINATIONS D enies Auditory, Visual and Tactile hallucinations. INSIGHT F air. JUDGMENT F air. FUND OF KNOWLEDGE F air. ABILITY TO PARTICIPATE IN TREATMENT A dequate. WILLINGNESS TO PARTICIPATE IN TREATMENT A dequate. AIMS U TA. Assessment: * Assessment: 1. S chizoaffective disorder, bipolar type - F25.0 (Primary) 2 . T ardive dyskinesia - G24.01 Plan: * Treatment: 2. O thers Notes: Patient today reports hx bipolar disorder with clear manic episodes since 1988. Reports paranoia hx as well, to include some delusional thinking when he was started on Haldol Decanoate in 1988. He reports this past year he was diagnosed with Tardive Dyskinesia and started on Ingrezza with so far not much improvement (hand writhing with pain in one hand, difficulty completing tasks, tested negative for parkinsons). He does not want to come off the Haldol D but would benefit from additional education on this topic and possible encouragement to switch to an SGA. He reports currently on Depakote and Lamictal for mood stabilization, and Klonopin for panic attacks. He is currently having increased suicidal thoughts with a plan but no intent, he has a hx of SA by OD last year. He's talkative during converstaion but redirectable. He would benefit from being on the crisis team, referral sent for daily check ins and patient is aware. Discussed increasing Lamictal to 150 mg to help combat depressive sx and he is agreeable. It is unclear if patient has any kidney disease based on his reported history, when attempting to confirm he said he does not but follows a black top paver operator yearly. Will order labs for [place] location. Patient states he is unwilling to drive to the [facility] but that he is willing to drive to [place] for his CHAVIS and lab draws. Last Decanoate injection 01/17/23 - has an appt coming up at [facility] for next injection. He would also benefit from an in person appointment so an AIMS could be conducted for his reported TD and medication management. Further, referring him to group therapy appts as he reports he had benefit on his emotional well being having more social interactions.He may benefit from being transferred to a [place] provider to limit barriers to his care. Denies needing refills on any other medications at this time. May self-administer medications or be administered own oral medications per [facility] protocols. Provided informed consent with understanding of side effects, adverse effects, risks and benefits as well as alternative treatments as previously discussed and with the above recommended medications & other aspects of the treatment program. Agrees to return sooner if symptoms worsen or suicidal or homicidal ideations occur. * Recommended Wellness and Pre vention Guidelines: * S tatus A lert L ast Done N ext Due A ction Taken N ONCOMPLIANT B dot Mass Index - 1 - N ONCOMPLIANT C olorectal cancer screening - 1 - N ONCOMPLIANT D epression screening - 1 - N ONCOMPLIANT H IV screening - 1 - N ONCOMPLIANT I nfluenza vaccine (over 50) - 1 - * Procedure Codes: * Follow Up: 1 0 days (Reason: Medication f/u - [place] location) * * Sign off status: Completed true * Provider: Yessica Rosas, PMHNP Date: 1 Generated for Zofiai roman/Dasha/eTransmitting on: 0 07/23/2024 09:47 AM CDT History and Physical Notes * HPI (History of Present Illness) Category Sub-Category Detail Notes Category Not es Depression Screening PHQ-9 Little inte rest or pleasure in doing things: Nearly every day Feeling down, depressed, or hopeless: Ne alex every day Trouble falling or staying asleep, or sl eeping too much: Several days Feeling tired or having little energy: N early every day Poor appetite or overeating: Several day s Feeling bad about yourself o r that you are a failure, or have let yourself or your family down: Nearly every day Trouble concentrating on thi ngs, such as reading the newspaper or watching television: Nearly every day Moving or speaking so slowly that other people could have noticed; or the opposite, being so fidgety or restless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
--- OUTSIDE RECORDS SUMMARY | 2024-07-23 09:48 | XMS_ITS | Patient Health Summary ---
Author Organization [facility] [email or web address] Address [address] [place] [address] Care Team Providers Care Shrimp Trawler Captain Name Role Phone Fredisdorene Chip Feliz DO Primary Care Provider Note from [facility],non-owned Affiliates and Associated Physician Practices is amultiple site organization consisting of ambulatory clinics and hospital sitesin [place], [place], [place] and [place]. This disclosure is being madepursuant to the Care Everywhere program and may not contain all information available regarding this patient. Last updated 18.[facility] [email or web address] Allergies * Albumin(Rash) -Medium Criticality * Milk-Related Compounds(Rash) -Medium Criticality * Shellfish Allergy(Rash) -Medium Criticality * Soy Allergy(Rash) -Medium Criticality Medications * Be aware that medications may not be up to date on this document. Alwaysverify current medications with the patient. * multivitamins (ONE A DAY) capsule(Started 01/24/2016) * gabapentin (NEURONTIN) 300 MG capsule(Started 01/24/2016) Take 1 (one) capsule by mouth 2 times daily * clonazePAM (KLONOPIN) 0.5 MG tablet(Started 12/15/2018) TK 1 T PO BID 2 refills left * levothyroxine (SYNTHROID) 100 MCG tablet(Started 12/14/2018) TK 1 T PO QD 1 refill left * trihexyphenidyl (ARTANE) 5 MG tablet(Started 01/24/2016) Take 1 (one) tablet by mouth 2 times daily after meals * omeprazole (PRILOSEC) 40 MG capsule(Started 07/17/2019) Take 1 capsule by mouth 2 times daily,before breakfast and supper 3 refills by 07/16/2020 * divalproex ER 24hr (Depakote ER) 500 MG tablet(Started 04/15/2023) Take 2 (two) tablets by mouth at bedtime Reasons: MIXED BIPOLAR AFFECTIVE DISORDER, Mood Stabilzation 1 refill by 04/14/2024 * divalproex ER 24hr (Depakote ER) 500 MG tablet(Started 04/16/2023) Take 1 (one) tablet by mouth once daily Reasons: Mood Stabilization 1 refill by 04/14/2024 * haloperidol decanoate (Haldol Decanoate) 100 MG/ML injection(Started 05/08/2023) Inject 1 mL into muscle every 28 days DO NOT administer intravenously; Should be administered by deep IM injection using a 21 gauge needle; MAX volume per injection site should not exceed 3 mL His last Haldol Decanoate 100 mg IM injection was given on 04/10/2023. Reasons: Schizophrenia Active Problems Problem Noted Date Diagnosed Date Schizoaffective disorder, bipolar type 04/09/2023 Tardive dyskinesia 02/13/2023 04/09/2023 Eosinophilic esophagitis 12/14/2021 023 History of Harris's esophagus 07/14/2020 1 06/09/2022 Harris's esophagus with high grade dysplasia 04/09/2023 History of nephrectomy 03/13/2018 3 Glomerulosclerosis 03/13/2018 04/09/2023 Dysuria 06/21/2014 Personal history [...] medical care, and heating? Patient declined 04/08/2023 [facility] - Occupational [...] place to sleep or slept in a [facility] (including now)? Patient refused 04/08/2023 Sex and Gender Information Value Date Recorded Sex Assigned at Not on file Gender Identity Not on file Sexual Orientation Not on file Last Filed Vital Signs Vital Sign Reading Time Taken Comments Blood Pressure 113/77 04/15/2023 7:09 AM ELECTRICIAN'S ASSISTANT Pulse 82 04/15/2023 7:09 AM ELECTRICIAN'S ASSISTANT Temperature 36.6 C (97.8 F) 04/15/2023 7:09 AM ELECTRICIAN'S ASSISTANT Respiratory Rate 16 04/15/2023 7:09 AM ELECTRICIAN'S ASSISTANT Oxygen Saturation 97% 04/15/2023 7:09 AM ELECTRICIAN'S ASSISTANT Inhaled Oxygen Concentration - - Weight 102 kg (224 lb 13.9 oz) 04/08/2023 11:53 AM ELECTRICIAN'S ASSISTANT Height 190.5 cm (6' 3 ) 04/08/2023 11:53 AM ELECTRICIAN'S ASSISTANT Body Mass Index 28.11 04/08/2023 11:53 AM ELECTRICIAN'S ASSISTANT Procedures * CARDIAC EKG ORDER(Performed 04/15/2023) * VALPROIC ACID LEVEL(Performed 04/15/2023) * CBC W AUTO DIFFERENTIAL(Performed 04/13/2023) * VALPROIC ACID LEVEL(Performed 04/13/2023) * BASIC METABOLIC PANEL (CALCIUM TOTAL)(Performed 04/13/2023) * EKG 12-LEAD(Performed 04/12/2023) Performed for Schizoaffective disorder, bipolar type (HCC) * HEMOGLOBIN A1C(Performed 04/09/2023) * LIPID PROFILE(Performed 04/09/2023) * COMPREHENSIVE METABOLIC PANEL(Performed 04/09/2023) * VALPROIC ACID LEVEL(Performed 04/09/2023) * PATHOLOGY TISSUE(Performed 06/05/2019) Performed for Harris's esophagus with high grade dysplasia * IA ED EGD FLEX TRANSORAL DX(Performed 06/05/2019) Performed for Harris's esophagus with high grade dysplasia * ESOPHAGOGASTRODUODENOSCOPY (EGD) /ESOPHAGOSCOPY WITH ULTRASOUND (EUS) (Performed 06/05/2019) Performed for Harris's esophagus with high grade dysplasia * EGD(Performed 06/05/2019) * PATHOLOGY TISSUE(Performed 03/19/2019) Performed for Gastric lesion * ENDOSCOPY GI UPPER WITH ENDOSCOPIC ULTRASOUND EXAMINATION OF ESOPHAGUS (Performed 03/19/2019) Performed for Gastric lesion * IA ED EGD FLEX TRANSORAL DX(Performed 03/19/2019) Performed for Gastric lesion * ENDOSCOPIC ULTRASONOGRAPHY, GI(Performed 03/19/2019) * PATHOLOGY TISSUE(Performed 01/16/2019) Performed for Harris's esophageal ulceration * IA ED EGD FLEX TRANSORAL DX(Performed 01/16/2019) Performed for Harris's esophageal ulceration * EGD(Performed 01/16/2019) * PATHOLOGY TISSUE(Performed 01/15/2019) Performed for Harris's esophageal ulceration * LAB HISTORICAL RESULTS-ONBASE(Performed 07/26/2014) * URINALYSIS AUTO - POINT OF CARE (AMB) [facility](Performed 06/21/2014) * CULTURE URINE(Performed 06/21/2014) * CULTURE URINE(Performed 11/05/2013) * CULTURE URINE(Performed 09/28/2013) * CULTURE URINE(Performed 07/06/2013) Results * CARDIAC EKG ORDER (04/15/2023 1:48 PM ELECTRICIAN'S ASSISTANT) Narrative 04/15/2023 1:48 PM ELECTRICIAN'S ASSISTANT Ordered by an unspecified provider. Scanned Document CARDIAC SERVICES ORD ERABLES * VALPROIC ACID LEVEL (04/15/2023 6:10 AM ELECTRICIAN'S ASSISTANT) Only the most recent of3 resultswithin the time period is included. [facility] [address] Valproic Acid 59.52 50 - 100 ug/mL 04/15/2023 6:36 AM ELECTRICIAN'S ASSISTANT [facility] Blood BLOOD SPECIMEN / Unknown Lab Venipuncture / Unknown 04/15/2023 6:10 AM ELECTRICIAN'S ASSISTANT 04/15/2023 6:14 AM ELECTRICIAN'S ASSISTANT Ge Summers PLUG STITCHER-DRIVER MATERIAL HANDLER LAB - CHEMISTRY ORDERABLES Performing Organization Address City/State/[facility] Co de Phone Number [facility] [address] * (ABNORMAL) CBC W AUTO DIFFERENTIAL (04/13/2023 7:02 AM ELECTRICIAN'S ASSISTANT) [facility] [address] WBC 8.9 4.0 - 10.0 x10E9/L 04/13/2023 7:[address] [facility] RBC 4.35(L) 4.40 - 6.10 x10E12/L 04/13/2023 7:[address] [facility] Hemoglobin 14.0 13.7 - 17.5 gm/dL 04/13/2023 7:[address] [facility] Hematocrit 42.0 40.1 - 51.0 % 04/13/2023 7:[address] [facility] MCV 96.6 78.0 - 100.0 fl 04/13/2023 7:[address] [facility] MCH 32.2 25.6 - 34.0 pg 04/13/2023 7:[address] [facility] MCHC 33.3 32.3 - 36.5 gm/dL 04/13/2023 7:[address] [facility] RDW 12.5 11.6 - 14.4 % 04/13/2023 7:[address] [facility] MPV 8.4(L) 9.4 - 12.4 fl 04/13/2023 7:[address] [facility] Platelet Count 238 163 - 369 x10E9/L 04/13/2023 7:[address] [facility] Neutrophils % 52.1 40.0 - 75.0 % 04/13/2023 7:[address] [facility] Lymphocytes % 31.4 19.3 - 53.1 % 04/13/2023 7:[address] [facility] Monocytes % 12.5 4.7 - 12.5 % 04/13/2023 7:[address] [facility] Eosinophils % 3.3 0.7 - 7.0 % 04/13/2023 7:[address] [facility] Basophils % 0.2 0.1 - 1.2 % 04/13/2023 7:[address] [facility] Immature Granulocytes 0.5 0 - 0.5 % 04/13/2023 7:[address] [facility] Neutrophil Absolute 4.62 1.56 - 6.13 x10E9/L 04/13/2023 7:[address] [facility] Lymphocytes Absolute 2.78 1.18 - 3.74 x10E9/L 04/13/2023 7:[address] [facility] Monocytes Absolute 1.11(H) 0.24 - 0.86 x10E9/L 04/13/2023 7:[address] [facility] Eosinophils Absolute 0.29 0.04 - 0.54 x10E9/L 04/13/2023 7:[address] [facility] Basophils Absolute 0.02 0.01 - 0.08 x10E9/L 04/13/2023 7:[address] [facility] Immature Granulocytes Absolute 0.04(H) 0 - 0.03 x10E9/L 04/13/2023 7:[address] [facility] nRBC Auto 0 <=0 /100 WBC 04/13/2023 7:[address] [facility] nRBC Absolute 0.00 <=0 x10E9/L 04/13/2023 7:[address] [facility] Blood BLOOD SPECIMEN / Unknown Lab Venipuncture / Unknown 04/13/2023 7:02 AM ELECTRICIAN'S ASSISTANT 04/13/2023 6:55 AM ELECTRICIAN'S ASSISTANT Ge Summers PLUG STITCHER-DRIVER MATERIAL HANDLER LAB - HEMATOLOGY ORDERABLES Performing Organization Address [facility] Co de Phone Number [facility] [address] * (ABNORMAL) BASIC METABOLIC PANEL (CALCIUM TOTAL) (04/13/2023 6:23 AM [facility]) [facility] [address] Glucose 91 70 - 125 mg/dL 04/13/2023 7:[address] [facility] Sodium 142 136 - 145 mmol/L 04/13/2023 7:[address] [facility] Potassium 5.0 3.4 - 5.1 mmol/L 04/13/2023 7:[address] [facility] Chloride 108(H) 98 - 107 mmol/L 04/13/2023 7:[address] [facility] CO2 26 22 - 29 mmol/L 04/13/2023 7:[address] [facility] Calcium 9.17 8.4 - 10.2 mg/dL 04/13/2023 7:[address] [facility] Anion Gap 13 6 - 16 mmol/L 04/13/2023 7:[address] [facility] BUN 33.8(H) 8.4 - 25.7 mg/dL 04/13/2023 7:[address] [facility] Creatinine 2.21(H) 0.72 - 1.25 mg/dL 04/13/2023 7:[address] [facility] eGFR 34(L) >90 mL/min/1.7 3m2 04/13/2023 7:[address] [facility] Comment:The GFR result was c alculated using the updated CKD-EPI Creatinine Equation (2020). Blood BLOOD SPECIMEN / Unknown Lab Venipuncture / Unknown 04/13/2023 6:23 AM ELECTRICIAN'S ASSISTANT 04/13/2023 6:55 AM [facility] Ge Summers PLUG STITCHER-[facility] - CHEMISTRY ORDERABLES Performing Organization Address [facility] Co de Phone Number [facility] [address] [place], [place] [address] * EKG 12-LEAD (04/12/2023 3:09 PM ELECTRICIAN'S ASSISTANT) Ventricular Rate 85 BPM [facility] Atrial Rate 85 BPM [facility] P-R Interval 144 ms [facility] QRS Duration ms 108 ms [facility] Q-T Interval ms 378 ms [facility] M[facility] QTC Calculation (Bezet) 449 ms [facility] MUSE Calculated P [place] 65 degrees [facility] MUSE Calculated R [place] 69 degrees [facility] MUSE Calculated T [place] 51 degrees [facility] MUSE Interpretation EKG NORMAL SINUS RHYTHM NORMAL ECG NO PREVIOUS ECGS AVAILABLE Confirmed by CALLI RODRIGUEZ, [facility] ([id number]), food expeditor SUZIE ABARCA ([id number]) on 04/14/2023 12:56:44 PM [facility] MUSE 04/12/2023 3:09 PM ELECTRICIAN'S ASSISTANT 04/14/2023 12:56 PM ELECTRICIAN'S ASSISTANT Ge L Melina PLUG STITCHER-DRIVER MATERIAL HANDLER ECG ORDERABLES [facility] * HEMOGLOBIN A1C (04/09/2023 6:12 AM ELECTRICIAN'S ASSISTANT) Hemoglobin A1c 4.9 4.2 - 5.6 % 04/09/2023 8:00 AM ELECTRICIAN'S ASSISTANT [facility] Estimated Average Glucose 94 mg/dL 04/09/2023 8:00 AM ELECTRICIAN'S ASSISTANT [facility] Blood BLOOD SPECIMEN / Unknown Lab Venipuncture / Unknown 04/09/2023 6:12 AM ELECTRICIAN'S ASSISTANT 04/09/2023 6:22 AM ELECTRICIAN'S ASSISTANT Narrative [facility] - 04/09/2023 8:00 AM [facility] HbA1c Interpretation: Normal: < 5.7% Pre-diabetes: 5.7-6.4% Diabetes: Equal to or greater than 6.5% Test results diagnostic of diabetes should be repeated for confirmation. Treatment target values recommended by ADA and other clinical organizations should be used to evaluate metabolic control in patients. This test should not replace glucose testing for patients with Type 1 diabetes, pediatric patients, or women. Falsely low HbA1c results may be observed in patients with clinical conditions that shorten erythrocyte life span or decrease mean erythrocyte age such as the presence of unstable hemoglobin variants, elevated hemoglobin F level or other causes of hemolytic anemia. HbA1c may not accurately reflect glycemic control when clinical conditions that affect erythrocyte survival are present. Severe Iron deficiency anemia may yield falsely high results. Hemoglobin A1c assay should not be used to diagnose or monitor diabetes in patients with malignancy, recent blood transfusion, chronic kidney or liver disease. This method may yield falsely low results when hemoglobin (HbF) exceeds 5% in the specimen. The Diehl Alinity assay for the measurement of HbA1c is a National Glycohemoglobin Standardization Program (NGSP) certified method. Dolores Mandujano APRN-[facility] - CHEMISTRY ORDERABLES [facility] [address] * (ABNORMAL) COMPREHENSIVE METABOLIC PANEL (04/09/2023 6:12 AM [facility]) [facility] [address] Glucose 101 70 - 125 mg/dL 04/09/2023 6:[address] [facility] Sodium 141 136 - 145 mmol/L 04/09/2023 6:[address] [facility] Potassium 4.3 3.4 - 5.1 mmol/L 04/09/2023 6:[address] [facility] Chloride 105 98 - 107 mmol/L 04/09/2023 6:[address] [facility] CO2 28 22 - 29 mmol/L 04/09/2023 6:[address] [facility] Calcium 10.07 8.4 - 10.2 mg/dL 04/09/2023 6:[address] [facility] Anion Gap 12 6 - 16 mmol/L 04/09/2023 6:[address] [facility] BUN 17.8 8.4 - 25.7 mg/dL 04/09/2023 6:[address] [facility] Creatinine 1.83(H) 0.72 - 1.25 mg/dL 04/09/2023 6:[address] [facility] Alkaline Phosphatase 61 40 - 150 U/L 04/09/2023 6:[address] [facility] ALT 15 <=55 U/L 04/09/2023 6:[address] [facility] AST 28 5 - 34 U/L 04/09/2023 6:[address] [facility] Protein Total 7.8 6.4 - 8.3 gm/dL 04/09/2023 6:[address] [facility] Albumin 4.2 3.4 - 4.8 gm/dL 04/09/2023 6:[address] [facility] Globulin Total 3.6 2.6 - 4.0 gm/dL 04/09/2023 6:[address] [facility] Albumin/Globulin Ratio 1.2 0.9 - 1.6 04/09/2023 6:[address] [facility] Bilirubin Total 0.7 0.2 - 1.2 mg/dL 04/09/2023 6:[address] [facility] eGFR 43(L) >90 mL/min/1.7 3m2 04/09/2023 6:[address] [facility] Comment:The GFR result was c alculated using the updated CKD-EPI Creatinine Equation (2020). Blood BLOOD SPECIMEN / Unknown Lab Venipuncture / Unknown 04/09/2023 6:12 AM ELECTRICIAN'S ASSISTANT 04/09/2023 6:22 AM [facility] Dolores Mandujano PLUG STITCHER-DRIVER MATERIAL HANDLER LAB - CHEMISTRY ORDERABLES Performing Organization Address [facility]/State/[facility] de Phone Number [facility] [address] * LIPID PROFILE (04/09/2023 6:12 AM [facility]) Cholesterol 137 <200 mg/dL 04/09/2023 6:[address] [facility] Triglycerides 104 <150 mg/dL 04/09/2023 6:[address] [facility] HDL Cholesterol 43 >40 mg/dL 3 6:[address] [facility] Chol HDL Ratio 3.2 1.0 - 6.0 04/09/2023 6:[address] [facility] LDL Calculated 73 65 - 130 mg/dL 04/09/2023 6:[address] [facility] VLDL Calculated 21 <=30 mg/dL 3 6:[address] [facility] Blood BLOOD SPECIMEN / Unknown Lab Venipuncture / Unknown 04/09/2023 6:12 AM ELECTRICIAN'S ASSISTANT 04/09/2023 6:22 AM [facility] Narrative [facility] - 04/09/2023 6:42 AM [facility] Lipid Profile Comment: CHOLESTEROL LEVEL..................CLINICAL INTERPRETATION LESS [...] 9.5 ...................... 7.0 3X AVERAGE...................>23........................>11 Dolores Mandujano PLUG STITCHER-DRIVER MATERIAL HANDLER LAB - CHEMISTRY ORDERABLES Performing Organization Address City/State/[facility] Co de Phone Number [facility] [address] * PATHOLOGY TISSUE (06/05/2019 11:49 AM ELECTRICIAN'S ASSISTANT) Only the most recent of4 resultswithin the time period is included. Case Report Surgical Pathology Report Case: [id number] Authorizing Provider: Wilfrido Kern MD Collected: 06/05/2019 11:49 AM Ordering Location: [facility] Received: 06/05/2019 01:33 PM Pathologist: Marva Hicks MD Specimen: Gastric, Gastric cardia biopsies 06/09/2019 12:20 PM [facility] Final Diagnosis Gastric cardia, biopsy (A): - Squamocolumnar mucosa with intestinal metaplasia and focal high-grade dysplasia - See comment 06/09/2019 12:20 PM [facility] Microscopic Description and Comment Microscopic examination substantiates the final diagnosis. The gastric cardia biopsy shows squamocolumnar mucosa with intestinal metaplasia, some of which is buried under squamous mucosa. Focally in the intestinal metaplasia, there are enlarged irregular hyperchromatic nuclei consistent with high-grade dysplasia. An immunostain for p53 was performed (block A1, with appropriately staining controls) and shows diffuse strong staining in the area of high grade dysplasia. The previous gastric nodule ([id number]) is reviewed and shows similar features. 06/09/2019 12:20 PM [facility] Clinical History The patient is a 54-year-old man who is here for gastric mucosal mass/polyp found on endoscopy (hx of gastric cardia lesion s/p biopsy via EMR Mar 2011 with possible high-grade dysplasia). Operative procedure/findings: EGD- Wall thickening/lesion in gastric cardia ~ 1 cm in length and 3 mm in depth on EUS with extension to submucosa. 06/09/2019 12:20 PM [facility] Gross Description The requisition and specimen(s) are labeled with the patient's name, Bebo Casey. Received in formalin, specimen A , are 4 pink leary tissue fragments measuring 0.1-0.2 cm in greatest dimension, with an aggregate measurement of 0.5 x 0.5 x 0.1 cm. Submitted in toto in cassette A1. KK 06/09/2019 12:20 PM [facility] Disclaimer The performance characteristics of all immunohistochemical and indirect immunofluorescence stains (if any) cited in this report were determined by the Histopathology Laboratory of [facility]. Some of these tests were developed by our own laboratory and have not been cleared or approved by the US Food and Drug Administration. The FDA does not require this test to go through premarket FDA review. These tests are used for clinical purposes. They should not be regarded as investigational or for research. This laboratory is certified under the Clinical Laboratory Improvement Amendments (CLIA) as qualified to perform high complexity clinical laboratory testing. This case has been personally reviewed and interpreted by the attending (teaching) pathologist. 06/09/2019 12:20 PM ELECTRICIAN'S ASSISTANT [facility] Embedded Images 06/09/2019 12:20 PM ELECTRICIAN'S ASSISTANT [facility] Biopsy, NOS GASTRIC CONTENTS SPECIMEN / Unknown 06/05/2019 11:49 AM ELECTRICIAN'S ASSISTANT 06/05/2019 1:33 PM ELECTRICIAN'S ASSISTANT Comment:Pre-op diagnosis: Harris's esophagus with high grade dysplasia [K22.711] Wilfrido Kern MD LAB - PATHOLOGY/CYTO LOGY ORDERABLES [facility] [address] [phone] * EGD (06/05/2019 11:23 AM ELECTRICIAN'S ASSISTANT) Report Endoscopy POC Endoscopy Department Report _ Patient Name: Bebo Casey Procedure Date: 06/05/2019 11:23 AM Date of : 1965 Classification: Outpatient Gender: Male Ethnicity: Not or Race: White _ Providers: Wilfrido Kern MD Referring MD: Linda Sheffield MD (Referring MD), Chip Lizarraga (Referring ) Procedure: Upper EUS and EGD Indications: Gastric mucosal mass/polyp found on endoscopy Medications: Monitored Anesthesia Care Patient Profile: 54 y old man, hx of gastric cardia lesion s/p biopsy via EMR Mar 2011 with possible high-grade dysplasia; planned repeat evaluation and biopsy Description of Procedure: After obtaining informed consent, the endoscope was passed under direct vision. Throughout the procedure, the patient's blood pressure, pulse, and oxygen saturations were monitored continuously. The [id number] was introduced through the mouth, and advanced to the second part of duodenum. Findings: Endoscopic Finding : The examined duodenum was endoscopically normal. One ~10-12 mm area of nodular mucosa was seen extending from level of gastric side of GE junction down into cardia. It comprised ~1/4 of the circumference of gastric cardia. No bleeding and no stigmata of recent bleeding was found in the cardia. Old clip from prior procedure was seen. After EUS, numerous biopsies were taken with a cold forceps for histology. Endosonographic Finding : The esophagus, stomach and duodenum were visualized endosonographically. Localized wall thickening was visualized endosonographically in the cardia of the stomach at level of nodular mucosa. This appeared to primarily be due to thickening within the luminal interface/superficial mucosa (Layer 1), deep mucosa (Layer 2) and submucosa (Layer 3). The gastric wall measured up to 3 mm in thickness. No lymph nodes were seen during endosonographic examination in the gastrohepatic ligament (level 18) and in the perigastric region. One benign-appearing lymph node was visualized in the subcarinal mediastinum (level 7) with the ultrasound probe located 30 cm from the incisors. It measured 12 mm by 4 mm in maximal cross-sectional diameter. The node was triangular, hypoechoic and had well defined margins. There was no sign of significant endosonographic abnormality in the esophagus. No pathologic lymphadenopathy and no masses were identified. Estimated Blood Loss: Estimated blood loss was minimal. Complications: No immediate complications. Estimated blood loss: Minimal. Impression: 1) Normal examined duodenum. 2) Wall thickening/lesion in gastric cardia ~ 1 cm in length and 3 mm in depth on EUS with extension to submucosa. Prior biopsies were concerning for high-grade dysplasia, therefore, repeat biopsies done today for further evaluation. Based on prior pathology and given lesion coarses along gastric cardia wall and extends to submucosa, recommend referral to surgeon to consider surgical management. 3) One benign lymph node was visualized in the subcarinal mediastinum (level 7). 4) There was no sign of significant pathology in the esophagus. Recommendation: - Discharge patient to home (ambulatory). - Await path results. - Refer to a surgeon at the next available appointment. Procedure Code(s): --- Professional --- 97509, Esophagogastroduodenos copy, flexible, transoral; with endoscopic ultrasound examination, including the esophagus, stomach, and either the duodenum or a surgically altered stomach where the jejunum is examined distal to the anastomosis Diagnosis Code(s): --- Professional --- K31.89, Other diseases of stomach and duodenum I89.9, Noninfective disorder of lymphatic vessels and lymph nodes, unspecified CPT copyright 2016 [employer]. All rights reserved. The codes documented in this report are preliminary and upon log pond worker review may be revised to meet current compliance requirements. Wilfrido Kern MD 06/05/2019 12:07:22 PM This report has been signed electronically. Note Initiated On: 06/05/2019 11:23 AM Number of Addenda: 0 [facility] [address] [place] [address] [facility] 06/05/2019 11:2 3 AM ELECTRICIAN'S ASSISTANT Wilfrido Kern MD GI PROCEDURE ORDERAB LES [facility] * ENDOSCOPIC ULTRASONOGRAPHY, GI (03/19/2019 1:56 PM ELECTRICIAN'S ASSISTANT) Report Endoscopy POC Endoscopy Department Report _ Patient Name: Bebo Casey Procedure Date: 03/19/2019 1:56 PM Date of : 1965 Classification: Outpatient Gender: Male Ethnicity: Not or Race: White _ Providers: Wilfrido Kern MD Referring MD: Linda Sheffield MD (Referring MD) Procedure: Upper EUS and EGD with EMR Indications: Abnormal endoscopy - gastric nodule seen on prior EGD Medications: Monitored Anesthesia Care Patient Profile: 54 y old man with hx of Hraris's esophagus - being treated with RFA by Dr. Sheffield. Last EGD with reported gastric nodule - biopsied- Glandular mucosa with high grade dysplasia Description of Procedure: After obtaining informed consent, the endoscope was passed under direct vision. Throughout the procedure, the patient's blood pressure, pulse, and oxygen saturations were monitored continuously. The [id number] was introduced through the mouth, and advanced to the second part of duodenum. After obtaining informed consent, the endoscope was passed under direct vision. Throughout the procedure, the patient's blood pressure, pulse, and oxygen saturations were monitored continuously.The upper GI endoscopy was accomplished without difficulty. The patient tolerated the procedure well. Findings: Endoscopic Finding : Two islands of salmon-colored mucosa were seen ~ 43-44 cm from incisors. Prior hx of RFA for Harris's esophagus. GE junction at 46 cm from incisors. One 10 mm mucosal lesion with no bleeding and no stigmata of recent bleeding was found in the cardia immediately distal to GE junction along 6 o'clock wall. After EUS was done, preparations were made for mucosal resection. A 1:60,000 solution of epinephrine and methylene blue was injected to raise the lesion. Snare mucosal resection was performed. En bloc resection and retrieval were complete. To prevent bleeding after mucosal resection, two hemostatic clips (Cook, 16 mm clips) were successfully placed (MR conditional). There was no bleeding at the end of the procedure. The examined duodenum was endoscopically normal. Endosonographic Finding : The esophagus, stomach and duodenum were visualized endosonographically. There was no sign of significant endosonographic abnormality in the esophagus. No pathologic lymphadenopathy was identified. Localized wall thickening was visualized endosonographically in the cardia of the stomach at the site of the gastric cardia mucosal lesion. This appeared to primarily be due to thickening within the luminal interface/superficial mucosa (Layer 1) and deep mucosa (Layer 2). The gastric wall measured up to 2 mm in thickness and 10 mm in width at this site. Endosonographic images of the stomach were otherwise unremarkable. No pathologic lymphadenopathy was identified. Estimated Blood Loss: Estimated blood loss was minimal. Complications: No immediate complications. Estimated blood loss: Minimal. Impression: EUS, EGD + EMR: 1) Two islands of salmon-colored mucosa were seen ~ 43-44 cm from incisors. Prior hx of RFA for Harris's esophagus 2018. Patient follows and treated by Dr. Sheffield. 2) Wall thickening was seen in the cardia of the stomach just distal to GE junction and mucosa was nodular in this region. On EUS, the thickening appeared to be primarily within the luminal interface/superficial mucosa (Layer 1) and deep mucosa (Layer 2). Mucosal resection was performed. Resection and retrieval were complete. 2 Clips (MR conditional) were placed. 3) Endosonographic images of the stomach were unremarkable. 4) Normal examined duodenum. Recommendation: - Discharge patient to home (ambulatory). - Await path results. - Clear liquid diet for 1 day, then advance as tolerated to mechanical soft diet for 2 days. - Recommend continuation of ppi already prescribed for 3 months. Thereafter, recommend discussing with Dr. Sheffield. - Recommend sucralfate suspension 1 gram three times a day x 7 days after EMR. Recommend taking medication at least 1 hour separate from other medications. Attending Participation: I personally performed the entire procedure. Procedure Code(s): --- Professional --- 62554, Esophagogastroduodenos copy, flexible, transoral; with endoscopic mucosal resection 20037, Esophagogastroduodenos copy, flexible, transoral; with endoscopic ultrasound examination, including the esophagus, stomach, and either the duodenum or a surgically altered stomach where the jejunum is examined distal to the anastomosis Diagnosis Code(s): --- Professional --- K31.89, Other diseases of stomach and duodenum K92.9, Disease of digestive system, unspecified CPT copyright 2016 [employer]. All rights reserved. The codes documented in this report are preliminary and upon log pond worker review may be revised to meet current compliance requirements. Wilfrido Kern MD 03/19/2019 3:12:59 PM This report has been signed electronically. Note Initiated On: 03/19/2019 1:56 PM Number of Addenda: 0 [facility] [address] [place] [address] [facility] 03/19/2019 1:56 PM ELECTRICIAN'S ASSISTANT Wilfrido Kern MD GI PROCEDURE ORDERAB LES [facility] * EGD (01/16/2019 1:36 PM CDT) Report Endoscopy POC Endoscopy Department Report __ _ Patient Name: Bebo Casey Procedure Date: 01/16/2019 1:36 PM Date of : 1965 Classification: Outpatient Gender: Male Ethnicity: Not or Race: White __ _ Providers: Linda Sheffield MD, Osmel Mcintosh (Fellow) Referring MD: Chip Lizarraga MD (Referring MD) Procedure: Upper GI endoscopy Indications: For therapy of Harris's esophagus Medications: Monitored Anesthesia Care Patient Profile: HGD Description of Procedure: Pre-Anesthesia Assessment: - Prior to the procedure, a History and Physical was performed, and patient medications and allergies were reviewed. The patient's tolerance of previous anesthesia was also reviewed. The risks and benefits of the procedure and the sedation options and risks were discussed with the patient. All questions were answered, and informed consent was obtained. Prior Anticoagulants: The patient has taken no previous anticoagulant or antiplatelet agents. ASA Grade Assessment: III - A patient with severe systemic disease. After reviewing the risks and benefits, the patient was deemed in satisfactory condition to undergo the procedure. After obtaining informed consent, the endoscope was passed under direct vision. Throughout the procedure, the patient's blood pressure, pulse, and oxygen saturations were monitored continuously. The GIF-[id number] was introduced through the mouth, and advanced to the second part of duodenum. The upper GI endoscopy was accomplished without difficulty. The patient tolerated the procedure well. Findings: The esophagus and gastroesophageal junction were examined with white light and narrow band imaging (NBI). There were esophageal mucosal changes secondary to established short-segment Harris's disease. These changes involved the mucosa at the upper extent of the gastric folds (43 cm from the incisors) extending to the Z-line (45 cm from the incisors). One tongue of salmon-colored mucosa was present. The maximum longitudinal extent of these esophageal mucosal changes was 2 cm in length. Focal radiofrequency ablation of Harris's esophagus was performed. With the endoscope in place, the position and extent of the Harris's mucosa and the anatomic landmarks including proximal and distal extent of Harris's mucosa were noted. Endoscopic visualization identified an ablation site including the entire visible Harris's segment. The Harris's mucosa was irrigated with N-acetylcysteine (Mucomyst) 1% mixed with water. The endoscope was then removed from the patient. The Barrx-90 radiofrequency ablation catheter was attached to the tip of the endoscope. The endoscope with the attached radiofrequency ablation catheter was then passed transorally under direct vision into the esophagus and advanced to the areas of Harris's mucosa. The areas included tongues of Harris's mucosa. The radiofrequency ablation catheter was placed in contact with the surface of the Harris's mucosa under direct visualization and energy was applied twice at 12 J/cm2. Ablation was repeated in a likewise fashion to all visible Harris's mucosa. A second round of ablation was then performed. Energy was applied twice at 12 J/cm2 to retreat the areas of Harris's epithelium that had been treated with the first series of ablation. The areas of the esophagus where Harris's mucosa had been ablated were examined. There was no bleeding. The patient had no complications. Ringed esophagus and linear furrows were noted in the middle third of the esophagus. Biopsies were taken with a cold forceps for histology. One 8 mm papule (nodule) with no bleeding and no stigmata of recent bleeding was found in the cardia. Biopsies were taken with a cold forceps for histology. The cardia and gastric fundus were normal on retroflexion. The duodenal bulb, first portion of the duodenum and second portion of the duodenum were normal. Estimated Blood Loss: Estimated blood loss was minimal. Complications: No immediate complications. Impression: - Esophageal mucosal changes secondary to established short-segment Harris's disease. Treated with radiofrequency ablation. - Changes suggestive of eosinophilic esophagitis. Biopsied. - One papule (nodule) found in the stomach. Biopsied. - Normal duodenal bulb, first portion of the duodenum and second portion of the duodenum. Recommendation: - Patient has a contact number available for emergencies. The signs and symptoms of potential delayed complications were discussed with the patient. Return to normal activities tomorrow. Written discharge instructions were provided to the patient. - Resume previous diet. - Use Prilosec (omeprazole) 40 mg PO BID. - Await pathology results. - Return to GI clinic as previously scheduled. - Repeat upper endoscopy in 2 months for retreatment. - Continue present medications. Attending Participation: I was present and participated during the entire procedure, including non-horan portions. Procedure Code(s): --- Professional --- 10013, Esophagogastroduode noscopy, flexible, transoral; with biopsy, single or multiple Diagnosis Code(s): --- Professional --- K22.70, Harris's esophagus without dysplasia K22.8, Other specified diseases of esophagus K31.89, Other diseases of stomach and duodenum CPT copyright 2016 [employer]. All rights reserved. The codes documented in this report are preliminary and upon log pond worker review may be revised to meet current compliance requirements. ___ Linda Sheffield MD 01/16/2019 2:26:15 PM Note Initiated On: 01/16/2019 1:36 PM Number of Addenda: 0 [facility] [address] [facility] [place] [address] [facility] 01/16/2019 1:36 PM CDT Linda Sheffield MD GI PROCEDURE ORDER LORNA Performing Organization Address City/[facility]/ZIP Co de Phone Number [facility] * LAB HISTORICAL RESULTS-ONBASE (07/26/2014) 07/26/2014 Narrative [facility] - 07/28/2014 9:03 AM CDT Historical Provider LAB - CHEMISTRY O RDERABLES Performing Organization Address [facility]/ZIP Co de Phone Number [facility] [address] [place] [address], [facility] * URINALYSIS AUTO - POINT OF CARE (AMB) [facility] (06/21/2014 3:19 PM ELECTRICIAN'S ASSISTANT) Glucose UA neg [facility] Bilirubin UA POCT neg [facility] Ketones UA POCT neg [facility] Specific [place] UA 1.015 [facility] Blood Urine POCT neg [facility] pH UA 6.0 [facility] Protein UA neg [facility] Urobilinogen UA 3.5 [facility] Nitrite UA neg [facility] WBC UA neg [facility] Urine specimen (specimen) 06/21/2014 3:19 PM ELECTRICIAN'S ASSISTANT Prachi Castaneda MD LAB - POINT OF CARE ORDERABLES Performing Organization Address [facility]/ZIP Co de Phone Number [facility] * CULTURE URINE (06/21/2014 3:17 PM ELECTRICIAN'S ASSISTANT) Only the most recent of4 resultswithin the time period is included. Culture Urine Less than 10,000 CFU/ML of Normal Urogenital/ Skin Denise [facility] Comment: Urine specimen (specimen) URINE / Unknown 06/21/2014 3:17 PM ELECTRICIAN'S ASSISTANT 06/21/2014 5:32 PM ELECTRICIAN'S ASSISTANT Narrative [facility] - 06/23/2014 1:06 PM ELECTRICIAN'S ASSISTANT Specimen Type->Urine Prachi Castaneda MD LAB - MICROB IOLOGY ORDERABLES Performing Organization Address City/State/[facility] Co de Phone Number [address] [phone] Care Teams Shrimp Trawler Captain Relationship Specialty Start Date End Date Chip Lizarraga DO PCP - General Internal Medicine 01/16/19
[2024-07-23 10:02] LABS: Valproic Acid 32.8 ug/mL (50-120)
== END 2024-07-23 08:56 | disposition home or self-care (01) ==
LOC: ANHLAB 08:57
PROVIDERS: PCP Internal Medicine; Visit Provider Internal Medicine Pulmonary Disease
DX: Z01.89 Encounter for other specified special examinations (principal); Z79.899 Other long term (current) drug therapy
CPT/HCPCS: 36415; 80053; 80164; 85027

== ENCOUNTER 2024-07-30 08:40 | Outpatient (RCR) | payer OTHER, SELFPAY ==
--- NOTE | 2024-05-04 09:54 | PC.NURSE ---
AMBULATORY TO DRAW STATION WITH STEADY GAIT FOR MONTHLY INJECTION. MEDICATION BROUGHT WITH PATIENT IN PHARMACY BOTTLES MARKED APPROPRIATELY. EACH VIAL CONTAINS 100 MG OR 1 CC OF MEDICATION. GIVEN HALOPERIDOL 150 MG IM OR 1.5 CC ORDERED. DISCHARGED AMBULATORY WITH STEADY GAIT. TO RETURN 06/01/2024 - HAS APPOINTMENT CARD WITH NUMBER TO CALL FOR QUESTIONS.
--- NOTE | 2024-06-01 12:35 | PC.NURSE ---
Ambulatory to Lab Draw Station for outpatient Haldol D injection. 2 vials brought in by patient in bottles marked appropriately from the the pharmacy. Each vial containing 1 cc / 100 mg of Haldol per cc. Given 1.5 cc of medication or 150 mg as ordered. Significant event since last injection: mother after short illness last week. Siblings are little support. Discharged with steady gait to return in 1 month - has appointment and phone number on paper should he need to change appointment.
--- NOTE | 2024-07-01 11:16 | PC.NURSE ---
AMBULATORY TO LAB DRAW STATION FOR OUTPATIENT INJECTION. DOES NOT MAKE EYE CONTACT TODAY. VERBALIZES NOW UPSET HE IS THAT HIS PHYSICIANS HAVE DESTROYED HIS HEALTH IN ORDER TO KEEP HIM FROM HURTING HIMSELF OR OTHERS. STATES NOW HAS GOUT IN HIS TOE A SIDE EFFECT OF HIS MEDICATIONS. STATES MEDICATIONS HAVE COST HIM HIS HEALTH IN ORDER TO KEEP HIM FROM HURTING HIMSELF OR OTHERS. STATED, I SHOULD GO THREATEN THEM! THAT'S WHAT I SHOULD DO .... MEDICATION BROUGHT IN BY PATIENT IN PHARMACY BAG AND LABELED APPROPRIATELY. RECEIPT STATES THIS IS A PARTIAL FILL. ONLY 100 MG IN BAG INSTEAD OF 200 MG. [facility] IS UNABLE TO GET FULL DOSE AT THIS TIME. UNKNOWN WHEN ABLE TO GET COMPLETE DOSE. GIVEN HALDOL D 100 MG / ML. DISCHARGED AMBULATORY WITH STEADY GAIT. HAS APPOINTMENT FOR 1 MONTH / 4 WEEKS FROM TODAY. UNABLE TO CONTACT JOSE MARIA AT [facility] REGARDING MEDICATION DOSAGE. WILL CONTINUE TO TRY TO CONTACT HER.
--- NOTE | 2024-07-30 10:53 | PC.NURSE ---
AMBULATORY TO LAB DRAW STATION FOR MONTHLY HALDOL INJECTION. MEDICATION BROUGHT IN BY PATIENT IN PHARMACY BOTTLE MARKED APPROPRIATELY. BOTTLE CONTAINED 2 VIALS OF HALDOL D WITH 100 MG/CC EACH VIAL. GIVEN 1.5 CC OR 150 MG. VERY ANGRY DEMEANOR TODAY. CURSING IN CONVERSATION. LOUD, ANGRY VOICE. DELIBERATE / STOMPING GAIT.
== END 2024-08-02 23:59 | disposition home or self-care (01) ==
LOC: ANHLAB 08:40
PROVIDERS: PCP Internal Medicine; Visit Provider Internal Medicine
DX: F25.9 Schizoaffective disorder, unspecified (principal)
CPT/HCPCS: 96372

== ENCOUNTER 2024-09-10 08:25 | Outpatient (CLI) | payer OTHER, SELFPAY ==
--- OUTSIDE RECORDS SUMMARY | 2024-09-10 08:31 | XMS_ITS | Clinical Summary ---
Author Organization [facility] Address [address] [place] [address] Care Team Providers Care Special Education Paraeducator Name Role Phone FredisChip catherine DO Primary Care Provider [phone] Allergies No known active allergies Medications divalproex [...] of 3 - 19+ 3-dose series) 1985 Pneumococcal Vaccine: 50+ Ye ars (1 of 1 - PCV) 02/22/2016 Zoster Vaccines (1 of 2) 02/22/2016 COVID-19 Vaccine (1 - 2023-2 5 season) 2024 EGD-Harris's Surveillance Discontinued 10/15/2018 Meningococcal B Vaccine [...] Most Recently Relevant to Health Maintenance Insurance [employer] Care Teams Special Education Paraeducator Relationship Specialty Start Date End Date Chip Lizarraga DO [address] [facility] [address] [place] [address] PCP - General INTERNAL MEDICINE 10/14/18
--- OUTSIDE RECORDS SUMMARY | 2024-09-10 08:31 | XMS_ITS | Clinical Summary ---
Author Organization [facility] Address [address] [place] [address] Phone Care Team Providers Care Corporate Development Officer Name Role Phone Chip Lizarraga DO Primary Care Provider [phone] Allergies No known active allergies Medications lamoTRIgine (LAMICTAL) 100 MG tablet 1 PO at bedtime 0 01/24/2016 Active Multiple Vitamin (MULTIVITAMIN) capsule 1 PO daily 0 01/24/2016 Active levothyroxine (SYNTHROID, LEVOTHROID) 100 MCG tablet 1 PO at bedtime 0 01/24/2016 Active divalproex (DEPAKOTE) 500 MG EC tablet 1 in am 1 at bedtime 0 01/24/2016 Active haloperidol decanoate (HALDOL DECANOATE) 100 MG/ML injection 1monthly 0 01/24/2016 Act graciela midodrine (PROAMATINE) 10 MG tablet Take 2.5 [...] 03/29/2022 Abnormal weight loss 03/13/2018 019 Immunizations Immunization Administration Dates Next Due Influenza TIV (IM) [...] at Not on file Legal Sex Male 8:02 AM [facility] Gender Identity Not on file Sexual Orientation Not on file Last Filed Vital Signs Vital Sign Reading Time Taken Comments Blood Pressure 123/100 03/24/2024 1:03 PM CRIME VICTIM SPECIALIST Pulse 107 03/24/2024 1:03 PM CRIME VICTIM SPECIALIST Temperature 36.6 C (97.9 F) 04/25/2021 11:28 AM CRIME VICTIM SPECIALIST Respiratory Rate - - Oxygen Saturation - - Inhaled Oxygen Concentration - - Weight 106 kg (233 lb) 03/24/2024 1:03 PM CRIME VICTIM SPECIALIST Height 190.5 cm (6' 3 ) 03/24/2024 1:03 PM CRIME VICTIM SPECIALIST Body Mass Index 29.12 03/24/2024 1:03 PM CRIME VICTIM SPECIALIST Plan of Treatment Upcoming Encounters Date Type Department Care Team (Late st Contact Info) Description 09/22/2024 12:20 PM CDT Office Visit [facility] [address] [facility] [address] [place] [id number] Rell Duenas MD [address] [address] Health Maintenance Due Date Last Done Comments Pneumococcal PPSV23 Highest Risk Adult (1 of 3 - PCV13) 1984 Influenza Vaccine (Season Ended) 2025 02/16/20 16 Insurance [employer] , [address] [place] [address] Care Teams Corporate Development Officer Relationship Specialty Start Date End Date Chip Lizarraga DO [address] [place] [address] PCP - General 09/23/18
--- OUTSIDE RECORDS SUMMARY | 2024-09-10 08:31 | XMS_ITS | Patient Health Record ---
Author Organization [facility] Address [address] [place] [address] Care Team Providers Care Pond Tender Name Role Phone Jamaica Rosas Primary Care [...] Risk Notes Problem Schizoaffective disorder, bipolar type (98187751) Schizoaffective disorder, bipolar type (F25.0) 02/14/20 Active confirmed Problem Tardive dyskinesia (141707132) Tardive dyskinesia (G24.01) 02/14/20 Active confirmed Encounters Encounter Location Date Provider Diagnosis [facility] [address] [place] [address] 11/11/2023 Jamaica Rosas Plan Of Treatment No Information Insurance Providers Payer Name Payer Address Payer Phone Subscriber Number Group Number Insured Name Patient Relationship to Insured Coverage Start Date Coverage End Date [facility] Attn Claims Department [address] [place] [address] [id number] Bebo Casey Self - patient is the insured 3 Medical (General) History Surgical History Surgery Date(Month/Year) Rt kidney removed-cancer 2013 Hospitalization History Reason Date(Month/Year) Dehydration Psychiatric inpatient stay 1988 Psychiatric inpatient stay 2009 Psychiatric inpatient stay 2021
--- OUTSIDE RECORDS SUMMARY | 2024-09-10 08:31 | XMS_ITS | Encounter Summary ---
Author Organization [facility] Address [facility] [place] [address] Care Team Providers Care Ball Worker Name Role Phone Chip Lizarraga DO Primary Care Provider [phone] Encounter Details Date Type Department Care Team (Late st Contact Info) Description 07/27/2017 Abstract [facility] CONVERSION [address] [place] [address] , Generic Conversion, Social History Tobacco Use [...] on filedocumented in this encounter Care Teams Ball Worker Relationship Specialty Start Date End Date Chip Lizarraga DO [address] [place] [address] PCP - General INTERNAL MEDICINE 10/14/18 documented as of this encounter
--- OUTSIDE RECORDS SUMMARY | 2024-09-10 08:31 | XMS_ITS | Clinical Summary ---
Author Organization [facility] Address [address] [place] [address] Phone Care Team Providers Care Medical Sales Associate Name Role Phone Provider, None Primary Care [...] on file Legal Sex Male 10:20 AM MACHINE SHORTHAND TEACHER Gender Identity Not on file Sexual Orientation Not on file Last Filed Vital Signs Vital Sign Reading Time Taken Comments Blood Pressure 133/78 04/20/2023 12:21 PM MACHINE SHORTHAND TEACHER Pulse 84 04/20/2023 12:21 PM MACHINE SHORTHAND TEACHER Temperature 36.4 C (97.6 F) 04/20/2023 8:55 AM MACHINE SHORTHAND TEACHER Respiratory Rate 18 04/20/2023 12:21 PM MACHINE SHORTHAND TEACHER Oxygen Saturation 99% 04/20/2023 12:21 PM MACHINE SHORTHAND TEACHER Inhaled Oxygen Concentration - - Weight 105.7 kg (233 lb) 04/19/2023 7:02 PM MACHINE SHORTHAND TEACHER Height 190.5 cm (6' 3 ) 04/19/2023 7:02 PM MACHINE SHORTHAND TEACHER Body Mass Index 29.12 04/19/2023 7:02 PM MACHINE SHORTHAND TEACHER Plan of Treatment Not on file Insurance MEDICAID [employer] Care Teams Medical Sales Associate Relationship Specialty Start Date End Date Provider, None [place] PCP - General 04/19/23
--- OUTSIDE RECORDS SUMMARY | 2024-09-10 08:32 | XMS_ITS | Continuity of Care Document ---
Author Organization [facility] Address [address] [employer] [address] [address] [facility] [place] [address] Phone Care Team Providers Care Critical Power Install Technician Name Role Phone Brian Thompson MD Unavailable Unavailable Allergies, Adverse Reactions, Alerts Substance Reaction Status Criticality No Known Allergies Active No Inform ation Medications Medication Instructions Dosage Effective Dates (start - stop) Status Comments Neurontin 300 mg capsule take 1 capsule by oral route 2 times every day 300 MG - Active Synthroid 100 mcg tablet take 1 tablet (100MCG) by oral route every day 100 MCG - Active Procedures Procedure Date OFFICE/OUTPATIENT VISIT, EST PREV VISIT, EST, AGE 40-64 OFFICE/OUTPATIENT VISIT, EST OFFICE/OUTPATIENT VISIT, EST OFFICE/OUTPATIENT VISIT, EST OFFICE/OUTPATIENT VISIT, EST OFFICE/OUTPATIENT VISIT, EST OFFICE/OUTPATIENT VISIT, EST OFFICE/OUTPATIENT VISIT, EST OFFICE/OUTPATIENT VISIT, EST OFFICE/OUTPATIENT VISIT, EST OFFICE/OUTPATIENT VISIT, EST PREV VISIT, NEW, AGE 40-64 Advance Directives Directive Yes / No Effective Date File Name No Information Encounters Encounter Description Practice Location Reason(s) For Visit Diagnoses Date Provider Providers Copied on Encounter [facility], [address] [place], [address], tel:[phone] [facility] No Information 5 Jay Torres. [address] [facility] [place], [address] , [place]. tel:[phone] Referring Provider: Nina [address], [place], [place], [address]. tel:[phone] OFFICE/OUTPA TIENT VISIT, [facility], [address], [place], [place], [address], [place] [phone] [facility] elbow pain (chief complaint)ofot numbnes (chief complaint)celia l CA (chief complaint) Arm painNeuropathyR enal diseaseRenal neoplasm Jan-2 5 Jay Torres. [address], [place], [place], [address] , [place]. [phone] Referring Provider: Nina [address], [place], [place], [address]. tel:[phone] PREV VISIT, EST, AGE 40-64 [facility], [address], [place], [place], [address], [place] tel:[phone] [facility] Physical (chief complaint) Routine Medical ExamRoutine Medical Exam 2 5 Jay Torres. [address], [place], [place], [address] , [place]. tel:[phone] Referring Provider: Brian Thompson, [address], [place], [place], [address]. tel:[phone] OFFICE/OUTPA TIENT VISIT, [facility], [address], [place], [place], [address], [place] tel:[phone] [facility] dizziness (chief complaint) Syncope and collapse 0 2201 4 Jay Torres. [address], [place], [place], [address] , [place]. tel:[phone] Referring Provider: Brian Thompson, [address], [place], [place], [address]. tel:[phone] OFFICE/OUTPA TIENT VISIT, [facility], [address], [place], [place], [address], [place] tel:[phone] [facility] dizziness (chief complaint) DizzinessSyncop e and collapse 4 Jay Torres. [address], [place], [place], [address] , [place]. tel:[phone] Referring Provider: Nina [address], [place], [place], [address]. tel:[phone] OFFICE/OUTPA TIENT VISIT, [facility], [address], [place], [place], [address], [place] tel:[phone] [facility] cough (chief complaint) Bronchitis, Acute 4 Jay Torres. [address], [place], [place], [address] , [place]. tel:[phone] Referring Provider: Nina [address], [place], [place], [address]. tel:[phone] OFFICE/OUTPA TIENT VISIT, [facility], [address], [place], [place], [address], [place] tel:[phone] [facility] renal CA (chief complaint)Hypo thyroidism (chief complaint) HypothyroidismM alignant Neoplasm, KidneyFamily history of malignant neoplasm of prostate 4 Jay Torres. [address], [place], [place], [address] , [place]. tel:[phone] Referring Provider: Nina [address], [place], [place], [address]. tel:[phone] OFFICE/OUTPA TIENT VISIT, [facility], [address], [place], [place], [address], [place] tel:[phone] [facility] renal CA (chief complaint)hypo thyroidism (chief complaint)schi zoaffective (chief complaint) Malignant Neoplasm, KidneyHypothyro idismSchizoaffe ctive disorder, chronic 4 Jay Torres. [address], [place], [place], [address] , [place]. tel:[phone] Referring Provider: Brian Thompson, [address], [place], [place], [address]. tel:[phone] OFFICE/OUTPA TIENT VISIT, [facility], [address], [place], [place], [address], [place] tel:[phone] [facility] dysuria (chief complaint) Dysuria 4 Jay Torres. [address], [place], [place], [address] , [place]. tel:[phone] Referring Provider: Brian Thompson, [address], [place], [place], [address]. tel:[phone] OFFICE/OUTPA TIENT VISIT, [facility], [address], [place], [place], [address], [place] tel:[phone] [facility] UTI (chief complaint)nguyen ntia (chief complaint)anxi ety (chief complaint) Dietary surveillance and counselingUrina ry Tract InfectionMEMORY LOSSGeneralized anxiety disorder 4 Jay Torres. [address], [place], [place], [address] , [place]. tel:[phone] Referring Provider: Brian Thompson, [address], [place], [place], [address]. tel:[phone] OFFICE/OUTPA TIENT VISIT, [facility], [address], [place], [place], [address], [place] tel:[phone] [facility] UTI (chief complaint) Dietary surveillance and counselingDysur ia 4 Jay Torres. [address], [place], [place], [address] , [place]. tel:[phone] Referring Provider: Brian Thompson, [address], [place], [place], [address]. tel:[phone] OFFICE/OUTPA TIENT VISIT, [facility], [address], [place], [address], [place] tel:[phone] [facility] renal insufficiency (chief complaint)nolvia min D (chief complaint)hist ory of prostate CA (chief complaint)asth ma (chief complaint) Dietary surveillance and counselingRenal Failure, AcuteFamily history of malignant neoplasm of prostateHEMATUR IA NOS 4 Jay Torres. [address], [place], [address] , [place]. [phone] Referring Provider: Nina [address], [place], [address]. tel:[phone] OFFICE/OUTPA TIENT VISIT, [facility], [address], [place], [place], [address], [place] tel:[phone] [facility] GFR (chief complaint)TG (chief complaint)Mak turia (chief complaint) HEMATURIA NOSDietary surveillance and counselingOther and unspecified hyperlipidemiaH ypothyroidism 4 Jay Torres. [address], [place], [place], [address] , [place]. tel:[phone] Referring Provider: Nina [address], [place], [place], [address]. tel:[phone] PREV VISIT, NEW, AGE 40-64 [facility], [address], [place], [place], [address], [place] tel:[phone] [facility] Physical (chief complaint) Routine Medical ExamRoutine Medical Exam 4 Jay Torres. [address], [place], [place], [address] , [place]. [phone] Referring Provider: Nina [address], [place], [place], [address]. tel:[phone] Family History Family Member Type Diagnosis Age At Onset Brother Problem (finding) Alive and well Mother Problem (finding) Bipolar Disorder Mother Problem (finding) Asthma Father Problem (finding) Cancer - prostate CA at 60s Father Problem (finding) Alzheimer's Disease Payers Payer name Insurance type Covered green party ID Authoriza tion(s) No Information Social History Type Description Quantity Date Captured Comments Sex Male Smoking Status No Information Chief Complaint And Reason For Visit No Information Plan Of Treatment Date Type Action Status Goal Depression screening. Due on due Goal Td vaccine. Due on 15 due Goal Tdap. Due on due Referral Ordered: Physical Therapy (related to Arm pain) ordered Referral Referred To: Physical Therapy Ordered: Referrals: Physical Therapy. Evaluate and treat ordered Referral Ordered: DOPPLER ECHO EXAM, HEART ordered Referral Ordered: CT ANGIOGRAPHY, HEAD ordered Referral Ordered: CT HEAD/BRAIN W/O DYE ordered Referral Ordered: CT ANGIOGRAPHY, NECK ordered Referral Ordered: CHEST X-RAY PA/LAT TWO-VIEWS ordered Referral Ordered: ELECTROCARDIOGRAM, COMPLETE ordered Referral Ordered: Referral: Urology. ordered Referral Ordered: Referral: Nephrology. ordered Referral Ordered: US THYROID ordered History Of Present Illness Encounter Date Complaint History Of Prese nt Illness ofot numbnes PT has chronic f oot numbness Pt has peripheral neuropathy. Pt had NCS long time ago and he does not remember where and when he did it. Pt c/o numbness and tingling aroudn both feet and sole area. renal CA Pt has right shayla al CA s/p right nephrectomy. Pt is being followed by Dr. Hein. 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 Pt is seeing Dr. Duenas elbow pain Location: elbow. Additional information: Pt c/o intermittent left elbow and left forearm pain and stiffness for several months. Pt denies any numbness or tingling. Pt denies any weakness. Pt denies any left shoulder or neck pain. Pt denies any injury. Instructions Date Instruction Additional Infor eliud Dietary counseling Related to Di etary surveillance counseling Decrease caloric intake Related to Dietary surveillance counseling Dietary counseling Related to Di etary surveillance counseling Decrease caloric intake Related to Dietary surveillance counseling Dietary counseling Related to Di etary surveillance counseling Decrease caloric intake Related to Dietary surveillance counseling Assessments Type Assessment Date No Information
--- OUTSIDE RECORDS SUMMARY | 2024-09-10 08:32 | XMS_ITS | Clinical Summary ---
Author Organization [facility] Address [address] [place] [address] Care Team Providers Care Surgical Services Assistant Name Role Phone FredisChip catherine Tray DO Primary Care Provider Source Comments [facility],non-owned Affiliates and Associated Physician Practices is amultiple site organization consisting of ambulatory clinics and hospital sitesin [place], [place], [place] and [place]. This disclosure is being madepursuant to the Care Everywhere program and may not contain all information available regarding this patient. Last updated 18.[facility] Allergies Active Allergy Reactions Criticality Noted Date Comments Albumin Rash Medium 04/08/2023 Milk-Related Compounds Rash Medium 04/08/2023 Shellfish Allergy Rash Medium 04/08/2023 Soy Allergy Rash Medium 04/08/2023 Medications * This document contains information received from the source organization and may not represent a complete record from that organization. * Be aware that medications may not be up to date on this document. Alwaysverify current medications with the patient. multivitamins (ONE A DAY) capsuleIndications :Nutritional Support 01/24/20 16 Active gabapentin (NEURONTIN) 300 MG capsuleIndications :Generalized Anxiety Disorder Take 1 (one) capsule by mouth 2 times daily 01/24/20 16 Active clonazePAM (KLONOPIN) 0.5 MG tabletIndications: Anxiety TK 1 T PO BID 2 12/16/19 19 Active levothyroxine (SYNTHROID) 100 MCG tabletIndications: Hypothyroidism TK 1 T PO QD 1 12/15/19 19 Active trihexyphenidyl (ARTANE) 5 MG tabletIndications: Drug-Induced Extrapyramidal Reaction Take 1 (one) tablet by mouth 2 times daily after meals 01/24/20 16 Active omeprazole (PRILOSEC) 40 MG capsuleIndications :Gastroesophageal Reflux Disease Take 1 capsule by mouth 2 times daily,before breakfast and supper 60 capsule 3 07/17/19 20 Active divalproex ER 24hr (Depakote ER) 500 MG tabletIndications: Mixed Bipolar Affective Disorder,Mood Stabilzation Take 2 (two) tablets by mouth at bedtime Reasons: MIXED BIPOLAR AFFECTIVE DISORDER, Mood Stabilzation 60 tablet 1 04/15/20 23 Active divalproex ER 24hr (Depakote ER) 500 MG tabletIndications: Mood Stabilization Take 1 (one) tablet by mouth once daily Reasons: Mood Stabilization 30 tablet 1 04/16/20 23 Active haloperidol decanoate (Haldol Decanoate) 100 MG/ML injectionIndicatio ns:Schizophrenia Inject 1 mL into muscle every 28 days DO NOT administer intravenously; Should be administered by deep IM injection using a 21 gauge needle; MAX volume per injection site should not exceed 3 mL His last Haldol Decanoate 100 mg IM injection was given on 04/10/2023. Reasons: Schizophrenia 05/08/20 23 Active Active Problems Problem Noted Date Diagnosed Date Schizoaffective disorder, bipolar type 3 04/09/2023 Tardive dyskinesia 02/13/2023 04/09/2023 Eosinophilic esophagitis 12/14/2021 023 History of Harris's esophagus 07/14/2020 1 06/09/2022 Overview (04/09/2023): Added automatically from request for surgery [id number] Harris's esophagus with high grade dysplasia 04/09/2023 History of nephrectomy 03/13/2018 3 Glomerulosclerosis 03/13/2018 04/09/2023 Dysuria 06/21/2014 Personal history of other malignant neoplasm of kidney 06/21/2014 Harris's esophageal ulceration Resolved Problems Problem Noted Date Diagnosed Date Resolved Date Psychosis, unspecified psychosis type 04/08/2023 04/09/2023 Schizophrenia 04/08/2023 04/09/2023 Depressive disorder 04/08/2023 04/09/20 Social History Tobacco Use Types Packs/Day Years [...] medical care, and heating? Patient declined 04/08/2023 [facility] - Occup[facility] [...] at Not on file Legal Sex Male 6:20 PM MITER SAWYER Gender Identity Not on file Sexual Orientation Not on file Last Filed Vital Signs Vital Sign Reading Time Taken Comments Blood Pressure 113/77 04/15/2023 7:09 AM MITER SAWYER Pulse 82 04/15/2023 7:09 AM MITER SAWYER Temperature 36.6 C (97.8 F) 04/15/2023 7:09 AM MITER SAWYER Respiratory Rate 16 04/15/2023 7:09 AM MITER SAWYER Oxygen Saturation 97% 04/15/2023 7:09 AM MITER SAWYER Inhaled Oxygen Concentration - - Weight 102 kg (224 lb 13.9 oz) 04/08/2023 11:53 AM MITER SAWYER Height 190.5 cm (6' 3 ) 04/08/2023 11:53 AM MITER SAWYER Body Mass Index 28.11 04/08/2023 11:53 AM MITER SAWYER Plan of Treatment Health Maintenance Due Date [...] VACCINE (1 of 2) 02/22/2016 COVID-19 VACCINE (1 - 2023-2 5 season) 2024 INFLUENZA VACCINE (Season Ended) 2025 02/16/2016 SCREENING FOR DIABETES 04/13/2026 3, 04/09/2023, 04/09/2023 LIPID TESTING 04/09/2028 04/09/2023 HIB [...] (CALCIUM TOTAL) AM Draw 04/13/2023 6:23 AM MITER SAWYER LIPID PROFILE Routine 04/09/2023 6:12 AM MITER SAWYER from Last 3 Months or Most Recently Relevant to Health Maintenance Results * (ABNORMAL) BASIC METABOLIC PANEL (CALCIUM TOTAL) (04/13/2023 6:23 AM MITER SAWYER) [facility] Glucose 91 70 - 125 mg/dL 04/13/2023 7:[address] [facility] Sodium 142 136 - 145 mmol/L 04/13/2023 7:[address] [facility] Potassium 5.0 3.4 - 5.1 mmol/L 04/13/2023 7:[address] [facility] Chloride 108(H) 98 - 107 mmol/L 04/13/2023 7:[address] [facility] CO2 26 22 - 29 mmol/L 04/13/2023 7:[address] [facility] Calcium 9.17 8.4 - 10.2 mg/dL 04/13/2023 7:[address] [facility] Anion Gap 13 6 - 16 mmol/L 04/13/2023 7:[address] [facility] BUN 33.8(H) 8.4 - 25.7 mg/dL 04/13/2023 7:[address] [facility] Creatinine 2.21(H) 0.72 - 1.25 mg/dL 04/13/2023 7:[address] [facility] eGFR 34(L) >90 mL/min/1.7 3m2 04/13/2023 7:[address] [facility] Comment:The GFR result was c alculated using the updated CKD-EPI Creatinine Equation (2020). Blood BLOOD SPECIMEN / Unknown Lab Venipuncture / Unknown 04/13/2023 6:23 AM MITER SAWYER 04/13/2023 6:55 AM [facility] us Ge Summers APRN-ETIQUETTE TEACHER LAB - CHEMISTRY ORDERABL ES Final Result [facility] [address] * LIPID PROFILE (04/09/2023 6:12 AM [facility]) Cholesterol 137 <200 mg/dL 04/09/2023 6:[address] [facility] Triglycerides 104 <150 mg/dL 04/09/2023 6:[address] [facility] HDL Cholesterol 43 >40 mg/dL 3 6:[address] [facility] Chol HDL Ratio 3.2 1.0 - 6.0 04/09/2023 6:[address] [facility] LDL Calculated 73 65 - 130 mg/dL 04/09/2023 6:[address] [facility] VLDL Calculated 21 <=30 mg/dL 3 6:[address] [facility] Blood BLOOD SPECIMEN / Unknown Lab Venipuncture / Unknown 04/09/2023 6:12 AM MITER SAWYER 04/09/2023 6:22 AM [facility] Narrative [facility] - 04/09/2023 6:42 AM [facility] Lipid Profile Comment: CHOLESTEROL LEVEL..................CLINICAL [...] 9.5 ...................... 7.0 3X AVERAGE...................>23........................>11 Dolores Mandujano OUTDOOR POWER EQUIPMENT MECHANIC-ETIQUETTE TEACHER LAB - CHEMISTRY ORDERAB LES Final Result Performing Organization Address City/State/[facility] Co wi Phone Number [facility] [address] from Last 3 Months or Most Recently Relevant to Health Maintenance Insurance Advance Directives * Full Code (Latest Code Status on File) Date Activated Date Inactivated Comments 04/08/2023 12:25 PM 04/15/2023 12:48 PM Care Teams Surgical Services Assistant Relationship Specialty Start Date End Date Chip Lizarraga DO PCP - General Internal Medicine 01/16/19
--- OUTSIDE RECORDS SUMMARY | 2024-09-10 08:32 | XMS_ITS | Referral Summary ---
Author Organization [facility] Address [address] [place] [address] Care Team Providers Care Etcher Hand Name Role Phone Chip Lizarraga DO Primary Care Provider [phone] Encounters Date Type Department Care Team Description 06/26/2024 Telephone [facility] Gastroenterology [facility] Office [address] [place] [address] Yolande Norwood LPN Follow-up from Last 3 Months Allergies Active Allergy [...] times a day 180 tablet 3 4 Active midodrine (PROAMATINE) 2.5 mg tablet TAKE [...] (07/14/2020): Added automatically from request for surgery [id number] Harris's esophagus with high grade dysplasia Resolved Problems Problem Noted Date Diagnosed Date Resolved Date Esophagitis 10/20/2020 12/14/2021 Overview (10/20/2020): Added automatically from request for surgery [id number] Harris's esophagus with dysplasia 04/13/2020 12/14/2021 Overview (04/13/2020): Added automatically from request for surgery [id number] Social History Tobacco Use Types Packs/Day Years [...] on file Legal Sex Male 9:55 AM READING INSTRUCTOR Gender Identity Not on file Sexual Orientation Straight 03/24/2021 11 :04 AM READING INSTRUCTOR Last Filed Vital Signs Vital Sign Reading Time Taken Comments Blood Pressure 127/95 05/19/2024 10:50 AM READING INSTRUCTOR Pulse 92 05/19/2024 10:55 AM READING INSTRUCTOR Temperature 36.2 C (97.2 F) 05/19/2024 10:22 AM READING INSTRUCTOR Respiratory Rate 22 05/19/2024 10:55 AM READING INSTRUCTOR Oxygen Saturation 97% 05/19/2024 10:55 AM READING INSTRUCTOR Inhaled Oxygen Concentration - - Weight 106.6 kg (235 lb) 05/19/2024 9:30 AM READING INSTRUCTOR Height 190.5 cm (6' 3 ) 05/19/2024 9:30 AM READING INSTRUCTOR Body Mass Index 29.37 05/19/2024 9:30 AM READING INSTRUCTOR Plan of Treatment Not on file Procedures Procedure Name Priority Date/Time Associated Diagnosis Comments PSA SCREEN Routine 08/14/2023 2:44 PM CDT Lower urinary tract symptoms (LUTS) from Last 3 Months or Most Recently Relevant to Health Maintenance Results * PSA screen (08/14/2023 2:44 PM CDT) PSA 2.96 < OR = 4.00 ng/mL [facility] Comment: The total PSA value [...] NP LAB BLOOD ORDERABLES F inal Result [facility] [employer] [address] [place] [address] from Last 3 Months or Most Recently Relevant to Health Maintenance Insurance [facility] Advance Directives For more information, please contact: [phone] * Full Code (Latest Code Status on [...] 9:22 AM 11/29/2020 3:47 PM Care Teams Etcher Hand Relationship Specialty Start Date End Date Chip Lizarraga DO PCP - General Internal Medicine 06/22/19
--- OUTSIDE RECORDS SUMMARY | 2024-09-10 08:32 | XMS_ITS | Clinical Summary ---
Author Organization [facility] 2 Address [address] [facility] [place] [place] [address] Care Team Providers Care Curriculum Counselor Name Role Phone Chip Lizarraga DO Primary Care Provider [phone]- [phone] Allergies Active Allergy Reactions Criticality Noted Date [...] symptoms (LUTS) 12/20/2020 Hypotension 10/12/2020 History of Harirs's esophagus 07/14/2020 Overview (07/14/2020): Added automatically from request for surgery [id number] Harris's esophagus with high grade dysplasia Resolved Problems Problem Noted Date Diagnosed Date Resolved Date Esophagitis 10/20/2020 12/14/2021 Overview (10/20/2020): Added automatically from request for surgery [id number] Harris's esophagus with dysplasia 04/13/2020 12/14/2021 Overview (04/13/2020): Added automatically from request for surgery [id number] Encounters Date Type Department Care Team Description 06/26/2024 Telephone [facility] Gastroenterology [facility] Medical Office [address] [place] [address] Yolande Norwood LPN Follow-up from Last 3 Months Surgical History Surgery [...] on file Legal Sex Male 9:55 AM MEDIA SUPERVISOR Gender Identity Not on file Sexual Orientation Straight 03/24/2021 11 :04 AM MEDIA SUPERVISOR Obstetrics History Last Filed Vital Signs Vital Sign Reading Time Taken Comments Blood Pressure 127/95 05/19/2024 10:50 AM MEDIA SUPERVISOR Pulse 92 05/19/2024 10:55 AM MEDIA SUPERVISOR Temperature 36.2 C (97.2 F) 05/19/2024 10:22 AM MEDIA SUPERVISOR Respiratory Rate 22 05/19/2024 10:55 AM MEDIA SUPERVISOR Oxygen Saturation 97% 05/19/2024 10:55 AM MEDIA SUPERVISOR Inhaled Oxygen Concentration - - Weight 106.6 kg (235 lb) 05/19/2024 9:30 AM MEDIA SUPERVISOR Height 190.5 cm (6' 3 ) 05/19/2024 9:30 AM MEDIA SUPERVISOR Body Mass Index 29.37 05/19/2024 9:30 AM MEDIA SUPERVISOR Plan of Treatment Health Maintenance Due Date [...] AM CDT FASTING:NO FASTING: NO Saji Riley COUNTER INTELLIGENCE LAB BLOOD ORDERABLES F inal Result [employer] [id number] [place] [phone] from Last 3 Months or Most Recently Relevant to Health Maintenance Insurance [facility] Advance Directives For more information, please contact: [phone] * Full Code (Latest Code Status on [...] 9:22 AM 11/29/2020 3:47 PM Care Teams Curriculum Counselor Relationship Specialty Start Date End Date Chip Lizarraga DO PCP - General Internal Medicine 06/22/19
--- OUTSIDE RECORDS SUMMARY | 2024-09-10 08:32 | XMS_ITS | Continuity of Care Document ---
Author Organization [facility] Address [address] [place] [address] [address] [place] [address] Phone Care Team Providers Care Turnaround Engineer Name Role Phone Butler OD, Clement Unavailable Unavailable Procedures Procedure Date Eye Exam & Treatment Refraction Advance Directives Directive Yes / No Effective Date File Name No Information Encounters Encounter Description Practice Location Reason(s) For Visit Diagnoses Date Provider Providers Copied on Encounter Formerly [facility], [address] [place] [address] [address], [place], [place], [address], [place] tel:[phone] [facility] No Information 2-201 0 Butler OD Clement. [address] , [address], [place], [address], [place]. tel:[phone] Family History Family Member Type Diagnosis Age At Onset No Information Payers Payer name Insurance type Covered green party ID Authoriza tion(s) Medicaid [facility] [id number] Social History Type Description Quantity Date Captured Comments Sex Male Smoking Status No Information Chief Complaint And Reason For Visit No Information Reason For Referral Reason For Referral No Information History Of Present Illness Encounter Date Complaint History Of Prese nt Illness No Information Functional Status Date Functional Assessmen t No Information Instructions Date Instruction Additional Infor mation No Information Assessments Type Assessment Date No Information Patient Care Teams Name Effective Dates (start - stop) Status Members No Information
[2024-09-10 08:55] LABS: Basophils Percent Auto 0.4 % (0.2-1.2); Eosinophils Absolute Auto 0.4 K/mm3 (0-0.3); Eosinophils Percent Auto 3.8 % (0-4.4); Hematocrit 40.1 % (42.0-52.0); Hemoglobin 13.1 g/dL (14.0-18.0); Immature Granulocyte Absolute 0.13 K/mm3 (0.00-0.031); Immature Granulocyte Percent A 1.2 % (0-0.5); Lymphocytes Absolute Auto 4.33 K/mm3 (0.9-3.2); Lymphocytes Percent Auto 41.4 % (18.3-44.2); Mean Corpuscular HGB Conc 32.7 g/dl (32-36); Mean Corpuscular Hemoglobin 31.4 pg (26-34); Mean Corpuscular Volume 96.2 fl (80-100); Mean Platelet Volume 8.4 fl (7.4-10.4); Monocytes Absolute Auto 1.1 K/mm3 (0.1-0.6); Monocytes Percent Auto 10.3 % (2.6-8.5); Neutrophils Absolute Auto 4.5 K/mm3 (1.3-6.7); Neutrophils Percent Auto 42.9 % (45.5-73.1); Platelet Count Result 184 k/mm3 (150-375); Red Blood Count 4.17 M/mm3 (4.6-6.20); White Blood Count 10.5 K/mm3 (4.5-10.0)
[2024-09-10 08:59] LABS: Add Urine Microscopic? NO; Appearance Urine Clear (Clear); Bilirubin Urine Negative (Negative); Blood Urine Negative (Negative); Color Urine Yellow (Yellow); Glucose Urine UA Negative (Negative); Ketones Urine Negative (Negative); Leukocyte Esterase Ur Negative LEU/UL (Negative); Nitrate Urine Negative (Negative); Protein Urine Negative (Negative); Specific Grav Ur 1.007 (1.001-1.035); Urobilinogen Urine 0.2 mg/dL (<2.0); pH Urine 7.5 (5.0-9.0)
[2024-09-10 09:12] LABS: Albumin Level 4.4 g/dL (3.5-5.1); Anion Gap 10 mmol/L (4-12); Blood Urea Nitrogen 23 mg/dL (9-20); Calcium 9.8 mg/dL (8.4-10.2); Carbon Dioxide 28 mmol/L (22-30); Chloride 101 mmol/L (98-107); Estimated Glomerular Filt Rate 34; Glucose 96 mg/dL (65-110); Phosphorus 3.5 mg/dL (2.5-4.5); Potassium 5.1 mmol/L (3.4-5.0); Sodium 139 mmol/L (137-145)
[2024-09-10 09:23] LABS: Parathyroid Intact 31.5 pg/mL (14.5-75.2)
[2024-09-10 09:52] LABS: Creatinine Urine 50.9 mg/dL
[2024-09-10 10:11] LABS: MALB Creatinine Ratio < 11.8 mg/g (0-30); Microalbumin Urine Random < 6.0 mg/L (0-16.7)
== END 2024-09-10 08:26 | disposition home or self-care (01) ==
LOC: ANHLAB 08:26
PROVIDERS: PCP Internal Medicine; Visit Provider Internal Medicine Nephrology
DX: N18.32 Chronic kidney disease, stage 3b (principal)
CPT/HCPCS: 36415; 80069; 81003; 82043; 83970; 85025

== ENCOUNTER 2024-09-29 15:37 | Emergency (ER) | payer OTHER, SELFPAY ==
--- NOTE | ~2024-09-29 | XR_ITS ---
CHEST RADIOGRAPH, PA AND LATERAL CLINICAL HISTORY: chest pain . COMPARISON: 11/25/2023 TECHNIQUE: PA and lateral views of the chest. FINDINGS The cardiomediastinal silhouette is unremarkable. The lungs are clear. Visualized osseous structures and soft tissues are unremarkable. IMPRESSION: No focal infiltrate or effusion. Reviewed, dictated and finalized at location A.
--- OUTSIDE RECORDS SUMMARY | 2024-09-29 15:40 | XMS_ITS | Referral Summary ---
Author Organization [facility] 2 Address [address] [place] [address] Care Team Providers Care Brigadier Name Role Phone Chip Lizarraga DO Primary Care Provider [phone] Encounters Date Type Department Care Team Description 09/17/2024 Telephone [facility] Gastroenterology [address] [place] [address] [place] [address] Zenobia Zaman from Last 3 Months Allergies Active Allergy [...] as needed for erectile dysfunction 4 Active midodrine (PROAMATINE) 2.5 mg tablet [...] Active tamsulosin (FLOMAX) 0.4 mg extended release capsuleIndicat ions:Lower urinary tract symptoms (LUTS),Dysuria TAKE 1 CAPSULE BY MOUTH DAILY 90 capsule [address] (PROTONIX) 40 mg EC tabletIndicati ons:Eosinophil ic esophagitis,Ba rrett's esophagus with high grade dysplasia Take 1 tablet (40 mg total) by mouth 2 (two) times a day 180 tablet 3 5 09/18/[address] (PROTONIX) 40 mg EC tabletIndicati ons:Eosinophil ic esophagitis,Ba rrett's esophagus with high grade dysplasia Take 1 tablet (40 mg total) by mouth 2 (two) times a day 180 tablet 3 4 09/18/19 25 Discontin ued(Reord er) Active Problems Problem Noted Date Diagnosed Date Gastroesophageal reflux disease with esophagitis 08/20/2023 Eosinophilic esophagitis 12/14/2021 Malignant neoplasm of right kidney 12/20/2020 Lower urinary tract symptoms (LUTS) 12/20/2020 Hypotension 10/12/2020 History of Harris's esophagus 07/14/2020 Overview (07/14/2020): Added automatically from request for surgery [id number] Harris's esophagus with high grade dysplasia Resolved Problems Problem Noted Date Diagnosed Date Resolved Date Esophagitis 10/20/2020 12/14/2021 Overview (10/20/2020): Added automatically from request for surgery [id number] Harris's esophagus with dysplasia 04/13/2020 12/14/2021 Overview (04/13/2020): Added automatically from request for surgery [id number] Social History Tobacco Use Types Packs/Day Years Used Date Smoking Tobacco: Never Smokeless Tobacco: Never Tobacco Cessation:Counseling Given: Not Answered Alcohol Use Standard Drinks/Week Comments Never 0 (1 standard drink = 0.6 oz pur e alcohol) AUDIT-C Answer Date Recorded Frequency of Alcohol Consumption Not on file 05/19/2024 Q2: How many drinks containi ng [...] on file Legal Sex Male 9:55 AM GEOPHYSICAL PROSPECTOR Gender Identity Not on file Sexual Orientation Straight 03/24/2021 11 :04 AM GEOPHYSICAL PROSPECTOR Last Filed Vital Signs Vital Sign Reading Time Taken Comments Blood Pressure 127/95 05/19/2024 10:50 AM GEOPHYSICAL PROSPECTOR Pulse 92 05/19/2024 10:55 AM GEOPHYSICAL PROSPECTOR Temperature 36.2 C (97.2 F) 05/19/2024 10:22 AM GEOPHYSICAL PROSPECTOR Respiratory Rate 22 05/19/2024 10:55 AM GEOPHYSICAL PROSPECTOR Oxygen Saturation 97% 05/19/2024 10:55 AM GEOPHYSICAL PROSPECTOR Inhaled Oxygen Concentration - - Weight 106.6 kg (235 lb) 05/19/2024 9:30 AM GEOPHYSICAL PROSPECTOR Height 190.5 cm (6' 3 ) 05/19/2024 9:30 AM GEOPHYSICAL PROSPECTOR Body Mass Index 29.37 05/19/2024 9:30 AM GEOPHYSICAL PROSPECTOR Plan of Treatment Not on file Procedures Procedure Name Priority Date/Time Associated Diagnosis Comments PSA SCREEN Routine 08/14/2023 2:44 PM CDT Lower urinary tract symptoms (LUTS) from Last 3 Months or Most Recently Relevant to Health Maintenance Results * PSA screen (08/14/2023 2:44 PM CDT) PSA 2.96 < OR = 4.00 ng/mL [facility] Comment: The total PSA value [...] 08/15/2023 6:18 AM CDT FASTING:NO FASTING: NO us Saji Riley HOME DEMONSTRATION AGENT LAB BLOOD ORDERABLES F inal Result [facility] [address] [place] [address] from Last 3 Months or Most Recently Relevant to Health Maintenance Insurance [facility] Advance Directives For more information, please contact: [phone] * Full Code (Latest Code Status on [...] 9:22 AM 11/29/2020 3:47 PM Care Teams Brigadier Relationship Specialty Start Date End Date Chip Lizarraga DO PCP - General Internal Medicine 06/22/19
--- OUTSIDE RECORDS SUMMARY | 2024-09-29 15:40 | XMS_ITS | Continuity of Care Document ---
Author Organization [facility] Address [address] [facility] [place] [address] Phone Care Team Providers Care Parts Room Assistant Name Role Phone Brian Thompson MD Unavailable [...] Diagnoses Date Provider Providers Copied on Encounter [facility], [address] [place], [place], [address], tel:[phone] [facility] No Information 5 Jay Torres. [address] [place], [place], [address] , [place]. tel:[phone] Referring Provider: Nina [address], [place], [place], [address]. tel:[phone] OFFICE/OUTPA TIENT VISIT, [facility], [address], [place], [place], [address], [place] [phone] [facility] elbow pain (chief complaint)ofot numbnes (chief complaint)celia l CA (chief complaint) Arm painNeuropathyR enal diseaseRenal neoplasm Jan-2 5 Jay Torres. [address], [address], [place], [place], [address] , [place]. [phone] Referring Provider: Nina [address], [place], [place], [address]. tel:[phone] PREV VISIT, EST, AGE 40-64 [facility], [address], [place], [place], [address], [place] tel:[phone] [facility] Physical (chief complaint) Routine Medical ExamRoutine Medical Exam 2 5 Jay Torres. [address], [place], [place], [address] , [place]. tel:[phone] Referring Provider: Brian Thompson, [address], [place], [place], [address]. tel:[phone] OFFICE/OUTPA TIENT VISIT, [facility], [address], [place], [place], [address], [place] tel:[phone] [facility] dizziness (chief complaint) Syncope and collapse 0 2201 4 Jay Torres. [address], [place], [place], [address] , [place]. tel:[phone] Referring Provider: Brian Thompson, [address], [place], [place], [address]. tel:[phone] OFFICE/OUTPA TIENT VISIT, [facility], [address], [place], [place], [address], [place] tel:[phone] [facility] dizziness (chief complaint) DizzinessSyncop e and collapse 4 Jay Torres. [address], [place], [place], [address] , [place]. tel:[phone] Referring Provider: Nina [address], [place], [place], [address]. tel:[phone] OFFICE/OUTPA TIENT VISIT, [facility], [address], [place], [place], [address], [place] tel:[phone] [facility] cough (chief complaint) Bronchitis, Acute 4 Jay Torres. [address], [place], [place], [address] , [place]. tel:[phone] Referring Provider: Nina [address], [place], [place], [address]. tel:[phone] OFFICE/OUTPA TIENT VISIT, [facility], [address], [place], [address], [place] tel:[phone] [facility] renal CA (chief complaint)Hypo thyroidism (chief complaint) HypothyroidismM alignant Neoplasm, KidneyFamily history of malignant neoplasm of prostate 4 Jay Torres. [address], [place], [place], [address] , [place]. tel:[phone] Referring Provider: Nina [address], [place], [place], [address]. tel:[phone] OFFICE/OUTPA TIENT VISIT, [facility], [address], [place], [place], [address], [place] tel:[phone] [facility] renal CA (chief complaint)hypo thyroidism (chief complaint)schi zoaffective (chief complaint) Malignant Neoplasm, KidneyHypothyro idismSchizoaffe ctive disorder, chronic 4 Jay Torres. [address], [place], [place], [address] , [place]. tel:[phone] Referring Provider: Brian Thompson, [address], [place], [place], [address]. tel:[phone] OFFICE/OUTPA TIENT VISIT, [facility], [address], [place], [place], [address], [place] tel:[phone] [facility] dysuria (chief complaint) Dysuria 4 Jay Torres. [address], [place], [place], [address] , [place]. tel:[phone] Referring Provider: Brian Thompson, [address], [place], [place], [address]. tel:[phone] OFFICE/OUTPA TIENT VISIT, [facility], [address], [place], [place], [address], [place] tel:[phone] [facility] UTI (chief complaint)nguyen ntia (chief complaint)anxi ety (chief complaint) Dietary surveillance and counselingUrina ry Tract InfectionMEMORY LOSSGeneralized anxiety disorder 4 Jya Torres. [address], [place], [place], [address] , [place]. tel:[phone] Referring Provider: Brian Thompson, [address], [place], [place], [address]. tel:[phone] OFFICE/OUTPA TIENT VISIT, [facility], [address], [place], [place], [address], [place] tel:[phone] [facility] UTI (chief complaint) Dietary surveillance and counselingDysur ia 4 Jay Torres. [address], [place], [place], [address] , [place]. tel:[phone] Referring Provider: Brian Thompson, [address], [place], [place], [address]. tel:[phone] OFFICE/OUTPA TIENT VISIT, [facility], [address], [place], [address], [place] tel:[phone] [facility] renal insufficiency (chief complaint)nolvia min D (chief complaint)hist ory of prostate CA (chief complaint)asth ma (chief complaint) Dietary surveillance and counselingRenal Failure, AcuteFamily history of malignant neoplasm of prostateHEMATUR IA NOS 4 Jay Torres. [address], [place], [place], [address] , [place]. [phone] Referring Provider: [address], [place], [place], [address]. tel:[phone] OFFICE/OUTPA TIENT VISIT, [facility], [address], [place], [place], [address], [place] tel:[phone] [facility] GFR (chief complaint)TG (chief complaint)Mak turia (chief complaint) HEMATURIA NOSDietary surveillance and counselingOther and unspecified hyperlipidemiaH ypothyroidism 4 Jay Torres. [address], [place], [place], [address] , [place]. tel:[phone] Referring Provider: Nina [address], [place], [place], [address]. tel:[phone] PREV VISIT, NEW, AGE 40-64 [facility], [address], [place], [place], [address], [place] tel:[phone] [facility] Physical (chief complaint) Routine Medical ExamRoutine Medical Exam 4 Jay Torres. [address], [place], [place], [address] , [place]. [phone] Referring Provider: [address], [place], [place], [address]. tel:[phone] Family History Family Member Type Diagnosis Age At Onset Brother Problem (finding) Alive and well Mother Problem (finding) Bipolar Disorder Mother Problem (finding) Asthma Father Problem (finding) Cancer - prostate CA at 60s Father Problem (finding) Alzheimer's Disease Payers Payer name Insurance type Covered libertarian ID Authoriza tion(s) No Information Social History [...]
--- OUTSIDE RECORDS SUMMARY | 2024-09-29 15:40 | XMS_ITS | Continuity of Care Document ---
Author Organization [facility] Address [address] [place] [address] [address] [place] [address] Phone Care Team Providers Care Medical Records Library Professor Name Role Phone Butler OD, Clement Unavailable Unavailable Procedures Procedure Date Eye Exam & Treatment Refraction Advance Directives Directive Yes / No Effective Date File Name No Information Encounters Encounter Description Practice Location Reason(s) For Visit Diagnoses Date Provider Providers Copied on Encounter [facility], [address] [place] [address] [address], [place], [place], [address], [place] tel:[phone] [facility] No Information 2-201 0 Butler OD Clement. [address] , [address], [place], [address], [place]. tel:[phone] Family History Family Member Type Diagnosis Age At Onset No Information Payers Payer name Insurance type Covered democrat ID Authoriza tion(s) Medicaid [facility] [id number] Social History Type Description Quantity Date Captured [...]
--- OUTSIDE RECORDS SUMMARY | 2024-09-29 15:40 | XMS_ITS | Clinical Summary ---
Author Organization [facility] Address [address], [place] [address] Phone Care Team Providers Care Gift Shop Manager Name Role Phone Chip Lizarraga DO Primary Care Provider [phone] Allergies No known active allergies Medications lamoTRIgine [...] MG tablet Take 2.5 mg by mouth in the morning and 2.5 mg in the evening and 2.5 mg before bedtime. 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 Stage 3b chronic kidney disease 01/24/2016 Resolved Problems Problem Noted Date Diagnosed Date Resolved Date Acute nontraumatic kidney injury 03/23/2024 09/16/2024 Multiple renal cysts 05/24/2021 022 Hematuria 05/24/2021 03/29/2022 Abnormal weight loss 03/13/2018 019 Encounters Date Type Department Care Team Description 09/22/2024 12:20 PM CDT Office Visit [facility] [address], [address] [place], [place] [address] Rell Duenas MD Stage 3b chronic kidney disease (CMS-HCC) (Primary Dx); History of nephrectomy from Last 3 Months Immunizations Immunization Administration Dates Next Due Influenza [...] on file Legal Sex Male 8:02 AM MST Gender Identity Not on file Sexual Orientation Not on file Last Filed Vital Signs Vital Sign Reading Time Taken Comments Blood Pressure 119/87 09/22/2024 12:42 PM CDT Pulse 103 09/22/2024 12:42 PM CDT Temperature 36.6 C (97.9 F) 04/25/2021 11:28 AM DIRECTOR EMPLOYEE SAFETY AND HEALTH Respiratory Rate - - Oxygen Saturation - - Inhaled Oxygen Concentration - - Weight 98.4 kg (217 lb) 09/22/2024 12:42 PM CDT Height 190.5 cm (6' 3 ) 09/22/2024 12:42 PM CDT Body Mass Index 27.12 09/22/2024 12:42 PM CDT Plan of Treatment Upcoming Encounters Date Type Department Care Team (Late st Contact Info) Description 03/23/2025 12:40 PM DIRECTOR EMPLOYEE SAFETY AND HEALTH Office Visit [facility] [address] [place] [address] Rell Duenas MD [address] [place] [address] Health Maintenance Due Date Last Done Comments Pneumococcal PPSV23 Highest Risk Adult (1 of 3 - PCV13) 1985 Influenza Vaccine (Season Ended) 2025 02/16/20 16 Insurance [employer] Care Teams Gift Shop Manager Relationship Specialty Start Date End Date Chip Lizarraga DO [address] [place] [address] PCP - General 09/23/18
--- OUTSIDE RECORDS SUMMARY | 2024-09-29 15:40 | XMS_ITS | Clinical Summary ---
Author Organization [facility] Address [address] [place] [address] Care Team Providers Care Paper And Pulp Mill Worker Name Role Phone FredisChip catherine Tray DO Primary Care Provider Source Comments [facility],non-owned Affiliates and Associated Physician Practices is amultiple site organization consisting of ambulatory clinics and hospital sitesin [place] and [place]. This disclosure is being madepursuant to the Care Everywhere program and may not contain all information available regarding this patient. Last updated 18.[facility] Allergies Active Allergy Reactions Criticality Noted Date [...] (04/09/2023): Added automatically from request for surgery [id number] Harris's esophagus with high grade dysplasia 04/09/2023 [...] medical care, and heating? Patient declined 04/08/2023 [facility] - Occupational [...] place to sleep or slept in a halfway (including now)? Patient refused 04/08/2023 Sex and Gender Information Value Date Recorded Sex Assigned at Not on file Legal Sex Male 6:20 PM EXCELLENCE MANAGER Gender Identity Not on file Sexual Orientation Not on file Last Filed Vital Signs Vital Sign Reading Time Taken Comments Blood Pressure 113/77 04/15/2023 7:09 AM EXCELLENCE MANAGER Pulse 82 04/15/2023 7:09 AM EXCELLENCE MANAGER Temperature 36.6 C (97.8 F) 04/15/2023 7:09 AM EXCELLENCE MANAGER Respiratory Rate 16 04/15/2023 7:09 AM EXCELLENCE MANAGER Oxygen Saturation 97% 04/15/2023 7:09 AM EXCELLENCE MANAGER Inhaled Oxygen Concentration - - Weight 102 kg (224 lb 13.9 oz) 04/08/2023 11:53 AM EXCELLENCE MANAGER Height 190.5 cm (6' 3 ) 04/08/2023 11:53 AM EXCELLENCE MANAGER Body Mass Index 28.11 04/08/2023 11:53 AM EXCELLENCE MANAGER Plan of Treatment Health Maintenance Due Date [...] (CALCIUM TOTAL) AM Draw 04/13/2023 6:23 AM EXCELLENCE MANAGER LIPID PROFILE Routine 04/09/2023 6:12 AM EXCELLENCE MANAGER from Last 3 Months or Most Recently Relevant to Health Maintenance Results * (ABNORMAL) BASIC METABOLIC PANEL (CALCIUM TOTAL) (04/13/2023 6:23 AM EXCELLENCE MANAGER) [facility] Glucose 91 70 - 125 mg/dL 04/13/2023 7:15 AM [facility] Sodium 142 136 - 145 mmol/L 04/13/2023 7:15 AM [facility] Potassium 5.0 3.4 - 5.1 mmol/L 04/13/2023 7:15 AM [facility] Chloride 108(H) 98 - 107 mmol/L 04/13/2023 7:15 AM [facility] CO2 26 22 - 29 mmol/L 04/13/2023 7:15 AM [facility] Calcium 9.17 8.4 - 10.2 mg/dL 04/13/2023 7:15 AM [facility] Anion Gap 13 6 - 16 mmol/L 04/13/2023 7:15 AM [facility] BUN 33.8(H) 8.4 - 25.7 mg/dL 04/13/2023 7:15 AM [facility] Creatinine 2.21(H) 0.72 - 1.25 mg/dL 04/13/2023 7:15 AM [facility] eGFR 34(L) >90 mL/min/1.7 3m2 04/13/2023 7:15 AM [facility] Comment:The GFR result was c alculated using the updated CKD-EPI Creatinine Equation (2020). Blood BLOOD SPECIMEN / Unknown Lab Venipuncture / Unknown 04/13/2023 6:23 AM EXCELLENCE MANAGER 04/13/2023 6:55 AM [facility] us Ge Summers APRN-AUTOMOBILE BUMPER STRAIGHTENER LAB - CHEMISTRY ORDERABL ES Final Result [facility] [address] * LIPID PROFILE (04/09/2023 6:12 AM [facility]) Cholesterol 137 <200 mg/dL 04/09/2023 6:42 AM [facility] Triglycerides 104 <150 mg/dL 04/09/2023 6:42 AM [facility] HDL Cholesterol 43 >40 mg/dL 3 6:42 AM [facility] Chol HDL Ratio 3.2 1.0 - 6.0 04/09/2023 6:42 AM [facility] LDL Calculated 73 65 - 130 mg/dL 04/09/2023 6:42 AM [facility] VLDL Calculated 21 <=30 mg/dL 3 6:42 AM [facility] Blood BLOOD SPECIMEN / Unknown Lab Venipuncture / Unknown 04/09/2023 6:12 AM EXCELLENCE MANAGER 04/09/2023 6:22 AM [facility] Narrative [facility] - 04/09/2023 6:42 AM [facility] Lipid Profile Comment: CHOLESTEROL LEVEL..................CLINICAL [...] 9.5 ...................... 7.0 3X AVERAGE...................>23........................>11 Dolores Mandujano CAFETERIA COUNTER ATTENDANT-AUTOMOBILE BUMPER STRAIGHTENER LAB - CHEMISTRY ORDERAB LES Final Result Performing Organization Address City/State/[facility] [place] Phone Number [facility] [address] from Last 3 Months or Most Recently Relevant to Health Maintenance Insurance Advance Directives * Full Code (Latest Code Status on File) Date Activated Date Inactivated Comments 04/08/2023 12:25 PM 04/15/2023 12:48 PM Care Teams Paper And Pulp Mill Worker Relationship Specialty Start Date End Date Chip Lizarraga DO PCP - General Internal Medicine 01/16/19
--- OUTSIDE RECORDS SUMMARY | 2024-09-29 15:40 | XMS_ITS | Clinical Summary ---
Author Organization [facility] Address [address] [place] [address] Phone Care Team Providers Care Aviation Safety Technician Name Role Phone Provider, None Primary Care [...] on file Legal Sex Male 10:20 AM TAIL BOARD WORKER Gender Identity Not on file Sexual Orientation Not on file Last Filed Vital Signs Vital Sign Reading Time Taken Comments Blood Pressure 133/78 04/20/2023 12:21 PM TAIL BOARD WORKER Pulse 84 04/20/2023 12:21 PM TAIL BOARD WORKER Temperature 36.4 C (97.6 F) 04/20/2023 8:55 AM TAIL BOARD WORKER Respiratory Rate 18 04/20/2023 12:21 PM TAIL BOARD WORKER Oxygen Saturation 99% 04/20/2023 12:21 PM TAIL BOARD WORKER Inhaled Oxygen Concentration - - Weight 105.7 kg (233 lb) 04/19/2023 7:02 PM TAIL BOARD WORKER Height 190.5 cm (6' 3 ) 04/19/2023 7:02 PM TAIL BOARD WORKER Body Mass Index 29.12 04/19/2023 7:02 PM TAIL BOARD WORKER Plan of Treatment Not on file Insurance MEDICAID [employer] Care Teams Aviation Safety Technician Relationship Specialty Start Date End Date Provider, None [place] PCP - General 04/19/23
--- OUTSIDE RECORDS SUMMARY | 2024-09-29 15:40 | XMS_ITS | Clinical Summary ---
Author Organization [facility] 2 Address [address] [place] [address] Care Team Providers Care Sound Recording Technician Name Role Phone Chip Lizarraga DO Primary Care Provider [phone]- [phone] Allergies Active Allergy Reactions Criticality Noted Date [...] (07/14/2020): Added automatically from request for surgery [id number] Harris's esophagus with high grade dysplasia Resolved Problems Problem Noted Date Diagnosed Date Resolved Date Esophagitis 10/20/2020 12/14/2021 Overview (10/20/2020): Added automatically from request for surgery [id number] Harris's esophagus with dysplasia 04/13/2020 12/14/2021 Overview (04/13/2020): Added automatically from request for surgery [id number] Encounters Date Type Department Care Team Description 09/17/2024 Telephone [facility] Gastroenterology [address] [facility] 12th [place] [address] [place] [address] Zenobia Zaman from Last 3 Months Surgical History Surgery [...] on file Legal Sex Male 9:55 AM MEDICAL CENTER DIRECTOR Gender Identity Not on file Sexual Orientation Straight 03/24/2021 11 :04 AM MEDICAL CENTER DIRECTOR Obstetrics History Last Filed Vital Signs Vital Sign Reading Time Taken Comments Blood Pressure 127/95 05/19/2024 10:50 AM MEDICAL CENTER DIRECTOR Pulse 92 05/19/2024 10:55 AM MEDICAL CENTER DIRECTOR Temperature 36.2 C (97.2 F) 05/19/2024 10:22 AM MEDICAL CENTER DIRECTOR Respiratory Rate 22 05/19/2024 10:55 AM MEDICAL CENTER DIRECTOR Oxygen Saturation 97% 05/19/2024 10:55 AM MEDICAL CENTER DIRECTOR Inhaled Oxygen Concentration - - Weight 106.6 kg (235 lb) 05/19/2024 9:30 AM MEDICAL CENTER DIRECTOR Height 190.5 cm (6' 3 ) 05/19/2024 9:30 AM MEDICAL CENTER DIRECTOR Body Mass Index 29.37 05/19/2024 9:30 AM MEDICAL CENTER DIRECTOR Plan of Treatment Health Maintenance Due Date Last Done Comments Colon Cancer Screening-Colonoscopy 1966 Depression Screening 1966 Hepatitis C Screening 1966 DTaP/Tdap/Td Vaccine (1 - Tdap) 1977 Hepatitis B Screening 02/22/1984 Regular Well Visit/Exam 18-64 02/22/1984 Zoster Vaccine (1 of 2) 02/22/2016 Influenza Vaccine (Season Ended) 2025 02/13/2019, 01/21/2018, 02/25/2017, Additional history exists Prostate Cancer [...] compared to the equimolar-standardized total PSA (George [place]). Comparison of serial PSA results should be [...] AM CDT FASTING:NO FASTING: NO us Saji Mcknight Rosemary OVEN OPERATOR LAB BLOOD ORDERABLES F inal Result [facility] [address] [facility] [place] [address] from Last 3 Months or Most Recently Relevant to Health Maintenance Insurance [facility] Advance Directives For more information, please contact: [phone] * Full Code (Latest Code Status on [...] 9:22 AM 11/29/2020 3:47 PM Care Teams Sound Recording Technician Relationship Specialty Start Date End Date Chip Lizarraga DO PCP - General Internal Medicine 06/22/19
--- OUTSIDE RECORDS SUMMARY | 2024-09-29 15:41 | XMS_ITS | Patient Health Record ---
Author Organization [facility] Address [address] [place] [address] Care Team Providers Care Car Groomer Name Role Phone Jamaica Rosas Primary Care Provider [phone] Allergies Allergen (clinical drug ingredient) Drug/Non Drug [...] Risk Notes Problem Schizoaffective disorder, bipolar type (88275054) Schizoaffective disorder, bipolar type (F25.0) 02/14/20 Active confirmed Problem Tardive dyskinesia (668457032) Tardive dyskinesia (G24.01) 02/14/20 23 Active confirmed Encounters Encounter Location Date Provider Diagnosis [facility] [address] [place] [address] 11/11/2023 Jamaica Rosas Plan Of Treatment No Information Insurance Providers Payer Name Payer Address Payer Phone Subscriber Number Group Number Insured Name Patient Relationship to Insured Coverage Start Date Coverage End Date [facility] Attn Claims Department [address] [place] [address] [id number] Bebo Casey Self - patient is the insured 3 Medical (General) History Surgical History Surgery Date(Month/Year) Rt kidney removed-cancer 2013 Hospitalization History Reason Date(Month/Year) Dehydration Psychiatric inpatient stay 1988 Psychiatric inpatient stay 2009 Psychiatric inpatient stay 2021
[2024-09-29 15:52] VITALS: BP 139/89; PULSE 125; RESP 20; TEMP 36.4; O2SAT 97
--- NOTE | 2024-09-29 15:53 | ECG_ITS ---
Test Date: 2024-09-29 15:59:01 Measurements Intervals [place] Rate: 117 P: 60 HI: 160 QRS: 33 QRSD: 102 T: 22 QT: 315 QTc: 440 Interpretive Statements SINUS TACHYCARDIA INTRAVENTRICULAR CONDUCTION DELAY ABNORMAL ECG Compared to ECG 11/25/2023 19:54:04 Sinus rhythm no longer present Electronically Signed On 09-30-2024 08:18:55 CDT by Juan Luis Velarde M.D.
[2024-09-29 16:08] LABS: Basophils Absolute Auto 0.1 K/mm3 (0.0-0.1); Basophils Percent Auto 0.5 % (0.2-1.2); Eosinophils Absolute Auto 0.5 K/mm3 (0-0.3); Eosinophils Percent Auto 4.2 % (0-4.4); Hematocrit 40.1 % (42.0-52.0); Hemoglobin 13.2 g/dL (14.0-18.0); Immature Granulocyte Absolute 0.09 K/mm3 (0.00-0.031); Immature Granulocyte Percent A 0.7 % (0-0.5); Lymphocytes Percent Auto 37.8 % (18.3-44.2); Mean Corpuscular HGB Conc 32.9 g/dl (32-36); Mean Corpuscular Hemoglobin 31.1 pg (26-34); Mean Corpuscular Volume 94.6 fl (80-100); Mean Platelet Volume 8.2 fl (7.4-10.4); Monocytes Percent Auto 7.6 % (2.6-8.5); Neutrophils Absolute Auto 6.4 K/mm3 (1.3-6.7); Neutrophils Percent Auto 49.2 % (45.5-73.1); Platelet Count Result 215 k/mm3 (150-375); Red Blood Count 4.24 M/mm3 (4.6-6.20); Red Cell Distribution Width 13.1 % (11.5-14.5)
[2024-09-29 16:17] LABS: Alanine Aminotransferase 15 U/L (6-50); Albumin Level 4.6 g/dL (3.5-5.1); Alkaline Phosphatase 64 U/L (38-126); Anion Gap 11 mmol/L (4-12); Aspartate Amino Transferase 27 U/L (17-59); Bilirubin,Total 0.8 mg/dL (0.2-1.3); Blood Urea Nitrogen 22 mg/dL (9-20); Calcium 9.6 mg/dL (8.4-10.2); Carbon Dioxide 22 mmol/L (22-30); Chloride 106 mmol/L (98-107); Estimated CRCL calculation 40 ml/min; Estimated Glomerular Filt Rate 31; Glucose 102 mg/dL (65-110); Lipase 63 U/L (23-300); Potassium 4.8 mmol/L (3.4-5.0); Sodium 139 mmol/L (137-145)
[2024-09-29 16:28] LABS: Troponin I < 0.012 ng/mL (0.000-0.034)
[2024-09-29 16:36] LABS: Prothrombin Time 13.5 Seconds (11.1-14.7)
[2024-09-29 16:37] LABS: Partial Thromboplastin Time 27.6 Seconds (22.3-36.8)
--- NOTE | 2024-09-29 17:41 | ED_ITS ---
HPI - Arrhythmia/Palpitations General Chief Complaint: Arrhythmia/Palpitations <Tiara Flores PA-C - Last Filed: 09/29/24 18:48> Stated Complaint: heart jumping out of chest yesterday <Tiara Flores PA-C - Last Filed: 09/29/24 18:48> Time Seen by Provider: 09/29/24 17:53 <RAFAT Lopez Last Filed: 09/29/24 18:48> Focused HPI: Patient is a 59 y/o male, with PMH of hypothyroidism, CKD, schizophrenia, who presents to the ED with c/o palpitations. Patient reports he has had intermittent palpitations for the past 1 year. Two nights ago, he reported having severe palpitations, described as though his heart was pounding for 2 hours straight. He contacted his primary care doctor was referred to the ED for further evaluation and to be checked for AFIB. No previous known hx of AFIB. He reports intermittent dizziness, lightheadedness, shortness of breath - worse with exertion. Denies CP, BLE pain or swelling, hx of blood clots. GENERAL: Well-appearing, well-nourished, and in no acute distress. HEAD: Normocephalic, atraumatic. CHEST: Clear to auscultation. ?No respiratory distress. HEART: Regular rate and rhythm.? NEURO: ?Alert and oriented x3. PSYCHIATRIC: Somewhat manic/pressured speech. Patient screened in triage and initial orders placed.? ?Additional care and disposition to be based upon?diagnostic testing and treatment. <Tiara Flores PA-C - Last Filed: 09/29/24 18:48> Source: patient <Tiara Flores PA-C - Last Filed: 09/29/24 18:48> Mode of arrival: ambulatory <RAFAT Lopez Last Filed: 09/29/24 18:48> Limitations: no limitations <RAFAT Lopez Last Filed: 09/29/24 18:48> History of Present Illness HPI narrative: agree with MSE <Alma Jorge MD - Last Filed: 09/30/24 02:14> Related Data Home Medications: Home Medications ?Medication ?Instructions ?Recorded ?Confirmed ?Last Taken ?Type divalproex 500 mg tablet,delayed 500 mg PO BID 01/26/21 09/09/24 Unknown History release buspirone 5 mg tablet 5 mg PO TID 07/08/23 09/09/24 Unknown History haloperidol decanoate 100 mg/mL mg IM 03/25/24 09/09/24 Unknown History intramuscular solution <Tiara Flores PA-C - Last Filed: 09/29/24 18:48> Allergies/Adverse Reactions: Allergies Allergy/AdvReac Type Severity Reaction Status Date / Time No Known Allergies Allergy Verified 09/09/24 14:18 <RAFAT Lopez Last Filed: 09/29/24 18:48> Review of Systems 2 Review of Systems: All systems reviewed & are unremarkable except as noted in HPI and below <Alma Jorge MD - Last Filed: 09/30/24 02:14> [facility] Past Medical History Medical History: Medical History Chest pressure Elevated PSA Tylenol overdose Screening for lipid disorders Cerumen impaction Screening for prostate cancer Wound of left leg Lower urinary tract symptoms (LUTS) Otitis media Dizziness Palpitations Toe pain, right Burn Hospital discharge follow-up Dysuria Occasional tremors Prostate cancer screening encounter, options and risks discussed Other specified types of schizophrenia, unspecified condition Swelling of right foot OBEY (acute kidney injury) Weakness Arm and leg movements, uncontrollable Harris esophagus Facial numbness Occasional tremors Hypothyroidism CKD (chronic kidney disease) Schizophrenia GERD (gastroesophageal reflux disease) <RAFAT Lopez Last Filed: 09/29/24 18:48> Surgical History Surgical History: Surgical History History of nephrectomy <Tiara Flores PA-C - Last Filed: 09/29/24 18:48> Family History Family History: Family History Mother Hypertension Father Family history of Alzheimer's disease Malignant neoplasm of prostate Sibling No problems noted. <Tiara Flores PA-C - Last Filed: 09/29/24 18:48> Social History Social History: Social History Social History: Caffeine-soda occasionally Smoking status: Never smoker Alcohol intake: never Substance use: never Substance use type: does not use Spiritual care concerns: No <Tiara Flores PA-C - Last Filed: 09/29/24 18:48> Exam 2 Narrative: EXAMINATION OF ORGAN SYSTEMS/BODY AREAS: Constitutional: Vital signs per nursing GENERAL:[No acute distress, non-toxic appearing.] HEAD: Normal with no signs of head trauma. EYES: EOMI, conjunctiva normal ENT: Hearing grossly intact LUNGS: Nonlabored breathing. HEART: [Regular rate and rhythm] ABD: [Soft], [nontender to palpation] EXT: Normal range of motion SKIN: [No rashes or lesions.] NEURO: [Alert. No gross focal sensory or strength deficits.] PSYCH: Normal affect <Alma Jorge MD - Last Filed: 09/30/24 02:14> Course Vital Signs Vital signs: Vital Signs Temperature 97.6 F 09/29/24 15:52 Pulse Rate 125 H 09/29/24 15:52 Respiratory Rate 20 09/29/24 15:52 Blood Pressure 139/89 09/29/24 15:52 Pulse Oximetry 97 09/29/24 15:52 Oxygen Delivery Room Air 09/29/24 15:52 Temperature 98 F 09/29/24 19:50 Pulse Rate 91 09/29/24 22:02 Respiratory Rate 17 09/29/24 22:02 Blood Pressure 137/99 H 09/29/24 22:02 Pulse Oximetry 98 09/29/24 22:02 Oxygen Delivery Room Air 09/29/24 15:52 <Tiara Flores PA-C - Last Filed: 09/29/24 18:48> Vital Signs Temperature 97.6 F 09/29/24 15:52 Pulse Rate 125 H 09/29/24 15:52 Respiratory Rate 20 09/29/24 15:52 Blood Pressure 139/89 09/29/24 15:52 Pulse Oximetry 97 09/29/24 15:52 Oxygen Delivery Room Air 09/29/24 15:52 Temperature 98 F 09/29/24 19:50 Pulse Rate 91 09/29/24 22:02 Respiratory Rate 17 09/29/24 22:02 Blood Pressure 137/99 H 09/29/24 22:02 Pulse Oximetry 98 09/29/24 22:02 Oxygen Delivery Room Air 09/29/24 15:52 <Alma Jorge MD - Last Filed: 09/30/24 02:14> MDM - Arrhythmia/Palpitations MDM Narrative Medical decision making narrative: MSE by BIBI in triage. <Tiara Flores PA-C - Last Filed: 09/29/24 18:48> MSE by IBBI in triage. Patient presenting due to PCP concerned about possible AFib. Initial EKG on my independent interpretation shows sinus tachycardia rate 117, [place] 160, QRS 102, QTC 440, normal axis, no ST elevations or signs of acute ischemia or arrhythmia other than sinus tachycardia Repeat EKG on my independent interpretation shows sinus rhythm rate 99, [place] 147, QRS 100, QTC 434, no acute signs of acute ischemia or arrhythmia. Labs obtained here notable for WBC 13, creatinine elevated, though leukocytosis and CKD seems chronic for him, troponin negative, D-dimer negative On my evaluation patient was, no distress, states that he is asymptomatic, is agreeable to follow-up with his primary care doctor and asset recovery specialist for further evaluation and treatment as needed. I diffuse stable for discharge as during the entire time that he has been here, and on telemetry, he has never had been in any arrhythmia. <Alma Jorge MD - Last Filed: 09/30/24 02:14> Lab Data Result diagrams: 09/29/24 15:59 09/29/24 15:59 <Tiara Flores PA-C - Last Filed: 09/29/24 18:48> Labs: Lab Results 09/29/24 09/29/24 Range/Units 15:59 19:48 WBC 13.0 H (4.5-10.0) K/mm3 RBC 4.24 L (4.6-6.20) M/mm3 Hgb 13.2 L (14.0-18.0) g/dL Hct 40.1 L (42.0-52.0) % MCV 94.6 (80-100) fl MCH 31.1 (26-34) pg MCHC 32.9 (32-36) g/dl RDW 13.1 (11.5-14.5) % Plt Count 215 (150-375) k/mm3 MPV 8.2 (7.4-10.4) fl Immature Gran % (Auto) 0.7 H (0-0.5) % Neut % (Auto) 49.2 (45.5-73.1) % Lymph % (Auto) 37.8 (18.3-44.2) % [place] % (Auto) 7.6 (2.6-8.5) % Eos % (Auto) 4.2 (0-4.4) % Baso % (Auto) 0.5 (0.2-1.2) % Lymph # (Auto) 4.90 H (0.9-3.2) K/mm3 [place] # (Auto) 1.0 H (0.1-0.6) K/mm3 Eos # (Auto) 0.5 H (0-0.3) K/mm3 Baso # (Auto) 0.1 (0.0-0.1) K/mm3 Abs Immat Gran (auto) 0.09 H (0.00-0.031) K/mm3 Absolute Neuts (auto) 6.4 (1.3-6.7) K/mm3 Absolute Nucleated RBC 0.000 (0.0-0.012) K/mm3 Nucleated RBC % 0.0 (0.0-0.2) % PT 13.5 (11.1-14.7) Seconds INR 1.0 APTT 27.6 (22.3-36.8) Seconds D-Dimer 0.34 (<0.48) ug/mL Sodium 139 (137-145) mmol/L Potassium 4.8 (3.4-5.0) mmol/L Chloride 106 (98-107) mmol/L Carbon Dioxide 22 (22-30) mmol/L Anion Gap 11 (4-12) mmol/L BUN 22 H (9-20) mg/dL Creatinine 2.17 H (0.7-1.3) mg/dL Estim Creat Clear Calc 40 ml/min Estimated GFR 31 L (59 - ) Glucose 102 (65-110) mg/dL Calcium 9.6 (8.4-10.2) mg/dL Magnesium 1.8 (1.6-2.3) mg/dL Total Bilirubin 0.8 (0.2-1.3) mg/dL AST 27 (17-59) U/L ALT 15 (6-50) U/L Alkaline Phosphatase 64 (38-126) U/L Troponin I < 0.012 < 0.012 (0.000-0.034) ng/mL Total Protein 8.0 (6.3-8.2) g/dL Albumin 4.6 (3.5-5.1) g/dL Lipase 63 (23-300) U/L TSH (Reflex) 2.750 (0.465-4.68) uIU/mL <Tiara Flores PA-C - Last Filed: 09/29/24 18:48> Lab Results 09/29/24 09/29/24 Range/Units 15:59 19:48 WBC 13.0 H (4.5-10.0) K/mm3 RBC 4.24 L (4.6-6.20) M/mm3 Hgb 13.2 L (14.0-18.0) g/dL Hct 40.1 L (42.0-52.0) % MCV 94.6 (80-100) fl MCH 31.1 (26-34) pg MCHC 32.9 (32-36) g/dl RDW 13.1 (11.5-14.5) % Plt Count 215 (150-375) k/mm3 MPV 8.2 (7.4-10.4) fl Immature Gran % (Auto) 0.7 H (0-0.5) % Neut % (Auto) 49.2 (45.5-73.1) % Lymph % (Auto) 37.8 (18.3-44.2) % [place] % (Auto) 7.6 (2.6-8.5) % Eos % (Auto) 4.2 (0-4.4) % Baso % (Auto) 0.5 (0.2-1.2) % Lymph # (Auto) 4.90 H (0.9-3.2) K/mm3 [place] # (Auto) 1.0 H (0.1-0.6) K/mm3 Eos # (Auto) 0.5 H (0-0.3) K/mm3 Baso # (Auto) 0.1 (0.0-0.1) K/mm3 Abs Immat Gran (auto) 0.09 H (0.00-0.031) K/mm3 Absolute Neuts (auto) 6.4 (1.3-6.7) K/mm3 Absolute Nucleated RBC 0.000 (0.0-0.012) K/mm3 Nucleated RBC % 0.0 (0.0-0.2) % PT 13.5 (11.1-14.7) Seconds INR 1.0 APTT 27.6 (22.3-36.8) Seconds D-Dimer 0.34 (<0.48) ug/mL Sodium 139 (137-145) mmol/L Potassium 4.8 (3.4-5.0) mmol/L Chloride 106 (98-107) mmol/L Carbon Dioxide 22 (22-30) mmol/L Anion Gap 11 (4-12) mmol/L BUN 22 H (9-20) mg/dL Creatinine 2.17 H (0.7-1.3) mg/dL Estim Creat Clear Calc 40 ml/min Estimated GFR 31 L (59 - ) Glucose 102 (65-110) mg/dL Calcium 9.6 (8.4-10.2) mg/dL Magnesium 1.8 (1.6-2.3) mg/dL Total Bilirubin 0.8 (0.2-1.3) mg/dL AST 27 (17-59) U/L ALT 15 (6-50) U/L Alkaline Phosphatase 64 (38-126) U/L Troponin I < 0.012 < 0.012 (0.000-0.034) ng/mL Total Protein 8.0 (6.3-8.2) g/dL Albumin 4.6 (3.5-5.1) g/dL Lipase 63 (23-300) U/L TSH (Reflex) 2.750 (0.465-4.68) uIU/mL <Alma Jorge MD - Last Filed: 09/30/24 02:14> Discharge Plan Discharge Clinical Impression: History of palpitations <Tiara Flores PA-C - Last Filed: 09/29/24 18:48> Patient Disposition: Home <Tiara Flores PA-C - Last Filed: 09/29/24 18:48> Condition: Stable <RAFAT Lopez Last Filed: 09/29/24 18:48> Instructions: Heart Palpitations (ED) <Tiara Flores PA-C - Last Filed: 09/29/24 18:48> Additional Instructions: You can follow-up with her primary care doctor or your asset recovery specialist, your heart rhythm today was not showing any arrhythmia. You can always return to the emergency room for any further issues. <RAFAT Lopez Last Filed: 09/29/24 18:48> Patient Language: Arabic <Tiara Flores PA-C - Last Filed: 09/29/24 18:48> Prescriptions: No Action buspirone 5 mg tablet 5 mg PO TID haloperidol decanoate 100 mg/mL solution IM divalproex 500 mg tablet,delayed release (DR/EC) 500 mg PO BID pantoprazole 40 mg tablet,delayed release (DR/EC) 40 mg PO BID Qty: 180 3RF midodrine 2.5 mg tablet See Rx Instructions .ROUTE .COMPLEX Qty: 270 1RF Dose Instruction: TAKE 1 TABLET BY MOUTH THREE TIMES DAILY. DO NOT GIVE LAST DOSE AFTER 4 PM Rx Instructions: TAKE 1 TABLET BY MOUTH THREE TIMES DAILY. DO NOT GIVE LAST DOSE AFTER 4 PM levothyroxine 100 mcg tablet See Rx Instructions .ROUTE .COMPLEX Qty: 90 1RF Dose Instruction: TAKE 1 TABLET BY MOUTH DAILY Rx Instructions: TAKE 1 TABLET BY MOUTH DAILY <Tiara Flores PA-C - Last Filed: 09/29/24 18:48> Follow-up/Referrals: Donald Hopson MD [Physician] - 2 Days Chip Lizarraga DO [Primary Care Provider] - <Tiara Flores PA-C - Last Filed: 09/29/24 18:48>
[2024-09-29 18:14] LABS: Magnesium 1.8 mg/dL (1.6-2.3)
[2024-09-29 18:16] LABS: D Dimer 0.34 ug/mL (<0.48)
--- NOTE | 2024-09-29 19:29 | ECG_ITS ---
Test Date: 2024-09-29 19:47:51 Measurements Intervals [place] Rate: 99 P: 116 IA: 147 QRS: 179 QRSD: 100 T: 184 QT: 337 QTc: 434 Interpretive Statements SINUS RHYTHM POSSIBLE RIGHT VENTRICULAR HYPERTROPHY [SOME/ALL OF: PROMINENT R IN V1, LATE TRANSITION, RAD, ROSALBA, SSS] ST DEVIATION AND MODERATE T-WAVE ABNORMALITY, CONSIDER INFERIOR ISCHEMIA [-0.1+ mV T WAVE IN II/aVF] LEAD REVERSAL NOTED WHICH LIMITS INTERPRETATION ABNORMAL ECG Compared to ECG 09/29/2024 15:59:01 T-wave abnormality now present Possible ischemia now present Sinus tachycardia no longer present Intraventricular conduction delay no longer present Electronically Signed On 09-30-2024 08:21:39 CDT by Juan Luis Velarde M.D.
[2024-09-29 19:50] VITALS: BP 149/108; PULSE 100; RESP 16; TEMP 36.6; O2SAT 100
[2024-09-29 20:21] LABS: Troponin I < 0.012 ng/mL (0.000-0.034)
[2024-09-29 22:02] VITALS: BP 137/99; PULSE 91; RESP 17; O2SAT 98
--- OUTSIDE RECORDS SUMMARY | 2024-09-29 22:13 | XMS_ITS | Clinical Summary ---
Author Organization [facility] 2 Address [address] [facility] [place] [address] Care Team Providers Care Orthophotography Technician Name Role Phone Chip Lizarraga DO Primary Care Provider +1- [phone] Allergies Active Allergy Reactions Criticality Noted Date [...] (07/14/2020): Added automatically from request for surgery [id number] Harris's esophagus with high grade dysplasia Resolved Problems Problem Noted Date Diagnosed Date Resolved Date Esophagitis 10/20/2020 12/14/2021 Overview (10/20/2020): Added automatically from request for surgery [id number] Harris's esophagus with dysplasia 04/13/2020 12/14/2021 Overview (04/13/2020): Added automatically from request for surgery [id number] Encounters Date Type Department Care Team Description 09/17/2024 Telephone [facility] Gastroenterology [address] [facility] 12th [place] [address] [place] [address] Zenobia Zaman from Last 3 Months Surgical [...] on file Legal Sex 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 Gender Identity Not on file Sexual Orientation Straight 03/24/2021 11 :04 AM 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 INSTALLER 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 REPAIRER Obstetrics History Last Filed Vital Signs Vital Sign Reading Time Taken Comments Blood Pressure 127/95 05/19/2024 10:50 AM 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 INSTALLER AND REPAIRER Pulse 92 05/19/2024 10:55 AM 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 INSTALLER AND REPAIRER Temperature 36.2 C (97.2 F) 05/19/2024 10:22 AM 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 INSTALLER AND REPAIRER Respiratory Rate 22 05/19/2024 10:55 AM 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 INSTALLER AND REPAIRER Oxygen Saturation 97% 05/19/2024 10:55 AM 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 INSTALLER AND REPAIRER Inhaled Oxygen Concentration - - Weight 106.6 kg (235 lb) 05/19/2024 9:30 AM 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 INSTALLER AND REPAIRER Height 190.5 cm (6' 3 ) 05/19/2024 9:30 AM 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 INSTALLER AND REPAIRER Body Mass Index 29.37 05/19/2024 9:30 AM 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 INSTALLER AND REPAIRER Plan of Treatment Health Maintenance Due Date [...] compared to the equimolar-standardized total PSA (George [place]). Comparison of serial PSA results should be [...] FASTING:NO FASTING: NO us Saji Mcknight Rosemary LEAN CONSULTANT LAB BLOOD ORDERABLES F inal Result [facility] [address] [facility] [place] [address] from Last 3 Months or Most Recently Relevant to Health Maintenance Insurance [facility] Advance Directives For more information, please contact: [phone] * Full Code (Latest Code Status on [...] 9:22 AM 11/29/2020 3:47 PM Care Teams Orthophotography Technician Relationship Specialty Start Date End Date Chip Lizarraga DO PCP - General Internal Medicine 06/22/19
--- OUTSIDE RECORDS SUMMARY | 2024-09-29 22:13 | XMS_ITS | Referral Summary ---
Author Organization [facility] 2 Address [address] [place] [address] Care Team Providers Care Pilot Can Router Name Role Phone Chip Lizarraga DO Primary Care Provider [phone] Encounters Date Type Department Care Team Description 09/17/2024 Telephone [facility] Gastroenterology [address] [facility] 12th [place] [address] [place] [address] Zenobia Zaman from Last 3 [...] (07/14/2020): Added automatically from request for surgery [id number] Harris's esophagus with high grade dysplasia Resolved Problems Problem Noted Date Diagnosed Date Resolved Date Esophagitis 10/20/2020 12/14/2021 Overview (10/20/2020): Added automatically from request for surgery [id number] Harris's esophagus with dysplasia 04/13/2020 12/14/2021 Overview (04/13/2020): Added automatically from request for surgery [id number] Social History Tobacco Use Types Packs/Day Years [...] on file Legal Sex Male 9:55 AM SHAMPOO PERSON Gender Identity Not on file Sexual Orientation Straight 03/24/2021 11 :04 AM SHAMPOO PERSON Last Filed Vital Signs Vital Sign Reading Time Taken Comments Blood Pressure 127/95 05/19/2024 10:50 AM SHAMPOO PERSON Pulse 92 05/19/2024 10:55 AM SHAMPOO PERSON Temperature 36.2 C (97.2 F) 05/19/2024 10:22 AM SHAMPOO PERSON Respiratory Rate 22 05/19/2024 10:55 AM SHAMPOO PERSON Oxygen Saturation 97% 05/19/2024 10:55 AM SHAMPOO PERSON Inhaled Oxygen Concentration - - Weight 106.6 kg (235 lb) 05/19/2024 9:30 AM SHAMPOO PERSON Height 190.5 cm (6' 3 ) 05/19/2024 9:30 AM SHAMPOO PERSON Body Mass Index 29.37 05/19/2024 9:30 AM SHAMPOO PERSON Plan of Treatment Not on file Procedures Procedure Name Priority Date/Time Associated Diagnosis Comments PSA SCREEN Routine 08/14/2023 2:44 PM CDT Lower urinary tract symptoms (LUTS) from Last 3 Months or Most Recently Relevant to Health Maintenance Results * PSA screen (08/14/2023 2:44 PM CDT) PSA 2.96 < OR = 4.00 ng/mL [facility] Comment: The total PSA value [...] CDT FASTING:NO FASTING: NO us Saji Riley FLAG DECORATOR LAB BLOOD ORDERABLES F inal Result [facility] [address] [place] [address] from Last 3 Months or Most Recently Relevant to Health Maintenance Insurance [facility] Advance Directives For more information, please contact: [phone] * Full Code (Latest Code Status on [...] 9:22 AM 11/29/2020 3:47 PM Care Teams Pilot Can Router Relationship Specialty Start Date End Date Chip Lizarraga DO PCP - General Internal Medicine 06/22/19
--- OUTSIDE RECORDS SUMMARY | 2024-09-29 22:13 | XMS_ITS | Clinical Summary ---
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 Respiratory Rate - - Oxygen Saturation - - Inhaled Oxygen Concentration - - Weight 98.4 kg (217 lb) 09/22/2024 12:42 PM CDT Height 190.5 cm (6' 3 ) 09/22/2024 12:42 PM CDT Body Mass Index 27.12 09/22/2024 12:42 PM CDT Plan of Treatment Upcoming Encounters Date Type Department Care Team (Late st Contact Info) Description 03/23/2025 12:40 PM ACQUISITION PROFESSIONAL Office Visit [facility] [address] [place] [address] Rell Duenas MD [address] [facility] [address] [place] [address] Health Maintenance Due Date Last Done Comments Pneumococcal PPSV23 Highest Risk Adult (1 of 3 - PCV13) 1985 Influenza Vaccine (Season Ended) 2025 02/16/20 16 Insurance [employer] Care Teams Icing Maker Relationship Specialty Start Date End Date Chip Lizarraga DO [address] [place] [address] PCP - General 09/23/18
--- OUTSIDE RECORDS SUMMARY | 2024-09-29 22:13 | XMS_ITS | Continuity of Care Document ---
Author Organization [facility] Address [address] [place] [address] [address] [place] [address] Phone Care Team Providers Care Biofuels Production Technician Name Role Phone Butler OD, Clement Unavailable Unavailable Procedures Procedure Date Eye Exam & Treatment Refraction Advance Directives Directive Yes / No Effective Date File Name No Information Encounters Encounter Description Practice Location Reason(s) For Visit Diagnoses Date Provider Providers Copied on Encounter [facility], [address] [place] [address] [address], [place], [place], [address], [place] tel:[phone] [facility] No Information 2-201 0 Butler OD Clement. [address] , [address], [place], [address], [place]. tel:[phone] Family History Family Member Type Diagnosis Age At Onset No Information Payers Payer name Insurance type Covered democrat ID Authoriza tion(s) Medicaid [facility] [id number] Social History Type Description Quantity Date Captured [...]
--- OUTSIDE RECORDS SUMMARY | 2024-09-29 22:13 | XMS_ITS | Continuity of Care Document ---
Author Organization [facility] Address [address] [facility] [place] [address] Phone Care Team Providers Care Hot Mix Operator Name Role Phone Brian Thompson MD Unavailable [...] Diagnoses Date Provider Providers Copied on Encounter [facility], [address] [place], [address], tel:[phone] [facility] No Information 5 Jay Torres. [address] [place], [place], [address] , [place]. tel:[phone] Referring Provider: Nina [address], [place], [place], [address]. tel:[phone] OFFICE/OUTPA TIENT VISIT, [facility], [place], [address], [place], [place], [address], [place] [phone] [facility] elbow pain (chief complaint)ofot numbnes (chief complaint)celia l CA (chief complaint) Arm painNeuropathyR enal diseaseRenal neoplasm Jan-2 5 Jay Torres. [address], [place], [place], [address] , [place]. [phone] Referring Provider: Nina [address], [place], [place], [address]. tel:[phone] PREV VISIT, EST, AGE 40-64 [facility], [address], [place], [place], [address], [place] tel:[phone] [facility] Physical (chief complaint) Routine Medical ExamRoutine Medical Exam 2 5 Jay Torres. [address], [place], [place], [address] , [place]. tel:[phone] Referring Provider: Brian Thompson, [address], [place], [place], [address]. tel:[phone] OFFICE/OUTPA TIENT VISIT, [facility], [place], [address], [place], [place], [address], [place] tel:[phone] [facility] dizziness (chief complaint) Syncope and collapse 0 2201 4 Jay Torres. [address], [place], [place], [address] , [place]. tel:[phone] Referring Provider: Brian Thompson, [address], [place], [place], [address]. tel:[phone] OFFICE/OUTPA TIENT VISIT, [facility], [place], [address], [place], [place], [address], [place] tel:[phone] [facility] dizziness (chief complaint) DizzinessSyncop e and collapse 4 Jay Torres. [address], [place], [place], [address] , [place]. tel:[phone] Referring Provider: Nina [address], [place], [place], [address]. tel:[phone] OFFICE/OUTPA TIENT VISIT, [facility], [place], [address], [place], [place], [address], [place] tel:[phone] [facility] cough (chief complaint) Bronchitis, Acute 4 Jay Torres. [address], [place], [place], [address] , [place]. tel:[phone] Referring Provider: Nina [address], [place], [place], [address]. tel:[phone] OFFICE/OUTPA TIENT VISIT, [facility], [place], [address], [place], [place], [address], [place] tel:[phone] [facility] renal CA (chief complaint)Hypo thyroidism (chief complaint) HypothyroidismM alignant Neoplasm, KidneyFamily history of malignant neoplasm of prostate 4 Jay Torres. [address], [place], [place], [address] , [place]. tel:[phone] Referring Provider: Nina [address], [place], [place], [address]. tel:[phone] OFFICE/OUTPA TIENT VISIT, [facility], [place], [address], [place], [place], [address], [place] tel:[phone] [facility] renal CA (chief complaint)hypo thyroidism (chief complaint)schi zoaffective (chief complaint) Malignant Neoplasm, KidneyHypothyro idismSchizoaffe ctive disorder, chronic 4 Jay Torres. [address], [place], [place], [address] , [place]. tel:[phone] Referring Provider: Brian Thompson, [address], [place], [place], [address]. tel:[phone] OFFICE/OUTPA TIENT VISIT, [facility], [place], [address], [place], [place], [address], [place] tel:[phone] [facility] dysuria (chief complaint) Dysuria 4 Jay Torres. [address], [place], [place], [address] , [place]. tel:[phone] Referring Provider: Brian Thompson, [address], [place], [place], [address]. tel:[phone] OFFICE/OUTPA TIENT VISIT, [facility], [place], [address], [place], [place], [address], [place] tel:[phone] [facility] UTI (chief complaint)nguyen ntia (chief complaint)anxi ety (chief complaint) Dietary surveillance and counselingUrina ry Tract InfectionMEMORY LOSSGeneralized anxiety disorder 4 Jay Torres. [address], [place], [place], [address] , [place]. tel:[phone] Referring Provider: Brian Thompson, [address], [place], [place], [address]. tel:[phone] OFFICE/OUTPA TIENT VISIT, [facility], [place], [address], [place], [place], [address], [place] tel:[phone] [facility] UTI (chief complaint) Dietary surveillance and counselingDysur ia 4 Jay Torres. [address], [place], [place], [address] , [place]. tel:[phone] Referring Provider: Brian Thompson, [address], [place], [place], [address]. tel:[phone] OFFICE/OUTPA TIENT VISIT, [facility], [place], [address], [place], [place], [address], [place] tel:[phone] [facility] renal insufficiency (chief complaint)nolvia min D (chief complaint)hist ory of prostate CA (chief complaint)asth ma (chief complaint) Dietary surveillance and counselingRenal Failure, AcuteFamily history of malignant neoplasm of prostateHEMATUR IA NOS 4 Jay Torres. [address], [place], [place], [address] , [place]. [phone] Referring Provider: Nina [address], [place], [place], [address]. tel:[phone] OFFICE/OUTPA TIENT VISIT, [facility], [place], [address], [place], [place], [address], [place] tel:[phone] [facility] GFR (chief complaint)TG (chief complaint)Mak turia (chief complaint) HEMATURIA NOSDietary surveillance and counselingOther and unspecified hyperlipidemiaH ypothyroidism 4 Jay Torres. [address], [place], [place], [address] , [place]. tel:[phone] Referring Provider: Nina [address], [place], [place], [address]. tel:[phone] PREV VISIT, NEW, AGE 40-64 [facility], [address], [place], [place], [address], [place] tel:[phone] [facility] Physical (chief complaint) Routine Medical ExamRoutine Medical Exam 4 Jay Torres. [address], [place], [place], [address] , [place]. [phone] Referring Provider: Nina [address], [place], [place], [address]. tel:[phone] Family History Family Member Type Diagnosis Age [...]
--- OUTSIDE RECORDS SUMMARY | 2024-09-29 22:13 | XMS_ITS | Clinical Summary ---
Author Organization [facility] Address [address] [place] [address] Phone Care Team Providers Care Dinkey Operator Slag Name Role Phone Provider, None Primary Care [...] on file Legal Sex Male 10:20 AM EXERCISE TEACHER Gender Identity Not on file Sexual Orientation Not on file Last Filed Vital Signs Vital Sign Reading Time Taken Comments Blood Pressure 133/78 04/20/2023 12:21 PM EXERCISE TEACHER Pulse 84 04/20/2023 12:21 PM EXERCISE TEACHER Temperature 36.4 C (97.6 F) 04/20/2023 8:55 AM EXERCISE TEACHER Respiratory Rate 18 04/20/2023 12:21 PM EXERCISE TEACHER Oxygen Saturation 99% 04/20/2023 12:21 PM EXERCISE TEACHER Inhaled Oxygen Concentration - - Weight 105.7 kg (233 lb) 04/19/2023 7:02 PM EXERCISE TEACHER Height 190.5 cm (6' 3 ) 04/19/2023 7:02 PM EXERCISE TEACHER Body Mass Index 29.12 04/19/2023 7:02 PM EXERCISE TEACHER Plan of Treatment Not on file Insurance MEDICAID [employer] Care Teams Dinkey Operator Slag Relationship Specialty Start Date End Date Provider, None [place] PCP - General 04/19/23
--- OUTSIDE RECORDS SUMMARY | 2024-09-29 22:13 | XMS_ITS | Clinical Summary ---
Author Organization [facility] [employer] Address [address] [place] [address] Care Team Providers Care Sampler First Name Role Phone FredisChip catherine Tray DO Primary Care Provider Source Comments [facility] [employer],non-owned Affiliates and Associated Physician Practices is amultiple site organization consisting of ambulatory clinics and hospital sitesin [place], [place], [place] and [place]. This disclosure is being madepursuant to the Care Everywhere program and may not contain all information available regarding this patient. Last updated 18.[facility] [employer] Allergies Active Allergy Reactions Criticality Noted Date [...] (04/09/2023): Added automatically from request for surgery [id number] Harris's esophagus with high grade dysplasia 04/09/2023 [...] medical care, and heating? Patient declined 04/08/2023 [facility] - Occupational [...] place to sleep or slept in a care home (including now)? Patient refused 04/08/2023 Sex and Gender Information Value Date Recorded Sex Assigned at Not on file Legal Sex Male 6:20 PM SUPERVISOR HARD CANDY Gender Identity Not on file Sexual Orientation Not on file Last Filed Vital Signs Vital Sign Reading Time Taken Comments Blood Pressure 113/77 04/15/2023 7:09 AM SUPERVISOR HARD CANDY Pulse 82 04/15/2023 7:09 AM SUPERVISOR HARD CANDY Temperature 36.6 C (97.8 F) 04/15/2023 7:09 AM SUPERVISOR HARD CANDY Respiratory Rate 16 04/15/2023 7:09 AM SUPERVISOR HARD CANDY Oxygen Saturation 97% 04/15/2023 7:09 AM SUPERVISOR HARD CANDY Inhaled Oxygen Concentration - - Weight 102 kg (224 lb 13.9 oz) 04/08/2023 11:53 AM SUPERVISOR HARD CANDY Height 190.5 cm (6' 3 ) 04/08/2023 11:53 AM SUPERVISOR HARD CANDY Body Mass Index 28.11 04/08/2023 11:53 AM SUPERVISOR HARD CANDY Plan of Treatment Health Maintenance Due Date [...] (CALCIUM TOTAL) AM Draw 04/13/2023 6:23 AM SUPERVISOR HARD CANDY LIPID PROFILE Routine 04/09/2023 6:12 AM SUPERVISOR HARD CANDY from Last 3 Months or Most Recently Relevant to Health Maintenance Results * (ABNORMAL) BASIC METABOLIC PANEL (CALCIUM TOTAL) (04/13/2023 6:23 AM SUPERVISOR HARD CANDY) [facility] Glucose 91 70 - 125 mg/dL 04/13/2023 7:15 AM [facility] Sodium 142 136 - 145 mmol/L 04/13/2023 7:15 AM [facility] Potassium 5.0 3.4 - 5.1 mmol/L 04/13/2023 7:15 AM [facility] Chloride 108(H) 98 - 107 mmol/L 04/13/2023 7:15 AM [facility] CO2 26 22 - 29 mmol/L 04/13/2023 7:15 AM [facility] Calcium 9.17 8.4 - 10.2 mg/dL 04/13/2023 7:15 AM [facility] Anion Gap 13 6 - 16 mmol/L 04/13/2023 7:15 AM [facility] BUN 33.8(H) 8.4 - 25.7 mg/dL 04/13/2023 7:15 AM [facility] Creatinine 2.21(H) 0.72 - 1.25 mg/dL 04/13/2023 7:15 AM [facility] eGFR 34(L) >90 mL/min/1.7 3m2 04/13/2023 7:15 AM [facility] Comment:The GFR result was c alculated using the updated CKD-EPI Creatinine Equation (2020). Blood BLOOD SPECIMEN / Unknown Lab Venipuncture / Unknown 04/13/2023 6:23 AM SUPERVISOR HARD CANDY 04/13/2023 6:55 AM [facility] us Ge Summers APRN-MANAGER PIPELINE LAB - CHEMISTRY ORDERABL ES Final Result [facility] [address] * LIPID PROFILE (04/09/2023 6:12 AM [facility]) Cholesterol 137 <200 mg/dL 04/09/2023 6:42 AM [facility] Triglycerides 104 <150 mg/dL 04/09/2023 6:42 AM [facility] HDL Cholesterol 43 >40 mg/dL 3 6:42 AM [facility] Chol HDL Ratio 3.2 1.0 - 6.0 04/09/2023 6:42 AM [facility] LDL Calculated 73 65 - 130 mg/dL 04/09/2023 6:42 AM [facility] VLDL Calculated 21 <=30 mg/dL 3 6:42 AM [facility] Blood BLOOD SPECIMEN / Unknown Lab Venipuncture / Unknown 04/09/2023 6:12 AM SUPERVISOR HARD CANDY 04/09/2023 6:22 AM [facility] Narrative [facility] - 04/09/2023 6:42 AM [facility] Lipid Profile Comment: CHOLESTEROL LEVEL..................CLINICAL INTERPRETATION LESS [...] 9.5 ...................... 7.0 3X AVERAGE...................>23........................>11 Dolores Mandujano PYROTECHNICIAN-MANAGER PIPELINE LAB - CHEMISTRY ORDERAB LES Final Result Performing Organization Address City/State/[facility] Co ne Phone Number [facility] [address] from Last 3 Months or Most Recently Relevant to Health Maintenance Insurance Advance Directives * Full Code (Latest Code Status on File) Date Activated Date Inactivated Comments 04/08/2023 12:25 PM 04/15/2023 12:48 PM Care Teams Sampler First Relationship Specialty Start Date End Date Chip Lizarraga DO PCP - General Internal Medicine 01/16/19
== END 2024-09-29 22:14 | disposition home or self-care (01) ==
LOC: ANHED 22:11
PROVIDERS: Emergency Medicine; Physician Assistant; Emergency Provider Emergency Medicine; PCP Internal Medicine
DX: R00.2 Palpitations (principal); E03.9 Hypothyroidism, unspecified; N18.9 Chronic kidney disease, unspecified; F20.89 Other schizophrenia; K21.9 Gastro-esophageal reflux disease without esophagitis; Z90.5 Acquired absence of kidney; Z79.899 Other long term (current) drug therapy; R00.0 Tachycardia, unspecified; I45.9 Conduction disorder, unspecified
CPT/HCPCS: 36415; 71046; 80053; 83690; 83735; 84443; 84484; 85025; 85380; 85610; 85730; 93005; 99284

== ENCOUNTER 2024-11-04 10:33 | Outpatient (RCR) | payer OTHER, SELFPAY ==
--- NOTE | 2024-08-26 11:03 | PC.NURSE ---
AMBULATORY TO LAB DRAW STATION FOR MONTHLY INJECTION. PATIENT BROUGHT IN WITH HIM 2 VIALS OF HALDOL D - EACH 1 CC WITH 100 MG/CC. GIVEN 1.5CC OR 150 MG OF HALDOL D ORDERED. DISCHARGED AMBULATORY WITH STEADY GAIT. HAS APPOINTMENT FOR NEXT MONTH / 4 WEEK VISIT WITH NUMBER TO CALL FOR QUESTIONS OR CONCERNS.
--- NOTE | 2024-10-06 14:56 | PC.NURSE ---
AMBULATORY TO DRAW STATION FOR OUTPATIENT INJECTION. MEDICATION BROUGHT IN BY PATIENT IN PHARMACY BOTTLE MARKED WITH NAME AND MEDICATION APPROPRIATELY. EACH VIAL CONTAINED 100 MG/ML HALDOL D. TOTAL VIALS 2. GIVEN 1.5 CC OR 150 MG HALDOL D IM DIRECTED. DISCUSSED OCTOBER AND NOVEMBER APPOINTMENTS AND INSTRUCTED THAT HE WILL NEED TO CONTACT PHYSICIANS OFFICE REGARDING INJECTIONS AFTER BRENT DOSE TO BE SURE THEY HAVE THE MEDICATION. VOICED UNDERSTANDING. HAS APPOINTMENT CARD FOR OCTOBER APPOINTMENT WITH NUMBER TO CALL FOR QUESTIONS OR CONCERNS AND TO SCHEDULE TIME DAY OF APPOINTMENT. VOICED UNDERSTANDING. DISCHARGED AMBULATORY WITH STEADY GAIT TO RETURN IN 4 WEEKS.
--- NOTE | 2024-11-04 14:05 | PC.NURSE ---
AMBULATORY TO LAB DRAW STATION FOR OUTPATIENT HALDOL D INJECTION WITH STEADY GAIT. MEDICATION BROUGHT IN BY PATIENT IN PHARMACY BOTTLE MARKED APPROPRIATELY. 2 VIALS OF SAME LOT NUMBER EACH CONTAINING 100 MG IN EACH VIAL PER 1 CC. GIVEN 1.5 CC OR 150 MG OF HALDOL D ORDERED. DISCHARGED AMBULATORY WITH STEADY GAIT TO RETURN IN 4 WEEKS. HAS APPOINTMENT CARD WITH APPOINTMENT DATE AND NUMBER TO CALL FOR QUESTIONS OR CONCERNS.
== END 2024-11-24 23:59 | disposition home or self-care (01) ==
LOC: ANHLAB 10:33
PROVIDERS: PCP Internal Medicine
DX: F20.89 Other schizophrenia (principal)
CPT/HCPCS: 96372